=== PATIENT | male | born 1985 | race Hispanic/Latino ===

== ENCOUNTER 2019-11-26 13:49 | Emergency (ER) | payer SELFPAY ==
--- NOTE | 2019-11-26 15:11 | RAD REPORT ---
EXAM DESCRIPTION: RAD - Chest Pa And Lat (2 Views) - 11/26/2019 3:03 pm CLINICAL HISTORY: Cough;Fever Chest pain. COMPARISON: CHEST PA AND LAT 2 VIEW dated 12/05/2007; CHEST PA AND LAT 2 VIEW dated 06/29/2006 FINDINGS: Mild bilateral pulmonary opacities are present, greater on the left, likely representing i nfiltrate/ pneumonia. The heart is normal in size. No displaced fractures.
[2019-11-26] MEDS ORDERED: ACETAMINOPHEN 325 MG TABLET ONE (15:18)
[2019-11-26] MEDS ORDERED: CEFTRIAXONE/SWI 1gm 2 GM/20 ML SYR ONE (16:28)
[2019-11-26] MEDS ORDERED: AZITHROMYCIN IV 500 MG in NA CHLORIDE 0.9% 250 ML IVPB ONE (17:00)
[2019-11-26 17:15] LABS: Basophils % 0.7 % (0-1.3); Hematocrit 44.7 % (39.6-49.0); MPV 11.5 fL (7.6-11.3); RBC Red Blood Cell Count 4.85 M/uL (4.33-5.43)
[2019-11-26] MEDS ORDERED: ONDANSETRON 4 MG/2 ML VIAL ONE (17:21)
--- NOTE | 2019-11-26 17:32 | EDPHYS ---
Physician Documentation [facility] Name: Marek Blood Jr Age: 34 yrs Sex: Male : 1985 Arrival Date: 11/26/2019 Time: 13:51 Bed 6 Private MD: KIARRA Physician Hank Bedolla HPI: 11/25 14:49 This 34 yrs old Male presents to ER via Ambulatory with complaints of kraig Decreased Appetite, Body Aches. 14:49 The patient or guardian reports cough, described as mild. Onset: The symptoms/episode kraig began/occurred 2 day(s) ago. Severity of symptoms: At their worst the symptoms were mild, in the emergency department the symptoms are unchanged. Modifying factors: The symptoms are alleviated by nothing, the symptoms are aggravated by exertion, heat. The patient reports fever, that was measured at 101 degrees Fahrenheit. Modifying factors: there are no obvious modifying factors. Associated signs and symptoms: Pertinent positives: fever, nausea, rhinorrhea. Severity of symptoms: At their worst the symptoms were moderate in the emergency department the symptoms are unchanged. Historical: - Allergies: 14:09 No Known Allergies; ll1 - PMHx: 14:09 Diabetes - NIDDM; ll1 - PSHx: 14:09 None; ll1 - Immunization history:: Adult Immunizations up to date. - Social history:: Patient uses alcohol, only on a social basis. Patient/guardian denies using street drugs, tobacco products, Smoking status: unknown. - Family history:: not pertinent. ROS: 14:49 Constitutional: Negative for fever, chills, and weight loss, Eyes: Negative for injury, kraig pain, redness, and discharge, ENT: Negative for injury, pain, and discharge, Neck: Negative for injury, pain, and swelling, Cardiovascular: Negative for chest pain, palpitations, and edema, Abdomen/GI: Negative for abdominal pain, nausea, vomiting, diarrhea, and constipation, Back: Negative for injury and pain, : Negative for injury, bleeding, discharge, and swelling, MS/Extremity: Negative for injury and deformity, Skin: Negative for injury, rash, and discoloration, Neuro: Negative for headache, weakness, numbness, tingling, and seizure, Psych: Negative for depression, anxiety, suicide ideation, homicidal ideation, and hallucinations, Allergy/Immunology: Negative for hives, rash, and allergies, Endocrine: Negative for neck swelling, polydipsia, polyuria, polyphagia, and marked weight changes, Hematologic/Lymphatic: Negative for swollen nodes, abnormal bleeding, and unusual bruising. 14:49 Respiratory: Positive for cough, with no reported sputum. Exam: 14:54 Constitutional: This is a well developed, well nourished patient who is awake, alert, kraig and in no acute distress. Head/Face: Normocephalic, atraumatic. Eyes: Pupils equal round and reactive to light, extra-ocular motions intact. Lids and lashes normal. Conjunctiva and sclera are non-icteric and not injected. Cornea within normal limits. Periorbital areas with no swelling, redness, or edema. ENT: Nares patent. No nasal discharge, no septal abnormalities noted. Tympanic membranes are normal and external auditory canals are clear. Oropharynx with no redness, swelling, or masses, exudates, or evidence of obstruction, uvula midline. Mucous membranes moist. Neck: Trachea midline, no thyromegaly or masses palpated, and no cervical lymphadenopathy. Supple, full range of motion without nuchal rigidity, or vertebral point tenderness. No Meningismus. Chest/axilla: Normal chest wall appearance and motion. Nontender with no deformity. No lesions are appreciated. Cardiovascular: Regular rate and rhythm with a normal S1 and S2. No gallops, murmurs, or rubs. Normal PMI, no JVD. No pulse deficits. Abdomen/GI: Soft, non-tender, with normal bowel sounds. No distension or tympany. No guarding or rebound. No evidence of tenderness throughout. Back: No spinal tenderness. No costovertebral tenderness. Full range of motion. Male : Normal genitalia with no discharge or lesions. Skin: Warm, dry with normal turgor. Normal color with no rashes, no lesions, and no evidence of cellulitis. MS/ Extremity: Pulses equal, no cyanosis. Neurovascular intact. Full, normal range of motion. Neuro: Awake and alert, GCS 15, oriented to person, place, time, and situation. Cranial nerves II-XII grossly intact. Motor strength 5/5 in all extremities. Sensory grossly intact. Cerebellar exam normal. Normal gait. Psych: Awake, alert, with orientation to person, place and time. Behavior, mood, and affect are within normal limits. 14:54 Respiratory: the patient does not display signs of respiratory distress, Respirations: normal, no acute changes, Breath sounds: bronchial sounds, that are mild, are scattered, Respiratory rate: 18 Vital Signs: 14:07 BP 132 / 90; Pulse 103; Resp 18; Temp 99.6; Pulse Ox 99% ; Weight 88.9 kg; Height 5 ft. ll1 8 in. (172.72 cm); Pain 5/10; 16:55 BP 118 / 74; Pulse 97; Resp 18; Pulse Ox 95% on R/A; ph 17:21 Temp 98.4; ph 18:33 BP 123 / 78; Pulse 89; Resp 20; Temp 98.1; Pulse Ox 97% on R/A; ph 14:07 Body Mass Index 29.80 (88.90 kg, 172.72 cm) ll1 MDM: 14:29 Patient medically screened. [facility] 14:51 Data reviewed: vital signs, nurses notes, lab test result(s), radiologic studies, plain kraig films. 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 Test interpretation: by ED physician or midlevel provider: plain radiologic studies. Counseling: I had a detailed discussion with the patient and/or guardian regarding: the historical points, exam findings, and any diagnostic results supporting the discharge/admit diagnosis, lab results, radiology results, the need for outpatient follow up, for definitive care, a family practitioner. 14:52 Differential diagnosis: viral Infection, bacterial infection, URI, bronchitis, kraig pneumonia. Medication response: acetaminophen administration has normalized the patient's temperature. ED course: no covid exposure known, fever and chills, non toxic will follow up and return if worse. 15:42 ED course: bilateral pna on cxr, will treat for community pna, follow up , self kraig quarantine until results back. 17:05 ED course: pt much improved, understands plan and to self isolate, return to the ER. [facility] 17:32 Differential Diagnosis: Bronchitis Influenza Upper Respiratory Infection Sinusitis kraig Asthma Exacerbation Viral Syndrome Pneumonia. ED course: much improved, will dc with close fu. 11/25 14:49 Order name: Influenza Screen (a \T\ B); Complete Time: 16:23 [facility] 11/25 14:49 Order name: COVID-19; Complete Time: 17:31 [facility] 11/25 14:49 Order name: Chest Pa And Lat (2 Views) XRAY; Complete Time: 16:23 [facility] 11/25 15:40 Order name: CBC with Diff; Complete Time: 17:31 [facility] 11/25 15:40 Order name: Comprehensive Metabolic Panel; Complete Time: 17:45 [facility] 11/25 15:40 Order name: Blood Culture Adult (2) [facility] 11/25 14:49 Order name: PO challenge; Complete Time: 15:08 [facility] Administered Medications: 15:16 Drug: Tylenol 650 mg Route: PO; ph 17:21 Follow up: Response: No adverse reaction ph 17:05 Drug: Rocephin 2 grams Route: IV; Rate: per protocol; Site: left antecubital; ph 17:21 Follow up: Response: No adverse reaction; IV Status: Completed infusion ph 17:10 Drug: Zofran (Ondansetron) 4 mg Route: IVP; Site: left antecubital; ph 18:32 Follow up: Response: No adverse reaction; Nausea is decreased ph 17:19 Drug: Zithromax 500 mg Route: IVPB; Infused Over: 1 hrs; Site: left antecubital; ph 18:32 Follow up: Response: No adverse reaction; IV Status: Completed infusion ph Disposition: 11/26/19 17:31 Discharged to Home. Impression: Acute upper respiratory infection, unspecified, Fever, unspecified, Bronchitis, not specified as acute or chronic, Type 2 diabetes mellitus. - Condition is Stable. - Discharge Instructions: Acute Bronchitis, Adult, Community-Acquired Pneumonia, Adult, Upper Respiratory Infection, Adult, Upper Respiratory Infection, Adult, [id number], Community-Acquired Pneumonia, Adult, [id number]-[id number], Cough, Adult, Fever, Adult, [id number]-yv-Jnrm. - Prescriptions for Bromfed DM 2- 30-10 mg/5 mL Oral syrup - take 10 milliliter by ORAL route every 4 hours; 15 milliliter. Zithromax 500 mg Oral Tablet - take 1 tablet by ORAL route once daily for 5 days; 5 tablet. Albuterol Sulfate 90 mcg/actuation - inhale 1-2 puff by INHALATION route every 4-6 hours; 1 Inhaler. - Medication Reconciliation Form, Thank You Letter, Antibiotic Education, Prescription Opioid Use, Work release form form. - Follow up: Private Physician; When: 2 - 3 days; Reason: Recheck today's complaints, Continuance of care, Re-evaluation by your physician. Follow up: Chivo Mensah; When: 2 - 3 days; Reason: Recheck today's complaints, Continuance of care, Re-evaluation by your physician. - Problem is new. - Symptoms have improved. Signatures: Dispatcher [employer] EDHank Cortez MD MD cha Hall, Patricia, RN RN Debbie Ortega RN RN ll1 Corrections: (The following items were deleted from the chart) 17:45 17:31 11/26/2019 17:31 Discharged to Home. Impression: Acute upper respiratory kraig infection, unspecified; Fever, unspecified; Bronchitis, not specified as acute or chronic. Condition is Stable. Discharge Instructions: Acute Bronchitis, Adult, Upper Respiratory Infection, Adult, Upper Respiratory Infection, Adult, [id number], Cough, Adult, Fever, Adult, [id number], Community-Acquired Pneumonia, Adult, Community-Acquired Pneumonia, Adult, Yirb-xv-Hove. Prescriptions for Bromfed DM 2-30-10 mg/5 mL Oral syrup - take 10 milliliter by ORAL route every 4 hours; 15 milliliter, Zithromax 500 mg Oral Tablet - take 1 tablet by ORAL route once daily for 5 days; 5 tablet, Albuterol Sulfate 90 mcg/actuation - inhale 1-2 puff by INHALATION route every 4-6 hours; 1 Inhaler. and Forms are Medication Reconciliation Form, Thank You Letter, Antibiotic Education, Prescription Opioid Use. Follow up: Private Physician; When: 2 - 3 days; Reason: Recheck today's complaints, Continuance of care, Re-evaluation by your physician. Follow up: Chivo Mensah; When: 2 - 3 days; Reason: Recheck today's complaints, Continuance of care, Re-evaluation by your physician. Problem is new. Symptoms have improved. kraig 18:35 17:45 11/26/2019 17:31 Discharged to Home. Impression: Acute upper respiratory ph infection, unspecified; Fever, unspecified; Bronchitis, not specified as acute or chronic; Type 2 diabetes mellitus. Condition is Stable. Discharge Instructions: Acute Bronchitis, Adult, Upper Respiratory Infection, Adult, Upper Respiratory Infection, Adult, [id number], Cough, Adult, Fever, Adult, Mccq-lq-[id number], Community-Acquired Pneumonia, Adult, Community-Acquired Pneumonia, Adult, Sfzs-[id number]-Lnnl. Prescriptions for Bromfed DM 2-30-10 mg/5 mL Oral syrup - take 10 milliliter by ORAL route every 4 hours; 15 milliliter, Zithromax 500 mg Oral Tablet - take 1 tablet by ORAL route once daily for 5 days; 5 tablet, Albuterol Sulfate 90 mcg/actuation - inhale 1-2 puff by INHALATION route every 4-6 hours; 1 Inhaler. and Forms are Medication Reconciliation Form, Thank You Letter, Antibiotic Education, Prescription Opioid Use. Follow up: Private Physician; When: 2 - 3 days; Reason: Recheck today's complaints, Continuance of care, Re-evaluation by your physician. Follow up: Chivo Mensah; When: 2 - 3 days; Reason: Recheck today's complaints, Continuance of care, Re-evaluation by your physician. Problem is new. Symptoms have improved. kraig
--- NOTE | 2019-11-26 17:32 | ER ---
Nurse's Notes [facility] Name: Marek Blood Jr Age: 34 yrs Sex: Male : 1985 Arrival Date: 11/26/2019 Time: 13:51 Bed 6 Private MD: Diagnosis: Acute upper respiratory infection, unspecified;Fever, unspecified;Bronchitis, not specified as acute or chronic;Type 2 diabetes mellitus Presentation: 11/25 14:07 Chief complaint: Patient states: Slight cough, body aches, decreased appetite since ll1 evening. No known fever. Coronavirus screen: Proceed with normal triage. Patient reports a cough. Patient denies shortness of breath or difficulty breathing. Patient denies measured and/or subjective temperature greater than 100.4F prior to today's visit. Patient denies travel on a cruise ship or to a country the [facility] currently lists as an affected area. Patient denies contact with known and/or suspected case of COVID-19. Ebola Screen: Patient denies travel to an Ebola-affected area in the 21 days before illness onset. Initial Sepsis Screen: Does the patient meet any 2 criteria? HR > 90 bpm. No. Patient's initial sepsis screen is negative. Risk Assessment: Do you want to hurt yourself or someone else? Patient reports no desire to harm self or others. Onset of symptoms was November 21, 2019. 14:07 Method Of Arrival: Ambulatory ll1 14:07 Acuity: ARDEN 3 ll1 18:34 Initial Sepsis Screen: Does the patient have a suspected source of infection? Yes: ph Productive cough/pneumonia. Historical: - Allergies: 14:09 No Known Allergies; ll1 - PMHx: 14:09 Diabetes - NIDDM; ll1 - PSHx: 14:09 None; ll1 - Immunization history:: Adult Immunizations up to date. - Social history:: Patient uses alcohol, only on a social basis. Patient/guardian denies using street drugs, tobacco products, Smoking status: unknown. - Family history:: not pertinent. Screenin:18 Abuse screen: Denies threats or abuse. Denies injuries from another. Nutritional ph screening: No deficits noted. Tuberculosis screening: No symptoms or risk factors identified. Fall Risk None identified. Assessment: 15:16 General: Appears in no apparent distress. comfortable, Behavior is calm, cooperative, ph appropriate for age, Reports chills for fever for. Pain: Complains of pain in head. Neuro: Level of Consciousness is awake, alert, obeys commands, Oriented to person, place, time, situation, Reports dizziness, headache. Cardiovascular: Capillary refill < 3 seconds in bilateral fingers Patient's skin is warm and dry. Respiratory: Airway is patent Respiratory effort is even, labored, Respiratory pattern is regular, symmetrical. GI: Reports nausea, vomiting, Patient currently denies abdominal pain, diarrhea. :. Derm: Skin is intact, is healthy with good turgor, Skin is pink, warm \T\ dry. Musculoskeletal: Circulation, motion, and sensation intact. Range of motion: intact in all extremities. 16:00 Reassessment: Patient appears in no apparent distress at this time. Patient and/or ph family updated on plan of care and expected duration. Pain level reassessed. Patient is alert, oriented x 3, equal unlabored respirations, skin warm/dry/pink. 17:20 Reassessment: Patient appears in no apparent distress at this time. Patient and/or ph family updated on plan of care and expected duration. Pain level reassessed. Patient is alert, oriented x 3, equal unlabored respirations, skin warm/dry/pink. 17:34 Reassessment: D/C pending completion of IV medication. ph 18:32 Reassessment: Patient appears in no apparent distress at this time. Patient and/or ph family updated on plan of care and expected duration. Pain level reassessed. Patient is alert, oriented x 3, equal unlabored respirations, skin warm/dry/pink. Antibiotics complete, pt d/c home w/ prescriptions. Vital Signs: 14:07 BP 132 / 90; Pulse 103; Resp 18; Temp 99.6; Pulse Ox 99% ; Weight 88.9 kg; Height 5 ft. ll1 8 in. (172.72 cm); Pain 5/10; 16:55 BP 118 / 74; Pulse 97; Resp 18; Pulse Ox 95% on R/A; ph 17:21 Temp 98.4; ph 18:33 BP 123 / 78; Pulse 89; Resp 20; Temp 98.1; Pulse Ox 97% on R/A; ph 14:07 Body Mass Index 29.80 (88.90 kg, 172.72 cm) ll1 ED Course: 13:51 Patient arrived in ED. ag5 14:09 Triage completed. ll1 14:09 Arm band placed on Patient notified of wait time. ll1 14:29 Hank Bedolla MD is Attending Physician. kraig 14:50 Mars Walker, RN is Primary Nurse. em 15:02 Chest Pa And Lat (2 Views) XRAY In Process Unspecified. EDMS 15:19 Patient has correct armband on for positive identification. Bed in low position. Call ph light in reach. Side rails up X 1. Pulse ox on. NIBP on. 16:53 Missed attempt(s): 22 gauge in right forearm. Bleeding controlled, band aid applied, ph catheter tip intact. Missed attempt(s): 22 gauge in right forearm. Bleeding controlled, band aid applied, catheter tip intact. 16:55 Initial lab(s) drawn, by la, sent to lab. Inserted saline lock: 22 gauge in left kj1 antecubital area, using aseptic technique. Blood collected. 17:17 Health Dept notified/ PUI # [id number]/ Jose in lab notified. eb 17:31 Chivo Mensah MD is Referral Physician. kraig 17:34 No provider procedures requiring assistance completed. ph 18:34 IV discontinued, intact, bleeding controlled, No redness/swelling at site. Pressure ph dressing applied. Administered Medications: 15:16 Drug: Tylenol 650 mg Route: PO; ph 17:21 Follow up: Response: No adverse reaction ph 17:05 Drug: Rocephin 2 grams Route: IV; Rate: per protocol; Site: left antecubital; ph 17:21 Follow up: Response: No adverse reaction; IV Status: Completed infusion ph 17:10 Drug: Zofran (Ondansetron) 4 mg Route: IVP; Site: left antecubital; ph 18:32 Follow up: Response: No adverse reaction; Nausea is decreased ph 17:19 Drug: Zithromax 500 mg Route: IVPB; Infused Over: 1 hrs; Site: left antecubital; ph 18:32 Follow up: Response: No adverse reaction; IV Status: Completed infusion ph Outcome: 17:31 Discharge ordered by . kraig 18:33 Discharged to home ambulatory. ph 18:33 Condition: good 18:33 Discharge instructions given to patient, Instructed on discharge instructions, follow up and referral plans. medication usage, Demonstrated understanding of instructions, follow-up care, medications, Prescriptions given X 3. 18:35 Patient left the ED. ph Addendum: 11/28/2019 17:14 Addendum: Other Unsuccessful attempt to contact pt about positive COVID-19 results made a a5 by Dr. Chatterjee at 1700. Pt now in ER 11/28/19 at 1714. Signatures: Dispatcher [employer] Hank Nuñez MD MD cha Munoz, Edgar, RN RN Alyx Lorenzo, RN RN aa5 Tiffany Pichardo RN RN Rachel Reynolds Ajare ag5 Jackson, Kandis kj1 Debbie Candelario RN RN ll1
[2019-11-26 17:39] LABS: ALT/SGPT 22 U/L (12-78); AST/SGOT 28 U/L (15-37); Alkaline Phosphatase 81 U/L (45-117); BUN Blood Urea Nitrogen 9 mg/dL (7-18); Bicarbonate 29 mmol/L (21-32); Bilirubin Total 0.5 mg/dL (0.2-1.0); Glucose Level 267 mg/dL (74-106); Potassium 3.6 mmol/L (3.5-5.1); Protein, Total 7.6 g/dL (6.4-8.2); Sodium Level 132 mmol/L (136-145)
[2019-11-26 18:47] VITALS: BP 123/78; TEMP 98.1; O2SAT 97
== END 2019-11-26 18:35 | disposition home or self-care (01) ==
LOC: ER 13:49
DX: U07.1 COVID-19 (principal); J40 Bronchitis, not specified as acute or chronic; E11.9 Type 2 diabetes mellitus without complications
CPT/HCPCS: 36415; 71046; 80053; 85025; 87040; 87804; 96365; 96375; 99284; J0456; J0696; J2405; J7030; U0001

== ENCOUNTER 2019-11-28 17:11 | Inpatient (IN) | payer OTHER, SELFPAY ==
--- NOTE | 2019-11-28 19:11 | RAD REPORT ---
EXAM DESCRIPTION: Sofia Single View11/28/2019 6:58 pm CLINICAL HISTORY: sob COMPARISON: November 26, 2019 FINDINGS: Moderate bilateral pulmonary opacities are present. The heart is normal size IMPRESSION: Moderate bilateral pulmonary opacities likely pneumonia
[2019-11-28 19:17] LABS: Absolute Lymphocytes (CBC) 1.1 K/uL (0.7-4.9); Basophils % 0.7 % (0-1.3); Hematocrit 45.5 % (39.6-49.0); Lymphocytes % 15.3 % (15.3-44.8); RBC Red Blood Cell Count 4.85 M/uL (4.33-5.43)
[2019-11-28 19:34] LABS: Protime INR 1.24
[2019-11-28 19:38] LABS: ALT/SGPT 19 U/L (12-78); AST/SGOT 26 U/L (15-37); Albumin 2.7 g/dL (3.4-5.0); Alkaline Phosphatase 70 U/L (45-117); BUN Blood Urea Nitrogen 8 mg/dL (7-18); Bicarbonate 28 mmol/L (21-32); Bilirubin Direct 0.2 mg/dL (0-0.2); Bilirubin Total 0.6 mg/dL (0.2-1.0); Glucose Level 249 mg/dL (74-106); Lipase 67 U/L (73-393); Potassium 3.7 mmol/L (3.5-5.1); Protein, Total 7.8 g/dL (6.4-8.2); Sodium Level 134 mmol/L (136-145)
[2019-11-28 19:42] LABS: NT PRO-BNP 8 pg/mL (<125); Troponin (Emerg Dept Use Only) < 0.02 ng/mL (0.0-0.045)
[2019-11-28 19:54] LABS: Ferritin 4834.7 ng/mL (26-388)
--- NOTE | 2019-11-28 20:18 | RAD REPORT ---
EXAM DESCRIPTION: CT - Chest For Pe Angio - 11/28/2019 7:55 pm CLINICAL HISTORY: sob COMPARISON: None. TECHNIQUE: Dynamically enhanced axial 3 mm thick images of the chest were obtained during administra tion of <100> mL Isovue 370 IV contrast. Coronal and oblique reconstruction images were generated and reviewed. Exam utilizes a protocol for optimal evaluation of pulmonary arterial tree. Maximum intensity projections 3D imaging was utilized All CT scans are performed using dose optimization technique as appropriate and may include automated exposure control or mA/KV adjustment according to patient size. FINDINGS: A pulmonary embolus is not seen. A thoracic aortic aneurysm is not noted. A pleural effusion is not seen. A pericardial effusion is not seen. Moderate bilateral areas of consolidation are scattered throughout the lungs. Fatty liver IMPRESSION: Negative for a pulmonary embolism. Moderate bilateral areas of consolidation scattered throughout the lungs consistent with pneumonia. T his can be seen with advanced Covid 19
--- NOTE | 2019-11-28 20:38 | ER ---
Nurse's Notes [facility] Name: Marek Blood Jr Age: 34 yrs Sex: Male : 1985 Arrival Date: 11/28/2019 Time: 17:13 Bed 13 Private MD: Diagnosis: COVID-19 Viral illness ;Acute respiratory failure Presentation: 11/27 17:33 Chief complaint: Patient states: Diagnosed in ER Monday with pneumonia and swabbed for ss COVID. Pt does not know his results yet. Pt reports his SOB is getting worse. Coronavirus screen: Patient reports a cough. Patient reports shortness of breath or difficulty breathing. Patient denies measured and/or subjective temperature greater than 100.4F prior to today's visit. Patient denies travel on a cruise ship or to a country the [facility] currently lists as an affected area. Patient denies contact with known and/or suspected case of COVID-19. Ebola Screen: Patient denies exposure to infectious person. Patient denies travel to an Ebola-affected area in the 21 days before illness onset. Initial Sepsis Screen: Does the patient meet any 2 criteria? RR > 20 per min. HR > 90 bpm. Does the patient have a suspected source of infection? Yes: Productive cough/pneumonia. Risk Assessment: Do you want to hurt yourself or someone else? Patient reports no desire to harm self or others. Onset of symptoms was November 21, 2019. 17:33 Method Of Arrival: Ambulatory ss 17:33 Acuity: ARDEN 2 ss Historical: - Allergies: 17:40 No Known Allergies; ss - PMHx: 17:40 Diabetes - NIDDM; ss - Immunization history:: Adult Immunizations up to date. - Social history:: Smoking status: Patient denies any tobacco usage or history of. Screenin:12 Abuse screen: Denies threats or abuse. Denies injuries from another. Nutritional ls4 screening: No deficits noted. Tuberculosis screening: No symptoms or risk factors identified. Fall Risk None identified. Assessment: 17:58 General: Appears in no apparent distress. comfortable, Behavior is calm, cooperative. ls4 19:10 Pain: Denies pain. Neuro: No deficits noted. Respiratory: Reports cough that is ls4 non-productive, dry, hacking, persistent Airway is patent Respiratory effort is even, unlabored, Respiratory pattern is regular, Breath sounds are clear bilaterally. the patient has moderate shortness of breath. GI: Abdomen is non-distended, Bowel sounds present X 4 quads. Abd is soft and non tender X 4 quads. : No deficits noted. No signs and/or symptoms were reported regarding the genitourinary system. Derm: No deficits noted. Musculoskeletal: No deficits noted. No signs and/or symptoms reported regarding the musculoskeletal system. 20:00 Reassessment: Patient appears in no apparent distress at this time. Patient and/or ls4 family updated on plan of care and expected duration. Pain level reassessed. Patient denies pain at this time. 21:02 Reassessment: Patient appears in no apparent distress at this time. Patient and/or ls4 family updated on plan of care and expected duration. Pain level reassessed. Patient denies pain at this time. 22:02 Reassessment: Patient appears in no apparent distress at this time. Patient and/or ls4 family updated on plan of care and expected duration. Pain level reassessed. Patient denies pain at this time. 23:30 Reassessment: report to Carlos CHAVEZ 4th floor. ls4 23:30 Reassessment: Patient appears in no apparent distress at this time. Patient and/or ls4 family updated on plan of care and expected duration. Pain level reassessed. Patient is alert, oriented x 3, equal unlabored respirations, skin warm/dry/pink. Vital Signs: 17:33 BP 117 / 75; Pulse 120; Resp 32; Temp 98.7(TE); Pulse Ox 95% on R/A; Weight 88.9 kg; ss Height 5 ft. 8 in. (172.72 cm); Pain 0/10; 18:10 BP 106 / 67; Pulse 103; Resp 24; Temp 98.4; Pulse Ox 94% on R/A; Pain 0/10; ls4 19:30 BP 106 / 67; Pulse 106; Resp 24; Pulse Ox 94% on R/A; Pain 0/10; ls4 20:30 BP 116 / 75; Pulse 101; Resp 22; Pulse Ox 96% ; Pain 0/10; ls4 21:30 BP 118 / 87; Pulse 97; Resp 20; Pulse Ox 96% on 2 lpm NC; Pain 0/10; ls4 22:30 BP 119 / 85; Pulse 104; Resp 29; Pulse Ox 96% on 2 lpm NC; Pain 0/10; ls4 17:33 Body Mass Index 29.80 (88.90 kg, 172.72 cm) ED Course: 17:13 Patient arrived in ED. ag5 17:39 Triage completed. ss 17:40 Arm band placed on right wrist. ss 17:56 Minna Zambrano, RN is Primary Nurse. ls4 18:05 Patient has correct armband on for positive identification. Bed in low position. Call ls4 light in reach. Side rails up X 1. 18:05 ip attorney on. Pulse ox on. NIBP on. Verbal reassurance given. Droplet isolation ls4 initiated. 18:24 Samuel Lemus PA is PHCP. jr8 18:24 Zach Chatterjee MD is Attending Physician. jr8 18:58 XRAY Chest (1 view) In Process Unspecified. EDMS 19:10 No apparent distress. ls4 19:10 No provider procedures requiring assistance completed. Initial lab(s) drawn, by ia, ls4 sent to lab. Inserted saline lock: 20 gauge in left antecubital area, using aseptic technique. Blood collected. Patient maintains SpO2 saturation greater than 95% on room air. 19:54 Notified Nurse Practitioner and/or Physician Education Finance Processor of a critical lab result(s), d fc dimer 546. 19:55 CT Chest For PE Angio In Process Unspecified. EDMS 20:36 Shabbir Romero MD is Hospitalizing Provider. jr8 23:30 No apparent distress. Resting quietly. ls4 23:30 Patient admitted, IV remains in place. ls4 Administered Medications: 20:23 Not Given (Physician Discretion): Decadron - Dexamethasone 6 mg IVP once jr8 Outcome: 20:37 Decision to Hospitalize by Provider. jr8 11/28 00:03 Admitted to Med/surg via stretcher, room 417, with chart, Report called to CARLOS CHAVEZ ls4 Condition: unchanged Instructed on the need for admit. 00:06 Patient left the ED. ls4 Signatures: Dispatcher [employer] EDMS Iram Rasmussen RN RN Ashley Alex RN RN Samuel Lemus PA PA jr8 Minna Zambrano RN RN ls4 Olivia Chowdhury 5
--- NOTE | 2019-11-28 20:38 | EDPHYS ---
Physician Documentation [facility] Name: Marek Blood Jr Age: 34 yrs Sex: Male : 1985 Arrival Date: 11/28/2019 Time: 17:13 Bed 13 Private MD: ED Physician Zach Chatterjee HPI: 11/27 20:23 This 34 yrs old Male presents to ER via Ambulatory with complaints of jr8 Nausea/Vomiting, Breathing Difficulty, Cough. 20:23 The patient presents to the emergency department with nausea, vomiting. Onset: The jr8 symptoms/episode began/occurred acutely, 5 day(s) ago. Possible causes: unknown. The symptoms are aggravated by nothing. The symptoms are alleviated by nothing. Associated signs and symptoms: Pertinent positives: fever, cough, shortness of breath. Severity of symptoms: At their worst the symptoms were moderate in the emergency department the symptoms are unchanged. The patient has not experienced similar symptoms in the past. The patient has been recently seen by a physician:. Patient stated that he was tested for COVID due to symptoms. Came back positive today. Feeling worse and now more short of breath. Historical: - Allergies: 17:40 No Known Allergies; ss - PMHx: 17:40 Diabetes - NIDDM; ss - Immunization history:: Adult Immunizations up to date. - Social history:: Smoking status: Patient denies any tobacco usage or history of. ROS: 20:23 Eyes: Negative for injury, pain, redness, and discharge, ENT: Negative for injury, jr8 pain, and discharge, Neck: Negative for injury, pain, and swelling, Cardiovascular: Negative for chest pain, palpitations, and edema, Back: Negative for injury and pain, MS/Extremity: Negative for injury and deformity, Skin: Negative for injury, rash, and discoloration, Neuro: Negative for headache, weakness, numbness, tingling, and seizure. 20:23 Constitutional: Positive for body aches, chills, fever, malaise. 20:23 Respiratory: Positive for cough, shortness of breath. 20:23 Abdomen/GI: Positive for nausea and vomiting. Exam: 20:23 Eyes: Pupils equal round and reactive to light, extra-ocular motions intact. Lids and jr8 lashes normal. Conjunctiva and sclera are non-icteric and not injected. Cornea within normal limits. Periorbital areas with no swelling, redness, or edema. ENT: Nares patent. No nasal discharge, no septal abnormalities noted. Tympanic membranes are normal and external auditory canals are clear. Oropharynx with no redness, swelling, or masses, exudates, or evidence of obstruction, uvula midline. Mucous membranes moist. Neck: Trachea midline, no thyromegaly or masses palpated, and no cervical lymphadenopathy. Supple, full range of motion without nuchal rigidity, or vertebral point tenderness. No Meningismus. Abdomen/GI: Soft, non-tender, with normal bowel sounds. No distension or tympany. No guarding or rebound. No evidence of tenderness throughout. Back: No spinal tenderness. No costovertebral tenderness. Full range of motion. Skin: Warm, dry with normal turgor. Normal color with no rashes, no lesions, and no evidence of cellulitis. MS/ Extremity: Pulses equal, no cyanosis. Neurovascular intact. Full, normal range of motion. Neuro: Awake and alert, GCS 15, oriented to person, place, time, and situation. Cranial nerves II-XII grossly intact. Motor strength 5/5 in all extremities. Sensory grossly intact. Cerebellar exam normal. Normal gait. 20:23 Cardiovascular: Rate: tachycardic, Rhythm: regular, Pulses: Pulses are 2+ in right radial artery and left radial artery. Heart sounds: normal, normal S1and S2, no S3 or S4, no murmur, no rub, no gallop, Edema: is not appreciated. 20:23 Respiratory: mild respiratory distress is noted, Respirations: tachypnea, Breath sounds: are clear throughout, no bronchial sounds, no decreased breath sounds, no rales, rhonchi, no stridor, no wheezing, Respiratory rate: 32 20:23 ECG was reviewed by the Attending Physician. jr8 Vital Signs: 17:33 BP 117 / 75; Pulse 120; Resp 32; Temp 98.7(TE); Pulse Ox 95% on R/A; Weight 88.9 kg; ss Height 5 ft. 8 in. (172.72 cm); Pain 0/10; 18:10 BP 106 / 67; Pulse 103; Resp 24; Temp 98.4; Pulse Ox 94% on R/A; Pain 0/10; ls4 19:30 BP 106 / 67; Pulse 106; Resp 24; Pulse Ox 94% on R/A; Pain 0/10; ls4 20:30 BP 116 / 75; Pulse 101; Resp 22; Pulse Ox 96% ; Pain 0/10; ls4 21:30 BP 118 / 87; Pulse 97; Resp 20; Pulse Ox 96% on 2 lpm NC; Pain 0/10; ls4 22:30 BP 119 / 85; Pulse 104; Resp 29; Pulse Ox 96% on 2 lpm NC; Pain 0/10; ls4 17:33 Body Mass Index 29.80 (88.90 kg, 172.72 cm) ss MDM: 18:28 Patient medically screened. [facility] 20:27 Data reviewed: vital signs, nurses notes, lab test result(s), EKG, radiologic studies, [facility] CT scan, plain films. Data interpreted: Pulse oximetry: on room air is 91 %. Interpretation: borderline. Counseling: I had a detailed discussion with the patient and/or guardian regarding: the historical points, exam findings, and any diagnostic results supporting the discharge/admit diagnosis, lab results, radiology results, the need for further work-up and treatment in the hospital. 11/27 17:58 Order name: BMP; Complete Time: 20:18 [facility] 11/27 17:58 Order name: CBC with Diff; Complete Time: 19:33 [facility] 11/27 17:58 Order name: Hepatic Function; Complete Time: 20:18 [facility] 11/27 17:58 Order name: Lipase; Complete Time: 20:18 [facility] 11/27 17:58 Order name: Magnesium; Complete Time: 20:18 [facility] 11/27 18:25 Order name: NT PRO-BNP; Complete Time: 20:18 [facility] 11/27 18:25 Order name: PT-INR; Complete Time: 20:18 [facility] 11/27 18:25 Order name: Troponin (emerg Dept Use Only); Complete Time: 20:18 [facility] 11/27 18:25 Order name: DD; Complete Time: 20:18 [facility] 11/27 18:25 Order name: Ferritin; Complete Time: 20:18 [facility] 11/27 18:25 Order name: LDH; Complete Time: 20:18 [facility] 11/27 19:33 Order name: Blood Culture Adult (2) [facility] 11/27 19:33 Order name: Procalcitonin; Complete Time: 21:51 [facility] 11/27 19:33 Order name: Lactate; Complete Time: 21:39 [facility] 11/27 21:42 Order name: ABG Arterial Blood Gas EDMS 11/27 21:42 Order name: ABG Arterial Blood Gas EDMS 11/27 21:42 Order name: CBC with Automated Diff EDMS 11/27 21:42 Order name: CBC with Automated Diff EDMS 11/27 21:42 Order name: Comprehensive Metabolic Panel EDMS 11/27 21:42 Order name: Comprehensive Metabolic Panel EDMS 11/27 21:42 Order name: Lactate EDMS 11/27 21:42 Order name: Lactate EDMS 11/27 21:42 Order name: Lipid Profile EDMS 11/27 21:42 Order name: Lipid Profile EDMS 11/27 21:42 Order name: Magnesium EDMS 11/27 21:42 Order name: Magnesium EDMS 11/27 21:42 Order name: NT PRO-BNP EDMS 11/27 21:42 Order name: NT PRO-BNP EDMS 11/27 21:42 Order name: Phosphorus EDMS 11/27 21:42 Order name: Phosphorus EDMS 11/27 17:58 Order name: EKG; Complete Time: 17:59 [facility] 11/27 17:58 Order name: Cardiac monitoring; Complete Time: 19:09 [facility] 11/27 17:58 Order name: EKG - Nurse/Tech; Complete Time: 21:06 [facility] 11/27 17:58 Order name: IV Saline Lock; Complete Time: 19:09 [facility] 11/27 17:58 Order name: Labs collected and sent; Complete Time: 19:09 [facility] 11/27 17:58 Order name: O2 Per Protocol; Complete Time: 19:09 [facility] 11/27 17:58 Order name: O2 Sat Monitoring; Complete Time: 19:09 [facility] 11/27 18:25 Order name: XRAY Chest (1 view); Complete Time: 19:33 [facility] 11/27 19:33 Order name: CT Chest For PE Angio; Complete Time: 20:22 [facility] 11/27 21:42 Order name: CONS Physician Consult EDMO 11/27 21:42 Order name: Consistent Carb (ADA) 1800 Rad EDMO 11/27 21:42 Order name: Protime (+INR) EDMO 11/27 21:42 Order name: Protime (+INR) EDMS 11/27 21:42 Order name: PTT, Activated Partial Thromb EDMS 11/27 21:42 Order name: PTT, Activated Partial Thromb EDMS 11/27 21:42 Order name: Troponin I EDMS 11/27 21:42 Order name: Troponin I EDMS 11/27 21:42 Order name: Troponin I EDMS 11/27 21:42 Order name: Troponin I EDMS EC:23 Rate is 106 beats/min. Rhythm is regular, Sinus tachycardia. QRS [place] is Normal. [place] jr8 interval is normal at 154 msec. QRS interval is normal at 98 msec. QT interval is normal at 348 msec. No Q waves. T waves are Flattened in lead III. No ST changes noted. Clinical impression: Sinus tachycardia and No evidence of ischemia. Interpreted by me. Reviewed by me. Administered Medications: 20: Not Given (Physician Discretion): Decadron - Dexamethasone 6 mg IVP once jr8 Disposition: 11/28 14:57 Co-signature as Attending Physician, Zach Chatterjee MD I agree with the assessment and kdr plan of care. Disposition: 11/28/19 20:37 Hospitalization ordered by Shabbir Romero for Inpatient Admission. Preliminary diagnosis are COVID-19 Viral illness , Acute respiratory failure. - Bed requested for Telemetry/MedSurg (Inpatient). - Status is Inpatient Admission. ls4 - Condition is Fair. - Problem is new. - Symptoms have improved. Signatures: Dispatcher [employer] [facility] Kelli Valenzuela RN RN Zach Chatterjee MD MD [facility] Ashley Alex RN RN ss Roszak, Josh, PA PA jr8 Minna Zambrano, RN RN ls4 Corrections: (The following items were deleted from the chart) 11/27 22:53 20:37 Hospitalization Ordered by Shabbir Romero MD for Inpatient Admission. Preliminary dw diagnosis is COVID-19 Viral illness ; Acute respiratory failure. Bed requested for Intensive Care Unit. Status is Inpatient Admission. Condition is Fair. Problem is new. Symptoms have improved. jr8 11/28 00:06 11/27 22:53 11/28/2019 20:37 Hospitalization Ordered by Shabbir Romero MD for Inpatient ls4 Admission. Preliminary diagnosis is COVID-19 Viral illness ; Acute respiratory failure. Bed requested for Telemetry/MedSurg (Inpatient). Status is Inpatient Admission. Condition is Fair. Problem is new. Symptoms have improved. dw
[2019-11-28] MEDS ORDERED: IPRATROPIUM BROM 0.5MG/2.5ML NEB PRN (21:26)
[2019-11-28] MEDS ORDERED: ALBUTEROL 2.5 MG/3 ML NEB SOL NEB PRN (21:26)
[2019-11-28] MEDS ORDERED: ONDANSETRON 4 MG/2 ML VIAL IV PRN (21:26)
[2019-11-28] MEDS ORDERED: ACETAMINOPHEN 500 MG TAB PO PRN (21:26)
[2019-11-28] MEDS ORDERED: D50W 25 GM/50 ML SYRINGE/VIAL IV PRN (21:40)
[2019-11-28] MEDS ORDERED: GLUCAGON 1 MG/VIAL IM PRN (21:40)
[2019-11-28] MEDS: ALBUTEROL INHALER 60 PUFF/8 GM IH SCH (21:45)
[2019-11-28] MEDS ORDERED: NA CHLORIDE 0.9% 1,000 ML IV SCH (22:00)
--- NOTE | 2019-11-28 22:57 | P.HP ---
Certification for Inpatient Patient admitted to: Inpatient With expected LOS: >2 Midnights Patient will require the following post-hospital care: None Practitioner: I am a practitioner with admitting privileges, knowledge of patient current condition, hospital course, and medical plan of care. Services: Services provided to patient in accordance with Admission requirements found in Title 42 Section 412.3 of the Code of Federal Regulations Patient History Date of Service: 11/28/19 Reason for admission: COVID-19 pneumonia-consolidation History of Present Illness: Patient is a 34-year-old gentleman who comes to the hospital sick for the last few days. His coughing was getting worse so he came into the emergency room a couple of days ago. In the ER he was found have a pneumonia and sent home on inhaler therapy and antibiotic therapy. However, he was not getting any better. Whenever he we used the inhaler he says is symptom would worsen. He decided to come into the hospital for further evaluation. We arrived evaluation of his COVID-19 testing confirmed that he had COVID-[address] scan was also performed which revealed consolidation in multiple areas of infiltrate. Patient was hypoxic as well. He was admitted to the hospital and started on IV Decadron. Will get pulmonary consultation and continue with IV antibiotics as well. Cough medication as needed. Inhaler therapy as needed as well. Allergies No Known Allergies Allergy (Unverified 11/29/19 01:26) Home Medications: Albuterol Sulfate [Albuterol Sulfate Hfa] 2 inh IH Q4HP PRN 11/29/19 Atorvastatin Calcium [Lipitor] 40 mg PO DAILY 11/29/19 Azithromycin 500 mg PO DAILY 11/29/19 Glipizide [Glipizide ER] 10 mg PO DAILY 11/29/19 Metformin ER [Glucophage ER*] 500 mg PO BID 11/29/19 - Past Medical/Surgical History -: Diabetes type 1 Past Surgical History: Patient denies surgical history - Family History Father Family History: Reviewed- Non-Contributory - Social History Smoking Status: Never smoker Alcohol use: No CD- Drugs: No Review of Systems 10-point ROS is otherwise unremarkable Physical Examination - Vital Signs Temperature: 99 F Blood Pressure: 150/90 Pulse: 88 Respirations: 20 Pulse Ox (%): 92 - Physical Exam General: Alert, In no apparent distress, Oriented x3 HEENT: Atraumatic, PERRLA, Mucous membr. moist/pink, EOMI, Sclerae nonicteric Neck: Supple, 2+ carotid pulse no bruit, No LAD, Without JVD or thyroid abnormality Respiratory: Diminished, Rhonchi/gurgles Cardiovascular: Regular rate/rhythm, No murmurs Gastrointestinal: Normal bowel sounds, Soft and benign, Non-distended, No tenderness Musculoskeletal: No clubbing, No swelling, No tenderness Integumentary: No rashes Neurological: Normal gait, Normal speech, Normal strength at 5/5 x4 extr, Normal tone, Normal affect Lymphatics: No axilla or inguinal lymphadenopathy - Studies Laboratory Data (last 24 hrs) 11/28/19 19:00: PT 14.6 H, INR 1.24 11/28/19 19:00: WBC 7.4 D, Hgb 15.3, Hct 45.5, Plt Count 127 L D 11/28/19 19:00: Sodium 134 L, Potassium 3.7, BUN 8, Creatinine 0.76, Glucose 249 H, Magnesium 2.0, Total Bilirubin 0.6, AST 26, ALT 19, Alkaline Phosphatase 70, Lipase 67 L Assessment & Plan - Problems (Diagnosis) (1) Pneumonia due to COVID-19 virus Current Visit: Yes Status: Acute (2) Diabetes type 2, uncontrolled Current Visit: Yes Status: Acute (3) Hypoxemia Current Visit: Yes Status: Acute - Plan 1. Continue with IV antibiotics 2. IV Decadron therapy; strict blood sugar control and monitoring 3. Repeat chest x-ray 4. Will proceed with CT scan of the chest if pneumonia is not improved 5. Pulmonary consultation 6. Continue with nebs or albuterol inhaler therapy as needed 7. O2 per protocol 8. Continue with gentle hydration 9. Repeat labs including CBC and renal function in a.m. 10. GI and DVT prophylaxis Discharge Plan: Home Plan to discharge in: Greater than 2 days - Advance Directives Does patient have a Living Will: No Does patient have a Durable POA for Healthcare: No - Code Status/Comfort Care Code Status Assessed: Yes Code Status: Full Code Critical Care: No Time Spent Managing PTS Care (In Minutes): 45
[2019-11-29] MEDS ORDERED: AZITHROMYCIN 500 MG INJ IVPB ONE (00:06)
[2019-11-29] MEDS: dexAMETHasone 10 MG/ML VIAL IV SCH ×2 (00:07→05:53)
[2019-11-29] MEDS: CEFTRIAXONE/SWI 1gm 1 GM/10 ML SYR IV SCH ×2 (00:08→10:14)
[2019-11-29] MEDS ORDERED: NA CHLORIDE 0.9% 250 ML ONE (00:17)
[2019-11-29 00:27] VITALS: BMI 29.9
[2019-11-29] MEDS: ENOXAPARIN 40 MG/0.4 ML SQ SCH ×3 (00:30→20:45)
[2019-11-29] MEDS ORDERED: MORPHINE 4 MG/ML SYR IV PRN (00:33)
[2019-11-29] MEDS: INSULIN GLARGINE 100 UNITS/ML SQ SCH ×2 (00:40→21:15)
[2019-11-29] MEDS: INSULIN -REGULAR HUMAN 50 UNIT/0.5 ML ML SQ SCH ×6 (00:40→21:15)
[2019-11-29] MEDS: ALBUTEROL INHALER 60 PUFF/8 GM IH SCH ×4 (03:45→21:16)
--- NOTE | 2019-11-29 06:38 | EKG ---
Test Date: 2019-11-28 Test Time: 19:28:00 [employer] Vice President: PANTERA MEASUREMENT RESULTS: Intervals: Rate: 106 LA: 154 QRSD: 98 QT: 348 QTc: 462 [place]: P: 17 LA: 154 QRS: 2 T: 43 INTERPRETIVE STATEMENTS: Sinus tachycardia Otherwise normal ECG Compared to ECG 12/05/2007 10:39:31 Sinus rhythm no longer present Myocardial infarct finding no longer present Electronically Signed On 11-29-19 06:37:34 CDT by Stanley Small
[2019-11-29 06:50] LABS: Absolute Lymphocytes (CBC) 0.9 K/uL (0.7-4.9); Basophils % 0.2 % (0-1.3); Hematocrit 41.9 % (39.6-49.0); Lymphocytes % 13.3 % (15.3-44.8); MPV 11.9 fL (7.6-11.3); RBC Red Blood Cell Count 4.53 M/uL (4.33-5.43)
[2019-11-29 07:01] LABS: Protime INR 1.13
[2019-11-29 07:14] LABS: ALT/SGPT 18 U/L (12-78); AST/SGOT 27 U/L (15-37); Albumin 2.5 g/dL (3.4-5.0); Alkaline Phosphatase 65 U/L (45-117); BUN Blood Urea Nitrogen 9 mg/dL (7-18); Bicarbonate 25 mmol/L (21-32); Bilirubin Total 0.5 mg/dL (0.2-1.0); Glucose Level 269 mg/dL (74-106); HDL Cholesterol 19 mg/dL (40-60); LDL Cholesterol, Calculated 66 (<130); Magnesium 2.3 mg/dL (1.8-2.4); Phosphorus 2.9 mg/dL (2.5-4.9); Protein, Total 7.3 g/dL (6.4-8.2); Sodium Level 135 mmol/L (136-145); Troponin I < 0.02 ng/mL (0.0-0.045)
[2019-11-29 07:15] LABS: Arterial Blood Carboxyhemoglob 1.5 % (0-1.5); Blood Gas Oxyhemoglobin 85.5 % (94-97); Blood O2 Saturation 87.3 % (92-98.5)
[2019-11-29 07:18] LABS: NT PRO-BNP < 5 pg/mL (<125)
[2019-11-29] MEDS ORDERED: AZITHROMYCIN IV 500 MG in NA CHLORIDE 0.9% 250 ML IVPB SCH ×2 (09:00→21:00)
[2019-11-29] MEDS ORDERED: GUAIFENESIN/CODEINE 5ML UCUP PO PRN (09:26)
--- NOTE | 2019-11-29 09:29 | P.PN ---
Subjective Date of Service: 11/29/19 Patient remains hypoxic at this time. However, he states he is feeling better. We use incentive spirometer as well. Pulmonary consultation pending. Continue with albuterol inhaler, Decadron, and antibiotics. Review of Systems 10-point ROS is otherwise unremarkable Physical Examination - Vital Signs Temperature: 99 F Blood Pressure: 150/90 Pulse: 88 Respirations: 20 Pulse Ox (%): 92 - Physical Exam General: Alert, In no apparent distress, Oriented x3 Respiratory: Diminished, Expiratory wheezes Cardiovascular: Regular rate/rhythm, Normal S1 S2, No murmurs Gastrointestinal: Normal bowel sounds, Soft and benign, Non-distended, No tenderness Musculoskeletal: No clubbing, No swelling, No tenderness Integumentary: No rashes Neurological: Normal tone, Sensation intact - Studies Laboratory Data (last 24 hrs) 11/28/19 19:00: PT 14.6 H, INR 1.24 11/28/19 19:00: WBC 7.4 D, Hgb 15.3, Hct 45.5, Plt Count 127 L D 11/28/19 19:00: Sodium 134 L, Potassium 3.7, BUN 8, Creatinine 0.76, Glucose 249 H, Magnesium 2.0, Total Bilirubin 0.6, AST 26, ALT 19, Alkaline Phosphatase 70, Lipase 67 L Medications List Reviewed: Yes Assessment & Plan - Problems (Diagnosis) (1) Pneumonia due to COVID-19 virus Current Visit: Yes Status: Acute (2) Diabetes type 2, uncontrolled Current Visit: Yes Status: Acute (3) Hypoxemia Current Visit: Yes Status: Acute - Plan 1. Continue with IV antibiotics; patient states he is feeling better 2. IV Decadron therapy; strict blood sugar control and monitoring 3. Repeat chest x-ray in the next 24-48 hr; repeat ABG tomorrow morning as well 4. Will proceed with CT scan of the chest if pneumonia is not improved 5. Pulmonary consultation pending 6. Continue with nebs or albuterol inhaler therapy as needed 7. O2 per protocol 8. Continue with gentle hydration 9. Repeat labs including CBC and renal function in a.m. 10. GI and DVT prophylaxis; full dose anti coagulation will not be used at this time but will do Lovenox 40 subcu b.i.d. Discharge Plan: Home Plan to discharge in: Greater than 2 days - Advance Directives Does patient have a Living Will: No Does patient have a Durable POA for Healthcare: No - Code Status/Comfort Care Code Status: Full Code Critical Care: No Time Spent Managing PTS Care (In Minutes): 30
[2019-11-29] MEDS: dexAMETHasone 4 MG/ML VIAL IV SCH ×2 (11:57→16:55)
--- NOTE | 2019-11-29 13:23 | P.CNS ---
Date of Consult: 11/29/19 Reason for Consult: Wesley virus infection Chief Complaint: COVID-19 pneumonia-consolidation History of Present Illness: Patient is 34 years of age history obtained from review of medical records patient was seen from a distance no examination performed currently he has been coughing came to the emergency room was found to have pneumonia wesley virus positive currently stable on nasal cannula oxygen Allergies No Known Allergies Allergy (Unverified 11/29/19 01:26) Home Medications: Albuterol Sulfate [Albuterol Sulfate Hfa] 2 inh IH Q4HP PRN 11/29/19 Atorvastatin Calcium [Lipitor] 40 mg PO DAILY 11/29/19 Azithromycin 500 mg PO DAILY 11/29/19 Glipizide [Glipizide ER] 10 mg PO DAILY 11/29/19 Metformin ER [Glucophage ER*] 500 mg PO BID 11/29/19 - Past Medical/Surgical History Diabetic: Yes -: Diabetes type 1 - Family History Father Family History: Reviewed- Non-Contributory - Social History Smoking Status: Unknown if ever smoked Alcohol use: No CD- Drugs: No Caffeine use: No Place of Residence: Home Review of Systems is unable to be obtained Physical Examination Temp Pulse Resp BP Pulse Ox 99 F 82 20 107/67 93 11/29/19 12:00 11/29/19 12:00 11/29/19 12:00 11/29/19 12:00 11/29/19 12:00 General: Other (Exam deferred) Laboratory Data (last 24 hrs) 11/28/19 19:00: PT 14.6 H, INR 1.24 11/28/19 19:00: WBC 7.4 D, Hgb 15.3, Hct 45.5, Plt Count 127 L D 11/28/19 19:00: Sodium 134 L, Potassium 3.7, BUN 8, Creatinine 0.76, Glucose 249 H, Magnesium 2.0, Total Bilirubin 0.6, AST 26, ALT 19, Alkaline Phosphatase 70, Lipase 67 L - Problems (1) Pneumonia due to COVID-19 virus Current Visit: Yes Status: Acute Plan: Patient is 34 years of age admitted with wesley virus pneumonia bilateral infiltrates continue with Decadron and low-dose of spironolactone anti ROMEO negative fluid balance if he continues to get worse will resdesmir ovoid any ne bulizer the when consider a BiPAP change to p.o. levofloxacin
[2019-11-29] MEDS: SPIRONOLACTONE 25 MG TABLET PO SCH (16:55)
[2019-11-30] MEDS: dexAMETHasone 4 MG/ML VIAL IV SCH ×4 (00:23→17:06)
[2019-11-30] MEDS: ALBUTEROL INHALER 60 PUFF/8 GM IH SCH ×4 (03:45→20:20)
[2019-11-30] MEDS: GLIPIZIDE S.A. 5 MG TAB PO SCH (08:01)
[2019-11-30] MEDS: METFORMIN ER 500 MG TAB PO SCH ×2 (08:01→17:07)
[2019-11-30] MEDS: levoFLOXacin 500 MG TAB PO SCH (08:02)
[2019-11-30] MEDS: SPIRONOLACTONE 25 MG TABLET PO SCH (08:02)
[2019-11-30] MEDS: ENOXAPARIN 40 MG/0.4 ML SQ SCH ×2 (08:02→20:19)
[2019-11-30] MEDS: ATORVASTATIN 40 MG TAB PO SCH (08:04)
[2019-11-30] MEDS ORDERED: BENZONATATE 100 MG CAP PO PRN (08:27)
[2019-11-30] MEDS: INSULIN -REGULAR HUMAN 50 UNIT/0.5 ML ML SQ SCH ×4 (08:38→20:18)
[2019-11-30] MEDS ORDERED: HOME MED 1 EA UNK (Glipizide [Glipizide Er] 10 MG) PO SCH (09:00)
[2019-11-30] MEDS: GUAIFENESIN 600 MG SA TAB PO SCH ×2 (10:11→20:19)
--- NOTE | 2019-11-30 15:15 | P.PN ---
Subjective Date of Service: 11/30/19 Chief Complaint: COVID-19 pneumonia-consolidation Subjective: Improving Physical Examination - Vital Signs Temperature: 97.3 F Blood Pressure: 107/71 Pulse: 80 Respirations: 20 Pulse Ox (%): 93 - Physical Exam General: Alert, In no apparent distress, Oriented x3, Cooperative HEENT: Atraumatic Neck: Supple Respiratory: Clear to auscultation bilaterally, Normal air movement Cardiovascular: Normal pulses, Regular rate/rhythm Gastrointestinal: Normal bowel sounds, No tenderness, No masses, No rebound, No guarding Musculoskeletal: No erythema, No tenderness, No warmth Integumentary: No tenderness/swelling, No erythema, No warmth, No cyanosis Neurological: Normal speech, Normal strength at 5/5 x4 extr, Normal tone, Normal affect - Studies Medications List Reviewed: Yes Assessment & Plan Discharge Plan: Home Plan to discharge in: 48 Hours Physician Review Additional Text: Impression: Bilateral viral pneumonia positive for COVID 19 infection Diabetes mellitus type 2 with hyperglycemia Hyperlipidemia Plan: Continue with antibiotic therapy, Decadron, and oxygen. Continue wean off. Encourage incentive spirometer. Encourage ambulation. Will start Lantus for better diabetic control. Restart home medication-metformin and glipizide. Continue with statin medication. Patient on higher dose DVT prophylaxis medication. Will continue monitor closely. Patient has improved. Patient declined convalescent plasma. Anticipate improvement over the next 48 hr. Time Spent Managing Pts Care (In Minutes): 55
[2019-11-30] MEDS: INSULIN GLARGINE 100 UNITS/ML SQ SCH (20:18)
[2019-12-01] MEDS: dexAMETHasone 4 MG/ML VIAL IV SCH ×5 (00:09→23:41)
[2019-12-01] MEDS: ALBUTEROL INHALER 60 PUFF/8 GM IH SCH ×5 (03:45→23:42)
[2019-12-01] MEDS: METFORMIN ER 500 MG TAB PO SCH ×2 (08:33→17:10)
[2019-12-01] MEDS: ATORVASTATIN 40 MG TAB PO SCH (08:33)
[2019-12-01] MEDS: ENOXAPARIN 40 MG/0.4 ML SQ SCH ×2 (08:34→20:01)
[2019-12-01] MEDS: SPIRONOLACTONE 25 MG TABLET PO SCH (08:34)
[2019-12-01] MEDS: levoFLOXacin 500 MG TAB PO SCH (08:34)
[2019-12-01] MEDS: GLIPIZIDE S.A. 5 MG TAB PO SCH (08:34)
[2019-12-01] MEDS: GUAIFENESIN 600 MG SA TAB PO SCH ×2 (08:34→20:01)
[2019-12-01] MEDS: INSULIN -REGULAR HUMAN 50 UNIT/0.5 ML ML SQ SCH ×4 (08:35→21:13)
--- NOTE | 2019-12-01 09:27 | P.PN ---
Subjective Date of Service: 12/01/19 Chief Complaint: COVID-19 pneumonia-consolidation Subjective: Improving (Patient is doing much better room-air sats a satisfactory no new complaints) Review of Systems Unremarkable Physical Examination - Vital Signs Temperature: 97.8 F Blood Pressure: 144/90 Pulse: 72 Respirations: 18 Pulse Ox (%): 92 - Physical Exam General: Alert, In no apparent distress, Oriented x3 - Studies Medications List Reviewed: Yes Assessment & Plan - Problems (Diagnosis) (1) Pneumonia due to COVID-19 virus Current Visit: Yes Status: Acute Plan: Patient is doing much better room-air sats a satisfactory discharged home on prednisone 10 mg twice a day for a week no antibiotics needed resume all his home medications to do a telephone visit with me in 1 weeks
--- NOTE | 2019-12-01 13:48 | P.DS ---
Admission Date: 11/28/19 Discharge Date: 12/01/19 Disposition: ROUTINE DISCHARGE Discharge Condition: GOOD Reason for Admission: COVID-19 pneumonia-consolidation - Problems (1) Diabetes type 2, uncontrolled Current Visit: Yes Status: Acute (2) Hypoxemia Current Visit: Yes Status: Acute (3) Pneumonia due to COVID-19 virus Current Visit: Yes Status: Acute Brief History of Present Illness: Please refer to H&P Hospital Course: Patient is 34 year old female who was admitted with atypical PNA secondary to COVID 19. He has been successfully weaned off oxygen. Today was my first encounter with the patient. He was on room air without respiratory distress. Patient will be discharged to complete a week course of prednisone. Vital Signs/Physical Exam: Temp Pulse Resp BP Pulse Ox 97.5 F 72 18 121/72 93 12/01/19 12:00 12/01/19 12:00 12/01/19 12:00 12/01/19 12:00 12/01/19 12:00 General: Alert, In no apparent distress, Cooperative HEENT: Atraumatic, Normocephalic, EOMI Neck: Supple Respiratory: Clear to auscultation bilaterally, Normal air movement Cardiovascular: No edema, Normal pulses, Regular rate/rhythm, Normal S1 S2 Gastrointestinal: Normal bowel sounds, Soft and benign, Non-distended, No ascites Musculoskeletal: No clubbing, No swelling, No contractures, No erythema, No tenderness, No warmth Integumentary: No rashes, No breakdown, No significant lesion, No tenderness/swelling, No erythema, No warmth, No cyanosis Neurological: Normal speech, Sensation intact, Normal affect Laboratory Data at Discharge: WBC 7.0 K/uL (4.3-10.9) 11/29/19 06:30 Hgb 14.5 g/dL (13.6-17.9) 11/29/19 06:30 Hct 41.9 % (39.6-49.0) 11/29/19 06:30 Plt Count 116 K/uL (152-406) L 11/29/19 06:30 PT 13.3 SECONDS (9.5-12.5) H 11/29/19 06:30 INR 1.13 11/29/19 06:30 APTT 43.6 SECONDS (24.3-36.9) H 11/29/19 06:30 Sodium 135 mmol/L (136-145) L 11/29/19 06:30 Potassium 4.0 mmol/L (3.5-5.1) 11/29/19 06:30 BUN 9 mg/dL (7-18) 11/29/19 06:30 Creatinine 0.54 mg/dL (0.55-1.3) L 11/29/19 06:30 Glucose 269 mg/dL (74-106) H 11/29/19 06:30 Phosphorus 2.9 mg/dL (2.5-4.9) 11/29/19 06:30 Magnesium 2.3 mg/dL (1.8-2.4) 11/29/19 06:30 Total Bilirubin 0.5 mg/dL (0.2-1.0) 11/29/19 06:30 AST 27 U/L (15-37) 11/29/19 06:30 ALT 18 U/L (12-78) 11/29/19 06:30 Alkaline Phosphatase 65 U/L (45-117) 11/29/19 06:30 Troponin I < 0.02 ng/mL (0.0-0.045) 12/01/19 06:18 Triglycerides 156 mg/dL (<150) H 11/29/19 06:30 Cholesterol 116 mg/dL (<200) 11/29/19 06:30 HDL Cholesterol 19 mg/dL (40-60) L 11/29/19 06:30 Cholesterol/HDL Ratio 6.11 11/29/19 06:30 Lipase 67 U/L (73-393) L 11/28/19 19:00 Home Medications: Albuterol Sulfate [Albuterol Sulfate Hfa] 2 inh IH Q4HP PRN 11/29/19 Atorvastatin Calcium [Lipitor] 40 mg PO DAILY 11/29/19 Glipizide [Glipizide ER] 10 mg PO DAILY 11/29/19 Metformin ER [Glucophage ER*] 500 mg PO BID 11/29/19 predniSONE [Deltasone*] 10 mg PO BID #14 tab 12/01/19 New Medications: predniSONE [Deltasone*] 10 mg PO BID #14 tab Patient Discharge Instructions: Patient to call for follow-up next week Diet: Regular Activity: Ad anant
[2019-12-01] MEDS ORDERED: GLUCAGON 1 MG/VIAL IM PRN (15:06)
[2019-12-01] MEDS ORDERED: D50W 25 GM/50 ML SYRINGE/VIAL IV PRN (15:06)
--- NOTE | 2019-12-01 15:16 | P.PN ---
Subjective Date of Service: 12/01/19 Chief Complaint: COVID-19 pneumonia-consolidation Subjective: Improving (Is doing well. He is stabilized from a respiratory standpoint. Doing well on room air. He is discharged was delayed due to uncontrolled hyperglycemia. He is going to need a home regimen of long- acting/intermediate acting scheduled insulin, which she does not have at home. Patient is on a have any insurance. I will bring this up with the employment evaluator/case manager at the [facility]) Physical Examination - Vital Signs Temperature: 97.5 F Blood Pressure: 121/72 Pulse: 72 Respirations: 18 Pulse Ox (%): 93 - Physical Exam General: Alert, In no apparent distress, Cooperative HEENT: Atraumatic, Normocephalic, EOMI Neck: Supple Respiratory: Clear to auscultation bilaterally, Normal air movement Cardiovascular: No edema, Regular rate/rhythm, Normal S1 S2 Gastrointestinal: Normal bowel sounds, Soft and benign, Non-distended Musculoskeletal: No clubbing, No swelling, No contractures, No erythema, No tenderness, No warmth Integumentary: No rashes, No breakdown, No significant lesion, No tenderness/swelling, No erythema, No warmth, No cyanosis Neurological: Normal speech, Sensation intact, Normal affect - Studies Medications List Reviewed: Yes Assessment & Plan - Problems (Diagnosis) (1) Diabetes type 2, uncontrolled Current Visit: Yes Status: Acute (2) Hypoxemia Current Visit: Yes Status: Acute (3) Pneumonia due to COVID-19 virus Current Visit: Yes Status: Acute Physician Review Additional Text: Impression: Patient is a 34 year old male with uncontrolled type II diabetes mellitus admitted wt COVID 19. He is stable from a respiratory standpoint. He is staying in the hospital for management of uncontrolled DM. A1c 10.1. Patient is insulin naive prior to this admission. He does not have any insurance. Bilateral viral pneumonia positive for COVID 19 infection Diabetes mellitus type 2 with hyperglycemia Hyperlipidemia Plan: Change insulin regimen from lantus to NPH Continue insulin sliding scale Continue statin Continue with antibiotic therapy, Decadron, and oxygen. Systemic anticoagulation until discharge Patient declined convalenscent plasma Encourage incentive spirometer. Encourage ambulation.
[2019-12-01] MEDS: NPH (HUMAN) 100 UNITS/ML INSULIN SQ SCH (17:10)
[2019-12-02] MEDS: dexAMETHasone 4 MG/ML VIAL IV SCH ×2 (06:24→11:52)
[2019-12-02] MEDS: INSULIN -REGULAR HUMAN 50 UNIT/0.5 ML ML SQ SCH ×2 (07:30→11:30)
[2019-12-02] MEDS: SPIRONOLACTONE 25 MG TABLET PO SCH (08:09)
[2019-12-02] MEDS: METFORMIN ER 500 MG TAB PO SCH (08:10)
[2019-12-02] MEDS: NPH (HUMAN) 100 UNITS/ML INSULIN SQ SCH (08:10)
[2019-12-02] MEDS: GLIPIZIDE S.A. 5 MG TAB PO SCH (08:10)
[2019-12-02] MEDS: GUAIFENESIN 600 MG SA TAB PO SCH (08:10)
[2019-12-02] MEDS: ENOXAPARIN 40 MG/0.4 ML SQ SCH (08:10)
[2019-12-02] MEDS: levoFLOXacin 500 MG TAB PO SCH (08:10)
[2019-12-02] MEDS: ATORVASTATIN 40 MG TAB PO SCH (08:10)
[2019-12-02] MEDS: ALBUTEROL INHALER 60 PUFF/8 GM IH SCH (08:11)
[2019-12-02 10:22] VITALS: O2SAT 97
--- NOTE | 2019-12-02 10:36 | P.DS ---
Admission Date: 11/28/19 Discharge Date: 12/02/19 Disposition: ROUTINE DISCHARGE Discharge Condition: GOOD Reason for Admission: COVID-19 pneumonia-consolidation - Problems (1) Diabetes type 2, uncontrolled Current Visit: Yes Status: Acute (2) Hypoxemia Current Visit: Yes Status: Acute (3) Pneumonia due to COVID-19 virus Current Visit: Yes Status: Acute Brief History of Present Illness: Please refer to H&P Hospital Course: Patient is 34 year old female who was admitted with atypical PNA secondary to COVID 19. He has been successfully weaned off oxygen and is currently without respiratory distress. Patient was supposed to be discharged yesterday but stayed due to uncontrolled hyperglycemia. He was started on NPH. His A1c 10.1. He is insulin naive. Case discussed during MDR today. SW/CM assistance requested for insulin supplies. Patient will be discharged to complete a week course of prednisone. Vital Signs/Physical Exam: Temp Pulse Resp BP Pulse Ox 97.6 F 77 19 142/78 H 97 12/02/19 07:52 12/02/19 08:09 12/02/19 07:52 12/02/19 08:09 12/02/19 07:52 General: Alert, In no apparent distress, Cooperative HEENT: Atraumatic, Normocephalic, EOMI Neck: Supple Respiratory: Clear to auscultation bilaterally, Normal air movement Cardiovascular: Normal pulses, Regular rate/rhythm, Normal S1 S2 Gastrointestinal: Normal bowel sounds, Soft and benign, Non-distended, No tenderness Musculoskeletal: No clubbing, No swelling, No contractures, No erythema, No tenderness, No warmth Integumentary: No rashes, No breakdown, No significant lesion, No tenderness/swelling, No erythema, No warmth, No cyanosis Neurological: Normal speech, Sensation intact, Normal affect Laboratory Data at Discharge: WBC 7.0 K/uL (4.3-10.9) 11/29/19 06:30 Hgb 14.5 g/dL (13.6-17.9) 11/29/19 06:30 Hct 41.9 % (39.6-49.0) 11/29/19 06:30 Plt Count 116 K/uL (152-406) L 11/29/19 06:30 PT 13.3 SECONDS (9.5-12.5) H 11/29/19 06:30 INR 1.13 11/29/19 06:30 APTT 43.6 SECONDS (24.3-36.9) H 11/29/19 06:30 Sodium 135 mmol/L (136-145) L 11/29/19 06:30 Potassium 4.0 mmol/L (3.5-5.1) 11/29/19 06:30 BUN 9 mg/dL (7-18) 11/29/19 06:30 Creatinine 0.54 mg/dL (0.55-1.3) L 11/29/19 06:30 Glucose 269 mg/dL (74-106) H 11/29/19 06:30 Phosphorus 2.9 mg/dL (2.5-4.9) 11/29/19 06:30 Magnesium 2.3 mg/dL (1.8-2.4) 11/29/19 06:30 Total Bilirubin 0.5 mg/dL (0.2-1.0) 11/29/19 06:30 AST 27 U/L (15-37) 11/29/19 06:30 ALT 18 U/L (12-78) 11/29/19 06:30 Alkaline Phosphatase 65 U/L (45-117) 11/29/19 06:30 Troponin I < 0.02 ng/mL (0.0-0.045) 12/01/19 06:18 Triglycerides 156 mg/dL (<150) H 11/29/19 06:30 Cholesterol 116 mg/dL (<200) 11/29/19 06:30 HDL Cholesterol 19 mg/dL (40-60) L 11/29/19 06:30 Cholesterol/HDL Ratio 6.11 11/29/19 06:30 Lipase 67 U/L (73-393) L 11/28/19 19:00 Home Medications: Albuterol Sulfate [Albuterol Sulfate Hfa] 2 inh IH Q4HP PRN 11/29/19 Atorvastatin Calcium [Lipitor] 40 mg PO DAILY 11/29/19 Glipizide [Glipizide ER] 10 mg PO DAILY 11/29/19 Metformin ER [Glucophage ER*] 500 mg PO BID 11/29/19 predniSONE [Deltasone*] 10 mg PO BID #14 tab 12/01/19 Insulin NPH Human [Novolin N (Humulin N)*] 20 units SQ BIDWM #15 ml 12/02/19 levoFLOXacin [Levaquin*] 500 mg PO DAILY #3 tab 12/02/19 New Medications: predniSONE [Deltasone*] 10 mg PO BID #14 tab levoFLOXacin [Levaquin*] 500 mg PO DAILY #3 tab Insulin NPH Human [Novolin N (Humulin N)*] 20 units SQ BIDWM #15 ml Patient Discharge Instructions: Patient to call for follow-up next week Diet: ADA Activity: Ad anant
[2019-12-02 11:39] VITALS: BP 135/66; TEMP 98
--- NOTE | 2019-12-02 12:42 | P.PN ---
Subjective Date of Service: 12/02/19 Chief Complaint: COVID-19 pneumonia-consolidation Subjective: Improving (No new complaints her sugars elevated secondary to steroids) Review of Systems Patient not in reviewed Physical Examination - Vital Signs Temperature: 98 F Blood Pressure: 135/66 Pulse: 63 Respirations: 18 Pulse Ox (%): 98 - Physical Exam General: Other (Examination deferred) - Studies Medications List Reviewed: Yes Assessment & Plan - Problems (Diagnosis) (1) Pneumonia due to COVID-19 virus Current Visit: Yes Status: Acute Plan: Patient admitted with the gautam virus pneumonia he has done very well room-air saturation satisfactory discharge on low-dose prednisone 10 mg twice a day for 7 days also had some Zithromax hemoglobin A1c was significantly elevated cholesterol is satisfactory triglycerides mildly elevated follow-up with me in 2 weeks
== END 2019-12-02 13:15 | disposition home or self-care (01) | DRG 177 ==
LOC: ER 17:11 → ERHOLD 22:43 → 4TH 23:37
PROVIDERS: ADMIT Internal Medicine; ATTEND Internal Medicine
PROC: 8E0ZXY6 Isolation (ICD-10-PCS; principal; 2019-11-28)
DX: U07.1 COVID-19 (principal); J12.89 Other viral pneumonia; E78.5 Hyperlipidemia, unspecified; E11.65 Type 2 diabetes mellitus with hyperglycemia; R09.02 Hypoxemia; Z79.899 Other long term (current) drug therapy; Z79.84 Long term (current) use of oral hypoglycemic drugs
CPT/HCPCS: 36415; 71045; 71275; 80048; 80053; 80061; 80076; 82728; 82805; 82947; 83036; 83605; 83615; 83690; 83735; 83880; 84100; 84145; 84484; 85025; 85379; 85610; 85730; 87040; 87205; 93005; 94760; 99285; J0456; J0696; J1100; J1650; J1815; J2405; J7030; Q9967

== ENCOUNTER 2020-03-20 04:42 | Emergency (ER) | payer SELFPAY ==
[2020-03-20] MEDS ORDERED: KETOROLAC 30 MG/ML INJ ONE (05:58)
[2020-03-20] MEDS ORDERED: ONDANSETRON 4 MG (ODT) TAB ONE (06:16)
--- NOTE | 2020-03-20 06:33 | ER ---
Nurse's Notes [facility] Name: Marek Blood Jr Age: 34 yrs Sex: Male : 1985 Arrival Date: 03/20/2020 Time: 04:45 Bed 5 Private MD: Diagnosis: Migraine without aura, not intractable Presentation: 03/20 04:50 Chief complaint: Patient states: Left sided headache and left sided arm pain, pt sg reports sensation feels like someone hit me in the face and in the arm, feels sore, pt reports having been unable to sleep over night due to the discomfort and the headache. Coronavirus screen: Client denies travel out of the [place] in the last 14 days. At this time, the client does not indicate any symptoms associated with coronavirus-19. Initial Sepsis Screen: Does the patient meet any 2 criteria? HR > 90 bpm. Does the patient have a suspected source of infection? No. Patient's initial sepsis screen is negative. Risk Assessment: Do you want to hurt yourself or someone else? Patient reports no desire to harm self or others. Onset of symptoms was March 20, 2020. 04:50 Acuity: ARDEN 3 sg 04:50 Method Of Arrival: Ambulatory sg 06:47 Ebola Screen: Patient negative for fever greater than or equal to 101.5 degrees ll2 Fahrenheit, and additional compatible Ebola Virus Disease symptoms. Historical: - Allergies: 04:46 No Known Allergies; sg - PMHx: 04:46 Diabetes - NIDDM; sg - Immunization history:: Adult Immunizations up to date. - Social history:: Smoking status: . Screenin:58 Abuse screen: Denies threats or abuse. Nutritional screening: No deficits noted. ea Tuberculosis screening: No symptoms or risk factors identified. Fall Risk None identified. Assessment: 04:50 General: Appears in no apparent distress. uncomfortable, Behavior is calm, cooperative, rr5 appropriate for age. 04:50 Pain: Complains of pain in left arm and left eye and forehead Pain currently is 10 out rr5 of 10 on a pain scale. Quality of pain is described as aching, Pain began gradually, Is intermittent. Neuro: Level of Consciousness is awake, alert, obeys commands, Oriented to person, place, time, situation. Cardiovascular: Capillary refill < 3 seconds Patient's skin is warm and dry. Respiratory: Airway is patent Respiratory effort is even, unlabored, Respiratory pattern is regular, symmetrical. GI: No signs and/or symptoms were reported involving the gastrointestinal system. : No signs and/or symptoms were reported regarding the genitourinary system. EENT: No signs and/or symptoms were reported regarding the EENT system. Derm: Skin is intact, is healthy with good turgor, Skin temperature is warm. Musculoskeletal: Circulation, motion, and sensation intact. Capillary refill < 3 seconds, Reports pain in left arm and left eye and forehead. 06:00 Reassessment: Patient appears in no apparent distress at this time. Patient is alert, rr5 oriented x 3, equal unlabored respirations, skin warm/dry/pink. Patient states symptoms have improved. 06:50 Reassessment: Patient appears in no apparent distress at this time. Patient is alert, rr5 oriented x 3, equal unlabored respirations, skin warm/dry/pink. discharge instruction given and explained without complaints made. Vital Signs: 04:50 BP 137 / 109; Pulse 92; Resp 16; Temp 97.8; Pulse Ox 98% on R/A; Weight 92.99 kg; sg Height 5 ft. 9 in. (175.26 cm); Pain 10/10; 06:00 BP 137 / 90; Pulse 90; Resp 17; Pulse Ox 97% ; Pain 7/10; rr5 06:49 BP 131 / 85; Pulse 85; Resp 17; Pulse Ox 99% ; rr5 04:50 Body Mass Index 30.27 (92.99 kg, 175.26 cm) sg [place] Coma Score: 05:54 Eye Response: spontaneous(4). Verbal Response: oriented(5). Motor Response: obeys tw4 commands(6). Total: 15. ED Course: 04:45 Patient arrived in ED. ag3 04:46 Arm band placed on. sg 04:53 Wiley Dutton MD is Attending Physician. tw4 04:57 Tulio Guardado RN is Primary Nurse. rr5 04:58 Triage completed. sg 04:59 Patient has correct armband on for positive identification. Placed in gown. Bed in low ea position. Call light in reach. 06:47 No provider procedures requiring assistance completed. Patient did not have IV access ll2 during this emergency room visit. Administered Medications: 05:52 CANCELLED (wrong method of administration): TORadol 60 mg IVP once ll2 05:52 Drug: TORadol 60 mg Route: IM; Site: left gluteus; ll2 05:52 Follow up: Response: No adverse reaction ll2 06:04 Drug: Zofran (Ondansetron) 4 mg Route: PO; ll2 06:12 Follow up: Response: No adverse reaction ll2 Outcome: 06:32 Discharge ordered by . tw4 06:47 Discharged to home ambulatory. ll2 06:47 Condition: stable 06:47 Discharge instructions given to patient, Instructed on discharge instructions, follow up and referral plans. medication usage, Demonstrated understanding of instructions, follow-up care, medications, Prescriptions given X 2. 06:48 Patient left the ED. ll2 Signatures: David Oglesby, RN RN sg Simona Painting RN RN Wiley Prabhakar MD MD tw4 Elise Jimenez3 Tulio Guardado, RN RN rr5 Flora Pham RN RN ll2 Corrections: (The following items were deleted from the chart) 06:29 06:00 BP 137 / 90; Pulse 90bpm; Resp 17bpm; Pulse Ox 97%; rr5 rr5
--- NOTE | 2020-03-20 06:33 | EDPHYS ---
Physician Documentation [facility] Name: Marek Blood Jr Age: 34 yrs Sex: Male : 1985 Arrival Date: 03/20/2020 Time: 04:45 Bed 5 Private MD: ED Physician Wiley Dutton HPI: 03/20 05:54 This 34 yrs old Male presents to ER via Ambulatory with complaints of BODY tw4 ACHES,HEADACHE. 05:54 The patient complains of pain to the forehead and left eye. The patient describes the tw4 headache as a pressure. Onset: The symptoms/episode began/occurred today. Associated signs and symptoms: The patient has no apparent associated signs or symptoms. Severity of symptoms: At its worst the pain was moderate, in the emergency department the pain is unchanged. Headache History: The patient has had previous headaches. The symptoms are alleviated by nothing. the symptoms are aggravated by nothing. The patient has not experienced similar symptoms in the past. Historical: - Allergies: 04:46 No Known Allergies; sg - PMHx: 04:46 Diabetes - NIDDM; sg - Immunization history:: Adult Immunizations up to date. - Social history:: Smoking status: . ROS: 05:54 Constitutional: Negative for fever, chills, and weight loss, Eyes: Negative for injury, tw4 pain, redness, and discharge, Cardiovascular: Negative for chest pain, palpitations, and edema, Respiratory: Negative for shortness of breath, cough, wheezing, and pleuritic chest pain, Abdomen/GI: Negative for abdominal pain, nausea, vomiting, diarrhea, and constipation, Back: Negative for injury and pain, MS/Extremity: Negative for injury and deformity, Skin: Negative for injury, rash, and discoloration. 05:54 Neuro: Positive for headache, Negative for altered mental status, dizziness, gait disturbance, seizure activity, speech changes, syncope, near syncope, tinnitus, tremor, visual changes. Exam: 05:54 Constitutional: This is a well developed, well nourished patient who is awake, alert, tw4 and in no acute distress. Head/Face: Normocephalic, atraumatic. Chest/axilla: Normal chest wall appearance and motion. Nontender with no deformity. No lesions are appreciated. Cardiovascular: Regular rate and rhythm with a normal S1 and S2. No gallops, murmurs, or rubs. Normal PMI, no JVD. No pulse deficits. Respiratory: Lungs have equal breath sounds bilaterally, clear to auscultation and percussion. No rales, rhonchi or wheezes noted. No increased work of breathing, no retractions or nasal flaring. Abdomen/GI: Soft, non-tender, with normal bowel sounds. No distension or tympany. No guarding or rebound. No evidence of tenderness throughout. Back: No spinal tenderness. No costovertebral tenderness. Full range of motion. MS/ Extremity: Pulses equal, no cyanosis. Neurovascular intact. Full, normal range of motion. Neuro: Awake and alert, GCS 15, oriented to person, place, time, and situation. Cranial nerves II-XII grossly intact. Motor strength 5/5 in all extremities. Sensory grossly intact. Cerebellar exam normal. Normal gait. Vital Signs: 04:50 BP 137 / 109; Pulse 92; Resp 16; Temp 97.8; Pulse Ox 98% on R/A; Weight 92.99 kg; sg Height 5 ft. 9 in. (175.26 cm); Pain 10/10; 06:00 BP 137 / 90; Pulse 90; Resp 17; Pulse Ox 97% ; Pain 7/10; rr5 06:49 BP 131 / 85; Pulse 85; Resp 17; Pulse Ox 99% ; rr5 04:50 Body Mass Index 30.27 (92.99 kg, 175.26 cm) sg Iona Coma Score: 05:54 Eye Response: spontaneous(4). Verbal Response: oriented(5). Motor Response: obeys tw4 commands(6). Total: 15. MDM: 05:32 Patient medically screened. tw4 05:54 Data reviewed: vital signs, nurses notes. tw4 03/20 04:54 Order name: COVID-19 tw4 03/20 04:54 Order name: Flu; Complete Time: 06:31 tw4 03/20 04:54 Order name: Strep; Complete Time: 06:31 4 03/20 06:00 Order name: Throat Culture EDWA 03/20 04:54 Order name: Droplet/Contact Precautions; Complete Time: 05:43 tw4 03/20 04:54 Order name: Labs collected and sent; Complete Time: 05:43 tw4 03/20 04:54 Order name: O2 Per Protocol; Complete Time: 05:43 4 Administered Medications: 05:52 CANCELLED (wrong method of administration): TORadol 60 mg IVP once ll2 05:52 Drug: TORadol 60 mg Route: IM; Site: left gluteus; ll2 05:52 Follow up: Response: No adverse reaction ll2 06:04 Drug: Zofran (Ondansetron) 4 mg Route: PO; ll2 06:12 Follow up: Response: No adverse reaction ll2 Disposition: 03/20/20 06:32 Discharged to Home. Impression: Migraine without aura, not intractable. - Condition is Stable. - Discharge Instructions: Migraine Headache. - Prescriptions for Fiorinal 50- 325-40 mg Oral Capsule - take 1 capsule by ORAL route every 4 hours As needed - not to exceed 6 capsules per day; 20 capsule. Zofran 4 mg Oral Tablet - take 1 tablet by ORAL route every 12 hours As needed; 6 tablet. - Work release form, Family Work Release, Medication Reconciliation Form, Thank You Letter, Antibiotic Education, Prescription Opioid Use form. - Follow up: Private Physician; When: Upon discharge from the Emergency Department; Reason: Recheck today's complaints, Continuance of care, Re-evaluation by your physician. - Problem is new. - Symptoms have improved. Signatures: Dispatcher [employer] EDMS David Oglesby RN RN sg Wiley Dutton MD MD tw4 Flora Pham RN RN ll2 Corrections: (The following items were deleted from the chart) 05:43 04:54 Document PUI# ordered. tw4 rr5 05:43 04:54 Notify [facility] [phone]/ ordered. tw4 rr5 05:52 05:43 TORadol 60 mg IVP once ordered. ll2 ll2 05:52 05:51 TORadol 60 mg IVP once ordered. ll2 ll2 06:48 06:32 03/20/2020 06:32 Discharged to Home. Impression: Migraine without aura, not ll2 intractable. Condition is Stable. Forms are Medication Reconciliation Form, Thank You Letter, Antibiotic Education, Prescription Opioid Use. Follow up: Private Physician; When: Upon discharge from the Emergency Department; Reason: Recheck today's complaints, Continuance of care, Re-evaluation by your physician. Problem is new. Symptoms have improved. tw4
[2020-03-20 07:00] VITALS: TEMP 97.8
[2020-03-20 07:02] VITALS: BP 137/90; O2SAT 97
== END 2020-03-20 06:48 | disposition home or self-care (01) ==
LOC: ER 04:42
DX: G43.909 Migraine, unspecified, not intractable, without status migrainosus (principal)
CPT/HCPCS: 87070; 87081; 87804; 96372; 99283; U0002

== ENCOUNTER 2020-03-25 09:16 | Emergency (ER) | payer SELFPAY ==
--- NOTE | 2020-03-25 09:46 | RAD REPORT ---
EXAM DESCRIPTION: CT - Head Brain Wo Cont - 03/25/2020 9:41 am CLINICAL HISTORY: HEADACHE, left side for 1 week with nausea, dizziness and blurred vision COMPARISON: No comparisons TECHNIQUE: Axial 5 mm thick images of the head were obtained without IV contrast. All CT scans are performed using dose optimization technique as appropriate and may include automated exposure control or mA/KV adjustment according to patient size. FINDINGS: No intracranial hemorrhage, mass, edema or shift of mid-line structures. No acute infarcti on changes seen. No abnormal extra-axial fluid collections. Ventricles are normal. Physiologic calcif ications are present in the left basal ganglia. Mastoid air cells and visualized portions of the paranasal sinuses are clear. No acute bony findings. IMPRESSION: Negative non-contrast CT head examination.
[2020-03-25] MEDS ORDERED: METOCLOPRAMIDE 10 MG/2mL INJ ONE (09:48)
[2020-03-25] MEDS ORDERED: DIPHENHYDRAMINE 50 MG/ML VIAL ONE (09:48)
[2020-03-25] MEDS ORDERED: NA CHLORIDE 0.9% 1,000 ML ONE (10:50)
[2020-03-25 10:56] LABS: Absolute Lymphocytes (CBC) 2.4 K/uL (0.7-4.9); Basophils % 0.7 % (0-1.3); Hematocrit 43.6 % (39.6-49.0); Lymphocytes % 31.3 % (15.3-44.8); MPV 11.9 fL (7.6-11.3); RBC Red Blood Cell Count 4.69 M/uL (4.33-5.43)
[2020-03-25] MEDS ORDERED: INSULIN -REGULAR HUMAN 50 UNIT/0.5 ML ML ONE (11:22)
[2020-03-25 11:23] LABS: Potassium 3.6 mmol/L (3.5-5.1)
--- NOTE | 2020-03-25 12:33 | ER ---
Nurse's Notes [facility] Name: Marek Blood Jr Age: 34 yrs Sex: Male : 1985 Arrival Date: 03/25/2020 Time: 09:18 Bed 19 Private MD: Diagnosis: Migraine;Hyperglycemia, unspecified Presentation: 03/25 09:26 Chief complaint: Left sided headache x 1 week, Also c/o nausea, dizziness, and blurred hb vision. Seen in ED for same s/s last week, says the Fioricet helps for a little while but then headache returns. Coronavirus screen: headache. Ebola Screen: No symptoms or risks identified at this time. Initial Sepsis Screen: Does the patient meet any 2 criteria? No. Patient's initial sepsis screen is negative. Does the patient have a suspected source of infection? No. Patient's initial sepsis screen is negative. Risk Assessment: Do you want to hurt yourself or someone else? Patient reports no desire to harm self or others. Onset of symptoms was March 18, 2020. 09:26 Method Of Arrival: Ambulatory hb 09:26 Acuity: ARDEN 3 hb Historical: - Allergies: 09:31 No Known Allergies; hb - Home Meds: 09:31 Glipizide Oral [Active]; Metformin Oral [Active]; atorvastatin oral oral [Active]; hb - PMHx: 09:31 Diabetes - NIDDM; hb - PSHx: 09:31 None; hb - Immunization history:: Adult Immunizations up to date. - Social history:: Smoking status: Patient reports the use of cigarette tobacco products, denies chronic smoking, but will smoke occasionally. Screenin:35 Abuse screen: Denies threats or abuse. Nutritional screening: No deficits noted. em Tuberculosis screening: No symptoms or risk factors identified. Fall Risk None identified. Assessment: 10:10 General: Appears in no apparent distress. uncomfortable, Behavior is calm, cooperative, em appropriate for age, Denies fever. Pain: Complains of pain in left temporal area and left side of forehead Pain currently is 10 out of 10 on a pain scale. Pain began 2 weeks ago. Neuro: Level of Consciousness is awake, alert, obeys commands, Oriented to person, place, time, situation, Appropriate for age Moves all extremities. Gait is steady, Speech is normal, Facial symmetry appears normal, Reports blurred vision since 2 weeks ago. Cardiovascular: Capillary refill < 3 seconds Patient's skin is warm and dry. Respiratory: Airway is patent Respiratory effort is even, unlabored, Respiratory pattern is regular, symmetrical. GI: Reports nausea. Derm: Skin is intact, is healthy with good turgor, Skin is pink, warm \T\ dry. Musculoskeletal: Capillary refill < 3 seconds, Range of motion: intact in all extremities. 10:40 Reassessment: Patient appears in no apparent distress at this time. Patient and/or em family updated on plan of care and expected duration. Pain level reassessed. Patient is alert, oriented x 3, equal unlabored respirations, skin warm/dry/pink. 11:39 Reassessment: Patient appears in no apparent distress at this time. Patient and/or em family updated on plan of care and expected duration. Pain level reassessed. Patient is alert, oriented x 3, equal unlabored respirations, skin warm/dry/pink. rates pain 3/10 Patient states feeling better. Patient states symptoms have improved. 12:45 Reassessment: Patient appears in no apparent distress at this time. Patient and/or em family updated on plan of care and expected duration. Pain level reassessed. Patient is alert, oriented x 3, equal unlabored respirations, skin warm/dry/pink. Vital Signs: 09:26 BP 145 / 107; Pulse 86; Resp 16; Temp 97.9; Pulse Ox 100% ; Weight 90.72 kg; Height 5 hb ft. 8 in. (172.72 cm); Pain 8/10; 10:15 BP 156 / 105; Pulse 98; Resp 18; Pulse Ox 98% on R/A; em 11:45 BP 130 / 92; Pulse 89; Resp 18; Pulse Ox 96% on R/A; Pain 3/10; em 12:45 BP 117 / 87; Pulse 91; Resp 18; Pulse Ox 99% on R/A; Pain 3/10; em 09:26 Body Mass Index 30.41 (90.72 kg, 172.72 cm) ED Course: 09:18 Patient arrived in ED. ds1 09:24 Mars Walker, SCOTT is Primary Nurse. em 09:29 Triage completed. hb 09:30 Samuel Lemus PA is PHCP. jr8 09:30 Zach Chatterjee MD is Attending Physician. jr8 09:31 Arm band placed on. hb 09:35 Patient has correct armband on for positive identification. Bed in low position. Call em light in reach. Adult w/ patient. 09:41 CT Head Brain wo Cont In Process Unspecified. EDMS 10:03 Initial lab(s) drawn, by me, sent to lab. Inserted saline lock: 22 gauge in left em antecubital area, using aseptic technique. Blood collected. 12:44 No provider procedures requiring assistance completed. IV discontinued, intact, em bleeding controlled, No redness/swelling at site. Pressure dressing applied. Administered Medications: 10:03 Drug: Benadryl 25 mg Route: IVP; Site: left antecubital; em 10:43 Follow up: Response: No adverse reaction; Marked relief of symptoms; Pain is decreased em 10:05 Drug: Reglan 10 mg Route: IVP; Site: left antecubital; em 10:42 Follow up: Response: No adverse reaction; Marked relief of symptoms; Pain is decreased em 10:42 Drug: NS 0.9% 1000 ml Route: IV; Rate: 1000 ml; Site: left antecubital; em 11:49 Follow up: IV Status: Completed infusion; IV Intake: 1000ml em 11:37 Drug: Insulin Regular Human 10 units {Co-Signature: ss (Ashley Alex RN).} Route: IVP; em Site: left antecubital; 12:30 Follow up: Response: No adverse reaction em Point of Care Testing: Blood Glucose: 10:08 Blood Glucose: 462 mg/dL; em Ranges: Intake: 11:49 IV: 1000ml; Total: 1000ml. em Outcome: 12:33 Discharge ordered by . jr8 12:44 Discharged to home ambulatory. em 12:44 Condition: good 12:44 Discharge instructions given to patient, Instructed on discharge instructions, follow up and referral plans. medication usage, Demonstrated understanding of instructions, follow-up care, medications, Prescriptions given X 1. 12:45 Patient left the ED. em Signatures: Dispatcher [employer] Mars Nieves RN RN em Yvrose Brown ds1 Samuel Lemus PA PA jr8 Marta Chew RN RN Ashley Alex RN ss Corrections: (The following items were deleted from the chart) 10:42 10:42 NS 0.9% 1000 ml IV at 1000 ml in right antecubital em em
--- NOTE | 2020-03-25 12:34 | EDPHYS ---
Physician Documentation [facility] Name: Marek Blood Jr Age: 34 yrs Sex: Male : 1985 Arrival Date: 03/25/2020 Time: :18 Bed 19 Private MD: ED Physician Zach Chatterjee HPI: 03/25 10:07 This 34 yrs old Male presents to ER via Ambulatory with complaints of jr8 Headache, Eye Pain, Vision Issue. 10:07 The patient complains of pain to the forehead, left side of forehead and left temporal jr8 area. The patient describes the headache as throbbing. Onset: The symptoms/episode began/occurred gradually, 2 week(s) ago. Associated signs and symptoms: Pertinent positives: blurred vision. Severity of symptoms: At its worst the pain was moderate, in the emergency department the pain is unchanged. Headache History: Denies prior headaches. The symptoms are alleviated by Fiorcet/Fiornol. The patient has experienced a previous episode. The patient has been recently seen by a physician:. Patient stated that he was seen recently for same symptoms. Was given medicine to go home on which helps but that the headache still persists. Came back because it was worse today. Denies headache history in past other then was started 2 weeks ago . Historical: - Allergies: 09: No Known Allergies; hb - Home Meds: :31 Glipizide Oral [Active]; Metformin Oral [Active]; atorvastatin oral oral [Active]; hb - PMHx: 09:31 Diabetes - NIDDM; hb - PSHx: 09:31 None; hb - Immunization history:: Adult Immunizations up to date. - Social history:: Smoking status: Patient reports the use of cigarette tobacco products, denies chronic smoking, but will smoke occasionally. ROS: 10:07 ENT: Negative for injury, pain, and discharge, Neck: Negative for injury, pain, and jr8 swelling, Cardiovascular: Negative for chest pain, palpitations, and edema, Respiratory: Negative for shortness of breath, cough, wheezing, and pleuritic chest pain, Abdomen/GI: Negative for abdominal pain, nausea, vomiting, diarrhea, and constipation, Back: Negative for injury and pain, MS/Extremity: Negative for injury and deformity, Skin: Negative for injury, rash, and discoloration. 10:07 Eyes: Positive for blurry vision. 10:07 Neuro: Positive for headache, visual changes, Negative for altered mental status, dizziness, gait disturbance, hearing loss, loss of consciousness, numbness, seizure activity, speech changes, syncope, near syncope, tingling, tinnitus, tremor, weakness. Exam: 10:07 Eyes: Pupils equal round and reactive to light, extra-ocular motions intact. Lids and jr8 lashes normal. Conjunctiva and sclera are non-icteric and not injected. Cornea within normal limits. Periorbital areas with no swelling, redness, or edema. ENT: Nares patent. No nasal discharge, no septal abnormalities noted. Tympanic membranes are normal and external auditory canals are clear. Oropharynx with no redness, swelling, or masses, exudates, or evidence of obstruction, uvula midline. Mucous membranes moist. Neck: Trachea midline, no thyromegaly or masses palpated, and no cervical lymphadenopathy. Supple, full range of motion without nuchal rigidity, or vertebral point tenderness. No Meningismus. Cardiovascular: Regular rate and rhythm with a normal S1 and S2. No gallops, murmurs, or rubs. Normal PMI, no JVD. No pulse deficits. Respiratory: Lungs have equal breath sounds bilaterally, clear to auscultation and percussion. No rales, rhonchi or wheezes noted. No increased work of breathing, no retractions or nasal flaring. Abdomen/GI: Soft, non-tender, with normal bowel sounds. No distension or tympany. No guarding or rebound. No evidence of tenderness throughout. Back: No spinal tenderness. No costovertebral tenderness. Full range of motion. Skin: Warm, dry with normal turgor. Normal color with no rashes, no lesions, and no evidence of cellulitis. MS/ Extremity: Pulses equal, no cyanosis. Neurovascular intact. Full, normal range of motion. Neuro: Awake and alert, GCS 15, oriented to person, place, time, and situation. Cranial nerves II-XII grossly intact. Motor strength 5/5 in all extremities. Sensory grossly intact. Cerebellar exam normal. Normal gait. Vital Signs: 09:26 BP 145 / 107; Pulse 86; Resp 16; Temp 97.9; Pulse Ox 100% ; Weight 90.72 kg; Height 5 hb ft. 8 in. (172.72 cm); Pain 8/10; 10:15 BP 156 / 105; Pulse 98; Resp 18; Pulse Ox 98% on R/A; em 11:45 BP 130 / 92; Pulse 89; Resp 18; Pulse Ox 96% on R/A; Pain 3/10; em 12:45 BP 117 / 87; Pulse 91; Resp 18; Pulse Ox 99% on R/A; Pain 3/10; em 09:26 Body Mass Index 30.41 (90.72 kg, 172.72 cm) hb MDM: 09:31 Patient medically screened. jr8 12:32 Data reviewed: vital signs, nurses notes, lab test result(s), radiologic studies, CT jr8 scan. Data interpreted: Pulse oximetry: on room air is 96 %. Interpretation: normal. Counseling: I had a detailed discussion with the patient and/or guardian regarding: the historical points, exam findings, and any diagnostic results supporting the discharge/admit diagnosis, lab results, radiology results, the need for outpatient follow up, a family practitioner, to return to the emergency department if symptoms worsen or persist or if there are any questions or concerns that arise at home. Response to treatment: the patient's symptoms have markedly improved after treatment. 03/25 10:08 Order name: Glucose; Complete Time: 11:35 em 03/25 10:19 Order name: Glucose, Ancillary Testing; Complete Time: 10:20 EDMS 03/25 09:32 Order name: CT Head Brain wo Cont; Complete Time: 09:48 jr8 03/25 10:21 Order name: CBC with Diff; Complete Time: 11:35 jr8 03/25 10:21 Order name: Basic Metabolic Panel; Complete Time: 11:35 jr8 03/25 12:41 Order name: Glucose, Ancillary Testing; Complete Time: 13:06 EDMS 03/25 09:32 Order name: IV; Complete Time: 10:07 jr8 03/25 09:32 Order name: Glucose Level; Complete Time: 10:07 jr8 Administered Medications: 10:03 Drug: Benadryl 25 mg Route: IVP; Site: left antecubital; em 10:43 Follow up: Response: No adverse reaction; Marked relief of symptoms; Pain is decreased em 10:05 Drug: Reglan 10 mg Route: IVP; Site: left antecubital; em 10:42 Follow up: Response: No adverse reaction; Marked relief of symptoms; Pain is decreased em 10:42 Drug: NS 0.9% 1000 ml Route: IV; Rate: 1000 ml; Site: left antecubital; em 11:49 Follow up: IV Status: Completed infusion; IV Intake: 1000ml em 11:37 Drug: Insulin Regular Human 10 units {Co-Signature: ss (Ashley Alex RN).} Route: IVP; em Site: left antecubital; 12:30 Follow up: Response: No adverse reaction em Point of Care Testing: Blood Glucose: 10:08 Blood Glucose: 462 mg/dL; em Ranges: Critical Glucose Levels:Adult <50 mg/dl or >400 mg/dl <40 mg/dl or >180 mg/dl Disposition: 14:47 Co-signature as Attending Physician, Zach Chatterjee MD I agree with the assessment and kdr plan of care. Disposition: 03/25/20 12:33 Discharged to Home. Impression: Migraine, Hyperglycemia, unspecified. - Condition is Stable. - Discharge Instructions: Migraine Headache, Blood Glucose Monitoring, Adult. - Prescriptions for Fioricet 50- 325-40 mg Oral tablet - take 2 tablet by ORAL route every 4 hours As needed as needed not to exceed 6 tablets per 24hrs; 20 tablet. - Medication Reconciliation Form, Thank You Letter, Antibiotic Education, Prescription Opioid Use form. - Follow up: Private Physician; When: 2 - 3 days; Reason: Recheck today's complaints, Continuance of care, Re-evaluation by your physician. - Problem is new. - Symptoms have improved. Signatures: Dispatcher [employer] Zach Mosley MD MD [facility] Mars Walker RN RN em Samuel Lemus PA PA jr8 Marta Chew RN RN Ashley Alex RN ss Corrections: (The following items were deleted from the chart) 12:45 12:33 03/25/2020 12:33 Discharged to Home. Impression: Migraine; Hyperglycemia, em unspecified. Condition is Stable. Forms are Medication Reconciliation Form, Thank You Letter, Antibiotic Education, Prescription Opioid Use. Follow up: Private Physician; When: 2 - 3 days; Reason: Recheck today's complaints, Continuance of care, Re-evaluation by your physician. Problem is new. Symptoms have improved. jr8
[2020-03-25 13:01] VITALS: TEMP 97.9
[2020-03-25 13:06] VITALS: BP 117/87; O2SAT 99
== END 2020-03-25 12:45 | disposition home or self-care (01) ==
LOC: ER 09:16
DX: G43.909 Migraine, unspecified, not intractable, without status migrainosus (principal); E11.65 Type 2 diabetes mellitus with hyperglycemia
CPT/HCPCS: 36415; 70450; 80048; 82947; 85025; 96361; 96374; 96375; 99284; J1200; J2765; J7030

== ENCOUNTER 2020-04-26 20:56 | Emergency (ER) | payer OTHER, SELFPAY ==
[2020-04-26] MEDS ORDERED: IBUPROFEN 400 MG TAB ONE (21:46)
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
[2020-04-27 01:56] VITALS: O2SAT 99
[2020-04-27 02:05] VITALS: BP 124/78
[2020-04-27 02:13] VITALS: TEMP 98.7
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
== END 2020-04-26 23:12 | disposition home or self-care (01) ==
LOC: ER 20:56
DX: S40.012A Contusion of left shoulder, initial encounter (principal); S50.12XA Contusion of left forearm, initial encounter; V43.52XA Car driver injured in collision with other type car in traffic accident, initial encounter; Y93.89 Activity, other specified; Y92.488 Other paved roadways as the place of occurrence of the external cause; E11.9 Type 2 diabetes mellitus without complications
CPT/HCPCS: 71045; 99283

== ENCOUNTER 2021-01-25 10:43 | Emergency (ER) | payer SELFPAY ==
--- OUTSIDE RECORDS SUMMARY | 2021-01-25 10:46 | XMS REPORT | Continuity of Care Document ---
:1985 Author Organization [facility] t Address [address] [place] [address] Care Team Providers Name Role Phone Pratibha MONGE S Attending Clinician Problems This patient has no known problems. Allergies, Adverse Reactions, Alerts This patient has no known allergies or adverse reactions. Medications This patient has no known medications. Procedures This patient has no known procedures. Encounters Start End Encounter Admission Attending Care Care Encounter Source Date/Time Date/Time Type Type Clinicians Facility Department ID 2020-07-04 2020-07-04 Emergency [facility] [id number] 03:13:00 03:14:00 Rachelle Wade [id number] [place] [id number] [place] [id number] Results This patient has no known results.
--- NOTE | 2021-01-25 13:18 | RAD REPORT ---
EXAM DESCRIPTION: RAD - Foot Left 3 View - 01/25/2021 1:09 pm CLINICAL HISTORY: possible diabetic wound, foot pain COMPARISON: No comparisons FINDINGS: No fracture, dislocation or periosteal reaction. Area concern is the lateral aspect of the fifth MTP joint. Soft tissues are edematous in this region but no acute or destructive bone process seen. Arterial tree calcifications are present. No air or foreign body in the soft tissues. IMPRESSION: No acute bone or joint finding. Soft tissue edema near the fifth MTP joint but no air or foreign body in the soft tissues.
--- NOTE | 2021-01-25 13:56 | EDPHYS ---
Physician Documentation [facility] Name: Marek Blood Jr Age: 35 yrs Sex: Male : 1985 Arrival Date: 01/25/2021 Time: 10:45 Bed Waiting Private MD: Montrell Reynolds E ED Physician Jose Miguel Mayes HPI: 01/25 13:47 This 35 yrs old Male presents to ER via Ambulatory with complaints of Feet jmm Swelling, Leg Pain. 13:47 The patient presents with pain. Onset: The symptoms/episode began/occurred gradually, 1 jmm week(s) ago. Modifying factors: The symptoms are alleviated by nothing. the symptoms are aggravated by nothing. Associated signs and symptoms: Pertinent positives: swelling, vomiting, warmth, Pertinent negatives fever. This is a 35 year old male with a history of DM, htn that presents to the ED with complaints of left plantar foot pain. Seen at and attributed to an inflammation and advised to take ibuprofen. States having increased pain and swelling. Denies fever. . Historical: - Allergies: 11:25 No Known Allergies; ss - PMHx: 11:25 Diabetes - NIDDM; Hypertensive disorder; ss - Immunization history:: Client reports having NOT received the Covid vaccine. - Social history:: Smoking status: Patient denies any tobacco usage or history of. ROS: 13:47 Constitutional: Negative for fever, chills, and weight loss, Cardiovascular: Negative jmm for chest pain, palpitations, and edema, Respiratory: Negative for shortness of breath, cough, wheezing, and pleuritic chest pain. 13:47 MS/extremity: Positive for pain, swelling. 13:47 All other systems are negative. Exam: 13:47 Constitutional: This is a well developed, well nourished patient who is awake, alert, jmm and in no acute distress. Head/Face: atraumatic. Eyes: EOMI, no conjunctival erythema appreciated ENT: Moist Mucus Membranes Neck: Trachea midline, Supple Chest/axilla: Normal chest wall appearance and motion. Cardiovascular: Regular rate and rhythm. No edema appreciated Respiratory: Normal respirations, no respiratory distress appreciated Abdomen/GI: Non distended, soft Back: Normal ROM 13:47 Skin: Edema noted to the base of the left foot, tender to palpation, erythema noted, no purulent drainage appreciated. 13:47 Neuro: Orientation: is normal, Mentation: is normal, Memory: is normal. 13:47 Psych: Behavior/mood is pleasant, cooperative. Vital Signs: 11:23 Resp 18; Weight 90.72 kg; Height 5 ft. 7 in. (170.18 cm); Pain 7/10; ss 11:26 Pulse 95; Temp 97.8(TE); Pulse Ox 100% on R/A; ss 11:27 BP 140 / 95; ss 11:23 Body Mass Index 31.32 (90.72 kg, 170.18 cm) ss MDM: 13:53 Data reviewed: vital signs, nurses notes. Counseling: I had a detailed discussion with [facility] the patient and/or guardian regarding: the historical points, exam findings, and any diagnostic results supporting the discharge/admit diagnosis, the need for outpatient follow up, to return to the emergency department if symptoms worsen or persist or if there are any questions or concerns that arise at home. ED course: Patient is alert and nontoxic in appearance in the ED. Physical exams appear consistent with a cellulitis. Patient will be prescribed Bactrim and doxycycline. Patient will also be given follow-up information for podiatry for further evaluation and the patient is otherwise advised to return to the ER if he develops fever, increased pain, purulent drainage, etc. Patient understood and agrees with plan of care.. 13:55 Patient medically screened. [facility] 01/25 11:28 Order name: PK Foot LEFT 3 View; Complete Time: 13:55 ss Administered Medications: No medications were administered Disposition: 16:47 Co-signature as Attending Physician, Jose Miguel Mayes I agree with the assessment and plan sp3 of care. Disposition Summary: 01/25/21 13:55 Discharge Ordered Location: Home [facility] Condition: Stable [facility] Diagnosis - Cellulitis of left lower limb [facility] Followup: [facility] - With: Andrew Parker DPM - When: 2 - 3 days - Reason: Recheck today's complaints, Continuance of care, Re-evaluation by your physician Discharge Instructions: - Discharge Summary Sheet [facility] - Cellulitis, Adult [facility] Forms: - Medication Reconciliation Form [facility] - Work release form [facility] - Thank You Letter [facility] - Antibiotic Education [facility] - Prescription Opioid Use [facility] Prescriptions: - Doxycycline Hyclate 100 mg Oral Tablet - take 1 tablet by ORAL route every 12 hours; 20 tablet; Refills: 0, Product [facility] Selection Permitted - Bactrim DS 800-160 mg Oral Tablet - take 1 tablet by ORAL route every 12 hours for 10 days; 20 tablet; Refills: 0, [facility] Product Selection Permitted Signatures: Dispatcher [employer] Ralph Osman PA PA jmm Smirch, Shelby, RN RN ss Jose Miguel Mayes sp3
--- NOTE | 2021-01-25 13:56 | ER ---
Nurse's Notes [facility] Name: Marek Blood Jr Age: 35 yrs Sex: Male : 1985 Arrival Date: 01/25/2021 Time: 10:45 Bed Waiting Private MD: Montrell Reynolds E Diagnosis: Cellulitis of left lower limb Presentation: 01/25 11:23 Chief complaint: Patient states: Redness and swelling to L foot that began 1 week ago. ss HX of diabetes. Coronavirus screen: Client denies travel out of the [place] in the last 14 days. Ebola Screen: Patient denies exposure to infectious person. Patient denies travel to an Ebola-affected area in the 21 days before illness onset. Initial Sepsis Screen: Does the patient meet any 2 criteria? No. Patient's initial sepsis screen is negative. Does the patient have a suspected source of infection? Yes: Skin breakdown/wound. Risk Assessment: Do you want to hurt yourself or someone else? Patient reports no desire to harm self or others. Onset of symptoms was January 19, 2021. 11:23 Method Of Arrival: Ambulatory ss 11:23 Acuity: ARDEN 3 ss Historical: - Allergies: 11:25 No Known Allergies; ss - PMHx: 11:25 Diabetes - NIDDM; Hypertensive disorder; ss - Immunization history:: Client reports having NOT received the Covid vaccine. - Social history:: Smoking status: Patient denies any tobacco usage or history of. Screenin:09 Abuse screen: Denies threats or abuse. Denies injuries from another. Nutritional ss screening: No deficits noted. Tuberculosis screening: No symptoms or risk factors identified. Fall Risk None identified. Assessment: 14:09 Reassessment: Patient appears in no apparent distress at this time. Patient and/or ss family updated on plan of care and expected duration. Pain level reassessed. Patient is alert, oriented x 3, equal unlabored respirations, skin warm/dry/pink. Pain:. Neuro: Level of Consciousness is awake, alert, obeys commands. Respiratory: Respiratory effort is even, unlabored. Derm: Skin is pink, warm \T\ dry. Vital Signs: 11:23 Resp 18; Weight 90.72 kg; Height 5 ft. 7 in. (170.18 cm); Pain 7/10; ss 11:26 Pulse 95; Temp 97.8(TE); Pulse Ox 100% on R/A; ss 11:27 BP 140 / 95; ss 11:23 Body Mass Index 31.32 (90.72 kg, 170.18 cm) ED Course: 10:45 Patient arrived in ED. mr 10:46 Montrell Reynolds MD is Private Physician. mr 11:24 Triage completed. ss 11:25 Arm band placed on right wrist. 13:09 XRAY Foot LEFT 3 View In Process Unspecified. EDMS 13:45 Ralph Rodgers PA is PHCP. m 13:45 Jose Miguel Mayes is Attending Physician. [facility] 13:54 Andrew Parker DPM is Referral Physician. [facility] 14:09 Patient has correct armband on for positive identification. Bed in low position. Call ss light in reach. 14:09 No provider procedures requiring assistance completed. Patient did not have IV access ss during this emergency room visit. Administered Medications: No medications were administered Outcome: 13:55 Discharge ordered by . [facility] 14:09 Discharged to home ambulatory. 14:09 Condition: good 14:09 Discharge instructions given to patient, Instructed on discharge instructions, follow up and referral plans. Demonstrated understanding of instructions, follow-up care. 14:10 Patient left the ED. Signatures: Dispatcher [employer] EDMS Ralph Rodgers PA PA jmm Rivera, Mary JamarieduardoAshley, RN RN ss
[2021-01-25 14:25] VITALS: TEMP 97.8; O2SAT 100
[2021-01-25 14:27] VITALS: BP 140/95
== END 2021-01-25 14:10 | disposition home or self-care (01) ==
LOC: ER 10:43
DX: L03.116 Cellulitis of left lower limb (principal); I10 Essential (primary) hypertension; E11.9 Type 2 diabetes mellitus without complications
CPT/HCPCS: 99283

== ENCOUNTER 2021-02-10 20:46 | Inpatient (IN) | payer SELFPAY ==
--- OUTSIDE RECORDS SUMMARY | 2021-02-10 20:49 | XMS REPORT | Continuity of Care Document ---
:1985 Author Organization [facility] t Address [address] [place] [address] Care Team Providers Name Role Phone Pratibha MONGE, S Attending Clinician Problems This patient has no known problems. Allergies, Adverse Reactions, Alerts This patient has no known allergies or adverse reactions. Medications This patient has no known medications. Procedures This patient has no known procedures. Encounters Start End Encounter Admission Attending Care Care Encounter Source Date/Time Date/Time Type Type Clinicians Facility Department ID 2020-07-04 2020-07-04 [id number] 03:13:00 03:14:00 Rachelle Wade [id number] [place] [id number] [place] [id number] Results This patient has no known results.
[2021-02-10] MEDS ORDERED: NA CHLORIDE 0.9% 1,000 ML ONE (23:29)
[2021-02-10] MEDS ORDERED: ONDANSETRON 4 MG/2 ML VIAL ONE (23:30)
[2021-02-10] MEDS ORDERED: MORPHINE 4 MG/ML SYR ONE (23:30)
[2021-02-10] MEDS ORDERED: VANCOMYCIN 1 GM/VIAL ONE (23:31)
[2021-02-10] MEDS ORDERED: Levofloxacin 750mg IV 750 MG/150 ML BAG IV ONE (23:32)
[2021-02-10] MEDS ORDERED: TETANUS & DIPHTHERIA TOX,ADULT 0.5 ML VIAL ONE (23:33)
[2021-02-10] MEDS ORDERED: NA CHLORIDE 0.9% 250 ML ONE (23:34)
--- NOTE | 2021-02-10 23:55 | ER ---
Nurse's Notes [facility] Name: Marek Blood Jr Age: 35 yrs Sex: Male : 1985 Arrival Date: 02/10/2021 Time: 20:48 Bed 25 Private MD: Diagnosis: Type 2 diabetes mellitus with hyperglycemia;Cellulitis and acute lymphangitis of other parts of limb-foot, failed out patient treatment Presentation: 02/10 21:26 Chief complaint: Patient states: Foot pain x 2 wks. Pt was seen here 02/01 and was kg diagnosed with wound infection and started on doxycycline. Pt followed up with podiatry 02/08 and got more antibiotics. Pt stated that he can't tolerated the pain. Coronavirus screen: Client denies travel out of the [place] in the last 14 days. At this time, unable to obtain information related to travel outside the [place] At this time, the client does not indicate any symptoms associated with coronavirus-19. Ebola Screen: Patient negative for fever greater than or equal to 101.5 degrees Fahrenheit, and additional compatible Ebola Virus Disease symptoms Patient denies exposure to infectious person. Patient denies travel to an Ebola-affected area in the 21 days before illness onset. Initial Sepsis Screen: Does the patient meet any 2 criteria? No. Patient's initial sepsis screen is negative. Does the patient have a suspected source of infection? No. Patient's initial sepsis screen is negative. Risk Assessment: Do you want to hurt yourself or someone else? Patient reports no desire to harm self or others. Onset of symptoms was February 01, 2021. 21:26 Method Of Arrival: Wheelchair kg 21:26 Acuity: ARDEN 3 kg Triage Assessment: 21:30 General: Appears in no apparent distress. Behavior is calm, cooperative, appropriate kg for age, quiet. Pain: Complains of pain in left foot. Historical: - Allergies: 21:30 No Known Allergies; kg - Home Meds: 21:30 Metformin Oral [Active]; Glipizide Oral [Active]; atorvastatin Oral [Active]; kg - PMHx: 21:30 Diabetes - NIDDM; Hypertensive disorder; kg - PSHx: 21:30 None; kg - Immunization history:: Adult Immunizations not up to date, Client reports having NOT received the Covid vaccine. - Social history:: Smoking status: Patient denies any tobacco usage or history of. - Family history:: not pertinent. Screenin:30 Abuse screen: Denies threats or abuse. Nutritional screening: No deficits noted. bb Tuberculosis screening: No symptoms or risk factors identified. Fall Risk None identified. Assessment: 22:45 General: Appears in no apparent distress. uncomfortable, Behavior is calm, cooperative. bb Neuro: Level of Consciousness is awake, alert, obeys commands, Oriented to person, place, time, situation. Cardiovascular: Capillary refill < 3 seconds Patient's skin is warm and dry. Respiratory: Respiratory effort is even, unlabored, Respiratory pattern is regular. GI: No signs and/or symptoms were reported involving the gastrointestinal system. Derm: Skin is pink, warm \T\ dry. Wound noted left foot. Musculoskeletal: Circulation, motion, and sensation intact. 02/11 00:03 Reassessment: Patient is alert, oriented x 3, equal unlabored respirations, skin bb warm/dry/pink. pt instructed on need for admit verbalized understanding of and agrees to plan of care admitted to ED hold. 01:35 Reassessment: Patient is alert, oriented x 3, equal unlabored respirations, skin bb warm/dry/pink. Patient states feeling better. Patient states symptoms have improved. Vital Signs: 02/10 21:26 BP 129 / 88; Pulse 108; Resp 20; Temp 98.8(TE); Pulse Ox 93% on R/A; Weight 90.72 kg kg (R); Height 5 ft. 7 in. (170.18 cm) (R); Pain 10/10; 02/11 00:08 BP 129 / 84; Pulse 95; Resp 18 S; Pulse Ox 100% on R/A; bb 01:35 BP 113 / 65; Pulse 98; Resp 16 S; Pulse Ox 100% on R/A; Pain 5/10; bb 02/10 21:26 Body Mass Index 31.32 (90.72 kg, 170.18 cm) kg ED Course: 02/10 20:48 Patient arrived in ED. wm 21:30 Triage completed. kg 21:30 Arm band placed on right wrist. kg 21:30 Patient has correct armband on for positive identification. Bed in low position. Call bb light in reach. 22:36 Hank Bedolla MD is Attending Physician. [facility] 23:22 Foot Left 3 View XRAY In Process Unspecified. EDMS 23:35 Inserted saline lock: 22 gauge in left antecubital area, using aseptic technique. bb ,using aseptic technique. by Jaqui CHAVEZ. 23:41 Blood Culture Adult (2) Sent. kg 23:42 ESR Sent. kg 23:42 Comprehensive Metabolic Panel Sent. kg 23:42 CBC with Diff Sent. kg 23:52 Andrei Adam DO is Hospitalizing Provider. [facility] 02/11 00:03 Patient admitted, IV remains in place. 00:03 No provider procedures requiring assistance completed. 08:00 Grace Hamlin is Primary Nurse. aj2 Administered Medications: 02/10 23:35 Drug: Tetanus-Diphtheria Toxoid Adult 0.5 ml {Director Of Contracts: [employer]. Exp: kg 11/15/2021. Lot #: [id number]. } Route: IM; Site: right deltoid; 02/11 00:08 Follow up: Response: No adverse reaction 02/10 23:40 Drug: NS 0.9% 1000 ml Route: IV; Rate: 1 bolus; Site: left antecubital; kg 02/11 01:38 Follow up: IV Status: Completed infusion; IV Intake: 1000ml 02/10 23:40 Drug: morphine 4 mg Route: IVP; Site: left antecubital; kg 02/11 00:06 Follow up: Response: No adverse reaction; Pain is decreased 02/10 23:40 Drug: Zofran (Ondansetron) 4 mg Route: IVP; Site: left antecubital; kg 02/11 00:06 Follow up: Response: No adverse reaction; No change in condition 02/10 23:41 Drug: levofloxacin 750 mg Volume: 150 ml; Route: IVPB; Infused Over: 90 mins; Site: kg left antecubital; 02/11 01:34 Follow up: IV Status: Completed infusion; IV Intake: 150ml 00:06 Drug: vancoMYCIN 1 grams Route: IVPB; Infused Over: 2 hrs; Site: left antecubital; kg 01:34 Follow up: IV Status: Completed infusion; IV Intake: 250ml 00:30 Drug: [place] (HYDROcodone-acetaminophen) (7.5 mg-325 mg) 1 tabs {Note: RASS 0.} Route: bb PO; 34 Follow up: Response: No adverse reaction; Pain is decreased; RASS: Alert and Calm (0) bb 00:30 Drug: Insulin Regular Human 10 units {Co-Signature: zaida (SCOTT Alfaro).} Route: Sub-Q; bb Site: abdomen; Follow up: Response: No adverse reaction bb Intake: :34 IV: 150ml; Total: 150ml. bb :34 IV: 250ml; Total: 400ml. bb :38 IV: 1000ml; Total: 1400ml. bb Outcome: 02/10 23:55 Decision to Hospitalize by Provider. [facility] 02/11 00:03 Instructed on the need for admit. bb 00:16 Condition: stable bb 01:35 Admitted to ER Hold. Please see [facility] for further documentation. bb 02/12 14:56 Patient left the ED. iw Signatures: Dispatcher [employer] Hank Nuñez MD MD cha Ballard, Brenda, RN Josette Parikh RN RN iw Graham, Kristen, RN RN kg Marsh, Wendy wm Jenkins, Angelea aj2 SCOTT Alfaro
--- NOTE | 2021-02-10 23:55 | EDPHYS ---
Physician Documentation [facility] Name: Marek Blood Jr Age: 35 yrs Sex: Male : 1985 Arrival Date: 02/10/2021 Time: 20:48 Bed 25 Private MD: KIARRA Physician Hank Bedolla HPI: 02/10 23:47 This 35 yrs old Male presents to ER via Wheelchair with complaints of Wound kraig Infection. 23:47 The patient presents to the emergency department. kraig 23:47 The patient presents with an abscess, moderate-sized, decreased range of motion, an kraig injury, pain. The complaints affect the left foot, dorsum of left foot. Context: The problem was sustained at an unknown location. Onset: The symptoms/episode began/occurred 3 week(s) ago. Modifying factors: The symptoms are alleviated by elevation of extremity, the symptoms are aggravated by nothing. Associated signs and symptoms: The patient has no apparent associated signs or symptoms. Severity of symptoms: At their worst the symptoms were mild, moderate, in the emergency department the symptoms are unchanged. The patient has not experienced similar symptoms in the past. Historical: - Allergies: 21:30 No Known Allergies; kg - Home Meds: 21:30 Metformin Oral [Active]; Glipizide Oral [Active]; atorvastatin Oral [Active]; kg - PMHx: 21:30 Diabetes - NIDDM; Hypertensive disorder; kg - PSHx: 21:30 None; kg - Immunization history:: Adult Immunizations not up to date, Client reports having NOT received the Covid vaccine. - Social history:: Smoking status: Patient denies any tobacco usage or history of. - Family history:: not pertinent. ROS: 23:47 Constitutional: Negative for fever, chills, and weight loss, Eyes: Negative for injury, kraig pain, redness, and discharge, ENT: Negative for injury, pain, and discharge, Neck: Negative for injury, pain, and swelling, Cardiovascular: Negative for chest pain, palpitations, and edema, Respiratory: Negative for shortness of breath, cough, wheezing, and pleuritic chest pain, Abdomen/GI: Negative for abdominal pain, nausea, vomiting, diarrhea, and constipation, Back: Negative for injury and pain, : Negative for injury, bleeding, discharge, and swelling, Skin: Negative for injury, rash, and discoloration, Neuro: Negative for headache, weakness, numbness, tingling, and seizure, Psych: Negative for depression, anxiety, suicide ideation, homicidal ideation, and hallucinations, Allergy/Immunology: Negative for hives, rash, and allergies, Endocrine: Negative for neck swelling, polydipsia, polyuria, polyphagia, and marked weight changes. 23:47 MS/extremity: Positive for decreased range of motion, erythema, pain, swelling, tenderness, of the dorsum of left foot, left third toe, left fourth toe, left fifth toe, Left fifth toenail, Left fourth toenail and Left third toenail. Exam: 23:47 Constitutional: This is a well developed, well nourished patient who is awake, alert, kraig and in no acute distress. Head/Face: Normocephalic, atraumatic. Eyes: Pupils equal round and reactive to light, extra-ocular motions intact. Lids and lashes normal. Conjunctiva and sclera are non-icteric and not injected. Cornea within normal limits. Periorbital areas with no swelling, redness, or edema. ENT: Nares patent. No nasal discharge, no septal abnormalities noted. Tympanic membranes are normal and external auditory canals are clear. Oropharynx with no redness, swelling, or masses, exudates, or evidence of obstruction, uvula midline. Mucous membranes moist. Neck: Trachea midline, no thyromegaly or masses palpated, and no cervical lymphadenopathy. Supple, full range of motion without nuchal rigidity, or vertebral point tenderness. No Meningismus. Chest/axilla: Normal chest wall appearance and motion. Nontender with no deformity. No lesions are appreciated. Cardiovascular: Regular rate and rhythm with a normal S1 and S2. No gallops, murmurs, or rubs. Normal PMI, no JVD. No pulse deficits. Respiratory: Lungs have equal breath sounds bilaterally, clear to auscultation and percussion. No rales, rhonchi or wheezes noted. No increased work of breathing, no retractions or nasal flaring. Abdomen/GI: Soft, non-tender, with normal bowel sounds. No distension or tympany. No guarding or rebound. No evidence of tenderness throughout. Back: No spinal tenderness. No costovertebral tenderness. Full range of motion. Male : Normal genitalia with no discharge or lesions. MS/ Extremity: Pulses equal, no cyanosis. Neurovascular intact. Full, normal range of motion. Neuro: Awake and alert, GCS 15, oriented to person, place, time, and situation. Cranial nerves II-XII grossly intact. Motor strength 5/5 in all extremities. Sensory grossly intact. Cerebellar exam normal. Normal gait. Psych: Awake, alert, with orientation to person, place and time. Behavior, mood, and affect are within normal limits. 23:47 Skin: cellulitis, injury, contusion(s), that are deep, of the dorsum of left foot, left third toe, left fourth toe and left fifth toe. Vital Signs: 21:26 BP 129 / 88; Pulse 108; Resp 20; Temp 98.8(TE); Pulse Ox 93% on R/A; Weight 90.72 kg kg (R); Height 5 ft. 7 in. (170.18 cm) (R); Pain 10/10; 02/11 00:08 BP 129 / 84; Pulse 95; Resp 18 S; Pulse Ox 100% on R/A; bb 01:35 BP 113 / 65; Pulse 98; Resp 16 S; Pulse Ox 100% on R/A; Pain 5/10; bb 02/10 21:26 Body Mass Index 31.32 (90.72 kg, 170.18 cm) kg MDM: 02/10 22:36 Patient medically screened. kraig 23:50 Differential diagnosis: fracture, sprain, penetrating trauma, cellulitis. Data [facility] reviewed: vital signs, nurses notes, lab test result(s), radiologic studies, plain films. Data interpreted: quality assurance monitor: rate is 108 beats/min, rhythm is regular, Pulse oximetry: on room air is 93 %. Test interpretation: by ED physician or midlevel provider: plain radiologic studies. Counseling: I had a detailed discussion with the patient and/or guardian regarding: the historical points, exam findings, and any diagnostic results supporting the discharge/admit diagnosis, lab results, the need for further work-up and treatment in the hospital. 02/10 23:00 Order name: CBC with Diff [facility] 02/10 23: Order name: Comprehensive Metabolic Panel; Complete Time: 00:19 [facility] 02/10 23:00 Order name: ESR [facility] 02/10 23:02 Order name: Blood Culture Adult (2) tl1 02/11 00:02 Order name: Procalcitonin la1 02/11 01:56 Order name: COVID-19 : Document "Date of Symptom Onset" if Symptomatic. mw2 02/11 02:03 Order name: Glucose, Ancillary Testing EDMS 02/11 02:16 Order name: CORONAVIRUS EDMS 02/11 03:17 Order name: SARS-COV-2 RT PCR EDMS 02/11 09:34 Order name: Glucose, Ancillary Testing EDMS 02/11 12:57 Order name: Glucose, Ancillary Testing EDMS 02/11 14:30 Order name: Glucose, Ancillary Testing EDMS 02/11 17:40 Order name: Glucose, Ancillary Testing EDMS 02/11 21:14 Order name: Glucose, Ancillary Testing EDMS 02/10 23:00 Order name: Foot Left 3 View XRAY kraig 02/11 10:23 Order name: US EDPR 02/11 12:44 Order name: MRI EDMS 02/12 04:42 Order name: CBC with Automated Diff EDMS 02/12 05:06 Order name: Comprehensive Metabolic Panel EDPR 02/12 05:06 Order name: Lipid Profile EDPR 02/12 05:06 Order name: Thyroid Stimulating Hormone EDMS 02/12 06:31 Order name: Hemoglobin A1c EDPR 02/12 08:29 Order name: Glucose, Ancillary Testing EDPR 02/12 08:56 Order name: Wound Culture EDPR 02/12 11:52 Order name: Glucose, Ancillary Testing EDMS 02/12 12:01 Order name: Vancomycin Level Trough EDMS 02/12 14:19 Order name: Anaerobic Culture EDPR 02/12 14:20 Order name: Wound Culture EDPR Administered Medications: 23:35 Drug: Tetanus-Diphtheria Toxoid Adult 0.5 ml {Communications Marketing Intern: [employer]. Exp: kg 11/15/2021. Lot #: [id number]. } Route: IM; Site: right deltoid; 02/11 00:08 Follow up: Response: No adverse reaction 02/10 23:40 Drug: NS 0.9% 1000 ml Route: IV; Rate: 1 bolus; Site: left antecubital; kg 02/11 01:38 Follow up: IV Status: Completed infusion; IV Intake: 1000ml 02/10 23:40 Drug: morphine 4 mg Route: IVP; Site: left antecubital; kg 02/11 00:06 Follow up: Response: No adverse reaction; Pain is decreased kg 02/10 23:40 Drug: Zofran (Ondansetron) 4 mg Route: IVP; Site: left antecubital; kg 02/11 00:06 Follow up: Response: No adverse reaction; No change in condition kg 02/10 23:41 Drug: levofloxacin 750 mg Volume: 150 ml; Route: IVPB; Infused Over: 90 mins; Site: kg left antecubital; 02/11 01:34 Follow up: IV Status: Completed infusion; IV Intake: 150ml bb 00:06 Drug: vancoMYCIN 1 grams Route: IVPB; Infused Over: 2 hrs; Site: left antecubital; kg 01:34 Follow up: IV Status: Completed infusion; IV Intake: 250ml bb 00:30 Drug: [place] (HYDROcodone-acetaminophen) (7.5 mg-325 mg) 1 tabs {Note: RASS 0.} Route: bb PO; :34 Follow up: Response: No adverse reaction; Pain is decreased; RASS: Alert and Calm (0) bb 00:30 Drug: Insulin Regular Human 10 units {Co-Signature: wg (SCOTT Alfaro).} Route: Sub-Q; bb Site: abdomen; 34 Follow up: Response: No adverse reaction Disposition Summary: 02/10/21 23:55 Hospitalization Ordered Hospitalization Status: Inpatient Admission kraig Provider: Andrei Adam cha Condition: Stable kraig Problem: new kraig Symptoms: have improved kraig Bed/Room Type: Standard [facility] Location: Telemetry/MedSurg (Inpatient)(02/12/21 12:46) mo Room Assignment: Formerly named [facility](02/12/21 12:46) mo Diagnosis - Type 2 diabetes mellitus with hyperglycemia kraig - Cellulitis and acute lymphangitis of other parts of limb - foot, failed out patient kraig treatment Forms: - Medication Reconciliation Form kraig - SBAR form kraig Signatures: Dispatcher [employer] Hank Nuñez MD MD cha Ballard, Brenda RN Ellis Huston FNP-C FNP-Cla1 Yael Fan RN RN tl1 Kimi Cordero mt, Kristen, RN RN kg Liam, RN [place] wg Corrections: (The following items were deleted from the chart) 00:28 02/10 23:55 Telemetry/MedSurg (Inpatient) kraig tl1 02/11 00:28 02/10 23:55 kraig tl1 02/12 12:46 02/11 00:28 [facility] ER HOLD 1 mo 02/12 12:46 02/11 00:28 ERHOLD- 1 mo
[2021-02-11 00:03] LABS: Absolute Lymphocytes (CBC) 2.6 K/uL (0.7-4.9); Basophils % 0.6 % (0-1.3); Hematocrit 42.3 % (39.6-49.0); RBC Red Blood Cell Count 4.57 M/uL (4.33-5.43)
[2021-02-11 00:13] LABS: ALT/SGPT 23 U/L (12-78); AST/SGOT 16 U/L (15-37); Alkaline Phosphatase 133 U/L (45-117); BUN Blood Urea Nitrogen 12 mg/dL (7-18); Bicarbonate 31 mmol/L (21-32); Bilirubin Total 0.5 mg/dL (0.2-1.0); Glucose Level 332 mg/dL (74-106); Protein, Total 8.7 g/dL (6.4-8.2); Sodium Level 136 mmol/L (136-145)
--- NOTE | 2021-02-11 00:44 | P.HP ---
Certification for Inpatient Patient admitted to: Inpatient With expected LOS: >2 Midnights Patient will require the following post-hospital care: None Practitioner: I am a practitioner with admitting privileges, knowledge of patient current condition, hospital course, and medical plan of care. Services: Services provided to patient in accordance with Admission requirements found in Title 42 Section 412.3 of the Code of Federal Regulations Patient History Date of Service: 02/11/21 Primary Care Provider: Dr. Reynolds Reason for admission: Diabetic foot wound History of Present Illness: 35-year-old male with history of diabetes mellitus type 2, hypertension, hyperlipidemia presents emergency department for left foot wound. Patient reports he is received treatment for this wound on multiple occasions, patient was seen in the emergency department on 02/01/2021 received prescription for doxycycline, patient followed up with the electric shaver mechanic as well and received prescription for additional antibiotics. Patient presents emergency [place] for worsening of his diabetic foot wound, failed outpatient therapy. Patient was evaluated in the emergency department labs are significant for white blood cell count 15.1 ESR 56 glucose 332 alk phos 133 x-ray of the foot has been obtained but not reviewed by radiology at this time, questionable osteomyelitis. ED provider wishes to admit for diabetic foot wound, failed outpatient therapy. Allergies No Known Allergies Allergy (Unverified 11/29/19 01:26) Home Medications: Albuterol Sulfate [Albuterol Sulfate Hfa] 2 inh IH Q4HP PRN 11/29/19 Atorvastatin Calcium [Lipitor] 40 mg PO DAILY 11/29/19 Glipizide [Glipizide ER] 10 mg PO DAILY 11/29/19 Metformin ER [Glucophage ER*] 500 mg PO BID 11/29/19 predniSONE [Deltasone*] 10 mg PO BID #14 tab 12/01/19 Insulin NPH Human [Novolin N (Humulin N)*] 20 units SQ BIDWM #15 ml 12/02/19 levoFLOXacin [Levaquin*] 500 mg PO DAILY #3 tab 12/02/19 - Past Medical/Surgical History Diabetic: Yes -: Diabetes type 2 -: HLD Past Surgical History: Reviewed- Non-Contributory Psychosocial/ Personal History: 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 - Family History Father -: Diabetes - Social History Smoking Status: Never smoker Alcohol use: No CD- Drugs: No Caffeine use: No Place of Residence: Home Review of Systems 10-point ROS is otherwise unremarkable Musculoskeletal: Foot Pain Integumentary: As per HPI Physical Examination - Physical Exam General: Alert, Oriented x3 HEENT: Atraumatic, Mucous membr. moist/pink Neck: Supple Respiratory: Clear to auscultation bilaterally, Normal air movement Cardiovascular: Regular rate/rhythm, Normal S1 S2 Capillary refill: <2 Seconds Gastrointestinal: Normal bowel sounds, No tenderness Musculoskeletal: Erythema, Tenderness, Warmth Integumentary: No rashes, Diabetic ulcer (Diabetic foot wound present to base of the left fourth toe. Surrounding cellulitis, erythema, necrotic tissue present.) Neurological: Normal speech, Normal strength at 5/5 x4 extr, Normal tone, Normal affect, Abnormal gait - Studies Laboratory Data (last 24 hrs) 02/10/21 23:21: Sodium 136, Potassium 4.0, BUN 12, Creatinine 0.82, Glucose 332 H, Total Bilirubin 0.5, AST 16, ALT 23, Alkaline Phosphatase 133 H 02/10/21 23:21: WBC 15.10 H, Hgb 14.4, Hct 42.3, Plt Count 267 Assessment and Plan - Plan Assessment: Left-sided diabetic foot wound failed outpatient therapy involving the base of the third fourth and fifth toes Diabetes type 2 with hyperglycemia Hyperlipidemia Plan: Left-sided diabetic foot wound failed outpatient therapy involving the base of the third fourth and fifth toes: Blood cultures obtained in the ER continue with IV vancomycin, Levaquin. Will consult podiatry, MRI left foot without contrast ordered. Anticipate patient will require debridement. Diabetes type 2 with hyperglycemia: ACH S Accu-Chek, sliding scale insulin therapy. A1c with morning labs. Hyperlipidemia: Continue home medication atorvastatin. DVT PPX: SCD Code status: Full Discharge Plan: Home Plan to discharge in: Greater than 2 days - Advance Directives Does patient have a Living Will: No Does patient have a Durable POA for Healthcare: No - Code Status/Comfort Care Code Status Assessed: Yes (fc) Critical Care: No Time Spent Managing Pts Care (In Minutes): 55
[2021-02-11] MEDS ORDERED: HYDROCODONE/APAP 7.5/325 MG TAB ONE (00:47)
[2021-02-11] MEDS ORDERED: INSULIN -REGULAR HUMAN 50 UNIT/0.5 ML ML ONE ×6 (00:49→21:47)
[2021-02-11] MEDS: NA CHLORIDE 0.9% 1,000 ML IV SCH ×2 (01:36→11:36)
[2021-02-11] MEDS ORDERED: TRAMADOL HCL 50 MG TAB PO PRN (01:36)
[2021-02-11] MEDS ORDERED: VANCOMYCIN/NS 1 gm 1 GM/250 ML BAG IVPB SCH (01:36)
[2021-02-11] MEDS ORDERED: ONDANSETRON 4 MG/2 ML VIAL IV PRN (01:36)
[2021-02-11] MEDS ORDERED: ACETAMINOPHEN 500 MG TAB PO PRN (01:36)
[2021-02-11 02:09] VITALS: BMI 31.3
[2021-02-11] MEDS ORDERED: NA CHLORIDE 0.9% 1,000 ML ONE (03:28)
[2021-02-11] MEDS: MORPHINE 2 MG/ML SYR IV PRN ×2 (03:40→08:17)
[2021-02-11] MEDS ORDERED: MORPHINE 2 MG/ML SYR ONE ×2 (03:53→08:31)
[2021-02-11] MEDS ORDERED: VANCOMYCIN 0.75 GM in NA CHLORIDE 0.9% 150 ML IVPB ONE (04:00)
[2021-02-11] MEDS ORDERED: NA CHLORIDE 0.9% 250 ML ONE (05:24)
[2021-02-11] MEDS ORDERED: VANCOMYCIN 1 GM/VIAL ONE (05:24)
--- NOTE | 2021-02-11 06:19 | P.PN ---
Subjective Date of Service: 02/11/21 Primary Care Provider: Dr. Reynolds Chief Complaint: Diabetic foot wound Subjective: Doing well Physical Examination - Vital Signs Temperature: 98 F Blood Pressure: 122/52 Pulse: 96 Respirations: 18 Pulse Ox (%): 99 - Studies Laboratory Data (last 24 hrs) 02/10/21 23:21: Sodium 136, Potassium 4.0, BUN 12, Creatinine 0.82, Glucose 332 H, Total Bilirubin 0.5, AST 16, ALT 23, Alkaline Phosphatase 133 H 02/10/21 23:21: WBC 15.10 H, Hgb 14.4, Hct 42.3, Plt Count 267 Assessment & Plan Discharge Plan: Home Plan to discharge in: 48 Hours Physician Review Additional Text: Covid: Negative X-ray: COMPARISON: Foot Left 3 View dated 01/25/2021; Foot Left Wo Cont dated 02/11/2021 FINDINGS: No acute fracture. No malalignment. Mild calcaneal spurring. Peripheral vascular calcifications. Question small erosion at the proximal phalanx of the fifth toe. IMPRESSION: No acute left foot fracture. Small periarticular erosion at the fifth toe proximal phalanx. Reference subsequent MRI. MRI Foot: COMPARISON: Foot Left 3 View dated 02/10/2021; Foot Left 3 View dated 01/25/2021 FINDINGS: Small moderate posterior and plantar calcaneal spurs. Distal aspect of the Achilles tendon is normal in size and appearance. No evidence of plantar fascia edema or fibromatosis. Intermediate abnormal diminished T1 signal and elevated T2/IR signal is seen along the lateral plantar soft tissues of the forefoot extending along the plantar base soft tissues of the second through fourth toes. Abnormal diminished T1 signal and elevated T2/IR signal is seen involving the base of the proximal phalanx of the fourth toe compatible with early mild/osteomyelitis. No soft tissue mass or hematoma seen. No drainable fluid collection is evident. IMPRESSION: Early developing osteomyelitis base of the proximal phalanx of fourth toe. Extensive abnormal signal in soft tissues of the plantar lateral forefoot. Arterial doppler: COMPARISON: None FINDINGS: The common femoral, superficial femoral and popliteal arteries bilaterally demonstrate triphasic waveforms. Monophasic waveforms are present within the left posterior tibial artery and dorsalis pedis artery. Waveforms in the right dorsalis pedis and posterior tibial artery are normal. IMPRESSION: Monophasic waveforms in the left posterior tibial and dorsalis pedis arteries consistent with hemodynamically significant stenoses. Physical exam: General: Alert, Oriented x3 HEENT: Atraumatic, Mucous membr. moist/pink Neck: Supple Respiratory: Clear to auscultation bilaterally, Normal air movement Cardiovascular: Regular rate/rhythm, Normal S1 S2 Capillary refill: <2 Seconds Gastrointestinal: Normal bowel sounds, No tenderness Musculoskeletal: Erythema, Tenderness, Warmth Integumentary: No rashes, Diabetic ulcer (Diabetic foot wound present to base of the left fourth toe. Surrounding cellulitis, erythema, necrotic tissue present.) Neurological: Normal speech, Normal strength at 5/5 x4 extr, Normal tone, Normal affect, Abnormal gait Impression: Left-sided diabetic foot wound failed outpatient therapy involving the base of the third fourth and fifth toes with MRI showing developing osteomyelitis of the base of the proximal phalanx of the 4th toe status post surgical debridement Diabetes type 2 with hyperglycemia Hyperlipidemia PAD with arterial Doppler showing significant stenosis to the left posterior tibial and dorsalis pedis arteries Plan: Left-sided diabetic foot wound failed outpatient therapy involving the base of the third fourth and fifth toes with MRI showing developing osteomyelitis of the base of the proximal phalanx of the 4th toe status post surgical debridement: MRI shows early osteomyelitis. Spoke with surgery after intervention. Patient had surgical debridement. Blood, wound cultures obtained. Continue IV vancomycin and Levaquin. Continue with medication for pain. Will order PICC line as the patient will require long-term IV antibiotic therapy. Await findings from cultures to determine what patient will require at discharge. Continue current wound care. Will consult director of social work to help arrange for outpatient antibiotic therapy. Diabetes type 2 with hyperglycemia: Will check A1c. Continue Accu-Cheks. Will start basal insulin. Sliding scale in place. Hyperlipidemia: Will check fasting lipid panel. Will start Lipitor PAD with arterial Doppler showing significant stenosis to the left posterior tibial and dorsalis pedis arteries: Continue aspirin. Will discuss with cardiology to see if patient will require any future intervention DVT PPX: Lovenox Code status: Full Discharge Plan: Home at discharge Time Spent Managing Pts Care (In Minutes): 55
[2021-02-11] MEDS: INSULIN -REGULAR HUMAN 50 UNIT/0.5 ML ML SQ SCH ×4 (07:30→21:00)
--- NOTE | 2021-02-11 08:46 | RAD REPORT ---
EXAM DESCRIPTION: RAD - Foot Left 3 View - 02/10/2021 11:22 pm CLINICAL HISTORY: PAIN COMPARISON: Foot Left 3 View dated 01/25/2021; Foot Left Wo Cont dated 02/11/2021 FINDINGS: No acute fracture. No malalignment. Mild calcaneal spurring. Peripheral vascular calcifica tions. Question small erosion at the proximal phalanx of the fifth toe. IMPRESSION: No acute left foot fracture. Small periarticular erosion at the fifth toe proximal phala nx. Reference subsequent MRI.
--- NOTE | 2021-02-11 10:23 | RAD REPORT ---
EXAM DESCRIPTION: US - Lower Extremity Arterial Bilat - 02/11/2021 8:37 am CLINICAL HISTORY: Leg pain COMPARISON: None FINDINGS: The common femoral, superficial femoral and popliteal arteries bilaterally demonstrate tri phasic waveforms. Monophasic waveforms are present within the left posterior tibial artery and dorsalis pedis artery. W aveforms in the right dorsalis pedis and posterior tibial artery are normal. IMPRESSION: Monophasic waveforms in the left posterior tibial and dorsalis pedis arteries consistent with hemodynamically significant stenoses.
[2021-02-11] MEDS ORDERED: dexAMETHasone 10 MG/ML VIAL ONE (10:27)
[2021-02-11] MEDS ORDERED: NS 0.9% VIAL 20 ML ONE (10:27)
[2021-02-11] MEDS ORDERED: BUPIVACAINE 0.25% PF 10 ML VIAL ONE (10:28)
[2021-02-11] MEDS ORDERED: MIDAZOLAM HCL 2 MG/2 ML INJ ONE (10:28)
[2021-02-11] MEDS ORDERED: FENTANYL CITR 100 MCG/2 ML ONE (10:28)
[2021-02-11] MEDS ORDERED: BUPIVACAINE 0.5% PF 10 ML VIAL ONE ×2 (10:28→11:10)
[2021-02-11] MEDS ORDERED: LIDOCAINE 1% MPF 5 ML VIAL ONE ×2 (10:40→11:31)
[2021-02-11] MEDS ORDERED: propofoL 200 MG/20 ML VIAL IV ONE ×2 (11:31→12:13)
--- NOTE | 2021-02-11 11:43 | CON ---
Date of Consultation: 02/11/2021 Reason For Service: Necrotic diabetic infected ulcer on the left foot. History Of Present Illness: This is the case of a 35-year-old patient with history of diabetes, who presented to the ER with a necrotic cellulitic foot with a necrotic ulcer that covers distal part of the foot between toes, mainly from 2 to fifth. The patient was seen in the past in the ER, asked to be seen by painting contractor, but apparently has not done that, today shows with a worse condition. The pat ient was admitted to the hospital for antibiotics and a surgical consult was requested. Allergies: NONE. Medications: Include albuterol, glipizide, Glucophage, Deltasone, and Levaquin. Past Medical History: Diabetes. Past Surgical History: None. Family History: Diabetes. Social History: He does not smoke. He does not drink alcohol. Review of Systems: Denies any shortness of breath, any chest pain, any fevers. See H and P. Ten points otherwise unrem arkable. Physical Examination: General: The patient is awake, alert. HEENT: Pupils equal, reactive. Anicteric. Neck: Supple. Chest: Clear. Abdomen: Soft and depressible. Extremities: Good capillary refill. Over the left foot, the patient has area of the cellulitic comp onent in the entire foot mainly distal with a necrotic ulcer that include from the second to fifth to e, although the area between the left third and fourth toe are the worst. There is necrotic tissue p resent. There is fluctuance. There is evidence of an abscess. The patient still has sensation over that region. Laboratory Data: Blood work shows WBC count of 15 with hemoglobin of 14 and platelets of 267 with a potassium 4.0, glucose 332. MRI of the foot is still pending. Assessment: A 35-year-old patient with necrotic ulcer with abscess on the left foot. The patient wi ll have to go for debridement of that area, drainage of an abscess with benefits, alternatives, and r isks including, but not limited to infection, bleeding, damage to adjacent structures, anesthesia com plication, nonhealing wound, AR, and even . He also understands this may not relieve any sympto ms. He might need more than one surgical intervention. He understands this will require wound care. It is important that he should control his glucose. He still has this incision in that area so the neuropathy is not advanced, but it will eventually if he does not take care of this. I explained to him that if he continues this pattern, he is going to end up losing his foot. We are going to take him to surgery. The patient was emergently booked in OR. KINJAL/BRANDY Voice ID: [id number] Report ID: [id number]
[2021-02-11] MEDS: VANCOMYCIN 1.75 GM in NA CHLORIDE 0.9% 500 ML IVPB SCH (12:00)
--- NOTE | 2021-02-11 12:04 | P.BOP ---
Preoperative diagnosis: necrotic infected diabetic left foot ulcer Postoperative diagnosis: same Primary procedure: Excisional debridement necrotic infected diabetic left foot ulcer 7x2x1 cm Estimated blood loss: <10cc Specimen: pus Findings: pus Anesthesia: General Complications: None Transferred to: Recovery Room Condition: Good
--- NOTE | 2021-02-11 12:43 | RAD REPORT ---
EXAM DESCRIPTION: MRI - Foot Left Wo Cont - 02/11/2021 8:35 am CLINICAL HISTORY: r/o osteomyelitis Open wound, pain and swelling COMPARISON: Foot Left 3 View dated 02/10/2021; Foot Left 3 View dated 01/25/2021 FINDINGS: Small moderate posterior and plantar calcaneal spurs. Distal aspect of the Achilles tendon is normal in size and appearance. No evidence of plantar fascia edema or fibromatosis. Intermediate abnormal diminished T1 signal and elevated T2/IR signal is seen along the lateral planta r soft tissues of the forefoot extending along the plantar base soft tissues of the second through fo urth toes. Abnormal diminished T1 signal and elevated T2/IR signal is seen involving the base of the proximal phalanx of the fourth toe compatible with early mild/osteomyelitis. No soft tissue mass or hematoma seen. No drainable fluid collection is evident. IMPRESSION: Early developing osteomyelitis base of the proximal phalanx of fourth toe. Extensive abn ormal signal in soft tissues of the plantar lateral forefoot.
[2021-02-11] MEDS: COLLAGENASE 30 GM OINTMENT TOP SCH (13:30)
--- NOTE | 2021-02-11 14:13 | OP ---
Date of Procedure: 02/11/2021 Surgeon: Surinder Strong MD Preoperative Diagnosis: Necrotic infected diabetic left foot ulcer. Postoperative Diagnosis: Necrotic infected diabetic left foot ulcer. Procedure: Excisional debridement of necrotic infected diabetic left foot ulcer 7 x [address] aly of abscess. Anesthesia: General. Findings: Purulent discharge, multiple tunnels, multiple loculations, abscess present, necrotic skin , purulent discharge that came from the dorsum of his foot to the plantar area of the foot involving the fourth toe. Complications: None. Packing: Wet-to-dry. Indication: This is the case of a 35-year-old patient, comes to us with a necrotic left foot ulcer. The benefits, alternatives, and risks of a debridement fully explained, which include, but not limit ed to infection, bleeding, damage to adjacent structures, anesthesia complication, nonhealing wound, LA and even . He also understands this may not relieve any symptoms. He might need more than o ne surgical intervention. He understood, signed a consent. Procedure In Detail: The patient was brought to the operating room, placed in supine position. Anes thesia was done without complication. A time-out was called. The left foot was prepped and draped i n usual sterile fashion. We started from the dorsal aspect of the foot. We noticed an abscess prese nt there after we removed the necrotic eschar that goes through near the fourth toe and tunnel all th e way down into the plantar surface of the foot. Once we opened that area, the patient also has puru lent discharge, so we have to open the area from the plantar to dorsum removing necrotic tissue. Thi s goes all the way down to tendon and muscle. The area was profusely irrigated. Loculations were ex plored, opened. Local anesthesia was applied and then the patient was packed with dry dressing. The patient tolerated the procedure well. The patient was sent to recovery in stable condition. HM/MODL Voice ID: [id number] Report ID: [id number]
[2021-02-11] MEDS ORDERED: GLUCAGON 1 MG/VIAL IM PRN (14:14)
[2021-02-11] MEDS ORDERED: D50W 25 GM/50 ML SYRINGE IV PRN (14:14)
[2021-02-11] MEDS ORDERED: VANCOMYCIN 1.75 GM in NA CHLORIDE 0.9% 500 ML IVPB SCH (16:00)
[2021-02-11] MEDS ORDERED: INSULIN GLARGINE 100 UNITS/ML SQ ONE ×2 (18:14→21:46)
[2021-02-11] MEDS ORDERED: ATORVASTATIN 20 MG TAB ONE (20:15)
[2021-02-11] MEDS ORDERED: Levofloxacin500mg IV 500 MG/100 ML BAG IV ONE (20:16)
[2021-02-11] MEDS: ATORVASTATIN 10 MG TAB PO SCH (20:43)
[2021-02-11] MEDS: Levofloxacin500mg IV 500 MG/100 ML BAG IV SCH (20:43)
[2021-02-11] MEDS ORDERED: INSULIN GLARGINE 100 UNITS/ML SQ SCH (21:00)
[2021-02-12] MEDS ORDERED: VANCOMYCIN 1 GM/VIAL ONE (01:48)
[2021-02-12] MEDS ORDERED: NA CHLORIDE 0.9% 0 ML ONE (01:48)
[2021-02-12] MEDS ORDERED: NA CHLORIDE 0.9% 500 ML ONE (01:55)
[2021-02-12 04:21] LABS: Basophils % 0.7 % (0-1.3); Hematocrit 38.8 % (39.6-49.0); Lymphocytes % 6.7 % (15.3-44.8); RBC Red Blood Cell Count 4.21 M/uL (4.33-5.43)
[2021-02-12 05:06] LABS: ALT/SGPT 26 U/L (12-78); AST/SGOT 13 U/L (15-37); Albumin 2.7 g/dL (3.4-5.0); Alkaline Phosphatase 126 U/L (45-117); BUN Blood Urea Nitrogen 13 mg/dL (7-18); Bicarbonate 24 mmol/L (21-32); Bilirubin Total 0.5 mg/dL (0.2-1.0); Glucose Level 349 mg/dL (74-106); HDL Cholesterol 26 mg/dL (40-60); LDL Cholesterol, Calculated 149 (<130); Protein, Total 8.4 g/dL (6.4-8.2); Sodium Level 137 mmol/L (136-145); Thyroid Stimulating Hormone 0.229 uIU/mL (0.360-3.740)
--- NOTE | 2021-02-12 06:32 | P.PN ---
Subjective Date of Service: 02/12/21 Primary Care Provider: Dr. Reynolds Chief Complaint: Diabetic foot wound Subjective: Improving Physical Examination - Vital Signs Temperature: 98.3 F Blood Pressure: 152/93 Pulse: 72 Respirations: 18 Pulse Ox (%): 98 Assessment & Plan Discharge Plan: Home Plan to discharge in: 48 Hours Physician Review Additional Text: Covid: Negative X-ray: COMPARISON: Foot Left 3 View dated 01/25/2021; Foot Left Wo Cont dated 02/11/2021 FINDINGS: No acute fracture. No malalignment. Mild calcaneal spurring. Peripheral vascular calcifications. Question small erosion at the proximal phalanx of the fifth toe. IMPRESSION: No acute left foot fracture. Small periarticular erosion at the fifth toe proximal phalanx. Reference subsequent MRI. MRI Foot: COMPARISON: Foot Left 3 View dated 02/10/2021; Foot Left 3 View dated 01/25/2021 FINDINGS: Small moderate posterior and plantar calcaneal spurs. Distal aspect of the Achilles tendon is normal in size and appearance. No evidence of plantar fascia edema or fibromatosis. Intermediate abnormal diminished T1 signal and elevated T2/IR signal is seen along the lateral plantar soft tissues of the forefoot extending along the plantar base soft tissues of the second through fourth toes. Abnormal diminished T1 signal and elevated T2/IR signal is seen involving the base of the proximal phalanx of the fourth toe compatible with early mild/osteomyelitis. No soft tissue mass or hematoma seen. No drainable fluid collection is evident. IMPRESSION: Early developing osteomyelitis base of the proximal phalanx of fourth toe. Extensive abnormal signal in soft tissues of the plantar lateral forefoot. Arterial doppler: COMPARISON: None FINDINGS: The common femoral, superficial femoral and popliteal arteries bilaterally demonstrate triphasic waveforms. Monophasic waveforms are present within the left posterior tibial artery and dorsalis pedis artery. Waveforms in the right dorsalis pedis and posterior tibial artery are normal. IMPRESSION: Monophasic waveforms in the left posterior tibial and dorsalis pedis arteries consistent with hemodynamically significant stenoses. Surgery: Date: 02/11/21 12:02 Preoperative diagnosis: necrotic infected diabetic left foot ulcer Postoperative diagnosis: same Primary procedure: Excisional debridement necrotic infected diabetic left foot ulcer 7x2x1 cm Estimated blood loss: <10cc Specimen: pus Findings: pus Anesthesia: General Complications: None Transferred to: Recovery Room Physical exam: General: Alert, Oriented x3 HEENT: Atraumatic, Mucous membr. moist/pink Neck: Supple Respiratory: Clear to auscultation bilaterally, Normal air movement Cardiovascular: Regular rate/rhythm, Normal S1 S2 Capillary refill: <2 Seconds Gastrointestinal: Normal bowel sounds, No tenderness Musculoskeletal: Erythema, Tenderness, Warmth Integumentary: No rashes, Diabetic ulcer (Diabetic foot wound present to base of the left fourth toe. Surrounding cellulitis, erythema, necrotic tissue present.) Neurological: Normal speech, Normal strength at 5/5 x4 extr, Normal tone, Normal affect, Abnormal gait Impression: Left-sided diabetic foot wound failed outpatient therapy involving the base of the third fourth and fifth toes with MRI showing developing osteomyelitis of the base of the proximal phalanx of the 4th toe status post surgical debridement Diabetes type 2 with hyperglycemia Hyperlipidemia PAD with arterial Doppler showing significant stenosis to the left posterior tibial and dorsalis pedis arteries Plan: Left-sided diabetic foot wound failed outpatient therapy involving the base of the third fourth and fifth toes with MRI showing developing osteomyelitis of the base of the proximal phalanx of the 4th toe status post surgical debridement: MRI shows early osteomyelitis. Spoke with surgery after intervention. Patient had surgical debridement. Blood, wound cultures obtained. Continue IV vancomycin and Levaquin. Continue with medication for pain. Will order PICC l ine as the patient will require long-term IV antibiotic therapy. Await findings from cultures to determine what patient will require at discharge. Continue current wound care. Will consult socially responsible investment adviser to help arrange for outpatient antibiotic therapy. Diabetes type 2 with hyperglycemia: A1c 9.1. Increase basal insulin for better control. Hyperlipidemia: Continue Lipitor PAD with arterial Doppler showing significant stenosis to the left posterior tibial and dorsalis pedis arteries: Continue aspirin. Will discuss with cardiology to see if patient will require any future intervention DVT PPX: Lovenox Code status: Full Discharge Plan: Home at discharge Time Spent Managing Pts Care (In Minutes): 55
[2021-02-12] MEDS: INSULIN -REGULAR HUMAN 50 UNIT/0.5 ML ML SQ SCH ×4 (07:30→20:50)
[2021-02-12] MEDS: FOLIC ACID 1 MG TABLET PO SCH (08:51)
[2021-02-12] MEDS: ASPIRIN EC 81 MG TAB PO SCH (08:51)
[2021-02-12] MEDS: COLLAGENASE 30 GM OINTMENT TOP SCH (08:52)
[2021-02-12] MEDS ORDERED: INSULIN GLARGINE 100 UNITS/ML SQ SCH ×2 (09:00→21:00)
[2021-02-12] MEDS ORDERED: ASPIRIN EC 81 MG TAB PO ONE (09:06)
[2021-02-12] MEDS ORDERED: FOLIC ACID 1 MG TABLET ONE (09:07)
[2021-02-12] MEDS ORDERED: INSULIN GLARGINE 100 UNITS/ML SQ ONE (09:11)
[2021-02-12] MEDS ORDERED: INSULIN -REGULAR HUMAN 50 UNIT/0.5 ML ML ONE ×2 (09:12→12:23)
--- NOTE | 2021-02-12 11:34 | P.CNS ---
Date of Consult: 02/12/21 Primary Care Provider: Dr. Reynolds Chief Complaint: Diabetic foot wound History of Present Illness: The patient is a 35-year-old male with a past medical history of diabetes mellitus type 2, hypertension, and hyperlipidemia who presented to the emergency department due to increased swelling pain and redness of the left foot wound. Patient states that he 1st noticed the wound about 2 weeks ago and it started off as a callus. Over time it progressively got worse and became more painful. He states that he he was seen outpatient and treated with 2 antibiotics however does not recall which ones. Patient states he did not see significant improvement while on these antibiotics and as such presented to the emergency department. Labs are significant of WBC 15.1, ESR 56, glucose 332, alk-phos 133. Left foot MRI showed osteomyelitis of the proximal phalanx of the 4th toe. Patient underwent surgical debridement performed by Dr. Strong on 02/11. Current wound care per surgical team. Patient placed on broad-spectrum IV antibiotics with vancomycin and Levaquin. Patient currently denies nausea, vomiting, diarrhea, shortness breath, chest pain. Allergies No Known Allergies Allergy (Unverified 11/29/19 01:26) Home Medications: Albuterol Sulfate [Albuterol Sulfate Hfa] 2 inh IH Q4HP PRN 11/29/19 Atorvastatin Calcium [Lipitor] 40 mg PO DAILY 11/29/19 Glipizide [Glipizide ER] 10 mg PO DAILY 11/29/19 Metformin ER [Glucophage ER*] 500 mg PO BID 11/29/19 predniSONE [Deltasone*] 10 mg PO BID #14 tab 12/01/19 Insulin NPH Human [Novolin N (Humulin N)*] 20 units SQ BIDWM #15 ml 12/02/19 levoFLOXacin [Levaquin*] 500 mg PO DAILY #3 tab 12/02/19 - Past Medical/Surgical History Diabetic: Yes -: Diabetes type 2 -: HLD Psychosocial/ Personal History: 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 - Family History Father Medical History: Diabetes - Social History Smoking Status: Current some day smoker Alcohol use: No CD- Drugs: No Caffeine use: No Place of Residence: Home Review of Systems 10-point ROS is otherwise unremarkable Physical Examination Temp Pulse Resp BP Pulse Ox 97.7 F 82 13 135/80 100 02/12/21 08:00 02/12/21 08:00 02/12/21 08:00 02/12/21 08:00 02/12/21 08:00 General: Alert, In no apparent distress, Oriented x3 HEENT: Atraumatic, Normocephalic Neck: Supple, 2+ carotid pulse no bruit Respiratory: Clear to auscultation bilaterally, Normal air movement Cardiovascular: No edema, Normal pulses, Regular rate/rhythm Capillary refill: <2 Seconds Gastrointestinal: Normal bowel sounds, Soft and benign, Non-distended Musculoskeletal: No clubbing, No contractures Integumentary: Diabetic ulcer (On the left foot status post surgical debridement on 02/11) Neurological: Normal gait, Normal speech Conclusions/Impression: Antibiotics: Vancomycin Start: 02/11 Stop:-- vancomycin trough goal of 12-17. Vancomycin trough taken on 02/12 pending Levaquin Start: 02/11 Stop:-- Assessment/plan: Left foot diabetic foot ulcer with osteomyelitis of proximal phalanx of 4th toe MRI performed on showed early osteomyelitis of proximal phalanx of 4th toe. Patient underwent surgical debridement performed by Dr. Strong on 02/11. Current wound care per surgical team: Currently utilizing santal. Blood and urine culture show no growth. Wound culture and surgical specimen pending. Patient will need IV antibiotic therapy for at least 6 weeks. Patient will need weekly labs including: WBC, BMP, CRP, ESR. Diabetes mellitus type 2 uncontrolled Hemoglobin A1c of 9.1. Continue sliding scale. Strict glucose monitoring needed for proper wound healing. Protein caloric malnutrition Low albumin, recommend supplemental Ensure protein drinks. Proper nutrition necessary for wound healing Medical management per primary team Continue to monitor CBC and BMP Continue to monitor for signs of infection Plan of care discussed with Dr. Zavala Thank you for consultation.
[2021-02-12] MEDS: VANCOMYCIN 1.75 GM in NA CHLORIDE 0.9% 500 ML IVPB SCH ×3 (12:00)
[2021-02-12] MEDS: ENOXAPARIN 40 MG/0.4 ML SQ SCH (17:00)
[2021-02-12] MEDS: Levofloxacin500mg IV 500 MG/100 ML BAG IV SCH (20:50)
[2021-02-12] MEDS: ATORVASTATIN 10 MG TAB PO SCH (20:51)
[2021-02-12] MEDS: HYDROCODONE/APAP 7.5/325 MG TAB PO PRN (21:01)
[2021-02-12] MEDS: VANCOMYCIN 2 GM in NA CHLORIDE 0.9% 500 ML IVPB SCH (23:55)
[2021-02-13 00:38] LABS: Urine Appearance CLEAR (Clear); Urine Bilirubin NEGATIVE (Negative); Urine Blood NEGATIVE (Negative); Urine Color YELLOW (Yellow); Urine Glucose 3+ (Negative); Urine Protein NEGATIVE (Negative); Urine Specific Gravity 1.025 (1.005-1.030)
[2021-02-13 00:42] LABS: Urine Microscopic Reflex NO UMIC
[2021-02-13 05:49] LABS: Absolute Lymphocytes (CBC) 3.1 K/uL (0.7-4.9); Basophils % 0.6 % (0-1.3); Hematocrit 36.4 % (39.6-49.0); Lymphocytes % 25.6 % (15.3-44.8); RBC Red Blood Cell Count 3.93 M/uL (4.33-5.43)
[2021-02-13 05:57] LABS: ALT/SGPT 21 U/L (12-78); AST/SGOT 10 U/L (15-37); Albumin 2.4 g/dL (3.4-5.0); Alkaline Phosphatase 108 U/L (45-117); BUN Blood Urea Nitrogen 19 mg/dL (7-18); Bicarbonate 28 mmol/L (21-32); Bilirubin Total 0.2 mg/dL (0.2-1.0); Glucose Level 330 mg/dL (74-106); Potassium 3.6 mmol/L (3.5-5.1); Protein, Total 7.4 g/dL (6.4-8.2); Sodium Level 141 mmol/L (136-145)
--- NOTE | 2021-02-13 06:04 | P.PN ---
Subjective Date of Service: 02/13/21 Primary Care Provider: Dr. Reynolds Chief Complaint: Diabetic foot wound Subjective: Improving Physical Examination - Vital Signs Temperature: 97.2 F Blood Pressure: 135/84 Pulse: 73 Respirations: 20 Pulse Ox (%): 96 Assessment & Plan Discharge Plan: Home Plan to discharge in: Greater than 2 days Physician Review Additional Text: Covid: Negative X-ray: COMPARISON: Foot Left 3 View dated 01/25/2021; Foot Left Wo Cont dated 02/11/2021 FINDINGS: No acute fracture. No malalignment. Mild calcaneal spurring. Peripheral vascular calcifications. Question small erosion at the proximal phalanx of the fifth toe. IMPRESSION: No acute left foot fracture. Small periarticular erosion at the fifth toe proximal phalanx. Reference subsequent MRI. MRI Foot: COMPARISON: Foot Left 3 View dated 02/10/2021; Foot Left 3 View dated 01/25/2021 FINDINGS: Small moderate posterior and plantar calcaneal spurs. Distal aspect of the Achilles tendon is normal in size and appearance. No evidence of plantar fascia edema or fibromatosis. Intermediate abnormal diminished T1 signal and elevated T2/IR signal is seen along the lateral plantar soft tissues of the forefoot extending along the plantar base soft tissues of the second through fourth toes. Abnormal diminished T1 signal and elevated T2/IR signal is seen involving the base of the proximal phalanx of the fourth toe compatible with early mild/osteomyelitis. No soft tissue mass or hematoma seen. No drainable fluid collection is evident. IMPRESSION: Early developing osteomyelitis base of the proximal phalanx of fourth toe. Extensive abnormal signal in soft tissues of the plantar lateral forefoot. Arterial doppler: COMPARISON: None FINDINGS: The common femoral, superficial femoral and popliteal arteries bilaterally demonstrate triphasic waveforms. Monophasic waveforms are present within the left posterior tibial artery and d orsalis pedis artery. Waveforms in the right dorsalis pedis and posterior tibial artery are normal. IMPRESSION: Monophasic waveforms in the left posterior tibial and dorsalis pedis arteries consistent with hemodynamically significant stenoses. Surgery: Date: 02/11/21 12:02 Preoperative diagnosis: necrotic infected diabetic left foot ulcer Postoperative diagnosis: same Primary procedure: Excisional debridement necrotic infected diabetic left foot ulcer 7x2x1 cm Estimated blood loss: <10cc Specimen: pus Findings: pus Anesthesia: General Complications: None Transferred to: Recovery Room Physical exam: General: Alert, Oriented x3 HEENT: Atraumatic, Mucous membr. moist/pink Neck: Supple Respiratory: Clear to auscultation bilaterally, Normal air movement Cardiovascular: Regular rate/rhythm, Normal S1 S2 Capillary refill: <2 Seconds Gastrointestinal: Normal bowel sounds, No tenderness Musculoskeletal: Erythema, Tenderness, Warmth Integumentary: No rashes, Diabetic ulcer (Diabetic foot wound present to base of the left fourth toe. Surrounding cellulitis, erythema, necrotic tissue present.) Neurological: Normal speech, Normal strength at 5/5 x4 extr, Normal tone, Normal affect, Abnormal gait Impression: Left-sided diabetic foot wound failed outpatient therapy involving the base of the third fourth and fifth toes with MRI showing developing osteomyelitis of the base of the proximal phalanx of the 4th toe status post surgical debridement Diabetes type 2 with hyperglycemia Hyperlipidemia PAD with arterial Doppler showing significant stenosis to the left posterior tibial and dorsalis pedis arteries Plan: Left-sided diabetic foot wound failed outpatient therapy involving the base of the third fourth and fifth toes with MRI showing developing osteomyelitis of the base of the proximal phalanx of the 4th toe status post surgical debridement: Cultures pending. Await findings. MRI shows early osteomyelitis. Spoke with surgery after intervention. Patient had surgical debridement. Continue IV vancomycin and Levaquin. Continue with medication for pain. Depending what culture findings show will discuss with infectious disease about oral medication versus IV antibiotic therapy at discharge. If IV antibiotic therapy needed patient will need PICC line and arrangement for outpatient antibiotic therapy. Diabetes type 2 with hyperglycemia: A1c 9.1. Continue to adjust insulin for better control. Restart Metformin. Hyperlipidemia: Continue Lipitor PAD with arterial Doppler showing significant stenosis to the left posterior tibial and dorsalis pedis arteries: Continue aspirin. Will discuss with cardiology to see if patient will require any future intervention DVT PPX: Lovenox Code status: Full Discharge Plan: Home at discharge Time Spent Managing Pts Care (In Minutes): 55
[2021-02-13] MEDS: FOLIC ACID 1 MG TABLET PO SCH (08:22)
[2021-02-13] MEDS: HYDROCODONE/APAP 7.5/325 MG TAB PO PRN ×2 (08:22→17:37)
[2021-02-13] MEDS: METFORMIN ER 500 MG TAB PO SCH ×2 (08:22→17:37)
[2021-02-13] MEDS: ASPIRIN EC 81 MG TAB PO SCH (08:22)
[2021-02-13] MEDS: INSULIN GLARGINE 100 UNITS/ML SQ SCH ×2 (08:23→21:39)
[2021-02-13] MEDS: INSULIN -REGULAR HUMAN 50 UNIT/0.5 ML ML SQ SCH ×4 (08:24→21:40)
[2021-02-13] MEDS: COLLAGENASE 30 GM OINTMENT TOP SCH (08:25)
[2021-02-13] MEDS ORDERED: POTASSIUM CL SA 10 MEQ TAB PO ONE (09:00)
[2021-02-13] MEDS: VANCOMYCIN 2 GM in NA CHLORIDE 0.9% 500 ML IVPB SCH (12:47)
[2021-02-13] MEDS: ENOXAPARIN 40 MG/0.4 ML SQ SCH (17:38)
[2021-02-13] MEDS: ATORVASTATIN 40 MG TAB PO SCH (21:40)
[2021-02-13] MEDS: MORPHINE 2 MG/ML SYR IV PRN (21:41)
[2021-02-13] MEDS: Levofloxacin 750mg IV 750 MG/150 ML BAG IV SCH (23:20)
[2021-02-14] MEDS: VANCOMYCIN 2 GM in NA CHLORIDE 0.9% 500 ML IVPB SCH ×2 (00:47→12:15)
[2021-02-14] MEDS: HYDROCODONE/APAP 7.5/325 MG TAB PO PRN ×2 (00:50→06:41)
--- NOTE | 2021-02-14 05:57 | P.PN ---
Subjective Date of Service: 02/14/21 Primary Care Provider: Dr. Reynolds Chief Complaint: Diabetic foot wound Subjective: Improving, Doing well Physical Examination - Vital Signs Temperature: 98.3 F Blood Pressure: 158/86 Pulse: 72 Respirations: 19 Pulse Ox (%): 100 Assessment & Plan Discharge Plan: Home Plan to discharge in: 24 Hours Physician Review Additional Text: Covid: Negative X-ray: COMPARISON: Foot Left 3 View dated 01/25/2021; Foot Left Wo Cont dated 02/11/2021 FINDINGS: No acute fracture. No malalignment. Mild calcaneal spurring. Peripheral vascular calcifications. Question small erosion at the proximal phalanx of the fifth toe. IMPRESSION: No acute left foot fracture. Small periarticular erosion at the fifth toe proximal phalanx. Reference subsequent MRI. MRI Foot: COMPARISON: Foot Left 3 View dated 02/10/2021; Foot Left 3 View dated 01/25/2021 FINDINGS: Small moderate posterior and plantar calcaneal spurs. Distal aspect of the Achilles tendon is normal in size and appearance. No evidence of plantar fascia edema or fibromatosis. Intermediate abnormal diminished T1 signal and elevated T2/IR signal is seen along the lateral plantar soft tissues of the forefoot extending along the plantar base soft tissues of the second through fourth toes. Abnormal diminished T1 signal and elevated T2/IR signal is seen involving the base of the proximal phalanx of the fourth toe compatible with early mild/osteomyelitis. No soft tissue mass or hematoma seen. No drainable fluid collection is evident. IMPRESSION: Early developing osteomyelitis base of the proximal phalanx of fourth toe. Extensive abnormal signal in soft tissues of the plantar lateral forefoot. Arterial doppler: COMPARISON: None FINDINGS: The common femoral, superficial femoral and popliteal arteries bilaterally demonstrate triphasic waveforms. Monophasic waveforms are present within the left posterior tibial artery and dorsalis pedis artery. Waveforms in the right dorsalis pedis and posterior tibial artery are normal. IMPRESSION: Monophasic waveforms in the left posterior tibial and dorsalis pedis arteries consistent with hemodynamically significant stenoses. Surgery: Date: 02/11/21 12:02 Preoperative diagnosis: necrotic infected diabetic left foot ulcer Postoperative diagnosis: same Primary procedure: Excisional debridement necrotic infected diabetic left foot ulcer 7x2x1 cm Estimated blood loss: <10cc Specimen: pus Findings: pus Anesthesia: General Complications: None Transferred to: Recovery Room Physical exam: General: Alert, Oriented x3 HEENT: Atraumatic, Mucous membr. moist/pink Neck: Supple Respiratory: Clear to auscultation bilaterally, Normal air movement Cardiovascular: Regular rate/rhythm, Normal S1 S2 Capillary refill: <2 Seconds Gastrointestinal: Normal bowel sounds, No tenderness Musculoskeletal: Erythema, Tenderness, Warmth Integumentary: No rashes, Diabetic ulcer (Diabetic foot wound present to base of the left fourth toe. Surrounding cellulitis, erythema, necrotic tissue present.) Neurological: Normal speech, Normal strength at 5/5 x4 extr, Normal tone, Normal affect, Abnormal gait Impression: Left-sided diabetic foot wound failed outpatient therapy involving the base of the third fourth and fifth toes with MRI showing developing osteomyelitis of the base of the proximal phalanx of the 4th toe status post surgical debridement Diabetes type 2 with hyperglycemia Hyperlipidemia PAD with arterial Doppler showing significant stenosis to the left posterior tibial and dorsalis pedis arteries Plan: Left-sided diabetic foot wound failed outpatient therapy involving the base of the third fourth and fifth toes with MRI showing developing osteomyelitis of the base of the proximal phalanx of the 4th toe status post surgical debridement: Initial culture results show Enterobacter. Final cultures to result tomorrow. Sensitive to Levaquin. Will discontinue IV vancomycin. Continue IV Levaquin. If final results of other culture shows Enterobacter and sensitive to Levaquin, will need to discuss with infectious disease to consider home with oral antibiotic therapy instead of IV. Continue current wound care. Continue with medication for pain. Possible home tomorrow with oral antibiotic therapy if agreeable with infectious disease considering final results of culture or home in the next 48 hours with IV antibiotic therapy if IV antibiotic therapy still required. Patient plans to establish care with Dr. Carmona as an outpatient. I will turn to service over to the hospitalist team tomorrow. I will go plan of care with him. Diabetes type 2 with hyperglycemia: A1c 9.1. Continue to adjust insulin for better control. Continue Metformin. Hyperlipidemia: Continue Lipitor PAD with arterial Doppler showing significant stenosis to the left posterior tibial and dorsalis pedis arteries: Continue aspirin. Patient will need to follow-up with cardiology as an outpatient and see a specialist Dr. Valdes in [place] in the future to further evaluate. DVT PPX: Lovenox Code status: Full Discharge Plan: Home at discharge Time Spent Managing Pts Care (In Minutes): 55
[2021-02-14 06:22] LABS: Absolute Lymphocytes (CBC) 3.1 K/uL (0.7-4.9); Basophils % 0.6 % (0-1.3); Hematocrit 38.2 % (39.6-49.0); Lymphocytes % 34.9 % (15.3-44.8); MPV 10.3 fL (7.6-11.3); RBC Red Blood Cell Count 4.14 M/uL (4.33-5.43)
[2021-02-14 06:42] LABS: ALT/SGPT 21 U/L (12-78); AST/SGOT 15 U/L (15-37); Albumin 2.4 g/dL (3.4-5.0); Alkaline Phosphatase 95 U/L (45-117); BUN Blood Urea Nitrogen 14 mg/dL (7-18); Bicarbonate 28 mmol/L (21-32); Bilirubin Total 0.2 mg/dL (0.2-1.0); Glucose Level 208 mg/dL (74-106); Potassium 3.7 mmol/L (3.5-5.1); Protein, Total 7.3 g/dL (6.4-8.2); Sodium Level 140 mmol/L (136-145)
[2021-02-14] MEDS: FOLIC ACID 1 MG TABLET PO SCH (08:23)
[2021-02-14] MEDS: INSULIN -REGULAR HUMAN 50 UNIT/0.5 ML ML SQ SCH ×4 (08:23→21:33)
[2021-02-14] MEDS: ASPIRIN EC 81 MG TAB PO SCH (08:23)
[2021-02-14] MEDS: METFORMIN ER 500 MG TAB PO SCH ×2 (08:23→17:35)
[2021-02-14] MEDS: INSULIN GLARGINE 100 UNITS/ML SQ SCH ×2 (08:24→21:28)
[2021-02-14] MEDS: COLLAGENASE 30 GM OINTMENT TOP SCH (08:24)
[2021-02-14] MEDS ORDERED: POTASSIUM 25 MEQ EFFERV TAB PO ONE (09:00)
[2021-02-14] MEDS: ENOXAPARIN 40 MG/0.4 ML SQ SCH (17:35)
[2021-02-14] MEDS: Levofloxacin 750mg IV 750 MG/150 ML BAG IV SCH (21:27)
[2021-02-14] MEDS: ATORVASTATIN 40 MG TAB PO SCH (21:27)
[2021-02-15] MEDS: MORPHINE 2 MG/ML SYR IV PRN (00:26)
[2021-02-15 06:26] LABS: Absolute Lymphocytes (CBC) 2.9 K/uL (0.7-4.9); Basophils % 0.7 % (0-1.3); Hematocrit 40.3 % (39.6-49.0); Lymphocytes % 25.6 % (15.3-44.8); MPV 9.6 fL (7.6-11.3); RBC Red Blood Cell Count 4.44 M/uL (4.33-5.43)
[2021-02-15 06:43] LABS: ALT/SGPT 21 U/L (12-78); AST/SGOT 17 U/L (15-37); Albumin 2.5 g/dL (3.4-5.0); Alkaline Phosphatase 86 U/L (45-117); BUN Blood Urea Nitrogen 10 mg/dL (7-18); Bicarbonate 31 mmol/L (21-32); Bilirubin Total 0.3 mg/dL (0.2-1.0); Glucose Level 192 mg/dL (74-106); Potassium 3.7 mmol/L (3.5-5.1); Protein, Total 7.3 g/dL (6.4-8.2); Sodium Level 138 mmol/L (136-145)
[2021-02-15] MEDS: HYDROCODONE/APAP 7.5/325 MG TAB PO PRN (08:43)
[2021-02-15] MEDS: FOLIC ACID 1 MG TABLET PO SCH (08:43)
[2021-02-15] MEDS: METFORMIN ER 500 MG TAB PO SCH (08:43)
[2021-02-15] MEDS: ASPIRIN EC 81 MG TAB PO SCH (08:44)
[2021-02-15] MEDS: INSULIN GLARGINE 100 UNITS/ML SQ SCH (08:44)
[2021-02-15] MEDS: COLLAGENASE 30 GM OINTMENT TOP SCH (08:45)
[2021-02-15] MEDS: INSULIN -REGULAR HUMAN 50 UNIT/0.5 ML ML SQ SCH ×2 (08:50→12:00)
[2021-02-15 10:30] VITALS: O2SAT 98
[2021-02-15] MEDS ORDERED: LACTOBACILLUS/ACIDOPHILUS TAB PO SCH (11:00)
--- NOTE | 2021-02-15 11:35 | P.PN ---
Subjective Date of Service: 02/15/21 Primary Care Provider: Dr. Reynolds Chief Complaint: Diabetic foot wound Patient seen examined at bedside, doing well with no acute complaints. Continue wound care per surgical team. Review of Systems 10-point ROS is otherwise unremarkable Physical Examination - Vital Signs Temperature: 97.9 F Blood Pressure: 157/79 Pulse: 83 Respirations: 18 Pulse Ox (%): 98 - Studies Laboratory Last Values WBC 15.10 K/uL (4.3-10.9) H 02/10/21 23: RBC 4.57 M/uL (4.33-5.43) 02/10/21 23: Hgb 14.4 g/dL (13.6-17.9) 02/10/21 23: Hct 42.3 % (39.6-49.0) 02/10/21 23: MCV 92.6 fL (80-100) 02/10/21 23:21 MCH 31.4 pg (27.0-35.0) 02/10/21 23: MCHC 33.9 g/dL (32.0-36.0) 02/10/21 23: RDW 12.0 % (12.1-15.2) L 02/10/21 23: Plt Count 267 K/uL (152-406) 02/10/21 23: MPV 10.0 fL (7.6-11.3) 02/10/21 23:21 Neutrophils % 72.4 % (41.7-73.7) 02/10/21 23: Lymphocytes % 17.0 % (15.3-44.8) 02/10/21 23: Monocytes % 8.6 % (3.3-12.3) 02/10/21 23: Eosinophils % 1.4 % (0-4.4) 02/10/21 23: Basophils % 0.6 % (0-1.3) 02/10/21 23: Absolute Neutrophils 11.0 K/uL (1.8-8.0) H 02/10/21 23:21 Absolute Lymphocytes 2.6 K/uL (0.7-4.9) 02/10/21 23: Absolute Monocytes 1.3 K/uL (0.1-1.3) 02/10/21 23:21 Absolute Eosinophils 0.2 K/uL (0-0.5) 02/10/21 23:21 Absolute Basophils 0.1 K/uL (0-0.5) 02/10/21 23:21 ESR Westergren 56 mm/HR (0-15) H 02/10/21 23:21 Sodium 136 mmol/L (136-145) 02/10/21 23:21 Potassium 4.0 mmol/L (3.5-5.1) 02/10/21 23:21 Chloride 99 mmol/L (98-107) 02/10/21 23:21 Carbon Dioxide 31 mmol/L (21-32) 02/10/21 23:21 BUN 12 mg/dL (7-18) 02/10/21 23:21 Creatinine 0.82 mg/dL (0.55-1.3) 02/10/21 23:21 Estimated GFR > 90 mL/min (=/>90) 02/10/21 23:21 Glucose 332 mg/dL (74-106) H 02/10/21 23:21 Calcium 9.0 mg/dL (8.5-10.1) 02/10/21 23:21 Total Bilirubin 0.5 mg/dL (0.2-1.0) 02/10/21 23:21 AST 16 U/L (15-37) 02/10/21 23:21 ALT 23 U/L (12-78) 02/10/21 23:21 Alkaline Phosphatase 133 U/L (45-117) H 02/10/21 23:21 Serum Total Protein 8.7 g/dL (6.4-8.2) H 02/10/21 23:21 Albumin 3.0 g/dL (3.4-5.0) L 02/10/21 23:21 Globulin 5.7 g/dL (2.3-3.5) H 02/10/21 23:21 Albumin/Globulin Ratio 0.5 (1.1-1.8) L 02/10/21 23:21 Procalcitonin < 0.05 ng/mL (<0.050) 02/11/21 00:02 Assessment And Plan - Plan Physical Exam: General: Alert, In no apparent distress, Oriented x3 HEENT: Atraumatic, Normocephalic Neck: Supple, 2+ carotid pulse no bruit Respiratory: Clear to auscultation bilaterally, Normal air movement Cardiovascular: No edema, Normal pulses, Regular rate/rhythm Capillary refill: <2 Seconds Gastrointestinal: Normal bowel sounds, Soft and benign, Non-distended Musculoskeletal: No clubbing, No contractures Integumentary: Diabetic ulcer (On the left foot status post surgical debridement on 02/11) Neurological: Normal gait, Normal speech Conclusions/Impression: Antibiotics: Levaquin Start: 02/11 Stop:-- Assessment/plan: Left foot diabetic foot ulcer with osteomyelitis of proximal phalanx of 4th toe MRI performed on 02/11 showed early osteomyelitis of proximal phalanx of 4th toe. Patient underwent surgical debridement performed by Dr. Strong on 02/11. Current wound care per surgical team: Currently utilizing santyl. Blood and urine culture show no growth. Wound cultures grew strep agalactiae and Enterobacter cloacae, both sensitive to Levaquin. Patient is uninsured, IM team requesting p.o. antibiotics. Discussed with Dr. Zavala, he stated p.o. Levaquin can be utilized in this patient's case. Patient will need antibiotic therapy for at least 6 weeks. Patient will need weekly labs including: WBC, BMP, CRP, ESR. Diabetes mellitus type 2 uncontrolled Hemoglobin A1c of 9.1. Continue sliding scale. Strict glucose monitoring needed for proper wound healing. Protein caloric malnutrition Low albumin, recommend supplemental Ensure protein drinks. Proper nutrition necessary for wound healing Medical management per primary team Continue to monitor CBC and BMP Continue to monitor for signs of infection Plan of care discussed with Dr. Zavala Thank you for consultation. Physician Review Additional Text: Covid: Negative X-ray: COMPARISON: Foot Left 3 View dated 01/25/2021; Foot Left Wo Cont dated 02/11/2021 FINDINGS: No acute fracture. No malalignment. Mild calcaneal spurring. Peripheral vascular calcifications. Question small erosion at the proximal phalanx of the fifth toe. IMPRESSION: No acute left foot fracture. Small periarticular erosion at the fifth toe proximal phalanx. Reference subsequent MRI. MRI Foot: COMPARISON: Foot Left 3 View dated 02/10/2021; Foot Left 3 View dated 01/25/2021 FINDINGS: Small moderate posterior and plantar calcaneal spurs. Distal aspect of the Achilles tendon is normal in size and appearance. No evidence of plantar fascia edema or fibromatosis. Intermediate abnormal diminished T1 signal and elevated T2/IR signal is seen along the lateral plantar soft tissues of the forefoot extending along the plantar base soft tissues of the second through fourth toes. Abnormal diminished T1 signal and elevated T2/IR signal is seen involving the base of the proximal phalanx of the fourth toe compatible with early mild/osteomyelitis. No soft tissue mass or hematoma seen. No drainable fluid collection is evident. IMPRESSION: Early developing osteomyelitis base of the proximal phalanx of fourth toe. Extensive abnormal signal in soft tissues of the plantar lateral forefoot. Arterial doppler: COMPARISON: None FINDINGS: The common femoral, superficial femoral and popliteal arteries bilaterally demonstrate triphasic waveforms. Monophasic waveforms are present within the left posterior tibial artery and dorsalis pedis artery. Waveforms in the right dorsalis pedis and posterior tibial artery are normal. IMPRESSION: Monophasic waveforms in the left posterior tibial and dorsalis pedis arteries consistent with hemodynamically significant stenoses. Surgery: Date: 02/11/21 12:02 Preoperative diagnosis: necrotic infected diabetic left foot ulcer Postoperative diagnosis: same Primary procedure: Excisional debridement necrotic infected diabetic left foot ulcer 7x2x1 cm Estimated blood loss: <10cc Specimen: pus Findings: pus Anesthesia: General Complications: None Transferred to: Recovery Room Physical exam: General: Alert, Oriented x3 HEENT: Atraumatic, Mucous membr. moist/pink Neck: Supple Respiratory: Clear to auscultation bilaterally, Normal air movement Cardiovascular: Regular rate/rhythm, Normal S1 S2 Capillary refill: <2 Seconds Gastrointestinal: Normal bowel sounds, No tenderness Musculoskeletal: Erythema, Tenderness, Warmth Integumentary: No rashes, Diabetic ulcer (Diabetic foot wound present to base of the left fourth toe. Surrounding cellulitis, erythema, necrotic tissue present.) Neurological: Normal speech, Normal strength at 5/5 x4 extr, Normal tone, Normal affect, Abnormal gait Impression: Left-sided diabetic foot wound failed outpatient therapy involving the base of the third fourth and fifth toes with MRI showing developing osteomyelitis of the base of the proximal phalanx of the 4th toe status post surgical debridement Diabetes type 2 with hyperglycemia Hyperlipidemia PAD with arterial Doppler showing significant stenosis to the left posterior tibial and dorsalis pedis arteries Plan: Left-sided diabetic foot wound failed outpatient therapy involving the base of the third fourth and fifth toes with MRI showing developing osteomyelitis of the base of the proximal phalanx of the 4th toe status post surgical debridement: Initial culture results show Enterobacter. Final cultures to result tomorrow. Sensitive to Levaquin. Will discontinue IV vancomycin. Continue IV Levaquin. If final results of other culture shows Enterobacter and sensitive to Levaquin, will need to discuss with infectious disease to consider home with oral antibiotic therapy instead of IV. Continue current wound care. Continue with medication for pain. Possible home tomorrow with oral antibiotic therapy if agreeable with infectious disease considering final results of culture or home in the next 48 hours with IV antibiotic therapy if IV antibiotic therapy still required. Patient plans to establish care with Dr. Carmona as an outpatient. I will turn to service over to the hospitalist team tomorrow. I will go plan of care with him. Diabetes type 2 with hyperglycemia: A1c 9.1. Continue to adjust insulin for better control. Continue Metformin. Hyperlipidemia: Continue Lipitor PAD with arterial Doppler showing significant stenosis to the left posterior tibial and dorsalis pedis arteries: Continue aspirin. Patient will need to follow-up with cardiology as an outpatient and see a specialist Dr. Valdes in [place] in the future to further evaluate. DVT PPX: Lovenox Code status: Full Discharge Plan: Home at discharge
[2021-02-15] MEDS ORDERED: POTASSIUM CL SA 10 MEQ TAB PO ONE (12:00)
[2021-02-15 14:08] VITALS: BP 124/89; TEMP 97.1
--- NOTE | 2021-02-15 14:39 | P.PN ---
Subjective Date of Service: 02/15/21 Patient is clinically doing well with no new complaints. Patient's cultures are pending. Patient's identification reveals sensitivity to Levaquin. Will discuss with Infectious Disease regarding plan of care and antibiotic recommendations. Review of Systems 10-point ROS is otherwise unremarkable Physical Examination - Vital Signs Temperature: 97.1 F Blood Pressure: 124/89 Pulse: 95 Respirations: 17 Pulse Ox (%): 97 - Physical Exam General: Alert, In no apparent distress, Oriented x3 Respiratory: Clear to auscultation bilaterally, Normal air movement Cardiovascular: Regular rate/rhythm, Normal S1 S2, No murmurs Gastrointestinal: Normal bowel sounds, Soft and benign, Non-distended, No tenderness Musculoskeletal: No clubbing, No swelling, Tenderness Neurological: Sensation intact, Cranial nerves 3-12 intact - Studies Medications List Reviewed: Yes Assessment & Plan - Problems (Diagnosis) (1) Osteomyelitis of left foot Current Visit: Yes Status: Acute (2) Pneumonia due to COVID-19 virus Current Visit: No Status: Acute (3) Diabetes type 2, uncontrolled Current Visit: No Status: Acute - Plan 1. Continue with IV antibiotic 2. Continue with local wound care 3. Wound care consultation/surgical consultation appreciated 4. Gentle IV hydration 5. Monitor CBC 6. Strict blood sugar monitoring 7. Pain control 8. GI and DVT prophylaxis Discharge Plan: Home Plan to discharge in: 48 Hours - Advance Directives Does patient have a Living Will: No Does patient have a Durable POA for Healthcare: No - Code Status/Comfort Care Code Status Assessed: Yes Code Status: Full Code Critical Care: No Time Spent Managing PTS Care (In Minutes): 40
--- NOTE | 2021-02-15 15:07 | P.DS ---
Discharge Date: 02/15/21 Primary Care Provider: Dr. Reynolds Disposition: ROUTINE DISCHARGE Discharge Condition: GOOD Reason for Admission: Diabetic foot wound - Problems (1) Osteomyelitis of left foot Status: Acute (2) Pneumonia due to COVID-19 virus Status: Acute (3) Diabetes type 2, uncontrolled Status: Acute Brief History of Present Illness: 35-year-old male with history of diabetes mellitus type 2, hypertension, hyperlipidemia presents emergency department for left foot wound. 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 Patient presents emergency [place] for worsening of his diabetic foot wound, failed outpatient therapy. Patient was evaluated in the emergency department labs are significant for white blood cell count 15.1 ESR 56 glucose 332 alk phos 133 x-ray of the foot has been obtained but not reviewed by radiology at this time, questionable osteomyelitis. ED provider wishes to admit for diabetic foot wound, failed outpatient therapy. Hospital Course: Spoke with Infectious Disease they recommended oral antibiotics. Patient will be set up with oral antibiotics for 4 weeks. At this time, patient is stable for discharge Vital Signs/Physical Exam: Temp Pulse Resp BP Pulse Ox 97.1 F 95 H 17 124/89 97 02/15/21 14:39 02/15/21 14:39 02/15/21 14:39 02/15/21 14:39 02/15/21 14:39 General: Alert, In no apparent distress, Oriented x3 Laboratory Data at Discharge: WBC 11.20 K/uL (4.3-10.9) H D 02/15/21 06:04 Hgb 13.9 g/dL (13.6-17.9) 02/15/21 06:04 Hct 40.3 % (39.6-49.0) 02/15/21 06:04 Plt Count 264 K/uL (152-406) 02/15/21 06:04 Sodium 138 mmol/L (136-145) 02/15/21 06:04 Potassium 3.7 mmol/L (3.5-5.1) 02/15/21 06:04 BUN 10 mg/dL (7-18) 02/15/21 06:04 Creatinine 0.49 mg/dL (0.55-1.3) L 02/15/21 06:04 Glucose 192 mg/dL (74-106) H 02/15/21 06:04 Total Bilirubin 0.3 mg/dL (0.2-1.0) 02/15/21 06:04 AST 17 U/L (15-37) 02/15/21 06:04 ALT 21 U/L (12-78) 02/15/21 06:04 Alkaline Phosphatase 86 U/L (45-117) 02/15/21 06:04 Triglycerides 129 mg/dL (<150) 02/12/21 03:57 Cholesterol 201 mg/dL (<200) H 02/12/21 03:57 HDL Cholesterol 26 mg/dL (40-60) L 02/12/21 03:57 Cholesterol/HDL Ratio 7.73 02/12/21 03:57 Home Medications: Atorvastatin Calcium [Lipitor] 40 mg PO DAILY 11/29/19 Glipizide [Glipizide ER] 10 mg PO DAILY 11/29/19 Metformin ER [Glucophage ER*] 500 mg PO BID 11/29/19 Collagenase [Santyl Ointment*] 1 appl TOP DAILY #30 tube 02/15/21 Hydrocodone 7.5/APAP 325 [[place] 7.5/325 mg*] 1 tab PO Q6H PRN #30 tab 02/15/21 levoFLOXacin [Levaquin] 500 mg PO DAILY #40 tab 02/15/21 New Medications: levoFLOXacin [Levaquin] 500 mg PO DAILY #40 tab Hydrocodone 7.5/APAP 325 [[place] 7.5/325 mg*] 1 tab PO Q6H PRN #30 tab PRN Reason: Pain Scale 5-7 (Moderate) Collagenase [Santyl Ointment*] 1 appl TOP DAILY #30 tube Physician Discharge Instructions: OK TO DC IV AND DC HOME FOLLOW-UP WITH PRIMARY CARE PROVIDER IN 1-2 WEEKS FOLLOW-UP WITH wound healing RETURN TO THE ER IF symptoms worsen CALL or TEXT DR. STALEY AT [phone] IF ANY QUESTIONS REGARDING HOSPITAL STAY. PLEASE CALL THE FLOOR AT [phone] IF ANY MEDICATION OR NURSING QUESTIONS. Diet: ADA Activity: Fall precautions Followup: Surinder Strong MD [ACTIVE - CAN ADMIT] - NONE,NONE [Primary Care Provider] - Time spent managing pt's care (in minutes): 35
== END 2021-02-15 16:27 | disposition home or self-care (01) | DRG 623 ==
LOC: ER 20:46 → ERHOLD 02-11 00:36 → 2ND 02-12 14:12
PROVIDERS: ADMIT Family Medicine; ATTEND Family Medicine
PROC: 0LBW0ZZ Excision of Left Foot Tendon, Open Approach (ICD-10-PCS; 2021-02-11)
PROC: 0J9R0ZZ Drainage of Left Foot Subcutaneous Tissue and Fascia, Open Approach (ICD-10-PCS; 2021-02-11)
PROC: 0KBW0ZZ Excision of Left Foot Muscle, Open Approach (ICD-10-PCS; principal; 2021-02-11 11:30)
DX: E11.69 Type 2 diabetes mellitus with other specified complication (principal); M86.9 Osteomyelitis, unspecified; E46 Unspecified protein-calorie malnutrition; E11.65 Type 2 diabetes mellitus with hyperglycemia; B95.1 Streptococcus, group B, as the cause of diseases classified elsewhere; B96.89 Other specified bacterial agents as the cause of diseases classified elsewhere; Z68.31 Body mass index [BMI] 31.0-31.9, adult; E11.621 Type 2 diabetes mellitus with foot ulcer; L97.529 Non-pressure chronic ulcer of other part of left foot with unspecified severity; I10 Essential (primary) hypertension; E78.5 Hyperlipidemia, unspecified; I73.9 Peripheral vascular disease, unspecified; Z20.822 Contact with and (suspected) exposure to COVID-19
CPT/HCPCS: 36415; 77386; 80053; 80061; 80202; 81003; 82947; 83036; 84145; 84443; 85025; 85652; 87040; 87070; 87075; 87077; 87186; 87205; 88302; 88304; 90471; 90714; 93925; 96365; 96372; 96375; 99285; J1100; J1650; J1815; J2250; J2270; J2405; J2704; J3010; J3370; J3590; J7030; J7040; J7050; U0003

== ENCOUNTER 2021-03-12 06:57 | Emergency (ER) | payer SELFPAY ==
--- NOTE | 2021-03-12 07:23 | EDPHYS ---
Physician Documentation [facility] Name: Marek Blood Jr Age: 35 yrs Sex: Male : 1985 Arrival Date: 03/12/2021 Time: 07:00 Bed 6 Private MD: ED Physician Kostas Queen HPI: 03/12 07:17 This 35 yrs old Male presents to ER via Wheelchair with complaints of Leg Pain.rn 07:17 The patient presents with pain, that is chronic. The complaints affect the left leg. rn Onset: The symptoms/episode began/occurred at an unknown time. Modifying factors: The symptoms are alleviated by nothing. the symptoms are aggravated by nothing. Associated signs and symptoms: Pertinent negatives fever, rash, weakness. Severity of symptoms: At their worst the symptoms were moderate, in the emergency department the symptoms are unchanged. The patient has experienced similar episodes in the past. The patient has been recently seen by a physician:. Patient reports leg pain, left greater than right, worse recently following surgery for debridement of foot wounds. No fever, states wound looks good and has been cleaning it and dressing it. States pain goes from the toes all the way up to the knee. Occasionally gets it on the right side. Called wound care center and told that they are not able to prescribe gabapentin needs to go to family doctor, so came here for prescription. Denies any other symptoms.. Historical: - Allergies: 07:05 No Known Allergies; ll1 - PMHx: 07:05 Diabetes - NIDDM; Hypertensive disorder; ll1 - PSHx: 07:05 L foot SX; ll1 - Immunization history:: Client reports having NOT received the Covid vaccine. Flu vaccine status is unknown. - Social history:: Smoking status: Patient denies any tobacco usage or history of. - Family history:: not pertinent. - Hospitalizations: : No recent hospitalization is reported. ROS: 07:17 Constitutional: Negative for fever, chills, and weight loss, Cardiovascular: Negative rn for chest pain, palpitations, and edema, Respiratory: Negative for shortness of breath, cough, wheezing, and pleuritic chest pain, Abdomen/GI: Negative for abdominal pain, nausea, vomiting, diarrhea, and constipation, MS/Extremity: Positive for pain to left lower extremity Skin: Healing wounds to left foot Neuro: Positive for numbness and tingling to bilateral lower extremities Exam: 07:17 Constitutional: This is a well developed, well nourished patient who is awake, alert, rn and in no acute distress. Skin: Warm, dry MS/ Extremity: Pulses equal, no cyanosis. Dorsal wound to left foot without foul smell or increased drainage. No warmth of surrounding skin or erythema. Vital Signs: 07:03 BP 134 / 93; Pulse 109; Resp 18; Temp 97.8; Pulse Ox 100% ; Weight 90.26 kg; Height 5 ll1 ft. 7 in. (170.18 cm); Pain 10/; 07:03 Body Mass Index 31.17 (90.26 kg, 170.18 cm) ll1 MDM: 07:06 Patient medically screened. rn 07:17 Differential diagnosis: Arthritis, neuropathy, diabetic neuropathy. Data reviewed: rn vital signs, nurses notes, old medical records, and as a result, I will discharge patient. Counseling: I had a detailed discussion with the patient and/or guardian regarding: the historical points, exam findings, and any diagnostic results supporting the discharge/admit diagnosis, the need for outpatient follow up, to return to the emergency department if symptoms worsen or persist or if there are any questions or concerns that arise at home. Special discussion: I discussed with the patient/guardian in detail that at this point there is no indication for admission to the hospital. It is understood, however, that if the symptoms persist or worsen the patient needs to return immediately for re-evaluation. Based on the history and exam findings, there is no indication for further emergent testing or inpatient evaluation. I discussed with the patient/guardian the need to see the primary care provider for further evaluation of the symptoms. Administered Medications: 07:20 Drug: HYDROcodone-acetaminophen 5 mg-325 mg 1 tabs Route: PO; aa5 07:22 Follow up: Response: Medication administered at discharge. aa5 07:20 Drug: Gabapentin 300 mg Route: PO; aa5 07:22 Follow up: Response: Medication administered at discharge. aa5 Disposition Summary: 03/12/21 07:22 Discharge Ordered Location: Home rn Problem: an ongoing problem rn Symptoms: have improved rn Condition: Stable rn Diagnosis - Diabetes mellitus due to underlying condition with diabetic polyneuropathy rn - Personal history of diabetic foot ulcer rn Followup: rn - With: Private Physician - When: As needed - Reason: Recheck today's complaints, Re-evaluation by your physician Discharge Instructions: - Discharge Summary Sheet rn - Diabetes Mellitus and Foot Care rn - Neuropathic Pain rn - Peripheral Neuropathy rn - Diabetic Neuropathy rn Forms: - Medication Reconciliation Form rn - Thank You Letter rn - Antibiotic music journalist - Prescription Opioid Use rn Prescriptions: - gabapentin 300 mg Oral capsule - take 1 capsule by ORAL route 3 times per day; 90 capsule; Refills: 0, Product rn Selection Permitted Signatures: Kostas Queen MD MD rn Calderon, Audri RN RN aa5 Debbie Candelario RN RN ll1
--- NOTE | 2021-03-12 07:23 | ER ---
Nurse's Notes [facility] Name: Marek Blood Jr Age: 35 yrs Sex: Male : 1985 Arrival Date: 03/12/2021 Time: 07:00 Bed 6 Private MD: Diagnosis: Diabetes mellitus due to underlying condition with diabetic polyneuropathy;Personal history of diabetic foot ulcer Presentation: 03/12 07:03 Chief complaint: Patient states: L foot and L leg "nerve pain" for 3 days. Had surgery ll1 on L foot 3 weeks ago here. Diabetic and had some infection removed. No fever. Coronavirus screen: Vaccine status: Patient reports being unvaccinated. Client denies travel out of the [place] in the last 14 days. At this time, the client does not indicate any symptoms associated with coronavirus-19. Ebola Screen: Patient denies travel to an Ebola-affected area in the 21 days before illness onset. Initial Sepsis Screen: Does the patient meet any 2 criteria? HR > 90 bpm. No. Patient's initial sepsis screen is negative. Does the patient have a suspected source of infection? Yes: Bone or joint infection. Risk Assessment: Do you want to hurt yourself or someone else? Patient reports no desire to harm self or others. Onset of symptoms was March 10, 2021. 07:03 Method Of Arrival: Wheelchair ll1 07:03 Acuity: ARDEN 3 ll1 Historical: - Allergies: 07:05 No Known Allergies; ll1 - PMHx: 07:05 Diabetes - NIDDM; Hypertensive disorder; ll1 - PSHx: 07:05 L foot SX; ll1 - Immunization history:: Client reports having NOT received the Covid vaccine. Flu vaccine status is unknown. - Social history:: Smoking status: Patient denies any tobacco usage or history of. - Family history:: not pertinent. - Hospitalizations: : No recent hospitalization is reported. Screenin:10 Abuse screen: Denies threats or abuse. Nutritional screening: No deficits noted. aa5 Tuberculosis screening: No symptoms or risk factors identified. Fall Risk None identified. Assessment: 07:10 General: Appears uncomfortable, Behavior is calm, cooperative. Pain: Complains of pain aa5 in left foot Pain currently is 10 out of 10 on a pain scale. Quality of pain is described as shooting, throbbing. Neuro: Level of Consciousness is awake, alert, obeys commands, Oriented to person, place, time, situation. Cardiovascular: Patient's skin is warm and dry. Respiratory: Airway is patent Respiratory effort is even, unlabored, Respiratory pattern is regular, symmetrical. GI: No signs and/or symptoms were reported involving the gastrointestinal system. : No signs and/or symptoms were reported regarding the genitourinary system. EENT: No signs and/or symptoms were reported regarding the EENT system. Derm: Skin is pink, warm \\T\\ dry. Musculoskeletal: Range of motion: intact in all extremities, Reports pain in left foot. 07:22 Reassessment: Patient is alert, oriented x 3, equal unlabored respirations, skin aa5 warm/dry/pink. Vital Signs: 07:03 BP 134 / 93; Pulse 109; Resp 18; Temp 97.8; Pulse Ox 100% ; Weight 90.26 kg; Height 5 ll1 ft. 7 in. (170.18 cm); Pain 10/10; 07:03 Body Mass Index 31.17 (90.26 kg, 170.18 cm) ll1 ED Course: 07:00 Patient arrived in ED. wm 07:01 Kostas Queen MD is Attending Physician. rn 07:05 Triage completed. ll1 07:05 Arm band placed on Patient placed. ll1 07:10 Alyx Rosa, RN is Primary Nurse. aa5 07:10 Patient has correct armband on for positive identification. Bed in low position. Call aa5 light in reach. Side rails up X 1. 07:23 No provider procedures requiring assistance completed. Patient did not have IV access aa5 during this emergency room visit. Administered Medications: 07:20 Drug: HYDROcodone-acetaminophen 5 mg-325 mg 1 tabs Route: PO; aa5 07:22 Follow up: Response: Medication administered at discharge. aa5 07:20 Drug: Gabapentin 300 mg Route: PO; aa5 07:22 Follow up: Response: Medication administered at discharge. aa5 Outcome: 07:22 Discharge ordered by . rn 07:23 Discharged to home ambulatory. aa5 07:23 Condition: stable 07:23 Discharge instructions given to patient, Instructed on discharge instructions, follow up and referral plans. medication usage, Demonstrated understanding of instructions, follow-up care, medications, Prescriptions given X 1. 07:25 Patient left the ED. aa5 Signatures: Kostas Queen MD MD rn Calderon, Audri RN RN aa5 Debbie Candelario RN RN 1 Zulma Morse Corrections: (The following items were deleted from the chart) 07:59 07:58 Patient left the ED. aa5 aa5
[2021-03-12] MEDS ORDERED: HYDROCODONE/APAP 5/325 MG TAB ONE (07:58)
[2021-03-12] MEDS ORDERED: GABAPENTIN 300 MG CAP ONE (07:58)
[2021-03-12 08:02] VITALS: BP 134/93; TEMP 97.8; O2SAT 100
== END 2021-03-12 07:58 | disposition home or self-care (01) ==
LOC: ER 06:57
DX: E11.42 Type 2 diabetes mellitus with diabetic polyneuropathy (principal); Z86.31 Personal history of diabetic foot ulcer; I10 Essential (primary) hypertension
CPT/HCPCS: 99283

== ENCOUNTER 2021-03-14 04:16 | Inpatient (IN) | payer SELFPAY ==
[2021-03-14 05:39] LABS: Absolute Lymphocytes (CBC) 2.6 K/uL (0.7-4.9); Basophils % 0.3 % (0-1.3); Hematocrit 38.6 % (39.6-49.0); Lymphocytes % 13.9 % (15.3-44.8); MPV 10.4 fL (7.6-11.3); RBC Red Blood Cell Count 4.22 M/uL (4.33-5.43)
[2021-03-14 05:55] LABS: ALT/SGPT 22 U/L (12-78); AST/SGOT 20 U/L (15-37); Alkaline Phosphatase 148 U/L (45-117); BUN Blood Urea Nitrogen 12 mg/dL (7-18); Bicarbonate 27 mmol/L (21-32); Bilirubin Direct 0.2 mg/dL (0-0.2); Bilirubin Total 0.6 mg/dL (0.2-1.0); Protein, Total 9.1 g/dL (6.4-8.2); Sodium Level 132 mmol/L (136-145)
[2021-03-14 05:59] LABS: Glucose Level 440 mg/dL (74-106)
[2021-03-14] MEDS ORDERED: MORPHINE 4 MG/ML SYR ONE ×2 (06:00→08:24)
[2021-03-14] MEDS ORDERED: NA CHLORIDE 0.9% 1,000 ML ONE ×3 (06:00→09:14)
[2021-03-14] MEDS ORDERED: ONDANSETRON 4 MG/2 ML VIAL ONE ×2 (06:01→08:24)
--- NOTE | 2021-03-14 07:48 | EDPHYS ---
Physician Documentation [facility] Name: Marek Blood Jr Age: 35 yrs Sex: Male : 1985 Arrival Date: 03/14/2021 Time: 04:19 Bed 15 Private MD: KIARRA Physician Hank Bedolla HPI: 03/14 05:24 This 35 yrs old Male presents to ER via Wheelchair with complaints of Leg mh7 Pain, Post Surgical Pain. 05:24 The patient presents with pain, that is chronic. mh7 05:24 The complaints affect the Left foot, plantar aspect. Context: The problem was sustained mh7 at an unknown site, resulted from an unknown cause, the patient can fully bear weight, the patient is able to ambulate. Onset: The symptoms/episode began/occurred 6 month(s) ago, and became worse 1 week(s) ago. Modifying factors: The symptoms are alleviated by nothing. the symptoms are aggravated by movement, touching area. Associated signs and symptoms: Pertinent negatives calf tenderness, fever, nausea, numbness, rash, swelling, tingling, vomiting, warmth, weakness. Treatment prior to arrival includes: no previous treatment. Severity of symptoms: At their worst the symptoms were moderate, 2 day(s) ago, in the emergency department the symptoms have improved, moderately. Patient recently diagnosed with peripheral neuropathy and started on gabapentin 2 days ago. States that the pain has improved since starting gabapentin but is not completely gone.. Historical: - Allergies: 04:39 No Known Allergies; lp1 - Home Meds: 04:39 atorvastatin Oral [Active]; Glipizide Oral [Active]; Metformin Oral [Active]; lp1 - PMHx: 04:39 Diabetes - NIDDM; Hypertensive disorder; lp1 - PSHx: 04:39 L foot SX; lp1 - Immunization history:: Adult Immunizations up to date. - Social history:: Smoking status: Patient denies any tobacco usage or history of. ROS: 05:24 Constitutional: Negative for fever, chills, and weight loss, Eyes: Negative for injury, mh7 pain, redness, and discharge, ENT: Negative for injury, pain, and discharge, Neck: Negative for injury, pain, and swelling, Cardiovascular: Negative for chest pain, palpitations, and edema, Respiratory: Negative for shortness of breath, cough, wheezing, and pleuritic chest pain, Abdomen/GI: Negative for abdominal pain, nausea, vomiting, diarrhea, and constipation, Back: Negative for injury and pain, : Negative for injury, bleeding, discharge, and swelling, Neuro: Negative for headache, weakness, numbness, tingling, and seizure, Psych: Negative for depression, anxiety, suicide ideation, homicidal ideation, and hallucinations, Allergy/Immunology: Negative for hives, rash, and allergies, Endocrine: Negative for neck swelling, polydipsia, polyuria, polyphagia, and marked weight changes, Hematologic/Lymphatic: Negative for swollen nodes, abnormal bleeding, and unusual bruising. Exam: 05:24 Constitutional: This is a well developed, well nourished patient who is awake, alert, mh7 and in no acute distress. Head/Face: Normocephalic, atraumatic. Eyes: Pupils equal round and reactive to light, extra-ocular motions intact. Lids and lashes normal. Conjunctiva and sclera are non-icteric and not injected. Cornea within normal limits. Periorbital areas with no swelling, redness, or edema. Neck: Trachea midline, no thyromegaly or masses palpated, and no cervical lymphadenopathy. Supple, full range of motion without nuchal rigidity, or vertebral point tenderness. No Meningismus. Chest/axilla: Normal chest wall appearance and motion. Nontender with no deformity. No lesions are appreciated. Cardiovascular: Regular rate and rhythm with a normal S1 and S2. No gallops, murmurs, or rubs. Normal PMI, no JVD. No pulse deficits. Respiratory: Lungs have equal breath sounds bilaterally, clear to auscultation and percussion. No rales, rhonchi or wheezes noted. No increased work of breathing, no retractions or nasal flaring. Abdomen/GI: Soft, non-tender, with normal bowel sounds. No distension or tympany. No guarding or rebound. No evidence of tenderness throughout. Back: No spinal tenderness. No costovertebral tenderness. Full range of motion. 05:24 Neuro: Awake and alert, GCS 15, oriented to person, place, time, and situation. Cranial nerves II-XII grossly intact. Motor strength 5/5 in all extremities. Sensory grossly intact. Cerebellar exam normal. Normal gait. Psych: Awake, alert, with orientation to person, place and time. Behavior, mood, and affect are within normal limits. 05:24 Musculoskeletal/extremity: Extremities: noted in the Plantar aspect of left foot: pain, tenderness, noted in the Dorsal aspect of left foot: Healing wound with good granulation. No erythema, discharge, tenderness, or swelling., ROM: intact in all extremities, Circulation is intact in all extremities. Sensation intact. Compartment Syndrome exam of affected extremity: is normal. no numbness, no tingling, no sensation deficit, no palor, no weak pulses, Joints: All joints appear normal with full range of motion. DVT Exam: no pain, no swelling, no tenderness, negative Homans' sign noted on exam, no appreciated bluish discoloration, no erythema, no increased warmth, Calves: are non-tender, have equal circumference. 05:24 Skin: Healing dorsal aspect left foot with good granulation tissue. No surrounding erythema, discharge, tenderness, or swelling.. 08:48 ECG was reviewed by the Attending Physician. [facility] Vital Signs: 04:36 BP 130 / 89; Pulse 119; Resp 18; Temp 99.1(TE); Pulse Ox 100% on R/A; Weight 90.26 kg lp1 (R); Height 5 ft. 7 in. (170.18 cm); Pain 10/10; 04:50 BP 140 / 80; Pulse 95; Resp 18; Temp 98.9; Pulse Ox 99% on R/A; Pain 10/10; kc4 06:01 BP 143 / 83; Pulse 100; Resp 18; Temp 98.7; Pulse Ox 100% on R/A; Pain 8/10; kc4 07:26 BP 127 / 77; Pulse 110; Resp 16; Temp 100; Pulse Ox 98% ; iw 09:42 BP 129 / 78; Pulse 108; Resp 18; Temp 100; Pulse Ox 99% ; aj2 04:36 Body Mass Index 31.17 (90.26 kg, 170.18 cm) lp1 MDM: 07:11 Transition of care: After a detail discussion of the patient's case, care is 7 transferred to Hank Bedolla MD. 07:40 Patient medically screened. [facility] 07:48 Differential diagnosis: closed fracture, contusion, tendonitis. Data reviewed: [facility] signs, nurses notes, lab test result(s), EKG, radiologic studies, plain films. Data interpreted: bus monitor: rate is 110 beats/min, rhythm is regular, Pulse oximetry: on room air is 98 %. Test interpretation: by ED physician or midlevel provider: ECG, plain radiologic studies. Counseling: I had a detailed discussion with the patient and/or guardian regarding: the historical points, exam findings, and any diagnostic results supporting the discharge/admit diagnosis, lab results, radiology results, the need for further work-up and treatment in the hospital. 03/14 05:26 Order name: CBC with Diff; Complete Time: 06:27 [facility] 03/14 05:26 Order name: BMP; Complete Time: 06:27 [facility] 03/14 05:26 Order name: LFT's; Complete Time: 06:27 [facility] 03/14 05:36 Order name: Glucose, Ancillary Testing; Complete Time: 06:27 [facility] 03/14 07:03 Order name: Blood Culture Adult (2) [facility] 03/14 07:03 Order name: Lactate [facility] 03/14 07:03 Order name: Procalcitonin [facility] 03/14 07:03 Order name: Ketone, Serum [facility] 03/14 07:30 Order name: Glucose, Ancillary Testing [facility] 03/14 07:42 Order name: Sed Rate [facility] 03/14 07:43 Order name: Magnesium [facility] 03/14 07:43 Order name: NT PRO-BNP [facility] 03/14 07:43 Order name: PT-INR [facility] 03/14 07:03 Order name: Foot Left 3 View XRAY [facility] 03/14 07:43 Order name: Troponin (emerg Dept Use Only) [facility] 03/14 07:43 Order name: XRAY Chest (1 view) [facility] 03/14 09:24 Order name: SARS-COV-2 RT PCR [facility] 03/14 09:48 Order name: Glucose, Ancillary Testing [facility] 03/14 11:06 Order name: T4 Free [facility] 03/14 11:06 Order name: Thyroid Stimulating Hormone [facility] 03/14 11:51 Order name: Glucose, Ancillary Testing [facility] 03/14 05:22 Order name: Accucheck; Complete Time: 05:29 [facility] 03/14 05:26 Order name: Urine Dipstick-Ancillary (obtain specimen); Complete Time: 06:00 [facility] 03/14 05:26 Order name: Saline Lock; Complete Time: 05:29 mh7 03/14 07:43 Order name: EKG; Complete Time: 07:43 [facility] 03/14 07:43 Order name: Cardiac monitoring; Complete Time: 08:10 [facility] 03/14 07:43 Order name: EKG - Nurse/Tech; Complete Time: 08:51 [facility] 03/14 07:43 Order name: Labs collected and sent; Complete Time: 07:54 [facility] 03/14 07:43 Order name: O2 Per Protocol; Complete Time: 07:54 [facility] 03/14 07:43 Order name: O2 Sat Monitoring; Complete Time: 07:54 [facility] 03/14 07:45 Order name: Wound Care; Complete Time: 08:10 [facility] EC:48 Rate is 110 beats/min. Rhythm is regular. QRS [place] is Normal. HI interval is normal. kraig QRS interval is normal. QT interval is normal. No Q waves. T waves are Normal. No ST changes noted. Clinical impression: Sinus tachycardia and No evidence of ischemia. Interpreted by me. Reviewed by me. Administered Medications: 05:59 Drug: NS 0.9% 1000 ml Route: IV; Rate: 1000 ml; Site: left antecubital; kc4 05:59 Drug: morphine 4 mg Route: IVP; Site: left antecubital; kc4 05:59 Drug: Zofran (Ondansetron) 4 mg Route: IVP; Site: left antecubital; kc4 07:20 Drug: NS 0.9% 1000 ml Route: IV; Rate: 1000 ml; Site: right hand; iw 08:09 Drug: morphine 4 mg Route: IVP; Site: right hand; iw 08:10 Drug: Zofran (Ondansetron) 4 mg Route: IVP; Site: right hand; iw 08:33 Drug: Insulin Regular Human 10 units {Co-Signature: ap3 (Ksenia Glass RN).} Route: iw IVP; Site: right hand; 08:33 Drug: LanTUS (insulin glargine) 35 units Route: Sub-Q; Site: abdomen; iw 08:56 Drug: Zosyn (piperacillin-tazobactam) 3.375 grams Route: IVPB; Infused Over: 60 mins; iw Site: right hand; 08:56 Drug: NS 0.9% 1000 ml Route: IV; Rate: 125 ml/hr; Site: right hand; iw Disposition Summary: 03/14/21 07:48 Hospitalization Ordered Hospitalization Status: Inpatient Admission kraig Provider: Tulio Queen cha Condition: Fair kraig Problem: new kraig Symptoms: have improved kraig Bed/Room Type: Standard kraig Location: Telemetry/MedSurg (Inpatient)(03/14/21 12:21) em1 Room Assignment: 426(03/14/21 12:21) em1 Diagnosis - Personal history of diabetic foot ulcer kraig - Type 2 diabetes mellitus with hyperglycemia kraig - Cellulitis and acute lymphangitis of other parts of limb - left foot kraig - Diabetes mellitus due to underlying condition with foot ulcer kraig - Essential (primary) hypertension kraig - Elevated white blood cell count kraig - Fever, unspecified kraig Forms: - Medication Reconciliation Form kraig - SBAR form kraig Signatures: Dispatcher [employer] EDHank Cortez MD MD cha Williams, Irene, RN RN iw Tae, José Manuel em1 Tess Connor RN RN 1 Cedric Keith MD MD 7 Christina Stein kc4 Ksenia Glass RN ap3 Corrections: (The following items were deleted from the chart) 05:31 05:25 The patient presents with pain, that is chronic, 7 7 08:29 07:43 CORONAVIRUS+MRToñitoLAB.BRZ ordered. EDNH EDNH 09:54 07:48 Telemetry/MedSurg (Inpatient) kraig iw 09:54 07:48 kraig iw 12:21 09:54 [facility] ER HOLD iw em1 12:21 09:54 ERHOLD- em1
--- NOTE | 2021-03-14 07:48 | ER ---
Nurse's Notes [facility] Name: Marek Blood Jr Age: 35 yrs Sex: Male : 1985 Arrival Date: 03/14/2021 Time: 04:19 Bed 15 Private MD: Diagnosis: Personal history of diabetic foot ulcer;Type 2 diabetes mellitus with hyperglycemia;Cellulitis and acute lymphangitis of other parts of limb-left foot;Diabetes mellitus due to underlying condition with foot ulcer;Essential (primary) hypertension;Elevated white blood cell count;Fever, unspecified Presentation: 03/14 04:36 Chief complaint: Patient states: Reports pain and odor to left foot x 2 days; Had lp1 procedure to clean wound about 2-3 weeks ago, reports appt with Wound Healing next week; Reports pain to bottom of left foot, throbbing. Coronavirus screen: At this time, the client does not indicate any symptoms associated with coronavirus-19. Ebola Screen: No symptoms or risks identified at this time. Initial Sepsis Screen: Does the patient meet any 2 criteria? No. Patient's initial sepsis screen is negative. Does the patient have a suspected source of infection? No. Patient's initial sepsis screen is negative. Risk Assessment: Do you want to hurt yourself or someone else? Patient reports no desire to harm self or others. Onset of symptoms was March 14, 2021. 04:36 Method Of Arrival: Wheelchair lp1 04:36 Acuity: ARDEN 4 lp1 07:08 Acuity: ARDEN 3 iw Triage Assessment: 04:57 General: Appears distressed, uncomfortable, Behavior is cooperative, agitated, anxious, kc4 restless, Denies fever, feeling ill, fatigue, chills. Historical: - Allergies: 04:39 No Known Allergies; lp1 - Home Meds: 04:39 atorvastatin Oral [Active]; Glipizide Oral [Active]; Metformin Oral [Active]; lp1 - PMHx: 04:39 Diabetes - NIDDM; Hypertensive disorder; lp1 - PSHx: 04:39 L foot SX; lp1 - Immunization history:: Adult Immunizations up to date. - Social history:: Smoking status: Patient denies any tobacco usage or history of. Screenin:39 Abuse screen: Denies threats or abuse. Denies injuries from another. Nutritional lp1 screening: No deficits noted. Tuberculosis screening: No symptoms or risk factors identified. 07:26 Fall Risk None identified. iw Assessment: 04:51 Pain: Complains of pain in left foot Pain radiates to left foot Pain currently is 10 kc4 out of 10 on a pain scale. at worst was 10 out of 10 on a pain scale. level that patient reports is acceptable is 3 out of 10 on a pain scale. Quality of pain is described as burning, sharp, throbbing, Pain began 2-3 days ago. Is continuous, Alleviated by medications, Aggravated by increased activity, repositioning, weight bearing, Noted to be agitated, Also complains of inability to perform activities of daily living, labile emotions, Current management is with Advil, is with pain management clinic. Neuro: No deficits noted. Cardiovascular: No deficits noted. Respiratory: No deficits noted. GI: No deficits noted. : No deficits noted. EENT: No deficits noted. Derm: Wound noted left foot Wound is diabetic foot ulcer on left foot. Musculoskeletal: No deficits noted. 07:26 Reassessment: Patient appears in no apparent distress at this time. Patient and/or aj2 family updated on plan of care and expected duration. Pain level reassessed. Patient is alert, oriented x 3, equal unlabored respirations, skin warm/dry/pink. Patient states feeling better. 09:42 Reassessment: Patient appears in no apparent distress at this time. Patient and/or aj2 family updated on plan of care and expected duration. Pain level reassessed. Patient is alert, oriented x 3, equal unlabored respirations, skin warm/dry/pink. Patient states feeling better. 09:42 Reassessment: Patient states symptoms have improved. aj2 Vital Signs: 04:36 BP 130 / 89; Pulse 119; Resp 18; Temp 99.1(TE); Pulse Ox 100% on R/A; Weight 90.26 kg lp1 (R); Height 5 ft. 7 in. (170.18 cm); Pain 10/10; 04:50 BP 140 / 80; Pulse 95; Resp 18; Temp 98.9; Pulse Ox 99% on R/A; Pain 10/10; kc4 06:01 BP 143 / 83; Pulse 100; Resp 18; Temp 98.7; Pulse Ox 100% on R/A; Pain 8/10; kc4 07:26 BP 127 / 77; Pulse 110; Resp 16; Temp 100; Pulse Ox 98% ; iw 09:42 BP 129 / 78; Pulse 108; Resp 18; Temp 100; Pulse Ox 99% ; aj2 04:36 Body Mass Index 31.17 (90.26 kg, 170.18 cm) lp1 Vitals: 09:42 Cardiac Rhythm Assessment Sinus tach. aj2 ED Course: 04:19 Patient arrived in ED. bp1 04:31 Christina Stein is Primary Nurse. kc4 04:38 Triage completed. lp1 04:38 Arm band placed on. lp1 04:39 Patient has correct armband on for positive identification. lp1 04:46 Cedric Keith MD is Attending Physician. mh7 04:56 Inserted saline lock: 20 gauge in left antecubital area, using aseptic technique. kc4 06:02 No provider procedures requiring assistance completed. kc4 07:26 No apparent distress. Resting quietly. iw 07:26 IV Not patent. iw 07:40 Attending Physician role handed off by Cedric Keith MD kraig 07:40 Hank Bedolla MD is Attending Physician. kraig 07:45 Tulio Queen MD is Hospitalizing Provider. kraig 07:57 Foot Left 3 View XRAY In Process Unspecified. EDMS 07:57 XRAY Chest (1 view) In Process Unspecified. EDMS 07:58 IV discontinued, intact, bleeding controlled, No redness/swelling at site. Pressure dh3 dressing applied. 08:00 Inserted saline lock: 20 gauge in right forearm, using aseptic technique. dh3 08:10 Magnesium Sent. iw 08:10 NT PRO-BNP Sent. iw 08:10 Troponin (emerg Dept Use Only) Sent. iw 09:42 No apparent distress. Resting quietly. Awaiting bed assignment. aj2 09:42 IV is patent, is intact. aj2 Administered Medications: 05:59 Drug: NS 0.9% 1000 ml Route: IV; Rate: 1000 ml; Site: left antecubital; kc4 05:59 Drug: morphine 4 mg Route: IVP; Site: left antecubital; kc4 05:59 Drug: Zofran (Ondansetron) 4 mg Route: IVP; Site: left antecubital; kc4 07:20 Drug: NS 0.9% 1000 ml Route: IV; Rate: 1000 ml; Site: right hand; iw 08:09 Drug: morphine 4 mg Route: IVP; Site: right hand; iw 08:10 Drug: Zofran (Ondansetron) 4 mg Route: IVP; Site: right hand; iw 08:33 Drug: Insulin Regular Human 10 units {Co-Signature: ap3 (Ksenia Glass RN).} Route: iw IVP; Site: right hand; 08:33 Drug: LanTUS (insulin glargine) 35 units Route: Sub-Q; Site: abdomen; iw 08:56 Drug: Zosyn (piperacillin-tazobactam) 3.375 grams Route: IVPB; Infused Over: 60 mins; iw Site: right hand; 08:56 Drug: NS 0.9% 1000 ml Route: IV; Rate: 125 ml/hr; Site: right hand; iw Outcome: 07:48 Decision to Hospitalize by Provider. [facility] 13:16 Patient left the ED. aj2 Signatures: Dispatcher [employer] EDMS Hank Bedolla MD MD cha Williams, Irene, RN RN Tess Connor RN RN 1 Jade Garcia 3 Nena Chavira Maurice, MD MD 7 Grace Hamlin 2 Christina Stein 4 Ksenia Glass RN ap3 Corrections: (The following items were deleted from the chart) 09:39 07:26 Reassessment: Patient appears in no apparent distress at this time. Patient aj2 and/or family updated on plan of care and expected duration. Pain level reassessed. Patient is alert, oriented x 3, equal unlabored respirations, skin warm/dry/pink. Patient states feeling better. iw
[2021-03-14 08:15] LABS: Protime INR 1.33
[2021-03-14 08:23] LABS: Magnesium 1.7 mg/dL (1.8-2.4); NT PRO-BNP 32 pg/mL (<125); Troponin (Emerg Dept Use Only) < 0.02 ng/mL (0.0-0.045)
--- NOTE | 2021-03-14 08:26 | RAD REPORT ---
EXAM DESCRIPTION: RAD - Foot Left 3 View - 03/14/2021 7:57 am CLINICAL HISTORY: PAIN COMPARISON: Foot Left 3 View dated 02/10/2021; Foot Left 3 View dated 01/25/2021; Foot Left Wo Cont chayito ed 02/11/2021 FINDINGS: Deformity at the base of the fourth proximal phalanx. There is also some lucency in the fo urth metatarsal head. IMPRESSION: Findings concerning for osteomyelitis involving the fourth metatarsal head and proximal phalanx .
--- NOTE | 2021-03-14 08:26 | RAD REPORT ---
EXAM DESCRIPTION: RAD - Chest Single View - 03/14/2021 7:57 am CLINICAL HISTORY: COUGH COMPARISON: Chest Single View dated 04/26/2020; Chest Single View dated 11/28/2019; Chest Pa And Lat (2 Views) dated 11/26/2019; CHEST PA AND LAT 2 VIEW dated 12/05/2007 FINDINGS: Lines: None. Lungs: No evidence of edema or pneumonia. Low lung volumes. Pleural: No significant pleural effusions or pneumothorax. Cardiac: The heart size is within normal limits. Bones: No acute fractures. Other: IMPRESSION: No acute cardiopulmonary disease.
[2021-03-14] MEDS ORDERED: INSULIN GLARGINE 100 UNITS/ML SQ ONE (08:53)
[2021-03-14] MEDS ORDERED: INSULIN -REGULAR HUMAN 50 UNIT/0.5 ML ML ONE (08:54)
[2021-03-14] MEDS ORDERED: PIPER TAZO 3.375 GM in NA CHLORIDE 0.9% 100 ML IV ONE (09:15)
[2021-03-14] MEDS ORDERED: PIPERACIL/TAZO 3.375 GM VIAL IV ONE (09:26)
[2021-03-14] MEDS ORDERED: ASPIRIN 81 MG CHEWABLE TABLET PO ONE (09:41)
[2021-03-14] MEDS ORDERED: ACETAMINOPHEN 500 MG TAB PO PRN (10:26)
[2021-03-14] MEDS ORDERED: ONDANSETRON 4 MG/2 ML VIAL IV PRN (10:26)
[2021-03-14] MEDS ORDERED: D50W 25 GM/50 ML SYRINGE IV PRN ×2 (10:29→10:36)
[2021-03-14] MEDS ORDERED: GLUCAGON 1 MG/VIAL IM PRN ×2 (10:29→10:36)
[2021-03-14] MEDS ORDERED: ZOLPIDEM TARTRATE 5 MG TABLET PO PRN (10:37)
--- NOTE | 2021-03-14 10:41 | P.HP ---
Certification for Inpatient Patient admitted to: Inpatient With expected LOS: >2 Midnights Patient will require the following post-hospital care: None Practitioner: I am a practitioner with admitting privileges, knowledge of patient current condition, hospital course, and medical plan of care. Services: Services provided to patient in accordance with Admission requirements found in Title 42 Section 412.3 of the Code of Federal Regulations Patient History Date of Service: 03/14/21 Reason for admission: Left foot diabetic ulcer History of Present Illness: Patient is a 35-year-old male with a past medical history significant for HLD, hypertension, DM 2 with diabetic ulcer who presents with complaint of left foot pain. Patient reported that he recently had surgery on his left foot diabetic ulcer and was discharged home with long-term antibiotics. Patient reported that he has been taking his discharge medications as indicated. Patient rated left foot pain as 10/10 and described pain as sharp in quality. Patient reported that he has not been able to sleep in the last 3 days. Patient also reported neuropathy in his lower extremities. Patient reported drainage from left foot ulcer which sometimes is pus-like or serosanguineous. Patient decided to present to the hospital due to worsening symptoms. 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 - Family History Father -: Heart disease, Diabetes, Other (see notes) Notes: CVA Mother -: GI disease, Other (see notes) Notes: Hypothyriodism - Social History Smoking Status: Unknown if ever smoked Alcohol use: Yes CD- Drugs: No Caffeine use: No Place of Residence: Home Review of Systems General: Unremarkable Eyes: Unremarkable ENT: Unremarkable Respiratory: Unremarkable Cardiovascular: Unremarkable Gastrointestinal: Unremarkable Integumentary: Other (Left foot ulcer ) Neurological: Other (Left foot neuropathy ) Lymphatics: Unremarkable Physical Examination - Vital Signs Temperature: 100 F Blood Pressure: 129/78 Pulse: 108 Respirations: 18 Pulse Ox (%): 99 - Physical Exam General: Alert, In no apparent distress, Oriented x3 HEENT: Atraumatic, PERRLA, Mucous membr. moist/pink, EOMI, Sclerae nonicteric Neck: Supple, 2+ carotid pulse no bruit, No LAD, Without JVD or thyroid abnormality Respiratory: Clear to auscultation bilaterally, Normal air movement Cardiovascular: Regular rate/rhythm, Normal S1 S2 Capillary refill: <2 Seconds Gastrointestinal: Normal bowel sounds, No tenderness Musculoskeletal: No tenderness Integumentary: No rashes, Diabetic ulcer Neurological: Normal gait, Normal speech, Normal tone, Normal affect Lymphatics: No axilla or inguinal lymphadenopathy External genitalia: Deferred Rectal: Deferred - Studies Laboratory Data (last 24 hrs) 03/14/21 07:45: PT 15.3 H, INR 1.33 03/14/21 07:45: Magnesium 1.7 L D 03/14/21 05:28: Sodium 132 L, Potassium 4.0, BUN 12, Creatinine 0.77, Glucose 440 H*, Total Bilirubin 0.6, AST 20, ALT 22, Alkaline Phosphatase 148 H 03/14/21 05:28: WBC 18.60 H, Hgb 13.2 L, Hct 38.6 L, Plt Count 243 Assessment and Plan - Plan --Left foot diabetic ulcer. Blood and wound cultures pending. X-ray suspicious of osteomyelitis. MRI left foot pending to rule out osteomyelitis. Surgeon consulted. Continue antibiotics. Will await further recommendation from surgeon. --DM2 with neuropathy and hyperglycemia. BS monitoring with sliding scale insulin, premeal insulin and Lantus. Continue gabapentin for his neuropathy. --HLD. Continue statin. --Acute pain. We will manage pain with current pain medication regimen. --Hypertension. Stable. We will manage BP with labetalol as needed. --Leukocytosis. Blood cultures pending. Continue antibiotics. --DVT prophylaxis with heparin subQ I have had discussion about advanced directives with the patient during this hospital admission. Addressed code status and goals of care. Spent more than 30 minutes. Case discussed withpatient and nurse. The following document was completed using voice recognition software. This can produce riding instructor errors that can at times significantly distort words and phrases. Please interpret any aspect of the note that is nonsensical in light of this fact. Discharge Plan: Home Plan to discharge in: 48 Hours - Advance Directives Does patient have a Living Will: No Does patient have a Durable POA for Healthcare: No - Code Status/Comfort Care Code Status Assessed: Yes Code Status: Full Code Physician Review: Patient Assessed, Agree with Above Assessment and Plan Critical Care: No
[2021-03-14] MEDS ORDERED: ASPIRIN 81 MG CHEWABLE TABLET ONE (10:47)
[2021-03-14 11:05] LABS: Thyroid Stimulating Hormone 2.11 uIU/mL (0.360-3.740)
[2021-03-14] MEDS ORDERED: INSULIN -REGULAR HUMAN 50 UNIT/0.5 ML ML SQ SCH (11:30)
[2021-03-14] MEDS: INSULIN -REGULAR HUMAN 50 UNIT/0.5 ML ML SQ SCH ×3 (11:30→20:46)
[2021-03-14] MEDS ORDERED: MAGNESIUM SULFATE 1 gm IVPB 1 GM/100 ML BAG IV ONE (13:00)
[2021-03-14] MEDS: GABAPENTIN 300 MG CAP PO SCH ×2 (13:27→20:45)
[2021-03-14] MEDS: HYDROCODONE/APAP 10/325 TAB PO PRN ×2 (13:27→20:45)
[2021-03-14] MEDS ORDERED: CEFEPIME 1 GM/VIAL IV SCH (17:00)
[2021-03-14 19:47] LABS: Urine Appearance CLEAR (Clear); Urine Bilirubin NEGATIVE (Negative); Urine Blood NEGATIVE (Negative); Urine Color YELLOW (Yellow); Urine Glucose 3+ (Negative); Urine Protein NEGATIVE (Negative); Urine Specific Gravity >=1.030 (1.005-1.030); Urine pH 5.5 (5.0-7.0)
[2021-03-14 20:21] LABS: Urine Microscopic Reflex ORDER UMIC
[2021-03-14] MEDS: INSULIN GLARGINE 100 UNITS/ML SQ SCH (20:46)
[2021-03-14] MEDS: HEPARIN 5000 UNIT/ML 1 ML VIAL SQ SCH (20:47)
[2021-03-14] MEDS: CEFEPIME 1 GM in NA CHLORIDE 0.9% 100 ML IV SCH (21:00)
[2021-03-14] MEDS: VANCOMYCIN 1.5 GM in NA CHLORIDE 0.9% 500 ML IVPB SCH (21:00)
[2021-03-14 21:02] LABS: Urine Bacteria 20-50 /HPF (NONE SEEN); Urine RBC <5 /HPF (NONE SEEN)
[2021-03-14 21:03] LABS: Urine Yeast PRESENT (NONE SEEN)
[2021-03-14] MEDS ORDERED: VANCOMYCIN 500 MG/VIAL ONE (21:17)
[2021-03-14] MEDS ORDERED: CEFEPIME 1 GM/VIAL ONE (21:32)
[2021-03-14] MEDS ORDERED: NA CHLORIDE 0.9% 100 ML ONE (21:48)
[2021-03-15] MEDS: HYDROCODONE/APAP 10/325 TAB PO PRN ×4 (01:13→20:59)
[2021-03-15 04:24] LABS: Protime INR 1.35
[2021-03-15 04:25] LABS: Absolute Lymphocytes (CBC) 2.5 K/uL (0.7-4.9); Basophils % 0.3 % (0-1.3); Hematocrit 32.5 % (39.6-49.0); Lymphocytes % 16.9 % (15.3-44.8); MPV 9.7 fL (7.6-11.3); RBC Red Blood Cell Count 3.59 M/uL (4.33-5.43)
[2021-03-15 04:52] LABS: BUN Blood Urea Nitrogen 8 mg/dL (7-18); Bicarbonate 29 mmol/L (21-32); Glucose Level 212 mg/dL (74-106); Magnesium 1.8 mg/dL (1.8-2.4); Potassium 3.7 mmol/L (3.5-5.1); Sodium Level 137 mmol/L (136-145)
--- NOTE | 2021-03-15 06:20 | P.PN ---
Date of Service: 03/15/21 Subjective: Continues with intermittent pain, says gabapentin helps but does not seem to benefit nighttime States he feels sick when his glucose gets less than 200, states his body is used to. His glucose runs in the 300s at home No other complaints ROS: 10 point review of systems otherwise negative Physical exam GEN: Alert, oriented, NAD HEENT: Normal conjunctiva, sclera anicteric CV: Regular rate and rhythm, no edema Pulm: Nonlabored respiration on room air ABD: Soft, nontender, nondistended Integumentary: Left foot diabetic ulcer, dressing c/d/i Neuro: Normal speech, normal affect Problem list Left foot diabetic ulcer, concern for osteomyelitis DM2 with neuropathy and hyperglycemia, insulin-dependent, noncompliant/uncontrolled Hypertension Blood and wound cultures pending, x-ray suspicious of osteomyelitis MRI of left foot pending to rule out osteomyelitis Surgery consulted for further evaluation, has been seen patient in the outpatient office Continue antibiotics, ID consulted, saw the patient previously. Patient was discharged last month with 40 days of p.o. Levaquin to empirically cover for osteomyelitis Patient states he has been compliant with local wound care, noncompliant with diabetes Dispo: Anticipate DC home in 1-2 days, may need PICC line Time Spent Managing Pts Care (In Minutes): 35
[2021-03-15] MEDS ORDERED: MAGNESIUM SULFATE 1 gm IVPB 1 GM/100 ML BAG IV ONE (07:43)
[2021-03-15] MEDS ORDERED: POTASSIUM CL SA 10 MEQ TAB PO ONE (07:45)
[2021-03-15] MEDS: FLUCONAZOLE 100 MG TAB PO SCH (08:28)
[2021-03-15] MEDS: HEPARIN 5000 UNIT/ML 1 ML VIAL SQ SCH ×2 (08:28→21:00)
[2021-03-15] MEDS: GABAPENTIN 300 MG CAP PO SCH ×4 (08:28→21:01)
[2021-03-15] MEDS: INSULIN -REGULAR HUMAN 50 UNIT/0.5 ML ML SQ SCH ×4 (08:39→21:01)
[2021-03-15] MEDS: ATORVASTATIN 40 MG TAB PO SCH (09:00)
[2021-03-15] MEDS: VANCOMYCIN 1.5 GM in NA CHLORIDE 0.9% 500 ML IVPB SCH ×2 (10:09→21:02)
[2021-03-15] MEDS: CEFEPIME 1 GM in NA CHLORIDE 0.9% 100 ML IV SCH ×2 (10:09→20:14)
[2021-03-15] MEDS: MORPHINE 2 MG/ML SYR IV PRN (10:28)
[2021-03-15] MEDS: COLLAGENASE 30 GM OINTMENT TOP SCH (11:41)
[2021-03-15 11:53] VITALS: BMI 31.1
--- NOTE | 2021-03-15 12:55 | P.CNS ---
Date of Consult: 03/15/21 Chief Complaint: Left foot diabetic ulcer History of Present Illness: The patient is a 35-year-old male with a past medical history significant for hyperlipidemia, hypertension, diabetes mellitus type 2 uncontrolled with chronic diabetic left foot ulcer who presented to the emergency department complaining of left foot pain. Patient was hospitalized at this facility earlier this month for a left diabetic foot ulcer, on MRI showed concerns for early mouth osteomyelitis of the phalanx of the 4th digit on the left foot. He underwent a surgical debridement of his left foot diabetic wound on 02/[address] Strong. Patient was discharged from the hospital 02/15 with a 6 week course of oral Levaquin. Foot x-ray performed on this visit showed concerns for osteomyelitis of the 4th metatarsal head and proximal phalanx, MRI pending. Patient placed on empiric vancomycin and cefepime. Patient currently denies nausea/vomiting/diarrhea some shortness breath/chest pain. Patient reports tenderness to left lower extremity. 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 - Family History Father Medical History: Heart disease, Diabetes, Other (see notes) Notes: CVA Mother Medical History: GI disease, Other (see notes) Notes: Hypothyriodism - Social History Smoking Status: Current some day smoker Alcohol use: Yes CD- Drugs: No Caffeine use: No Place of Residence: Home Review of Systems 10-point ROS is otherwise unremarkable Physical Examination Temp Pulse Resp BP Pulse Ox 99.0 F 100 H 18 127/76 97 03/15/21 12:00 03/15/21 12:00 03/15/21 12:00 03/15/21 12:00 03/15/21 12:00 General: Alert, In no apparent distress, Oriented x3 HEENT: Atraumatic, Normocephalic Neck: Supple, 2+ carotid pulse no bruit Respiratory: Clear to auscultation bilaterally, Normal air movement Cardiovascular: No edema, Normal pulses Capillary refill: <2 Seconds Gastrointestinal: Normal bowel sounds, Soft and benign Musculoskeletal: No clubbing, No swelling Integumentary: Other (Left forefoot diabetic foot ulcer.) Conclusions/Impression: Antibiotics: Vancomycin Start: 03/14 Stop: -- Cefepime Start: 03/14 Stop:-- Antifungal: Fluconazole Start: 03/15 Stop:-- Assessment/plan Chronic left diabetic foot ulcer Patient was seen earlier this month and treated for osteomyelitis of his left foot ulcer with a 6 week course of oral Levaquin. Patient antibiotic end date of Levaquin is 03/17. Foot x-ray performed on 03/14 showed signs concerning for osteomyelitis of the 4th metatarsal head and proximal phalanx, MRI pending. Surgery consulted. Wound Care are includes: Santyl and wrapped with Kerlix. Wound culture growing group B beta-hemolytic strep. Patient empirically placed on vancomycin and cefepime. Continue until full culture reports are back. Blood cultures performed on 02/12 preliminary results show no growth. Urine culture performed on 03/14 preliminary culture shows no growth. Possible fungal UTI Urinary analysis grew yeast, urine culture pending. Continue empiric fluconazole at this time. Diabetes uncontrolled Continue sliding scale insulin. Strict glucose monitoring needed for proper infection control and wound healing. Anemia Continue to monitor H&H Protein caloric malnutrition Recommend supplemental Ensure protein drinks Medical management per primary team Continue monitor CBC and BMP And monitor for signs infection Plan of care discussed with Dr. Zavala Thank you for consultation.
--- NOTE | 2021-03-15 14:50 | CON ---
Date of Consultation: 03/15/2021 Diagnosis: Cellulitis, diabetic ulcer on the left foot. History Of Present Illness: This is the case of a 35-year-old patient, known by us for the last 2 we eks. The patient came to the hospital with cellulitis and infected necrotic diabetic ulcer that requ ired surgical intervention. The patient is doing well. He was seen several days ago at the [facility] with clean wounds, but he said over the weekend the pain got so intense on the calf with something maybe neuropathies and also the plantar area of the foot and he came to the ER. He was admitted and surgical consult was obtained. Past Surgical History: See my previous consult. Past Medical History: See my previous consult. Allergies: SEE MY PREVIOUS CONSULT. Social Habits: See my previous consult. He does not smoke. He does not drink alcohol. Review of Systems: As above, just a nonspecific pain in the lower extremity with a sharp, needle-like sensation. No Monique ans signs. Physical Examination: General: The patient is awake, alert. HEENT: Pupils anicteric. Chest: Clear. Abdomen: Soft and depressible. Extremities: Left lower extremity with surgical wound, actually looks better than when we saw him a few days [facility] and definitely better than the first admission. Swelling is coming down. The wounds were getting janitorial cleaner. Laboratory Data: Blood work reviewed. Plan: Continue to follow up with the primary doctor. He has been on the antibiotics treatment by pedro mckeon. We are going to reevaluate him from the ID standpoint, do the MRI to rule out osteomyelitis. W teressa he gets discharged, follow up at the [facility]. KINJAL/BRANDY Voice ID: [id number] Report ID: [id number]
[2021-03-15] MEDS ORDERED: MORPHINE 2 MG/ML SYR IV ONE (15:10)
--- NOTE | 2021-03-15 20:13 | RAD REPORT ---
EXAM DESCRIPTION: MRI - Foot Left Wo Cont - 03/15/2021 3:45 pm CLINICAL HISTORY: Rule Out osteomyelitis COMPARISON: Foot Left Wo Cont dated 02/11/2021; Foot Left 3 View dated 03/14/2021 FINDINGS: Abnormal signal at the third and fourth metatarsal heads as well as the third and fourth p roximal phalanx consistent with osteomyelitis. There is a wound along the dorsal aspect of the foot a t this location. There is diffuse abnormal signal both along the plantar and dorsal aspect of foot wi thin the soft tissues. Oval 4.9 cm x 2.7 cm structure along the plantar aspect of the foot at about t he level of the second through fourth metatarsals is noted. This is new from prior. This is consisten t with an abscess. There is gas within the soft tissue. IMPRESSION: Findings consistent with osteomyelitis of the third and fourth metatarsal heads and resp ective proximal phalanges. There is a new collection along the plantar aspect of the foot that may re flect an abscess.
[2021-03-15] MEDS: INSULIN GLARGINE 100 UNITS/ML SQ SCH (21:01)
[2021-03-16] MEDS: HYDROCODONE/APAP 10/325 TAB PO PRN ×4 (01:33→20:31)
[2021-03-16 03:59] LABS: Absolute Lymphocytes (CBC) 2.3 K/uL (0.7-4.9); Basophils % 0.3 % (0-1.3); Hematocrit 30.5 % (39.6-49.0); Lymphocytes % 17.5 % (15.3-44.8); MPV 9.5 fL (7.6-11.3); RBC Red Blood Cell Count 3.37 M/uL (4.33-5.43)
[2021-03-16 04:41] LABS: BUN Blood Urea Nitrogen 8 mg/dL (7-18); Bicarbonate 32 mmol/L (21-32); Glucose Level 156 mg/dL (74-106); Magnesium 1.9 mg/dL (1.8-2.4); Potassium 3.6 mmol/L (3.5-5.1); Sodium Level 138 mmol/L (136-145)
[2021-03-16] MEDS: INSULIN -REGULAR HUMAN 50 UNIT/0.5 ML ML SQ SCH ×4 (07:30→20:29)
[2021-03-16] MEDS: COLLAGENASE 30 GM OINTMENT TOP SCH (09:00)
[2021-03-16] MEDS ORDERED: POTASSIUM CL SA 10 MEQ TAB PO ONE (09:00)
[2021-03-16] MEDS: VANCOMYCIN 1.5 GM in NA CHLORIDE 0.9% 500 ML IVPB SCH (09:35)
[2021-03-16] MEDS: ATORVASTATIN 40 MG TAB PO SCH (09:36)
[2021-03-16] MEDS: HEPARIN 5000 UNIT/ML 1 ML VIAL SQ SCH ×2 (09:36→20:28)
[2021-03-16] MEDS: FLUCONAZOLE 100 MG TAB PO SCH (09:36)
[2021-03-16] MEDS: GABAPENTIN 300 MG CAP PO SCH ×4 (09:36→20:28)
[2021-03-16] MEDS: CEFEPIME 1 GM in NA CHLORIDE 0.9% 100 ML IV SCH ×2 (09:42→20:30)
--- NOTE | 2021-03-16 11:58 | P.PN ---
Subjective Date of Service: 03/16/21 Chief Complaint: Left foot diabetic ulcer Patient seen examined at bedside, with overhead MRI findings with the patient. Patient does not want to proceed with surgical amputation at this time. Review of Systems 10-point ROS is otherwise unremarkable Physical Examination - Vital Signs Temperature: 102 F Blood Pressure: 118/76 Pulse: 103 Respirations: 18 Pulse Ox (%): 98 - Studies Laboratory Last Values WBC 18.60 K/uL (4.3-10.9) H 03/14/21 05:28 RBC 4.22 M/uL (4.33-5.43) L 03/14/21 05:28 Hgb 13.2 g/dL (13.6-17.9) L 03/14/21 05:28 Hct 38.6 % (39.6-49.0) L 03/14/21 05:28 MCV 91.4 fL (80-100) 03/14/21 05:28 MCH 31.3 pg (27.0-35.0) 03/14/21 05:28 MCHC 34.2 g/dL (32.0-36.0) 03/14/21 05:28 RDW 12.5 % (12.1-15.2) 03/14/21 05:28 Plt Count 243 K/uL (152-406) 03/14/21 05:28 MPV 10.4 fL (7.6-11.3) 03/14/21 05:28 Neutrophils % 75.2 % (41.7-73.7) H 03/14/21 05:28 Lymphocytes % 13.9 % (15.3-44.8) L 03/14/21 05:28 Monocytes % 9.7 % (3.3-12.3) 03/14/21 05:28 Eosinophils % 0.9 % (0-4.4) 03/14/21 05:28 Basophils % 0.3 % (0-1.3) 03/14/21 05:28 Absolute Neutrophils 14.0 K/uL (1.8-8.0) H 03/14/21 05:28 Absolute Lymphocytes 2.6 K/uL (0.7-4.9) 03/14/21 05:28 Absolute Monocytes 1.8 K/uL (0.1-1.3) H 03/14/21 05:28 Absolute Eosinophils 0.2 K/uL (0-0.5) 03/14/21 05:28 Absolute Basophils 0.1 K/uL (0-0.5) 03/14/21 05:28 ESR Westergren 83 mm/HR (0-15) H 03/14/21 07:45 PT 15.3 SECONDS (9.5-12.5) H 03/14/21 07:45 INR 1.33 03/14/21 07:45 Sodium 132 mmol/L (136-145) L 03/14/21 05:28 Potassium 4.0 mmol/L (3.5-5.1) 03/14/21 05:28 Chloride 98 mmol/L (98-107) 03/14/21 05:28 Carbon Dioxide 27 mmol/L (21-32) 03/14/21 05:28 BUN 12 mg/dL (7-18) 03/14/21 05:28 Creatinine 0.77 mg/dL (0.55-1.3) 03/14/21 05:28 Estimated GFR > 90 mL/min (=/>90) 03/14/21 05:28 Glucose 440 mg/dL (74-106) H* 03/14/21 05:28 POC Glucose 434 mg/dL (65-120) H* 03/14/21 07:18 Lactic Acid 1.3 mmol/L (0.4-2.0) 03/14/21 07:45 Calcium 9.0 mg/dL (8.5-10.1) 03/14/21 05:28 Magnesium 1.7 mg/dL (1.8-2.4) L D 03/14/21 07:45 Total Bilirubin 0.6 mg/dL (0.2-1.0) 03/14/21 05:28 Direct Bilirubin 0.2 mg/dL (0-0.2) 03/14/21 05:28 AST 20 U/L (15-37) 03/14/21 05:28 ALT 22 U/L (12-78) 03/14/21 05:28 Alkaline Phosphatase 148 U/L (45-117) H 03/14/21 05:28 Rapid Troponin I < 0.02 ng/mL (0.0-0.045) 03/14/21 07:45 NT-Pro-B Natriuret Pep 32 pg/mL (<125) 03/14/21 07:45 Serum Total Protein 9.1 g/dL (6.4-8.2) H 03/14/21 05:28 Albumin 3.0 g/dL (3.4-5.0) L 03/14/21 05:28 Globulin 6.1 g/dL (2.3-3.5) H 03/14/21 05:28 Albumin/Globulin Ratio 0.5 (1.1-1.8) L 03/14/21 05:28 Procalcitonin 0.08 ng/mL (<0.050) H 03/14/21 07:45 TSH 2.110 uIU/mL (0.360-3.740) 03/14/21 07:45 Free T4 1.21 ng/dL (0.76-1.46) 03/14/21 07:45 Acetone Level Neg (NEG) 03/14/21 07:45 SARS-CoV-2 Rap RNA(RT-PCR) Negative (NEGATIVE) 03/14/21 08:04 Assessment And Plan - Plan Physical Exam: HEENT: Atraumatic, Normocephalic Neck: Supple, 2+ carotid pulse no bruit Respiratory: Clear to auscultation bilaterally, Normal air movement Cardiovascular: No edema, Normal pulses Capillary refill: <2 Seconds Gastrointestinal: Normal bowel sounds, Soft and benign Musculoskeletal: No clubbing, No swelling Integumentary: Other (Left forefoot diabetic foot ulcer.) Conclusions/Impression: Antibiotics: Vancomycin Start: 03/14 Stop: -- Cefepime Start: 03/14 Stop:-- Antifungal: Fluconazole Start: 03/15 Stop:-- Assessment/plan Chronic left diabetic foot ulcer Patient was seen earlier this month and treated for osteomyelitis of his left foot ulcer with a 6 week course of oral Levaquin. Patient antibiotic end date of Levaquin is 03/17. Foot x-ray performed on 03/14 showed signs concerning for osteomyelitis of the 4th metatarsal head and proximal phalanx. MRI showed a abscess on plantar aspect of foot with osteomyelitis of the 3rd and 4th metatarsal heads with respected feelings. Surgery consulted. Patient does not want to proceed with surgical amputation at this time, and would like to try an additional few weeks of antibiotics. Wound Care are includes: Santyl and wrapped with Kerlix. Wound culture growing group B beta-hemolytic strep. Patient empirically placed on vancomycin and cefepime. Continue until full culture reports are back. Blood cultures performed on 02/12 preliminary results show no growth. fungal UTI urine culture performed on 03/14 showed yeast, continue fluconazole for total of 14 days. Diabetes uncontrolled Continue sliding scale insulin. Strict glucose monitoring needed for proper infection control and wound healing. Anemia Continue to monitor H&H Protein caloric malnutrition Recommend supplemental Ensure protein drinks Medical management per primary team Continue monitor CBC and BMP And monitor for signs infection Plan of care discussed with Dr. Zavala Thank you for consultation. Physician Review: Patient Assessed, Agree with Above Assessment and Plan
[2021-03-16] MEDS: MORPHINE 2 MG/ML SYR IV PRN (13:50)
[2021-03-16] MEDS ORDERED: NA CHLORIDE 0.9% IVPB SCH ×3 (17:00→18:00)
[2021-03-16] MEDS ORDERED: VANCOMYCIN IVPB SCH ×3 (17:00→18:00)
[2021-03-16] MEDS ORDERED: VANCOMYCIN 1.5 GM in NA CHLORIDE 0.9% 500 ML IVPB SCH (17:00)
--- NOTE | 2021-03-16 17:54 | P.PN ---
Subjective Date of Service: 03/16/21 Chief Complaint: Left foot diabetic ulcer Patient complaining of pain in his left foot and getting IV opioids around the clock. MRI is reports not abscess in the foot in addition to osteomyelitis. Physical Examination - Vital Signs Temperature: 100 F Blood Pressure: 123/74 Pulse: 101 Respirations: 18 Pulse Ox (%): 99 - Physical Exam General: Alert, In no apparent distress Neck: JVD not distended Respiratory: Clear to auscultation bilaterally, Normal air movement Cardiovascular: No edema, Regular rate/rhythm, Normal S1 S2 Gastrointestinal: Soft and benign, Non-distended, No tenderness Musculoskeletal: Other (Left foot dressed.) Integumentary: Other (Left foot wound dressed.) Neurological: Normal strength at 5/5 x4 extr Assessment And Plan - Plan Diagnosis Left foot diabetic ulcer. DM2 with neuropathy and hyperglycemia, insulin-dependent, n oncompliant/uncontrolled Hypertension Plan Wound culture is growing strep agalactia. MRI is showing osteomyelitis MRI of left foot pending to rule out osteomyelitis of the 3rd and fourth metatarsal and phalanges. Patient seen by Dr. Strong. Dr. Strong informed about the MRI results for further input from him. Patient seen by ID. Continue current antibiotics History of noncompliant with local wound care and diabetes. Blood sugar control with insulin sliding scale and Lantus insulin. Dr. Strong to follow. Physician Review: Patient Assessed, Agree with Above Assessment and Plan
[2021-03-16] MEDS: VANCOMYCIN IVPB SCH (17:57)
[2021-03-16] MEDS: NA CHLORIDE 0.9% IVPB SCH (17:57)
[2021-03-16] MEDS: INSULIN GLARGINE 100 UNITS/ML SQ SCH (20:29)
[2021-03-17] MEDS ORDERED: NA CHLORIDE 0.9% IVPB SCH ×2 (01:00)
[2021-03-17] MEDS ORDERED: VANCOMYCIN IVPB SCH ×2 (01:00)
[2021-03-17] MEDS: VANCOMYCIN IVPB SCH ×3 (01:04→16:49)
[2021-03-17] MEDS: NA CHLORIDE 0.9% IVPB SCH ×3 (01:04→16:49)
[2021-03-17] MEDS: MORPHINE 2 MG/ML SYR IV PRN (01:05)
[2021-03-17] MEDS: INSULIN -REGULAR HUMAN 50 UNIT/0.5 ML ML SQ SCH ×4 (07:30→20:40)
[2021-03-17] MEDS: HYDROCODONE/APAP 10/325 TAB PO PRN ×3 (08:46→20:40)
[2021-03-17] MEDS: CEFEPIME 1 GM in NA CHLORIDE 0.9% 100 ML IV SCH ×2 (08:50→20:40)
[2021-03-17] MEDS: HEPARIN 5000 UNIT/ML 1 ML VIAL SQ SCH ×2 (08:51→20:39)
[2021-03-17] MEDS: FLUCONAZOLE 100 MG TAB PO SCH (08:51)
[2021-03-17] MEDS: GABAPENTIN 300 MG CAP PO SCH ×4 (08:51→20:39)
[2021-03-17] MEDS: ATORVASTATIN 40 MG TAB PO SCH (08:51)
[2021-03-17] MEDS: COLLAGENASE 30 GM OINTMENT TOP SCH (08:52)
[2021-03-17] MEDS ORDERED: NA CHLORIDE 0.9% 1,000 ML ONE (12:24)
[2021-03-17] MEDS ORDERED: BUPIVACAINE 0.5% PF 10 ML VIAL ONE (12:32)
[2021-03-17] MEDS ORDERED: propofoL 200 MG/20 ML VIAL IV ONE (12:56)
[2021-03-17] MEDS ORDERED: MIDAZOLAM HCL 2 MG/2 ML INJ ONE (12:56)
[2021-03-17] MEDS ORDERED: LIDOCAINE 2% MPF 5 ML VIAL ONE (12:57)
[2021-03-17] MEDS ORDERED: FENTANYL CITR 100 MCG/2 ML ONE (12:57)
[2021-03-17] MEDS ORDERED: ONDANSETRON 4 MG/2 ML VIAL ONE (12:57)
--- NOTE | 2021-03-17 13:18 | P.BOP ---
Preoperative diagnosis: infected diabatic foot ulcer with abscess Postoperative diagnosis: same Primary procedure: Excisional debridement with abscess drainage of Secondary procedure: infected diabatic foot ulcer 10 x 3 cm Estimated blood loss: <10cc Specimen: pus culture Findings: abscess, necrotic tissue, multiple tendons Anesthesia: General Complications: None Transferred to: Recovery Room Condition: Good
[2021-03-17] MEDS ORDERED: KETOROLAC 30 MG/ML INJ ONE (13:32)
[2021-03-17] MEDS ORDERED: HYDROMORPHONE HCL 1 MG/ML INJ ONE (14:09)
--- NOTE | 2021-03-17 18:27 | P.PN ---
Subjective Date of Service: 03/17/21 Chief Complaint: Left foot diabetic ulcer Patient underwent left foot excision and debridement and abscess drainage today Physical Examination - Vital Signs Temperature: 98.2 F Blood Pressure: 96/58 Pulse: 75 Respirations: 16 Pulse Ox (%): 99 - Physical Exam General: Alert, In no apparent distress HEENT: Mucous membr. moist/pink Neck: JVD not distended Respiratory: Clear to auscultation bilaterally, Normal air movement Cardiovascular: No edema, Regular rate/rhythm, Normal S1 S2 Gastrointestinal: Soft and benign, Non-distended Musculoskeletal: Other (Left foot dressed) Neurological: Normal strength at 5/5 x4 extr Assessment And Plan - Plan Diagnosis Left foot diabetic ulcer. DM2 with neuropathy and hyperglycemia, insulin-dependent, noncompliant/uncontrolled Hypertension Plan Wound culture is growing strep agalactia. MRI is showing osteomyelitis of the 3rd and fourth metatarsal and phalanges. Patient seen by Dr. Strong. Dr. Strong informed about the MRI results for further input from him. Patient seen by ID. Continue current antibiotics Status post left foot excision and debridement and I and D. History of noncompliant with local wound care and diabetes. Continue insulin sliding scale and Lantus insulin. Dr. Strong input appreciated. Physician Review: Patient Assessed, Agree with Above Assessment and Plan
[2021-03-17] MEDS: INSULIN GLARGINE 100 UNITS/ML SQ SCH (20:41)
[2021-03-18] MEDS: VANCOMYCIN IVPB SCH ×3 (01:10→17:59)
[2021-03-18] MEDS: NA CHLORIDE 0.9% IVPB SCH ×3 (01:10→17:59)
[2021-03-18] MEDS: HYDROCODONE/APAP 10/325 TAB PO PRN ×3 (01:11→21:27)
[2021-03-18 04:00] LABS: Absolute Lymphocytes (CBC) 1.6 K/uL (0.7-4.9); Basophils % 0.4 % (0-1.3); Hematocrit 28.1 % (39.6-49.0); Lymphocytes % 15.7 % (15.3-44.8); MPV 9.4 fL (7.6-11.3); RBC Red Blood Cell Count 3.13 M/uL (4.33-5.43)
[2021-03-18 04:38] LABS: BUN Blood Urea Nitrogen 11 mg/dL (7-18); Bicarbonate 30 mmol/L (21-32); Glucose Level 197 mg/dL (74-106); Potassium 3.4 mmol/L (3.5-5.1); Sodium Level 141 mmol/L (136-145)
[2021-03-18] MEDS: INSULIN -REGULAR HUMAN 50 UNIT/0.5 ML ML SQ SCH ×4 (07:30→21:26)
[2021-03-18] MEDS: ATORVASTATIN 40 MG TAB PO SCH (08:27)
[2021-03-18] MEDS: GABAPENTIN 300 MG CAP PO SCH ×4 (08:27→21:27)
[2021-03-18] MEDS: MORPHINE 2 MG/ML SYR IV PRN (08:27)
[2021-03-18] MEDS: FLUCONAZOLE 100 MG TAB PO SCH (08:27)
[2021-03-18] MEDS: CEFEPIME 1 GM in NA CHLORIDE 0.9% 100 ML IV SCH ×2 (08:28→21:24)
[2021-03-18] MEDS: HEPARIN 5000 UNIT/ML 1 ML VIAL SQ SCH ×2 (08:37→21:25)
[2021-03-18] MEDS: COLLAGENASE 30 GM OINTMENT TOP SCH (08:40)
[2021-03-18] MEDS ORDERED: POTASSIUM CL SA 10 MEQ TAB PO ONE (09:00)
--- NOTE | 2021-03-18 11:46 | P.PN ---
Subjective Date of Service: 03/18/21 Chief Complaint: Left foot diabetic ulcer Patient seen examined at bedside, status post excisional debridement. Patient tolerated surgery well, doing well. Review of Systems 10-point ROS is otherwise unremarkable Physical Examination - Vital Signs Temperature: 98.9 F Blood Pressure: 122/72 Pulse: 88 Respirations: 20 Pulse Ox (%): 92 - Studies Laboratory Last Values WBC 18.60 K/uL (4.3-10.9) H 03/14/21 05:28 RBC 4.22 M/uL (4.33-5.43) L 03/14/21 05:28 Hgb 13.2 g/dL (13.6-17.9) L 03/14/21 05:28 Hct 38.6 % (39.6-49.0) L 03/14/21 05:28 MCV 91.4 fL (80-100) 03/14/21 05:28 MCH 31.3 pg (27.0-35.0) 03/14/21 05:28 MCHC 34.2 g/dL (32.0-36.0) 03/14/21 05:28 RDW 12.5 % (12.1-15.2) 03/14/21 05:28 Plt Count 243 K/uL (152-406) 03/14/21 05:28 MPV 10.4 fL (7.6-11.3) 03/14/21 05:28 Neutrophils % 75.2 % (41.7-73.7) H 03/14/21 05:28 Lymphocytes % 13.9 % (15.3-44.8) L 03/14/21 05:28 Monocytes % 9.7 % (3.3-12.3) 03/14/21 05:28 Eosinophils % 0.9 % (0-4.4) 03/14/21 05:28 Basophils % 0.3 % (0-1.3) 03/14/21 05:28 Absolute Neutrophils 14.0 K/uL (1.8-8.0) H 03/14/21 05:28 Absolute Lymphocytes 2.6 K/uL (0.7-4.9) 03/14/21 05:28 Absolute Monocytes 1.8 K/uL (0.1-1.3) H 03/14/21 05:28 Absolute Eosinophils 0.2 K/uL (0-0.5) 03/14/21 05:28 Absolute Basophils 0.1 K/uL (0-0.5) 03/14/21 05:28 ESR Westergren 83 mm/HR (0-15) H 03/14/21 07:45 PT 15.3 SECONDS (9.5-12.5) H 03/14/21 07:45 INR 1.33 03/14/21 07:45 Sodium 132 mmol/L (136-145) L 03/14/21 05:28 Potassium 4.0 mmol/L (3.5-5.1) 03/14/21 05:28 Chloride 98 mmol/L (98-107) 03/14/21 05:28 Carbon Dioxide 27 mmol/L (21-32) 03/14/21 05:28 BUN 12 mg/dL (7-18) 03/14/21 05:28 Creatinine 0.77 mg/dL (0.55-1.3) 03/14/21 05:28 Estimated GFR > 90 mL/min (=/>90) 03/14/21 05:28 Glucose 440 mg/dL (74-106) H* 03/14/21 05:28 POC Glucose 434 mg/dL (65-120) H* 03/14/21 07:18 Lactic Acid 1.3 mmol/L (0.4-2.0) 03/14/21 07:45 Calcium 9.0 mg/dL (8.5-10.1) 03/14/21 05:28 Magnesium 1.7 mg/dL (1.8-2.4) L D 03/14/21 07:45 Total Bilirubin 0.6 mg/dL (0.2-1.0) 03/14/21 05:28 Direct Bilirubin 0.2 mg/dL (0-0.2) 03/14/21 05:28 AST 20 U/L (15-37) 03/14/21 05:28 ALT 22 U/L (12-78) 03/14/21 05:28 Alkaline Phosphatase 148 U/L (45-117) H 03/14/21 05:28 Rapid Troponin I < 0.02 ng/mL (0.0-0.045) 03/14/21 07:45 NT-Pro-B Natriuret Pep 32 pg/mL (<125) 03/14/21 07:45 Serum Total Protein 9.1 g/dL (6.4-8.2) H 03/14/21 05:28 Albumin 3.0 g/dL (3.4-5.0) L 03/14/21 05:28 Globulin 6.1 g/dL (2.3-3.5) H 03/14/21 05:28 Albumin/Globulin Ratio 0.5 (1.1-1.8) L 03/14/21 05:28 Procalcitonin 0.08 ng/mL (<0.050) H 03/14/21 07:45 TSH 2.110 uIU/mL (0.360-3.740) 03/14/21 07:45 Free T4 1.21 ng/dL (0.76-1.46) 03/14/21 07:45 Acetone Level Neg (NEG) 03/14/21 07:45 SARS-CoV-2 Rap RNA(RT-PCR) Negative (NEGATIVE) 03/14/21 08:04 Assessment And Plan - Plan Physical Exam: HEENT: Atraumatic, Normocephalic Neck: Supple, 2+ carotid pulse no bruit Respiratory: Clear to auscultation bilaterally, Normal air movement Cardiovascular: No edema, Normal pulses Capillary refill: <2 Seconds Gastrointestinal: Normal bowel sounds, Soft and benign Musculoskeletal: No clubbing, No swelling Integumentary: Other (Left forefoot diabetic foot ulcer.) Conclusions/Impression: Antibiotics: Vancomycin Start: 03/14 Stop: -- Cefepime Start: 03/14 Stop:-- Antifungal: Fluconazole Start: 03/15 Stop:-- Assessment/plan Chronic left diabetic foot ulcer Patient was seen earlier this month and treated for osteomyelitis of his left foot ulcer with a 6 week course of oral Levaquin. Patient antibiotic end date of Levaquin is 03/17. Foot x-ray performed on 03/14 showed signs concerning for osteomyelitis of the 4th metatarsal head and proximal phalanx. MRI showed a abscess on plantar aspect of foot with osteomyelitis of the 3rd and 4th metatarsal heads and phalanges. Surgery consulted. Patient does not want to proceed with surgical amputation at this time, and would like to try an additional treatments with antibiotics. Patient was taken to the OR on 03/17 for an excisional debridement of his wound and drainage of abscess. Wound cultur e growing group B beta-hemolytic strep. Susceptible to penicillins, vancomycin. Resistant to Levaquin. Continue no vancomycin and cefepime at this time. Vancomycin trough taken on 03/17 was 7.5, below therapeutic range. Trough taken on 03/18 pending. Patient will need an additional 6 weeks of IV antibiotic therapy if he does not plan to undergo amputation of infected bone. Can send patient home on oral zyxov. fungal UTI urine culture performed on 03/14 showed yeast, continue fluconazole for total of 14 days. Diabetes uncontrolled Continue sliding scale insulin. Strict glucose monitoring needed for proper infection control and wound healing. Anemia Continue to monitor H&H Protein caloric malnutrition Recommend supplemental Ensure protein drinks Medical management per primary team Continue monitor CBC and BMP And monitor for signs infection Plan of care discussed with Dr. Zavala Thank you for consultation. Physician Review: Patient Assessed, Agree with Above Assessment and Plan
--- NOTE | 2021-03-18 16:59 | P.PN ---
Subjective Date of Service: 03/18/21 Chief Complaint: Left foot diabetic ulcer Status post left foot excision and debridement and abscess drainage. No issues overnight. Physical Examination - Vital Signs Temperature: 96.4 F Blood Pressure: 110/64 Pulse: 88 Respirations: 20 Pulse Ox (%): 93 - Physical Exam General: Alert, In no apparent distress, Oriented x3 Neck: JVD not distended Respiratory: Clear to auscultation bilaterally, Normal air movement Cardiovascular: No edema, Regular rate/rhythm, Normal S1 S2 Gastrointestinal: Soft and benign, Non-distended Musculoskeletal: Other (Left foot dressed.) Neurological: Normal strength at 5/5 x4 extr Assessment And Plan - Plan Diagnosis Left foot diabetic ulcer. DM2 with neuropathy and hyperglycemia, insulin-dependent, noncompliant/uncontrolled Hypertension Plan Wound culture is growing strep agalactia. Deep tissue wound culture also growing strep B. MRI is showing osteomyelitis of the 3rd and fourth metatarsal and phalanges. Patient seen by ID. Continue current antibiotics Status post left foot excision and debridement and I and D. History of noncompliant with local wound care and diabetes. Continue insulin sliding scale and Lantus insulin. Possible antibiotics for outpatient treatment include Levaquin and Augmentin. Will continue IV antibiotics. Physician Review: Patient Assessed, Agree with Above Assessment and Plan
[2021-03-18] MEDS: MORPHINE 4 MG/ML SYR IV PRN (18:00)
[2021-03-18] MEDS: INSULIN GLARGINE 100 UNITS/ML SQ SCH (21:26)
[2021-03-19] MEDS: NA CHLORIDE 0.9% IVPB SCH ×3 (01:53→20:43)
[2021-03-19] MEDS: VANCOMYCIN IVPB SCH ×3 (01:53→20:43)
[2021-03-19] MEDS: HYDROCODONE/APAP 10/325 TAB PO PRN ×4 (01:53→20:42)
[2021-03-19 06:47] LABS: BUN Blood Urea Nitrogen 7 mg/dL (7-18); Bicarbonate 30 mmol/L (21-32); Glucose Level 151 mg/dL (74-106); Potassium 3.7 mmol/L (3.5-5.1); Sodium Level 140 mmol/L (136-145)
[2021-03-19] MEDS: INSULIN -REGULAR HUMAN 50 UNIT/0.5 ML ML SQ SCH ×4 (07:30→20:44)
[2021-03-19] MEDS ORDERED: POTASSIUM CL SA 10 MEQ TAB PO ONE (07:32)
[2021-03-19] MEDS: HEPARIN 5000 UNIT/ML 1 ML VIAL SQ SCH ×2 (08:50→20:43)
[2021-03-19] MEDS: ATORVASTATIN 40 MG TAB PO SCH (08:56)
[2021-03-19] MEDS: FLUCONAZOLE 100 MG TAB PO SCH (08:56)
[2021-03-19] MEDS: GABAPENTIN 300 MG CAP PO SCH ×4 (08:57→20:42)
[2021-03-19] MEDS: COLLAGENASE 30 GM OINTMENT TOP SCH (08:59)
[2021-03-19] MEDS: CEFEPIME 1 GM in NA CHLORIDE 0.9% 100 ML IV SCH (08:59)
--- NOTE | 2021-03-19 12:16 | P.PN ---
Subjective Date of Service: 03/19/21 Chief Complaint: Left foot diabetic ulcer Patient seen examined at bedside, doing well with no acute complaints. Review of Systems 10-point ROS is otherwise unremarkable Physical Examination - Vital Signs Temperature: 98.2 F Blood Pressure: 147/88 Pulse: 72 Respirations: 18 Pulse Ox (%): 98 - Studies Laboratory Last Values WBC 18.60 K/uL (4.3-10.9) H 03/14/21 05:28 RBC 4.22 M/uL (4.33-5.43) L 03/14/21 05:28 Hgb 13.2 g/dL (13.6-17.9) L 03/14/21 05:28 Hct 38.6 % (39.6-49.0) L 03/14/21 05:28 MCV 91.4 fL (80-100) 03/14/21 05:28 MCH 31.3 pg (27.0-35.0) 03/14/21 05:28 MCHC 34.2 g/dL (32.0-36.0) 03/14/21 05:28 RDW 12.5 % (12.1-15.2) 03/14/21 05:28 Plt Count 243 K/uL (152-406) 03/14/21 05:28 MPV 10.4 fL (7.6-11.3) 03/14/21 05:28 Neutrophils % 75.2 % (41.7-73.7) H 03/14/21 05:28 Lymphocytes % 13.9 % (15.3-44.8) L 03/14/21 05:28 Monocytes % 9.7 % (3.3-12.3) 03/14/21 05:28 Eosinophils % 0.9 % (0-4.4) 03/14/21 05:28 Basophils % 0.3 % (0-1.3) 03/14/21 05:28 Absolute Neutrophils 14.0 K/uL (1.8-8.0) H 03/14/21 05:28 Absolute Lymphocytes 2.6 K/uL (0.7-4.9) 03/14/21 05:28 Absolute Monocytes 1.8 K/uL (0.1-1.3) H 03/14/21 05:28 Absolute Eosinophils 0.2 K/uL (0-0.5) 03/14/21 05:28 Absolute Basophils 0.1 K/uL (0-0.5) 03/14/21 05:28 ESR Westergren 83 mm/HR (0-15) H 03/14/21 07:45 PT 15.3 SECONDS (9.5-12.5) H 03/14/21 07:45 INR 1.33 03/14/21 07:45 Sodium 132 mmol/L (136-145) L 03/14/21 05:28 Potassium 4.0 mmol/L (3.5-5.1) 03/14/21 05:28 Chloride 98 mmol/L (98-107) 03/14/21 05:28 Carbon Dioxide 27 mmol/L (21-32) 03/14/21 05:28 BUN 12 mg/dL (7-18) 03/14/21 05:28 Creatinine 0.77 mg/dL (0.55-1.3) 03/14/21 05:28 Estimated GFR > 90 mL/min (=/>90) 03/14/21 05:28 Glucose 440 mg/dL (74-106) H* 03/14/21 05:28 POC Glucose 434 mg/dL (65-120) H* 03/14/21 07:18 Lactic Acid 1.3 mmol/L (0.4-2.0) 03/14/21 07:45 Calcium 9.0 mg/dL (8.5-10.1) 03/14/21 05:28 Magnesium 1.7 mg/dL (1.8-2.4) L D 03/14/21 07:45 Total Bilirubin 0.6 mg/dL (0.2-1.0) 03/14/21 05:28 Direct Bilirubin 0.2 mg/dL (0-0.2) 03/14/21 05:28 AST 20 U/L (15-37) 03/14/21 05:28 ALT 22 U/L (12-78) 03/14/21 05:28 Alkaline Phosphatase 148 U/L (45-117) H 03/14/21 05:28 Rapid Troponin I < 0.02 ng/mL (0.0-0.045) 03/14/21 07:45 NT-Pro-B Natriuret Pep 32 pg/mL (<125) 03/14/21 07:45 Serum Total Protein 9.1 g/dL (6.4-8.2) H 03/14/21 05:28 Albumin 3.0 g/dL (3.4-5.0) L 03/14/21 05:28 Globulin 6.1 g/dL (2.3-3.5) H 03/14/21 05:28 Albumin/Globulin Ratio 0.5 (1.1-1.8) L 03/14/21 05:28 Procalcitonin 0.08 ng/mL (<0.050) H 03/14/21 07:45 TSH 2.110 uIU/mL (0.360-3.740) 03/14/21 07:45 Free T4 1.21 ng/dL (0.76-1.46) 03/14/21 07:45 Acetone Level Neg (NEG) 03/14/21 07:45 SARS-CoV-2 Rap RNA(RT-PCR) Negative (NEGATIVE) 03/14/21 08:04 Microbiology Data (last 24 hrs): 03/14/21 07:35 Blood - Blood Aerobic Blood Culture - Final No growth in 5 days. 03/14/21 07:35 Blood - Blood Anaerobic Blood Culture - Final No growth in 5 days. 03/14/21 07:50 Blood - Blood Aerobic Blood Culture - Final No growth in 5 days. 03/14/21 07:50 Blood - Blood Anaerobic Blood Culture - Final No growth in 5 days. Assessment And Plan - Plan Physical Exam: HEENT: Atraumatic, Normocephalic Neck: Supple, 2+ carotid pulse no bruit Respiratory: Clear to auscultation bilaterally, Normal air movement Cardiovascular: No edema, Normal pulses Capillary refill: <2 Seconds Gastrointestinal: Normal bowel sounds, Soft and benign Musculoskeletal: No clubbing, No swelling Integumentary: Other (Left forefoot diabetic foot ulcer.) Conclusions/Impression: Antibiotics: Vancomycin Start: 03/14 Stop: -- Cefepime Start: 03/14 Stop: 03/19 Antifungal: Fluconazole Start: 03/15 Stop: 03/29 Assessment/plan Chronic left diabetic foot ulcer Patient was seen earlier this month and treated for osteomyelitis of his left foot ulcer with a 6 week course of oral Levaquin. Patient antibiotic end date of Levaquin is 03/17. Foot x-ray performed on 03/14 showed signs concerning for osteomyelitis of the 4th metatarsal head and proximal phalanx. MRI showed a abscess on plantar aspect of foot with osteomyelitis of the 3rd and 4th metatarsal heads and phalanges. Surgery consulted. Patient does not want to proceed with surgical amputation at this time, and would like to try an additional treatments with antibiotics. Patient was taken to the OR on 03/17 for an excisional debridement of his wound and drainage of abscess. Wound culture growing group B beta-hemolytic strep. Susceptible to penicillins, vancomycin. Resistant to Levaquin. Continue monotherapy with vancomycin. Most recent trough taken on 03/18 within therapeutic range at 12.4. Patient will need an additional 6 weeks of IV antibiotic therapy if he does not plan to undergo amputation of infected bone. fungal UTI urine culture performed on 03/14 showed yeast, continue fluconazole for total of 14 days. Diabetes uncontrolled Continue sliding scale insulin. Strict glucose monitoring needed for proper infection control and wound healing. Anemia Continue to monitor H&H Protein caloric malnutrition Recommend supplemental Ensure protein drinks Medical management per primary team Continue monitor CBC and BMP And monitor for signs infection Plan of care discussed with Dr. Zavala Thank you for consultation. Physician Review: Patient Assessed, Agree with Above Assessment and Plan
--- NOTE | 2021-03-19 16:51 | P.PN ---
Subjective Date of Service: 03/19/21 Chief Complaint: Left foot diabetic ulcer Patient has no new complaint today. No recorded fever. Physical Examination - Vital Signs Temperature: 99.3 F Blood Pressure: 133/80 Pulse: 80 Respirations: 18 Pulse Ox (%): 98 - Physical Exam General: Alert, In no apparent distress, Oriented x3 HEENT: Mucous membr. moist/pink Neck: JVD not distended Respiratory: Clear to auscultation bilaterally, Normal air movement Cardiovascular: No edema, Regular rate/rhythm, Normal S1 S2 Gastrointestinal: Soft and benign, Non-distended, No tenderness Musculoskeletal: Other (Left foot in dressing.) Neurological: Normal strength at 5/5 x4 extr - Studies Microbiology Data (last 24 hrs): 03/14/21 07:35 Blood - Blood Aerobic Blood Culture - Final No growth in 5 days. 03/14/21 07:35 Blood - Blood Anaerobic Blood Culture - Final No growth in 5 days. 03/14/21 07:50 Blood - Blood Aerobic Blood Culture - Final No growth in 5 days. 03/14/21 07:50 Blood - Blood Anaerobic Blood Culture - Final No growth in 5 days. Assessment And Plan - Plan Diagnosis Left foot diabetic ulcer. DM2 with neuropathy and hyperglycemia, insulin-dependent, noncompliant/uncontrolled Hypertension Plan Wound culture is growing strep agalactia. Deep tissue wound culture also growing strep B. MRI is showing osteomyelitis of the 3rd and fourth metatarsal and phalanges. Patient seen by ID. Continue current antibiotics Status post left foot excision and debridement and I and D. History of noncompliant with local wound care and diabetes. Continue insulin sliding scale and Lantus insulin. Possible antibiotics for outpatient treatment include Levaquin and Augmentin. He will need 6 weeks of antibiotics. Will continue IV antibiotics for now. Physician Review: Patient Assessed, Agree with Above Assessment and Plan
[2021-03-19] MEDS: INSULIN GLARGINE 100 UNITS/ML SQ SCH (20:45)
[2021-03-20] MEDS: HYDROCODONE/APAP 10/325 TAB PO PRN ×4 (02:20→20:54)
[2021-03-20 05:33] LABS: BUN Blood Urea Nitrogen 5 mg/dL (7-18); Bicarbonate 31 mmol/L (21-32); Glucose Level 157 mg/dL (74-106); Potassium 3.6 mmol/L (3.5-5.1); Sodium Level 142 mmol/L (136-145)
[2021-03-20] MEDS: INSULIN -REGULAR HUMAN 50 UNIT/0.5 ML ML SQ SCH ×4 (07:30→20:56)
[2021-03-20] MEDS: ATORVASTATIN 40 MG TAB PO SCH (08:14)
[2021-03-20] MEDS: GABAPENTIN 300 MG CAP PO SCH ×4 (08:14→20:54)
[2021-03-20] MEDS: VANCOMYCIN IVPB SCH ×2 (08:15→21:01)
[2021-03-20] MEDS: NA CHLORIDE 0.9% IVPB SCH ×2 (08:15→21:01)
[2021-03-20] MEDS: FLUCONAZOLE 100 MG TAB PO SCH (08:17)
[2021-03-20] MEDS: HEPARIN 5000 UNIT/ML 1 ML VIAL SQ SCH ×2 (08:17→20:55)
[2021-03-20] MEDS: COLLAGENASE 30 GM OINTMENT TOP SCH (08:42)
[2021-03-20] MEDS ORDERED: POTASSIUM CL SA 10 MEQ TAB PO ONE (09:00)
--- NOTE | 2021-03-20 16:21 | P.PN ---
Subjective Date of Service: 03/20/21 Chief Complaint: Left foot diabetic ulcer Patient has no new complaint today. Physical Examination - Vital Signs Temperature: 98.3 F Blood Pressure: 144/75 Pulse: 74 Respirations: 19 Pulse Ox (%): 98 - Physical Exam General: Alert, In no apparent distress Neck: JVD not distended Respiratory: Clear to auscultation bilaterally, Normal air movement Cardiovascular: No edema, Regular rate/rhythm, Normal S1 S2 Gastrointestinal: Soft and benign, Non-distended Musculoskeletal: Other (Dressed left foot.) Neurological: Normal strength at 5/5 x4 extr Assessment And Plan - Plan Diagnosis Left foot diabetic ulcer. DM2 with neuropathy and hyperglycemia, insulin-dependent, nonco mpliant/uncontrolled Hypertension Plan Deep tissue wound culture also growing strep B. MRI is showing osteomyelitis of the 3rd and fourth metatarsal and phalanges. Patient seen by ID. Continue current antibiotics Status post left foot excision and debridement and I and D. History of noncompliant with local wound care and diabetes. Continue insulin sliding scale and Lantus insulin. Possible antibiotics for outpatient treatment include Levaquin and Augmentin. He will need 6 weeks of antibiotics. Will continue IV antibiotics. Wound care per Dr. Strong's instructions. Physician Review: Patient Assessed, Agree with Above Assessment and Plan
[2021-03-20] MEDS: MORPHINE 4 MG/ML SYR IV PRN (18:40)
[2021-03-20] MEDS: INSULIN GLARGINE 100 UNITS/ML SQ SCH (20:58)
[2021-03-21 05:18] LABS: Magnesium 1.9 mg/dL (1.8-2.4); Potassium 3.9 mmol/L (3.5-5.1)
[2021-03-21] MEDS: FLUCONAZOLE 100 MG TAB PO SCH (07:25)
[2021-03-21] MEDS: GABAPENTIN 300 MG CAP PO SCH ×4 (07:25→21:01)
[2021-03-21] MEDS: ATORVASTATIN 40 MG TAB PO SCH (07:25)
[2021-03-21] MEDS: NA CHLORIDE 0.9% IVPB SCH ×3 (07:26→20:59)
[2021-03-21] MEDS: VANCOMYCIN IVPB SCH ×3 (07:26→20:59)
[2021-03-21] MEDS: HYDROCODONE/APAP 10/325 TAB PO PRN ×2 (07:26→20:59)
[2021-03-21] MEDS: INSULIN -REGULAR HUMAN 50 UNIT/0.5 ML ML SQ SCH ×4 (07:29→21:00)
[2021-03-21] MEDS: COLLAGENASE 30 GM OINTMENT TOP SCH (07:30)
[2021-03-21] MEDS: HEPARIN 5000 UNIT/ML 1 ML VIAL SQ SCH ×2 (07:31→20:59)
[2021-03-21] MEDS ORDERED: POTASSIUM CL SA 10 MEQ TAB PO ONE (09:00)
--- NOTE | 2021-03-21 15:54 | P.PN ---
Subjective Date of Service: 03/21/21 Chief Complaint: Left foot diabetic ulcer Patient has no new complaint today. Physical Examination - Vital Signs Temperature: 98 F Blood Pressure: 122/74 Pulse: 74 Respirations: 20 Pulse Ox (%): 96 - Physical Exam General: Alert, In no apparent distress, Oriented x3 HEENT: Mucous membr. moist/pink Respiratory: Clear to auscultation bilaterally, Normal air movement Cardiovascular: Regular rate/rhythm, Normal S1 S2 Gastrointestinal: Soft and benign, Non-distended Musculoskeletal: Other (Left foot wound dressed.) Neurological: Normal strength at 5/5 x4 extr Assessment And Plan - Plan Diagnosis Left foot diabetic ulcer. DM2 with neuropathy and hyperglycemia, insulin-dependent, noncompliant/uncontrolled Hypertension Plan Deep tissue wound culture also growing strep B. MRI is showing osteomyelitis of the 3rd and fourth metatarsal and phalanges. Patient seen by ID. Continue current antibiotics Status post left foot excision and debridement and I and D. History of noncompliant with local wound care and diabetes. Continue insulin sliding scale and Lantus insulin. Outpatient antibiotic options will be discussed with infectious disease tomorrow. Will continue IV Vanco. Santyl ointment for wound care. Physician Review: Patient Assessed, Agree with Above Assessment and Plan
[2021-03-21] MEDS: MORPHINE 4 MG/ML SYR IV PRN (17:22)
[2021-03-21] MEDS: INSULIN GLARGINE 100 UNITS/ML SQ SCH (21:00)
[2021-03-22 04:04] LABS: Absolute Lymphocytes (CBC) 2.2 K/uL (0.7-4.9); Basophils % 1.3 % (0-1.3); Hematocrit 35.5 % (39.6-49.0); Lymphocytes % 25.8 % (15.3-44.8); MPV 8.9 fL (7.6-11.3); RBC Red Blood Cell Count 4.01 M/uL (4.33-5.43)
[2021-03-22 04:24] LABS: BUN Blood Urea Nitrogen 6 mg/dL (7-18); Bicarbonate 29 mmol/L (21-32); Glucose Level 125 mg/dL (74-106); Potassium 3.6 mmol/L (3.5-5.1); Sodium Level 138 mmol/L (136-145)
[2021-03-22] MEDS: INSULIN -REGULAR HUMAN 50 UNIT/0.5 ML ML SQ SCH ×4 (07:30→20:08)
[2021-03-22] MEDS: HEPARIN 5000 UNIT/ML 1 ML VIAL SQ SCH ×2 (07:40→20:07)
[2021-03-22] MEDS: FLUCONAZOLE 100 MG TAB PO SCH (07:46)
[2021-03-22] MEDS: GABAPENTIN 300 MG CAP PO SCH ×4 (07:46→20:07)
[2021-03-22] MEDS: HYDROCODONE/APAP 10/325 TAB PO PRN ×2 (07:47→17:59)
[2021-03-22] MEDS: ATORVASTATIN 40 MG TAB PO SCH (07:47)
[2021-03-22] MEDS: NA CHLORIDE 0.9% IVPB SCH (08:57)
[2021-03-22] MEDS: VANCOMYCIN IVPB SCH (08:57)
[2021-03-22] MEDS: COLLAGENASE 30 GM OINTMENT TOP SCH (09:00)
[2021-03-22] MEDS ORDERED: POTASSIUM CL SA 10 MEQ TAB PO ONE (09:00)
--- NOTE | 2021-03-22 13:05 | OP ---
Date of Procedure: 03/22/2021 Surgeon: Surinder Strong MD Preoperative Diagnosis: Infected diabetic foot ulcer with abscess. Postoperative Diagnosis: Infected diabetic foot ulcer with abscess. Procedure: Excisional debridement subcutaneous with abscess drainage of infected diabetic foot ulcer , 10 x 3 cm. Anesthesia: General plus local. Specimen: Pus. Finding: Pus, necrotic tissue, multiple tendons exposed. Indication: This is the case of a 35-year-old patient with history of diabetes, history of diabetic foot ulcer. He was at home and the condition got worse, so he came back to the hospital, admitted fo r IV antibiotics and a surgical consult was obtained for debridement. He has previous debrid[facility] of the [facility], [facility], but he has been active. He has to do the bes t he can, but it is impossible for him to stay off the foot all the time. We saw some induration of the area. The infection has not resolved yet despite outpatient p.o. antibiotics too. The patient u nderstands that there is a risk for losing the foot. He has to be compliant with treatment, control his diet, control his diabetes. Came here for wound care. He understood. He is not ready to have a n amputation at this moment. He wants to continue debridement, but at the same time I explained to h im debridement without followup care properly will not solve this issue. He understood. He is going to be compliant in the future. Procedure In Detail: The patient was brought to the operating room, placed in supine position. Anes thesia was done without complication. Left foot was prepped and draped in usual sterile fashion. A time-out was called. We proceeded using an 11 blade, removed the necrotic tissue. We found new absc ess and multiple areas of the dorsum of the foot, plantar surface of the foot and also in the toes re gion. Purulent discharge obtained. Necrotic tissue was removed. There were multiple tendons expose d with all the fatty tissue gone in that area. The area was irrigated. Hemostasis was obtained and then the area was packed with wet-to-dry dressing. The patient tolerated the procedure well. The pa tient was sent to recovery in stable condition. The area of the ulcer that has to be cleaned it is a bout 10 x 3 cm. KINJAL/BRANDY Voice ID: [id number] Report ID: [id number]
[2021-03-22] MEDS: CEFTRIAXONE 2,000 MG in NA CHLORIDE 0.9% 100 ML IV SCH (13:15)
--- NOTE | 2021-03-22 17:40 | P.PN ---
Subjective Date of Service: 03/22/21 Chief Complaint: Left foot diabetic ulcer Patient has no new complaint today. Physical Examination - Vital Signs Temperature: 98.4 F Blood Pressure: 146/83 Pulse: 100 Respirations: 20 Pulse Ox (%): 96 - Physical Exam General: Alert, In no apparent distress, Oriented x3 Neck: JVD not distended Respiratory: Clear to auscultation bilaterally, Normal air movement Cardiovascular: Regular rate/rhythm, Normal S1 S2 Gastrointestinal: Soft and benign, Non-distended Integumentary: Other (Left foot wound dressed.) Neurological: Normal strength at 5/5 x4 extr Assessment And Plan - Plan Diagnosis Left foot diabetic ulcer. DM2 with neuropathy and hyperglycemia, insulin-dependent, noncompliant/uncontrolled Hypertension Plan Deep tissue wound culture also growing strep B. MRI is showing osteomyelitis of the 3rd and fourth metatarsal and phalanges. Patient seen by ID. IV vancomycin changed to IV Rocephin. Status post left foot excision and debridement and I and D. There was an initial concern for risk of PICC line use for IVDA. Patient denies any history IVDA. I have reviewed his chart and have not seen any documentation IVDA. On examination no track zavala to suggest IVDA. Patient should benefit from IV antibiotics as an outpatient for osteomyelitis. Streps Agalactiaea isolated for the deep tissue wound culture is sensitive to penicillin. Considering Rocephin 2 g daily to complete 6 weeks of treatment. Infectious disease is following. PICC line requested. History of noncompliant with local wound care and diabetes. Continue insulin sliding scale. Change Lantus insulin is on Novolin 70/30 which will be more affordable as an outpatient. Santyl ointment for daily wound care per Dr. Strong recommendation. Physician Review: Patient Assessed, Agree with Above Assessment and Plan
[2021-03-22] MEDS ORDERED: BISACODYL E.C. 5 MG TAB PO ONE (18:17)
--- NOTE | 2021-03-22 19:50 | PN ---
Subjective: The patient is lying in bed. Denies any headache, nausea, vomiting, chest pain, abdomin al pain, constipation, or diarrhea. Objective: Vital Signs: I reviewed. Lungs: Basal crackles. Heart: S1, S2. Regular. Abdomen: Soft, nontender. Bowel sounds present. Extremity: No edema. Laboratory Data: Reviewed. Assessment And Plan: Left foot diabetic foot ulcer with osteomyelitis. I agree with PICC line and t o continue antibiotic for total of 42 days. The patient has already received 8 days of antibiotics. The patient need to continue wound care and IV antibiotic as recommended. We will follow the patien t as needed. NF/MODL Voice ID: [id number] Report ID: [id number]
[2021-03-22] MEDS: INSULIN GLARGINE 100 UNITS/ML SQ SCH (20:09)
[2021-03-22] MEDS: MORPHINE 4 MG/ML SYR IV PRN (20:11)
[2021-03-23] MEDS: HYDROCODONE/APAP 10/325 TAB PO PRN ×2 (03:34→07:53)
[2021-03-23 04:13] LABS: Absolute Lymphocytes (CBC) 2.5 K/uL (0.7-4.9); Basophils % 0.9 % (0-1.3); Lymphocytes % 21.9 % (15.3-44.8); MPV 8.7 fL (7.6-11.3); RBC Red Blood Cell Count 3.92 M/uL (4.33-5.43)
[2021-03-23 04:26] LABS: ALT/SGPT 34 U/L (12-78); AST/SGOT 25 U/L (15-37); Albumin 2.6 g/dL (3.4-5.0); Alkaline Phosphatase 175 U/L (45-117); BUN Blood Urea Nitrogen 7 mg/dL (7-18); Bicarbonate 27 mmol/L (21-32); Bilirubin Total 0.4 mg/dL (0.2-1.0); Glucose Level 116 mg/dL (74-106); Magnesium 1.8 mg/dL (1.8-2.4); Potassium 3.6 mmol/L (3.5-5.1); Protein, Total 8.1 g/dL (6.4-8.2); Sodium Level 139 mmol/L (136-145)
[2021-03-23] MEDS: INSULIN -REGULAR HUMAN 50 UNIT/0.5 ML ML SQ SCH (07:30)
[2021-03-23] MEDS: HEPARIN 5000 UNIT/ML 1 ML VIAL SQ SCH (07:49)
[2021-03-23] MEDS: ATORVASTATIN 40 MG TAB PO SCH (07:53)
[2021-03-23] MEDS: GABAPENTIN 300 MG CAP PO SCH (07:53)
[2021-03-23] MEDS: FLUCONAZOLE 100 MG TAB PO SCH (07:54)
[2021-03-23] MEDS: COLLAGENASE 30 GM OINTMENT TOP SCH (08:16)
[2021-03-23] MEDS ORDERED: POTASSIUM CL SA 10 MEQ TAB PO ONE (09:00)
[2021-03-23] MEDS ORDERED: MAGNESIUM SULFATE 1 gm IVPB 1 GM/100 ML BAG IV ONE (09:00)
[2021-03-23] MEDS: CEFTRIAXONE 2,000 MG in NA CHLORIDE 0.9% 100 ML IV SCH (09:00)
[2021-03-23 09:48] VITALS: BP 121/74; TEMP 97.2; O2SAT 95
--- NOTE | 2021-03-23 10:43 | P.PN ---
Subjective Date of Service: 03/23/21 Chief Complaint: Left foot diabetic ulcer Patient seen examined at bedside, awaiting PICC line Review of Systems 10-point ROS is otherwise unremarkable Physical Examination - Vital Signs Temperature: 97.2 F Blood Pressure: 121/74 Pulse: 71 Respirations: 20 Pulse Ox (%): 95 - Studies Laboratory Last Values WBC 18.60 K/uL (4.3-10.9) H 03/14/21 05:28 RBC 4.22 M/uL (4.33-5.43) L 03/14/21 05:28 Hgb 13.2 g/dL (13.6-17.9) L 03/14/21 05:28 Hct 38.6 % (39.6-49.0) L 03/14/21 05:28 MCV 91.4 fL (80-100) 03/14/21 05:28 MCH 31.3 pg (27.0-35.0) 03/14/21 05:28 MCHC 34.2 g/dL (32.0-36.0) 03/14/21 05:28 RDW 12.5 % (12.1-15.2) 03/14/21 05:28 Plt Count 243 K/uL (152-406) 03/14/21 05:28 MPV 10.4 fL (7.6-11.3) 03/14/21 05:28 Neutrophils % 75.2 % (41.7-73.7) H 03/14/21 05:28 Lymphocytes % 13.9 % (15.3-44.8) L 03/14/21 05:28 Monocytes % 9.7 % (3.3-12.3) 03/14/21 05:28 Eosinophils % 0.9 % (0-4.4) 03/14/21 05:28 Basophils % 0.3 % (0-1.3) 03/14/21 05:28 Absolute Neutrophils 14.0 K/uL (1.8-8.0) H 03/14/21 05:28 Absolute Lymphocytes 2.6 K/uL (0.7-4.9) 03/14/21 05:28 Absolute Monocytes 1.8 K/uL (0.1-1.3) H 03/14/21 05:28 Absolute Eosinophils 0.2 K/uL (0-0.5) 03/14/21 05:28 Absolute Basophils 0.1 K/uL (0-0.5) 03/14/21 05:28 ESR Westergren 83 mm/HR (0-15) H 03/14/21 07:45 PT 15.3 SECONDS (9.5-12.5) H 03/14/21 07:45 INR 1.33 03/14/21 07:45 Sodium 132 mmol/L (136-145) L 03/14/21 05:28 Potassium 4.0 mmol/L (3.5-5.1) 03/14/21 05:28 Chloride 98 mmol/L (98-107) 03/14/21 05:28 Carbon Dioxide 27 mmol/L (21-32) 03/14/21 05:28 BUN 12 mg/dL (7-18) 03/14/21 05:28 Creatinine 0.77 mg/dL (0.55-1.3) 03/14/21 05:28 Estimated GFR > 90 mL/min (=/>90) 03/14/21 05:28 Glucose 440 mg/dL (74-106) H* 03/14/21 05:28 POC Glucose 434 mg/dL (65-120) H* 03/14/21 07:18 Lactic Acid 1.3 mmol/L (0.4-2.0) 03/14/21 07:45 Calcium 9.0 mg/dL (8.5-10.1) 03/14/21 05:28 Magnesium 1.7 mg/dL (1.8-2.4) L D 03/14/21 07:45 Total Bilirubin 0.6 mg/dL (0.2-1.0) 03/14/21 05:28 Direct Bilirubin 0.2 mg/dL (0-0.2) 03/14/21 05:28 AST 20 U/L (15-37) 03/14/21 05:28 ALT 22 U/L (12-78) 03/14/21 05:28 Alkaline Phosphatase 148 U/L (45-117) H 03/14/21 05:28 Rapid Troponin I < 0.02 ng/mL (0.0-0.045) 03/14/21 07:45 NT-Pro-B Natriuret Pep 32 pg/mL (<125) 03/14/21 07:45 Serum Total Protein 9.1 g/dL (6.4-8.2) H 03/14/21 05:28 Albumin 3.0 g/dL (3.4-5.0) L 03/14/21 05:28 Globulin 6.1 g/dL (2.3-3.5) H 03/14/21 05:28 Albumin/Globulin Ratio 0.5 (1.1-1.8) L 03/14/21 05:28 Procalcitonin 0.08 ng/mL (<0.050) H 03/14/21 07:45 TSH 2.110 uIU/mL (0.360-3.740) 03/14/21 07:45 Free T4 1.21 ng/dL (0.76-1.46) 03/14/21 07:45 Acetone Level Neg (NEG) 03/14/21 07:45 SARS-CoV-2 Rap RNA(RT-PCR) Negative (NEGATIVE) 03/14/21 08:04 Assessment And Plan - Plan Physical Exam: HEENT: Atraumatic, Normocephalic Neck: Supple, 2+ carotid pulse no bruit Respiratory: Clear to auscultation bilaterally, Normal air movement Cardiovascular: No edema, Normal pulses Capillary refill: <2 Seconds Gastrointestinal: Normal bowel sounds, Soft and benign Musculoskeletal: No clubbing, No swelling Integumentary: Other (Left forefoot diabetic foot ulcer.) Conclusions/Impression: Antibiotics: Vancomycin Start: 03/14 Stop: -- Cefepime Start: 03/14 Stop: 03/19 Antifungal: Fluconazole Start: 03/15 Stop: 03/29 Assessment/plan Chronic left diabetic foot ulcer Patient was seen earlier this month and treated for osteomyelitis of his left foot ulcer with a 6 week course of oral Levaquin. Patient antibiotic end date of Levaquin is 03/17. Foot x-ray performed on 03/14 showed signs concerning for osteomyelitis of the 4th metatarsal head and proximal phalanx. MRI showed a abscess on plantar aspect of foot with osteomyelitis of the 3rd and 4th metatarsal heads and phalanges. Surgery consulted. Patient does not want to proceed with surgical amputation at this time, and would like to try an additional treatments with antibiotics. Patient was taken to the OR on 03/17 for an excisional debridement of his wound and drainage of abscess. Wound culture growing group B beta-hemolytic strep. Susceptible to penicillins, vancomycin. Resistant to Levaquin. Continue monotherapy with vancomycin. Most recent trough taken on 03/18 within therapeutic range at 12.4. Patient will need an additional 6 weeks of IV antibiotic therapy if he does not plan to undergo amputation of infected bone. Patient can be discharged on IV Rocephin 2 g Q 24 hr. Patient will need weekly labs including: CBC, on CMP, on ESR, CRP. fungal UTI urine culture performed on 03/14 showed yeast, continue fluconazole for total of 14 days. Diabetes uncontrolled Continue sliding scale insulin. Strict glucose monitoring needed for proper infection control and wound healing. Anemia Continue to monitor H&H Protein caloric malnutrition Recommend supplemental Ensure protein drinks Medical management per primary team Continue monitor CBC and BMP And monitor for signs infection Plan of care discussed with Dr. Zavala Thank you for consultation. Physician Review: Patient Assessed, Agree with Above Assessment and Plan
[2021-03-23] MEDS ORDERED: TRAMADOL HCL 50 MG TAB PO PRN (14:51)
--- NOTE | 2021-03-23 16:04 | RAD REPORT ---
EXAM DESCRIPTION: RAD - Chest Single View - 03/23/2021 3:47 pm CLINICAL HISTORY: picc line adjusted COMPARISON: Chest Single View dated 03/23/2021; Chest Single View dated 03/14/2021; Chest Single View dated 04/26/2020; Chest Single View dated 11/28/2019 FINDINGS: The PICC has been retracted with tip at the superior cavoatrial junction in satisfactory p osition. IMPRESSION: Retracted PICC in satisfactory position at the superior cavoatrial junction
--- NOTE | 2021-03-23 16:30 | RAD REPORT ---
EXAM DESCRIPTION: RAD - Chest Single View - 03/23/2021 3:07 pm CLINICAL HISTORY: picc line placement COMPARISON: Chest Single View dated 03/14/2021; Chest Single View dated 04/26/2020; Chest Single View dated 11/28/2019; Chest Pa And Lat (2 Views) dated 11/26/2019 FINDINGS: Lines: Right subclavian approach PICC with tip difficult to visualize but likely in the ri ght atrium. It was subsequently retracted appear Lungs: No evidence of edema or pneumonia. Pleural: No significant pleural effusions or pneumothorax. Cardiac: The heart size is within normal limits. Bones: No acute fractures. Other: IMPRESSION: No acute cardiopulmonary disease. PICC with tip likely overlying the right atrium but tan bsequently retracted.
--- NOTE | 2021-03-23 16:39 | P.DS ---
Admission Date: 03/14/21 Discharge Date: 03/23/21 Disposition: ROUTINE DISCHARGE Discharge Condition: GOOD Reason for Admission: Left foot diabetic ulcer Consultations: Infectious disease - Dr. Zavala General surgery - Dr. Strong Procedures: MRI foot (03/15): FINDINGS: Abnormal signal at the third and fourth metatarsal heads as well as the third and fourth proximal phalanx consistent with osteomyelitis. There is a wound along the dorsal aspect of the foot at this location. There is diffuse abnormal signal both along the plantar and dorsal aspect of foot within the soft tissues. Oval 4.9 cm x 2.7 cm structure along the plantar aspect of the foot at about the level of the second through fourth metatarsals is noted. This is new from prior. This is consistent with an abscess. There is gas within the soft tissue. IMPRESSION: Findings consistent with osteomyelitis of the third and fourth metatarsal heads and respective proximal phalanges. There is a new collection along the plantar aspect of the foot that may reflect an abscess. I&D (03/17) by Dr. Strong Primary procedure: Excisional debridement with abscess drainage of Secondary procedure: infected diabatic foot ulcer 10 x 3 cm CXR (03/23): The PICC has been retracted with tip at the superior cavoatrial junction in satisfactory position. Problem list Left foot diabetic ulcer with osteomyelitis DM2 with neuropathy and hyperglycemia, insulin-dependent, noncompliant/uncontrolled Hypertension Brief History of Present Illness: 35-year-old male with a past medical history significant for HLD, hypertension, DM 2 with diabetic ulcer who presents with complaint of left foot pain. Patient reported that he recently had surgery on his left foot diabetic ulcer and was discharged home with long-term antibiotics. Patient reported that he has been taking his discharge medications as indicated. Patient rated left foot pain as 10/10 and described pain as sharp in quality. Patient reported that he has not been able to sleep in the last 3 days. Patient also reported neuropathy in his lower extremities. Patient reported drainage from left foot ulcer which sometimes is pus-like or serosanguineous. Patient decided to present to the hospital due to worsening symptoms. Hospital Course: Patient was empirically treated with IV vancomycin for osteomyelitis of the third and fourth metatarsal/phalanges. General surgery was consulted, patient underwent I&D on 03/17. Deep tissue wound culture grew strep B. Infectious disease was consulted, recommended transitioning to IV Rocephin. Patient had improvement, his wound appeared to be healing, pain was improving. PICC line was placed on 03/23, he was discharged home to complete a total of 6 weeks of antibiotics (2 g IV Rocephin daily). Patient is uninsured and will have to come to the ER daily for this antibiotic, which he expressed understanding and agreement with the plan.Deep tissue wound culture strep agalactiae, resistant to Levaquin, sensitive to penicillin and vancomycin. Continue wet-to-dry dressings, follow-up with Dr. Strong in the wound clinic. Patient was hyperglycemic, greater than 400 on admission. He had significant improvement in good control with a strict diabetic diet and 20 units of Lantus at bedtime. His Metformin and glipizide were held. Patient was counseled on insulin upon discharge, however he stated he did not want to continue with insulin at home. He stated he will check his blood glucose, follow strict diet, and if they are elevated, he will discuss further with his PCP. Advised strict diabetic diet, and to resume his Metformin and glipizide in the meantime. Urine grew yeast, and patient was treated with Diflucan. Discharged home to complete a total of 2 weeks. Nighttime dose of gabapentin was increased, and had good effect. Vital Signs/Physical Exam: Physical Exam General: Alert, In no apparent distress, Oriented x3 Respiratory: Clear to auscultation bilaterally, Normal air movement Cardiovascular: Regular rate/rhythm, Normal S1 S2 Gastrointestinal: Soft and benign, Non-distended Integumentary: Left foot with dressing c/d/i Neurological: Normal strength at 5/5 x4 extr Temp Pulse Resp BP Pulse Ox 97.2 F 71 20 121/74 95 03/23/21 10:42 03/23/21 10:42 03/23/21 10:42 03/23/21 10:42 03/23/21 10:42 Laboratory Data at Discharge: WBC 11.30 K/uL (4.3-10.9) H D 03/23/21 03:30 Hgb 11.9 g/dL (13.6-17.9) L 03/23/21 03:30 Hct 35.0 % (39.6-49.0) L 03/23/21 03:30 Plt Count 398 K/uL (152-406) 03/23/21 03:30 PT 15.6 SECONDS (9.5-12.5) H 03/15/21 03:53 INR 1.35 03/15/21 03:53 Sodium 139 mmol/L (136-145) 03/23/21 03:30 Potassium 3.6 mmol/L (3.5-5.1) 03/23/21 03:30 BUN 7 mg/dL (7-18) 03/23/21 03:30 Creatinine 0.53 mg/dL (0.55-1.3) L 03/23/21 03:30 Glucose 116 mg/dL (74-106) H 03/23/21 03:30 Magnesium 1.8 mg/dL (1.8-2.4) 03/23/21 03:30 Total Bilirubin 0.4 mg/dL (0.2-1.0) 03/23/21 03:30 AST 25 U/L (15-37) 03/23/21 03:30 ALT 34 U/L (12-78) 03/23/21 03:30 Alkaline Phosphatase 175 U/L (45-117) H 03/23/21 03:30 Home Medications: Atorvastatin Calcium [Lipitor] 40 mg PO DAILY 11/29/19 Glipizide [Glipizide ER] 10 mg PO DAILY 11/29/19 Metformin ER [Glucophage ER*] 500 mg PO BID 11/29/19 Collagenase [Santyl Ointment*] 1 appl TOP DAILY #30 tube 02/15/21 Ceftriaxone [Rocephin 2 gm/100 ml Ivpb] 2 gm IV DAILY 34 Days #34 bag 03/23/21 Fluconazole [Diflucan] 200 mg PO DAILY 6 Days #6 tablet 03/23/21 Gabapentin 300 mg PO SEECOM 30 Days #120 capsule 03/23/21 Hydrocodone 5/APAP 325 [[place] 5/325] 1 tab PO Q8H PRN 4 Days #10 tab 03/23/21 New Medications: Fluconazole [Diflucan] 200 mg PO DAILY 6 Days #6 tablet Gabapentin 300 mg PO SEECOM 30 Days #120 capsule Hydrocodone 5/APAP 325 [[place] 5/325] 1 tab PO Q8H PRN 4 Days #10 tab PRN Reason: Pain Ceftriaxone [Rocephin 2 gm/100 ml Ivpb] 2 gm IV DAILY 34 Days #34 bag Physician Discharge Instructions: You are found to have worsening infection of your left foot, consistent with osteomyelitis (infection to the bone). Dr. Strong, general surgery, was consulted. You underwent further debridement. The bacteria that grew in your foot was resistant to the antibiotic you are taking at home. The infectious disease team was consulted and recommended treatment with 6 weeks total of IV antibiotics. He had a PICC line placed on 03/23. And you will need ~34 more days of antibiotics. You are prescribed 2 g IV ceftriaxone daily. You will need to come to the ER to get this done every day. On admission you are found to have uncontrolled diabetes, your glucose was over 400. This improved with insulin. Your blood sugars on the last several days of hospitalization were less than 200 with strict diet and 20 units of Lantus at night time. Recommend following a strict diabetic diet. As discussed in the hospital, please follow-up with your PCP in 3-5 days, to further discuss possibility of insulin. In the meantime, restart your home Metformin and glipizide. If your sugars are in the high 200s or more, please call your PCPs office sooner. You were also noted to have yeast in your urine, likely result from your uncontrolled diabetes. You are prescribed fluconazole, to complete a total of 2 weeks of treatment. If there are any issues with your prescriptions, please call the hospital, ask to talk to the charge nurse on the fourth floor, and they can relay your message. Diet: ADA Activity: Ad anant Followup: Montrell Reynolds MD [Primary Care Provider] - Time spent managing pt's care (in minutes): 45
[2021-03-23] MEDS ORDERED: INSULIN GLARGINE 100 UNITS/ML SQ SCH (21:00)
== END 2021-03-23 17:35 | disposition home or self-care (01) | DRG 623 ==
LOC: ER 04:16 → ERHOLD 09:25 → 4TH 12:39
PROVIDERS: ADMIT Hospitalist; ATTEND Hospitalist
PROC: 0JBR0ZZ Excision of Left Foot Subcutaneous Tissue and Fascia, Open Approach (ICD-10-PCS; 2021-03-22)
PROC: 02HV33Z Insertion of Infusion Device into Superior Vena Cava, Percutaneous Approach (ICD-10-PCS; principal; 2021-03-23)
DX: E11.69 Type 2 diabetes mellitus with other specified complication (principal); B37.49 Other urogenital candidiasis; E46 Unspecified protein-calorie malnutrition; M86.9 Osteomyelitis, unspecified; E11.65 Type 2 diabetes mellitus with hyperglycemia; E11.40 Type 2 diabetes mellitus with diabetic neuropathy, unspecified; E78.5 Hyperlipidemia, unspecified; I10 Essential (primary) hypertension; Z68.31 Body mass index [BMI] 31.0-31.9, adult; B95.1 Streptococcus, group B, as the cause of diseases classified elsewhere; D64.9 Anemia, unspecified; E11.621 Type 2 diabetes mellitus with foot ulcer; L97.529 Non-pressure chronic ulcer of other part of left foot with unspecified severity; Z91.19 Patient's noncompliance with other medical treatment and regimen; Z20.822 Contact with and (suspected) exposure to COVID-19
CPT/HCPCS: 36415; 36569; 71045; 80048; 80053; 80076; 80202; 81003; 81015; 82010; 82947; 83605; 83735; 83880; 84132; 84145; 84439; 84443; 84484; 85025; 85610; 85652; 86140; 87040; 87070; 87075; 87077; 87086; 87088; 87186; 87205; 96372; 99284; J0692; J0696; J1170; J1644; J1815; J2250; J2270; J2405; J2543; J2704; J3010; J3370; J3475; J3590; J7030; J7040; U0003

== ENCOUNTER 2021-04-20 09:30 | Inpatient (IN) | payer OTHER, SELFPAY ==
[2021-04-20] MEDS ORDERED: NA CHLORIDE 0.9% 1,000 ML ONE (10:04)
--- NOTE | 2021-04-20 10:17 | EDPHYS ---
Physician Documentation [facility] Name: Marek Blood Jr Age: 35 yrs Sex: Male : 1985 Arrival Date: 04/20/2021 Time: 09:32 Bed 13 Private MD: Surinder Strong ED Physician Hema Sheikh HPI: 04/20 10:03 This 35 yrs old Male presents to ER via Wheelchair with complaints of Wound pkl Check. 10:03 The patient presents with infected wound. The complaints affect the left foot. Context: pkl Patient has H/O of chronic infected wound left foot. Has PICC line and IV Rocephin as outpatient. Seen at Wound Care by Dr. Strong today, wound has gotten worse. Advised to come to ER for admission.. Historical: - Allergies: 09:45 No Known Allergies; aa5 - PMHx: 09:45 Diabetes - NIDDM; Hypertensive disorder; aa5 - PSHx: 09:45 L foot SX; aa5 - Immunization history:: Client reports having NOT received the Covid vaccine. - Social history:: Smoking status: Patient denies any tobacco usage or history of. ROS: 10:03 MS/extremity: Positive for worsening infected wounds left foot. pkl 10:03 Eyes: Negative for injury, pain, redness, and discharge, ENT: Negative for injury, pain, and discharge, Neck: Negative for injury, pain, and swelling, Cardiovascular: Negative for chest pain, palpitations, and edema, Respiratory: Negative for shortness of breath, cough, wheezing, and pleuritic chest pain, Abdomen/GI: Negative for abdominal pain, nausea, vomiting, diarrhea, and constipation, Back: Negative for injury and pain, : Negative for injury, bleeding, discharge, and swelling. 10:03 MS/extremity: Positive for of the left foot, infected wounds. 10:03 Neuro: Negative for altered mental status, loss of consciousness. Exam: 10:16 Head/Face: Normocephalic, atraumatic. Eyes: Pupils equal round and reactive to light, pkl extra-ocular motions intact. Lids and lashes normal. Conjunctiva and sclera are non-icteric and not injected. Cornea within normal limits. Periorbital areas with no swelling, redness, or edema. ENT: Nares patent. No nasal discharge, no septal abnormalities noted. Tympanic membranes are normal and external auditory canals are clear. Oropharynx with no redness, swelling, or masses, exudates, or evidence of obstruction, uvula midline. Mucous membranes moist. Neck: Trachea midline, no thyromegaly or masses palpated, and no cervical lymphadenopathy. Supple, full range of motion without nuchal rigidity, or vertebral point tenderness. No Meningismus. Chest/axilla: Normal chest wall appearance and motion. Nontender with no deformity. No lesions are appreciated. Cardiovascular: Regular rate and rhythm with a normal S1 and S2. No gallops, murmurs, or rubs. Normal PMI, no JVD. No pulse deficits. Respiratory: Lungs have equal breath sounds bilaterally, clear to auscultation and percussion. No rales, rhonchi or wheezes noted. No increased work of breathing, no retractions or nasal flaring. Abdomen/GI: Soft, non-tender, with normal bowel sounds. No distension or tympany. No guarding or rebound. No evidence of tenderness throughout. Back: No spinal tenderness. No costovertebral tenderness. Full range of motion. 10:16 Musculoskeletal/extremity: Extremities: grossly normal except: noted in the left foot: 10:16 Neuro: Orientation: is normal, Mentation: is normal, Cranial nerves: grossly normal, Motor: is normal. Vital Signs: 09:43 BP 117 / 88; Pulse 101; Resp 18 S; Temp 97.0(TE); Pulse Ox 100% on R/A; Weight 86.18 kg aa5 (R); Height 5 ft. 7 in. (170.18 cm) (R); 11:00 BP 121 / 79; Pulse 97; Resp 17; Temp 97.3; Pulse Ox 99% ; bp 13:00 BP 117 / 82; Pulse 94; Resp 16; Temp 97.5; Pulse Ox 100% ; bp 09:43 Body Mass Index 29.76 (86.18 kg, 170.18 cm) aa5 MDM: 09:51 Patient medically screened. pk 10:14 Data reviewed: vital signs, nurses notes. [facility] 04/20 10:01 Order name: CBC with Diff; Complete Time: 11:16 pk 04/20 10:01 Order name: Chem 7; Complete Time: 12:41 pk 04/20 10:01 Order name: Wound Culture pkl 04/20 10:01 Order name: Blood Culture Adult (2) pkl 04/20 10:01 Order name: Lactate; Complete Time: 12:41 pkl 04/20 10:01 Order name: Foot Left 3 View XRAY; Complete Time: 11:16 pkl 04/20 10:08 Order name: SARS-COV-2 RT PCR (Document "Date of Onset" if Symptomatic); Complete Time: iw 12:41 04/20 11:03 Order name: CONS Physician Consult EDMS 04/20 11:07 Order name: Dr Tae Consult EDMS 04/20 13:22 Order name: Glucose, Ancillary Testing; Complete Time: 16:21 EDMS Administered Medications: 10:15 Drug: NS 0.9% 1000 ml Route: IV; Rate: 125 ml/hr; Site: PICC; bp Disposition Summary: 04/20/21 10:16 Hospitalization Ordered Hospitalization Status: Inpatient Admission pkl Provider: Tulio Queen pkl Location: Telemetry/MedSur (Inpatient) pkl Condition: Stable pkl Problem: new pkl Symptoms: have worsened pkl Bed/Room Type: Standard pkl Room Assignment: 205(04/20/21 11:51) dw Diagnosis - Worseing infected wounds left foot. Osteomyelitis. Diabetes pkl Forms: - Medication Reconciliation Form pkl - SBAR form pkl Signatures: Dispatcher [employer] EDKelli Awan RN RN dw Hema Sheikh MD MD pkl Alyx Rosa RN RN aa5 Andrew Rowland RN RN bp Corrections: (The following items were deleted from the chart) 10:02 10:02 HEMOGLOBIN A1C+CHEM A1C.LAB.BRZ ordered. EDMS EDMS 11:10 11:07 NPO ordered. EDMS EDMS 11:51 10:16 pkl dw
--- NOTE | 2021-04-20 10:17 | ER ---
Nurse's Notes [facility] Name: Marek Blood Jr Age: 35 yrs Sex: Male : 1985 Arrival Date: 04/20/2021 Time: 09:32 Bed 13 Private MD: Surinder Strong Diagnosis: Worseing infected wounds left foot. Osteomyelitis. Diabetes Presentation: 04/20 09:43 Chief complaint: Patient states: "the wound on my left foot is getting infected again". aa5 Pt reports he's been doing IV therapy with Rocephin for osteomyelitis. Coronavirus screen: At this time, the client does not indicate any symptoms associated with coronavirus-19. Ebola Screen: No symptoms or risks identified at this time. Initial Sepsis Screen: Does the patient meet any 2 criteria? HR > 90 bpm. Does the patient have a suspected source of infection? No. Patient's initial sepsis screen is negative. Risk Assessment: Do you want to hurt yourself or someone else? Patient reports no desire to harm self or others. Onset of symptoms was April 2021. 09:43 Method Of Arrival: Wheelchair aa 09:43 Acuity: ARDEN 3 aa5 Triage Assessment: 09:45 General: Appears distressed, uncomfortable, Behavior is calm, cooperative, appropriate bp for age. Pain: Complains of pain in left foot. EENT: No deficits noted. Neuro: Level of Consciousness is awake, alert, obeys commands, Oriented to Appropriate for age. Cardiovascular: No deficits noted. Respiratory: No deficits noted. GI: No signs and/or symptoms were reported involving the gastrointestinal system. : No signs and/or symptoms were reported regarding the genitourinary system. Derm: Wound noted left foot. Musculoskeletal: No deficits noted. Historical: - Allergies: 09:45 No Known Allergies; aa5 - PMHx: 09:45 Diabetes - NIDDM; Hypertensive disorder; aa5 - PSHx: 09:45 L foot SX; aa5 - Immunization history:: Client reports having NOT received the Covid vaccine. - Social history:: Smoking status: Patient denies any tobacco usage or history of. Screenin:00 Abuse screen: Denies threats or abuse. Denies injuries from another. Nutritional bp screening: No deficits noted. Tuberculosis screening: No symptoms or risk factors identified. Fall Risk None identified. Assessment: 09:45 General: SEE TRIAGE NOTE. bp 11:00 Reassessment: No changes from previously documented assessment. Patient and/or family bp updated on plan of care and expected duration. Pain level reassessed. ADMIT IN PROCESS. 13:00 Reassessment: ADMIT COMPLETE. PT STEPHANIE WITH PCT. bp Vital Signs: 09:43 BP 117 / 88; Pulse 101; Resp 18 S; Temp 97.0(TE); Pulse Ox 100% on R/A; Weight 86.18 kg aa5 (R); Height 5 ft. 7 in. (170.18 cm) (R); 11:00 BP 121 / 79; Pulse 97; Resp 17; Temp 97.3; Pulse Ox 99% ; bp 13:00 BP 117 / 82; Pulse 94; Resp 16; Temp 97.5; Pulse Ox 100% ; bp 09:43 Body Mass Index 29.76 (86.18 kg, 170.18 cm) aa5 ED Course: 09:32 Patient arrived in ED. as 09:32 Surinder Strong MD is Private Physician. as 09:43 Arm band placed on. aa5 09:44 Triage completed. aa5 09:45 Accessed PICC line. Blood collected. Clean \\T\\ dry. Dressing intact. Good blood return. bp Flushes easily. 09:50 Hema Sheikh MD is Attending Physician. pkl 10:00 Patient has correct armband on for positive identification. Bed in low position. Call bp light in reach. Side rails up X2. 10:15 Tulio Queen MD is Hospitalizing Provider. pkl 10:48 Andrew Rowland, SCOTT is Primary Nurse. bp 11:09 Foot Left 3 View XRAY In Process Unspecified. EDMS 12:07 No provider procedures requiring assistance completed. Patient admitted, IV remains in bp place. Administered Medications: 10:15 Drug: NS 0.9% 1000 ml Route: IV; Rate: 125 ml/hr; Site: PICC; bp Outcome: 10:16 Decision to Hospitalize by Provider. pkl 13:00 Admitted to Med/surg accompanied by tech, via wheelchair, room 205, with chart. bp 13:00 Condition: stable 13:00 Instructed on the need for admit. 13:38 Patient left the ED. iw Signatures: Dispatcher [employer] EDMS Hema Sheikh MD MD pkl Tae, Jenise as Roel, Josette, RN RN iw Alyx Rosa, RN RN aa5 Andrew Rowland RN RN bp
--- NOTE | 2021-04-20 11:07 | P.HP ---
Certification for Inpatient Patient admitted to: Inpatient With expected LOS: >2 Midnights Practitioner: I am a practitioner with admitting privileges, knowledge of patient current condition, hospital course, and medical plan of care. Services: Services provided to patient in accordance with Admission requirements found in Title 42 Section 412.3 of the Code of Federal Regulations Patient History Date of Service: 04/20/21 Reason for admission: L foot diabetic ulcer, failed outpatient therapy History of Present Illness: 35-year-old male, IDDM 2, HTN, left foot diabetic ulcer with osteomyelitis. Patient was at general surgery office this morning, was evaluated, and instructed to present to ED due to worsening of his ulceration. Patient has been taking IV Rocephin via PICC line as prescribed, and following local wound care as previously prescribed. Despite this, his wound is gotten worse over the last few days. Patient states he has been doing well, was able to ambulate better, pain significantly improved, is following all recommendations. In first noted some slight increase in his pain of his left foot 2 days ago. He noticed some thick drainage/covering of his ulcer in the last 2 days as well. He denies any fever/chills, no nausea/vomiting/diarrhea. Labs and imaging pending in the ER. ER physician requested admission for further evaluation/treatment. Allergies No Known Allergies Allergy (Verified 04/02/21 11:23) Home Medications: Atorvastatin Calcium [Lipitor] 40 mg PO DAILY 11/29/19 Glipizide [Glipizide ER] 10 mg PO DAILY 11/29/19 Metformin ER [Glucophage ER*] 500 mg PO BID 11/29/19 Collagenase [Santyl Ointment*] 1 appl TOP DAILY #30 tube 02/15/21 Ceftriaxone [Rocephin 2 gm/100 ml Ivpb] 2 gm IV DAILY 34 Days #34 bag 03/23/21 Hydrocodone 5/APAP 325 [[place] 5/325] 1 tab PO Q8H PRN 4 Days #10 tab 03/23/21 Gabapentin 300 mg PO TID 03/25/21 - Past Medical/Surgical History Diabetic: Yes -: Diabetes type 2 -: HLD -: HTN -: left foot Debridement Psychosocial/ Personal History: 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 - Family History Father -: Heart disease, Diabetes, Other (see notes) Notes: CVA Mother -: GI disease, Other (see notes) Notes: Hypothyriodism - Social History Alcohol use: Yes CD- Drugs: No Caffeine use: No Review of Systems 10-point ROS is otherwise unremarkable Physical Examination - Physical Exam General: Alert, In no apparent distress, Oriented x3 HEENT: PERRLA, Sclerae nonicteric Neck: Supple Respiratory: Clear to auscultation bilaterally, Normal air movement Cardiovascular: No edema, Regular rate/rhythm Gastrointestinal: Soft and benign, Non-distended, No tenderness Musculoskeletal: No swelling Integumentary: Diabetic ulcer (L foot: superifical ulceration with thick drainage over 1st and 5th metatarsal ) Neurological: Normal speech, Normal affect Assessment and Plan - Advance Directives Does patient have a Living Will: No Does patient have a Durable POA for Healthcare: No Physician Review Additional Text: Problem list Left foot diabetic ulcer with osteomyelitis, failed outpatient treatment with Rocephin DM2 with neuropathy and hyperglycemia, insulin-dependent, noncompliant/uncontrolled Hypertension Patient reports doing well for ~3 weeks on IV Rocephin/PICC line. Was compliant with his antibiotics. However the last 2-3 days with left foot pain. Sent to ED by Dr. Tae Strong consulted ID consulted as well, given h/o antibiotics Overall patient states he has been feeling well except for the foot the last 2 days. He has been doing dressing changes daily as previously instructed, states he has been able to ambulate better Patient does not appear septic Strict glucose control, restart insulin and trend, sliding scale insulin as well, Accu-Cheks Currently no plan for surgery today, may benefit from debridement, will discuss further with general surgery VTE: SCDs for possible surgery Code: full Dispo: Anticipate DC home in 2-3 days, will likely need IV antibiotics Time Spent Managing Pts Care (In Minutes): 60
[2021-04-20 11:10] LABS: Absolute Lymphocytes (CBC) 2.2 K/uL (0.7-4.9); Basophils % 0.7 % (0-1.3); Hematocrit 40.8 % (39.6-49.0); Lymphocytes % 29.3 % (15.3-44.8); MPV 10.6 fL (7.6-11.3); RBC Red Blood Cell Count 4.56 M/uL (4.33-5.43)
--- NOTE | 2021-04-20 11:15 | RAD REPORT ---
EXAM DESCRIPTION: RAD - Foot Left 3 View - 04/20/2021 11:09 am CLINICAL HISTORY: infected wound Pain and swelling COMPARISON: Foot Left 3 View dated 03/14/2021; Foot Left 3 View dated 02/10/2021 FINDINGS: Prominent soft tissue wound is seen involving the dorsal forefoot soft tissues. Underlying bony destruction of the distal second, third, fourth metatarsals as well as the majority of the four th toe is present. This is most compatible with osteomyelitis. No soft tissue gas seen. IMPRESSION: Osteomyelitis is present of the forefoot as described related to a large soft tissue wou nd.
[2021-04-20 11:18] LABS: BUN Blood Urea Nitrogen 14 mg/dL (7-18); Bicarbonate 27 mmol/L (21-32); Glucose Level 348 mg/dL (74-106); Sodium Level 136 mmol/L (136-145)
[2021-04-20 11:20] LABS: Potassium 4.2 mmol/L (3.5-5.1)
[2021-04-20] MEDS ORDERED: VANCOMYCIN 2.25 GM in NA CHLORIDE 0.9% 500 ML IVPB SCH (12:00)
[2021-04-20] MEDS ORDERED: CEFEPIME 2 GM in NA CHLORIDE 0.9% 100 ML IV SCH (12:00)
[2021-04-20] MEDS ORDERED: ALTEPLASE 2 MG/VIAL IV ONE (12:27)
[2021-04-20] MEDS ORDERED: INSULIN -REGULAR HUMAN 50 UNIT/0.5 ML ML ONE (13:16)
--- NOTE | 2021-04-20 13:42 | CON ---
Date of Consultation: 04/20/2021 Reason For Service: Foot cellulitis. History Of Present Illness: This is the case of a male, known by us in the past due to severe ulcers and cellulitis of the foot region. The patient requires multiple surgical interventions. He has be en as an outpatient receiving Rocephin through a PICC line, but he has not been able to go to his [facility] doctors for continuation care and make sure that the treatment is given the result required. He was explained many times the importance of doing so. He has not done that yet, so when [facility], we noticed that he is failing outpatient treatment. The patient came to the ER and admitted for IV antibiotics and evaluation of his wound. Cultures were done and a winsome gical consult was obtained. Past Medical History: Diabetes, hypertension, peripheral vascular disease. Family History: Includes diabetes, heart disease. Past Surgical History: Foot debridements. Medications: Lipitor, glipizide, Glucophage, [place], gabapentin. Social History: He does not smoke. He drinks alcohol occasionally. He does not use any other drugs . Review of Systems: See my consult from today in [facility]. Also, the patient denies any fever, although a lot of pain on the foot region. He is barely letting anybody to pack the area. Once again, he say s he has not been able to get his primary doctors or his Infectious Disease. He just coming here and got the Rocephin. Physical Examination: General: The patient is awake, alert. HEENT: Pupils are equal and reactive. Anicteric. Neck: Supple. Chest: Clear. Heart: S1, S2. Abdomen: Soft and depressible. Extremity: Over the foot area specifically left foot, the patient has multiple wounds open between t he toes and the digits. There is erythema all the way up to the ankle. There is purulent discharge coming around the packing. There was no fluctuance or crepitus at this time, but is cellulitic in na ture. There is also some discoloration of the distal part of the foot. Decreased temperature. The dorsalis pedis pulses are diminished. Laboratory Data: Blood work shows 7.3 WBC count with a glucose of 348. X-ray is still pending. Assessment: This is a 35-year-old patient with left foot cellulitis, cellulitic diabetic ulcers in [facility] areas. We expect him to be a lot better at this moment after receiving all this outpatient t reatment and he is not better, but he can be even worse. I believe it is erythema. He has increased tenderness in that region and the smell and the quality of the skin look like, I believe he has an o ngoing cellulitic event and I believe also lack of compliance with going to his doctors and also not controlling sugar may be contributing to not having his wound heal properly. He understands the impo rtance that we explained to him in the past that if he is not compliant with treatment, then he might eventually lose that foot and he is young patient that we prefer not to have that kind of event, but if he does not control his sugar, his diet, doing wound care properly, then the antibiotics can do s o much. I agree with admission to the hospital. Hopefully, we do not have to do further debridement s here, any surgical debridement that we will need so. If we need so, we will not hesitate. Culture s were sent today. Hopefully, Infectious Disease can help us with the management of this because miko arently Rocephin is not enough to control this, but once again like I explained to him, we cannot jus t count on the antibiotics. KINJAL/BRANDY Voice ID: [id number] Report ID: [id number]
[2021-04-20] MEDS: INSULIN -REGULAR HUMAN 50 UNIT/0.5 ML ML SQ SCH ×4 (13:48→19:58)
[2021-04-20] MEDS ORDERED: ONDANSETRON 4 MG/2 ML VIAL IV PRN (13:48)
[2021-04-20] MEDS ORDERED: GLUCAGON 1 MG/VIAL IM PRN (14:01)
[2021-04-20] MEDS ORDERED: D50W 25 GM/50 ML SYRINGE IV PRN (14:01)
[2021-04-20] MEDS: GABAPENTIN 300 MG CAP PO SCH ×2 (14:45→19:57)
[2021-04-20] MEDS ORDERED: INSULIN -REGULAR HUMAN 50 UNIT/0.5 ML ML SQ SCH (16:54)
[2021-04-20] MEDS: HYDROCODONE/APAP 7.5/325 MG TAB PO PRN (19:56)
[2021-04-20] MEDS: INSULIN GLARGINE 100 UNITS/ML SQ SCH (19:57)
[2021-04-20] MEDS ORDERED: VANCOMYCIN 1.5 GM in NA CHLORIDE 0.9% 500 ML IVPB SCH (21:00)
[2021-04-20] MEDS ORDERED: CEFEPIME 2 GM VIAL IV SCH (21:00)
[2021-04-21] MEDS: HYDROCODONE/APAP 7.5/325 MG TAB PO PRN ×3 (05:24→20:05)
[2021-04-21 05:53] LABS: Absolute Lymphocytes (CBC) 1.9 K/uL (0.7-4.9); Basophils % 0.6 % (0-1.3); Hematocrit 37.8 % (39.6-49.0); Lymphocytes % 26.6 % (15.3-44.8); MPV 10.2 fL (7.6-11.3); RBC Red Blood Cell Count 4.24 M/uL (4.33-5.43)
--- NOTE | 2021-04-21 06:05 | P.PN ---
Date of Service: 04/21/21 Subjective: no acute events overnight feeling better this morning. pain at foot improved Denies nausea/vomiting/diarrhea ROS: 10 point ROS as noted above, otherwise negative Physical Exam General: Alert, In no apparent distress, Oriented x3 HEENT: Sclerae nonicteric, normal conjunctiva Respiratory: Clear to auscultation bilaterally, Normal air movement Cardiovascular: No edema, Regular rate/rhythm Gastrointestinal: Soft and benign, Non-distended, No tenderness Integumentary: Diabetic ulcer (L foot: superifical ulceration with thick white- brown drainage over 1st and 5th metatarsal ) Neurological: Normal speech, Normal affect Problem list Left foot diabetic ulcer with osteomyelitis, failed outpatient treatment with Rocephin DM2 with neuropathy and hyperglycemia, insulin-dependent, noncompliant/ uncontrolled Hypertension Patient reports doing well for ~3 weeks on IV Rocephin/PICC line. Was compliant with his antibiotics. However the last 2-3 days with left foot pain. Sent to ED by Dr. Strong from office due to worsening of wound Dr. Strong consulted ID consulted as well, given h/o antibiotics Patient states he has actually been feeling well except for the foot the last 2 days. He has been doing dressing changes daily as previously instructed, states he has been able to ambulate better Patient does not appear septic Strict glucose control, restart insulin and trend, sliding scale insulin as well, Accu-Cheks. restart metformin no current plan for surgery continue vanc/cefepime for now blood cultures pending, likely negative VTE: lovenox Code: full Dispo: Anticipate DC home in ~2 days, will likely need IV antibiotics Time Spent Managing Pts Care (In Minutes): 35
[2021-04-21 06:14] LABS: ALT/SGPT 26 U/L (12-78); AST/SGOT 18 U/L (15-37); Albumin 2.9 g/dL (3.4-5.0); Alkaline Phosphatase 125 U/L (45-117); BUN Blood Urea Nitrogen 14 mg/dL (7-18); Bicarbonate 29 mmol/L (21-32); Bilirubin Total 0.4 mg/dL (0.2-1.0); Glucose Level 310 mg/dL (74-106); Magnesium 1.8 mg/dL (1.8-2.4); Potassium 3.8 mmol/L (3.5-5.1); Protein, Total 7.8 g/dL (6.4-8.2); Sodium Level 136 mmol/L (136-145)
[2021-04-21] MEDS: INSULIN -REGULAR HUMAN 50 UNIT/0.5 ML ML SQ SCH ×4 (08:10→20:25)
[2021-04-21] MEDS: ENOXAPARIN 40 MG/0.4 ML SQ SCH (08:11)
[2021-04-21] MEDS: ATORVASTATIN 40 MG TAB PO SCH (08:11)
[2021-04-21] MEDS: GABAPENTIN 300 MG CAP PO SCH ×3 (08:11→20:05)
[2021-04-21] MEDS ORDERED: POTASSIUM CL SA 10 MEQ TAB PO ONE (09:00)
[2021-04-21] MEDS ORDERED: MAGNESIUM SULFATE 1 gm IVPB 1 GM/100 ML BAG IV ONE (09:00)
[2021-04-21] MEDS ORDERED: VANCOMYCIN 1.5 GM in NA CHLORIDE 0.9% 500 ML IVPB SCH (10:00)
[2021-04-21] MEDS ORDERED: CEFEPIME 1 GM/VIAL IV SCH (10:00)
--- NOTE | 2021-04-21 10:24 | P.CNS ---
Date of Consult: 04/21/21 Chief Complaint: L foot diabetic ulcer, failed outpatient therapy History of Present Illness: The patient is a 35-year-old male with a past medical history of type 2 diabetes uncontrolled, hypertension, and left foot diabetic ulcer with osteomyelitis who was seen in the General surgery wound care clinic and was instructed to present to the emergency department due to worsening of this diabetic foot ulceration. This is patient's 3rd hospital admission for this infection. During 1st admission patient was diagnosed with osteomyelitis and treated with a 6 week course of oral Levaquin. During the 2nd admission imaging demonstrated spreading of the osteomyelitis and patient was treated with IV Rocephin for 3 weeks. Patient currently has a right arm PICC line placed. Patient now presents for worsening of the diabetic foot ulcer with superimposed cellulitis and local wound infection. Patient empirically started on vancomycin and cefepime. Of note patient's sugars are uncontrolled and hemoglobin A1c has increased on this in visit at 9.8%. Patient is uninsured and does not follow up with primary care. Blood and wound cultures pending. Continue empiric IV antibiotics. Patient currently denies nausea/vomiting/diarrhea/shorts breast/chest pain. Patient reports tenderness to infected left diabetic foot ulcer. Allergies No Known Allergies Allergy (Verified 04/02/21 11:23) Home Medications: Atorvastatin Calcium [Lipitor] 40 mg PO DAILY 11/29/19 Glipizide [Glipizide ER] 10 mg PO DAILY 11/29/19 Metformin ER [Glucophage ER*] 500 mg PO BID 11/29/19 Collagenase [Santyl Ointment*] 1 appl TOP DAILY #30 tube 02/15/21 Ceftriaxone [Rocephin 2 gm/100 ml Ivpb] 2 gm IV DAILY 34 Days #34 bag 03/23/21 Hydrocodone 5/APAP 325 [[place] 5/325] 1 tab PO Q8H PRN 4 Days #10 tab 03/23/21 Gabapentin 300 mg PO TID 03/25/21 - Past Medical/Surgical History Diabetic: Yes -: Diabetes type 2 -: HLD -: HTN -: left foot Debridement Psychosocial/ Personal History: 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 - Family History Father Medical History: Heart disease, Diabetes, Other (see notes) Notes: CVA Mother Medical History: GI disease, Other (see notes) Notes: Hypothyriodism - Social History Smoking Status: Current some day smoker Alcohol use: Yes CD- Drugs: No Caffeine use: No Place of Residence: Home Review of Systems 10-point ROS is otherwise unremarkable Physical Examination Temp Pulse Resp BP Pulse Ox 98.9 F 94 H 20 145/93 H 97 04/21/21 08:00 04/21/21 08:00 04/21/21 08:00 04/21/21 08:00 04/21/21 08:00 General: Alert, In no apparent distress, Oriented x3 HEENT: Atraumatic Neck: Supple Respiratory: Clear to auscultation bilaterally, Normal air movement Cardiovascular: No edema, Normal pulses, Regular rate/rhythm Gastrointestinal: Normal bowel sounds, Soft and benign Integumentary: Diabetic ulcer (2 left foot. Wound with slough tissue present, malodorous. Roula wound tissue erythematous and swollen.) Laboratory Data (last 24 hrs) 04/20/21 10:40: Sodium 136, Potassium 4.2, BUN 14, Creatinine 0.65, Glucose 348 H 04/20/21 10:40: WBC 7.30, Hgb 13.7, Hct 40.8, Plt Count 208 Conclusions/Impression: Antibiotics: Vancomycin Start: 04/20 Cefepime Start: 04/20 Assessment/plan Infected left foot diabetic ulcer with osteomyelitis Failed treatment with 6 week course of oral Levaquin, and three week course of IV Rocephin. Blood and wound cultures pending. Previous wound cultures growing GBS. At this time continue IV broad-spectrum antibiotics. Continue current wound care: Clean area with Dakin's, paint with Betadine, and wrapped with Kerlix. Type 2 diabetes uncontrolled Hemoglobin A1c 9.8%. Continue strict glucose monitoring for proper infection control and wound healing. Anemia Continue to monitor H&H Medical management per primary team Plan of care discussed with Dr. weathers Thank you for consultation.
[2021-04-21] MEDS: METFORMIN ER 500 MG TAB PO SCH ×2 (10:30→20:05)
[2021-04-21] MEDS: VANCOMYCIN 2.25 GM in NA CHLORIDE 0.9% 500 ML IVPB SCH ×2 (11:40→20:06)
[2021-04-21] MEDS: CEFEPIME 2 GM in NA CHLORIDE 0.9% 100 ML IV SCH ×2 (11:40→20:05)
[2021-04-21] MEDS: SODIUM HYPOCHLORITE 0.25% 473 ML TOP SCH ×2 (11:43→20:17)
--- NOTE | 2021-04-21 13:42 | PN ---
Date of Progress Note: 04/21/2021 Diagnosis: Left foot cellulitis and diabetic ulcers. Subjective: The patient is awake, alert, no distress. Objective: Abdomen: Soft and depressible. Extremities: Better color, less swelling, less pain. Laboratory Data: Blood work reviewed. Assessment And Plan: I discussed with the patient the importance of glucose control. Last time, we checked it was over 300. I discussed the case with Infectious Disease today. We antibiot ics on him and also the wound care, but it is imperative the patient to control and control his sugar . Otherwise, the rest of the treatments may not work properly. He was counseled about the importanc e of that, about the importance of proper shoe wear, and the risk of losing his foot if he does not f ollow recommendations. KINJAL/BRANDY Voice ID: [id number] Report ID: [id number]
[2021-04-21] MEDS ORDERED: INFLUENZA VACCINE (for 6+ mo) 0.5 ML DOSE IMVAC ONE (16:00)
[2021-04-21 18:47] VITALS: BMI 30.5
[2021-04-21] MEDS: INSULIN GLARGINE 100 UNITS/ML SQ SCH (20:25)
[2021-04-22] MEDS: HYDROCODONE/APAP 7.5/325 MG TAB PO PRN ×3 (03:16→21:18)
[2021-04-22] MEDS: GABAPENTIN 300 MG CAP PO PRN ×2 (05:13→14:06)
[2021-04-22 05:28] LABS: Hematocrit 37.6 % (39.6-49.0); MPV 10.5 fL (7.6-11.3); RBC Red Blood Cell Count 4.15 M/uL (4.33-5.43)
--- NOTE | 2021-04-22 05:59 | P.PN ---
Date of Service: 04/22/21 Subjective: no acute events overnight Continues with acute on chronic pain, states Dakin's helped take some of the slough off Overall feeling a little bit better Glucose remains high ROS: 10 point ROS as noted above, otherwise negative Physical Exam General: Alert, In no apparent distress, Oriented x3 HEENT: Sclerae nonicteric, normal conjunctiva Respiratory: Clear to auscultation bilaterally, Normal air movement Cardiovascular: No edema, Regular rate/rhythm Gastrointestinal: Soft and benign, Non-distended, No tenderness Integumentary: Diabetic ulcer (L foot: superifical ulceration with light purulent drainage over 1st and 5th metatarsal ) Neurological: Normal speech, Normal affect Problem list Left foot diabetic ulcer with osteomyelitis, failed outpatient treatment with Rocephin DM2 with neuropathy and hyperglycemia, insulin-dependent, noncompliant/uncontrolled Hypertension Patient reports doing well for ~3 weeks on IV Rocephin/PICC line. Was compliant with his antibiotics. However the last 2-3 days with left foot pain. Sent to ED by Dr. Strong from office due to worsening of wound Dr. Strong and infectious disease team are consulted given patient's history. Earlier this year he has already received p.o. antibiotic therapy, and was on IV Rocephin Discussed with ID, will obtain MRI to evaluate his osteomyelitis If osteomyelitis seems to be progressive, patient may benefit more from an amputation, has failed outpatient therapy at least 2 times now Strict glucose control, A1c is worse compared to when he was recently discharged, despite him saying he was following a stricter diet Glucose remains in 23 100s, will switch Lantus to insulin 70/30, he was restarted on his Metformin as well. Patient will need to be discharged with insulin Continue sliding scale, Accu-Cheks Blood cultures preliminary negative, wound culture with normal skin maria alejandra VTE: lovenox Code: full Dispo: Anticipate DC home in ~1-2 days, will likely need IV antibiotics f/u MRI Time Spent Managing Pts Care (In Minutes): 35
[2021-04-22 07:08] LABS: BUN Blood Urea Nitrogen 11 mg/dL (7-18); Bicarbonate 28 mmol/L (21-32); Glucose Level 343 mg/dL (74-106); Sodium Level 136 mmol/L (136-145)
[2021-04-22 07:09] LABS: Potassium 4.1 mmol/L (3.5-5.1)
[2021-04-22] MEDS: INSULIN 70/30 100 UNITS/ML SQ SCH ×2 (08:15→17:06)
[2021-04-22] MEDS: METFORMIN ER 500 MG TAB PO SCH ×2 (08:19→17:07)
[2021-04-22] MEDS: VANCOMYCIN 2.25 GM in NA CHLORIDE 0.9% 500 ML IVPB SCH ×2 (08:19→21:18)
[2021-04-22] MEDS: CEFEPIME 2 GM in NA CHLORIDE 0.9% 100 ML IV SCH ×2 (08:19→21:18)
[2021-04-22] MEDS: ATORVASTATIN 40 MG TAB PO SCH (08:19)
[2021-04-22] MEDS: INSULIN -REGULAR HUMAN 50 UNIT/0.5 ML ML SQ SCH ×4 (08:20→21:17)
[2021-04-22] MEDS: ENOXAPARIN 40 MG/0.4 ML SQ SCH (08:20)
[2021-04-22] MEDS ORDERED: POTASSIUM CL SA 10 MEQ TAB PO ONE (09:00)
[2021-04-22] MEDS: SODIUM HYPOCHLORITE 0.25% 473 ML TOP SCH ×2 (09:00→21:00)
--- NOTE | 2021-04-22 11:26 | P.PN ---
Subjective Date of Service: 04/22/21 Chief Complaint: L foot diabetic ulcer, failed outpatient therapy Patient seen examined at bedside, no acute events over past 24 hr. Review of Systems 10-point ROS is otherwise unremarkable Physical Examination - Vital Signs Temperature: 97.4 F Blood Pressure: 113/68 Pulse: 86 Respirations: 16 Pulse Ox (%): 96 - Studies Laboratory Last Values WBC 7.30 K/uL (4.3-10.9) 04/20/21 10:40 RBC 4.56 M/uL (4.33-5.43) 04/20/21 10:40 Hgb 13.7 g/dL (13.6-17.9) 04/20/21 10:40 Hct 40.8 % (39.6-49.0) 04/20/21 10:40 MCV 89.4 fL (80-100) 04/20/21 10:40 MCH 30.0 pg (27.0-35.0) 04/20/21 10:40 MCHC 33.5 g/dL (32.0-36.0) 04/20/21 10:40 RDW 14.4 % (12.1-15.2) 04/20/21 10:40 Plt Count 208 K/uL (152-406) 04/20/21 10:40 MPV 10.6 fL (7.6-11.3) 04/20/21 10:40 Neutrophils % 57.4 % (41.7-73.7) 04/20/21 10:40 Lymphocytes % 29.3 % (15.3-44.8) 04/20/21 10:40 Monocytes % 10.2 % (3.3-12.3) 04/20/21 10:40 Eosinophils % 2.4 % (0-4.4) 04/20/21 10:40 Basophils % 0.7 % (0-1.3) 04/20/21 10:40 Absolute Neutrophils 4.2 K/uL (1.8-8.0) 04/20/21 10:40 Absolute Lymphocytes 2.2 K/uL (0.7-4.9) 04/20/21 10:40 Absolute Monocytes 0.8 K/uL (0.1-1.3) 04/20/21 10:40 Absolute Eosinophils 0.2 K/uL (0-0.5) 04/20/21 10:40 Absolute Basophils 0.1 K/uL (0-0.5) 04/20/21 10:40 Sodium 136 mmol/L (136-145) 04/20/21 10:40 Potassium 4.2 mmol/L (3.5-5.1) 04/20/21 10:40 Chloride 101 mmol/L (98-107) 04/20/21 10:40 Carbon Dioxide 27 mmol/L (21-32) 04/20/21 10:40 BUN 14 mg/dL (7-18) 04/20/21 10:40 Creatinine 0.65 mg/dL (0.55-1.3) 04/20/21 10:40 Estimated GFR > 90 mL/min (=/>90) 04/20/21 10:40 Glucose 348 mg/dL (74-106) H 04/20/21 10:40 Lactic Acid 0.8 mmol/L (0.4-2.0) 04/20/21 10:40 Calcium 9.3 mg/dL (8.5-10.1) 04/20/21 10:40 SARS-CoV-2 Rap RNA(RT-PCR) Negative (NEGATIVE) 04/20/21 10:26 Microbiology Data (last 24 hrs): 04/20/21 10:26 Wound - Left Foot Gram Stain - Final Assessment And Plan - Plan Physical exam: General: Alert, In no apparent distress, Oriented x3 HEENT: Atraumatic Neck: Supple Respiratory: Clear to auscultation bilaterally, Normal air movement Cardiovascular: No edema, Normal pulses, Regular rate/rhythm Gastrointestinal: Normal bowel sounds, Soft and benign Integumentary: Diabetic ulcer (2 left foot. Wound with slough tissue present, malodorous. Roula wound tissue erythematous and swollen.) Conclusions/Impression: Antibiotics: Vancomycin Start: 04/20 Cefepime Start: 04/20 Assessment/plan Infected left foot diabetic ulcer with osteomyelitis Failed treatment with 6 week course of oral Levaquin. Patient was started on additional 6 weeks of IV Rocephin, will complete this course on 04/25. He re- presented to the hospital on this admission due to local infection of wound. Will obtain MRI to determine progression/severity of osteomyelitis. Once patient completes his second IV antibiotic course on 04/25 will need to treat as chronic osteomyelitis with oral antibiotic suppression therapy. Currently recommend using the ABC algorithm: Starting with 15 days of oral Augmentin 500 mg q24hr, then switching 15 days of 1 tab Double Strength Bactrim, then switching to 15 days of ciprofloxacin. Patient will need to repeat the cycle for 6 months, and after completion will need repeat imaging. Patient will need to follow up with primary care and obtain weekly labs including CBC, CMP, ESR, and CRP. Of note patient is noncompliant--on previous admissions has not followed up with recommended doctors. Prognosis is poor, patient will likely need surgical amputation. Cultures: Blood cultures show no growth 24hr. Wound cultures growing mixed skin maria alejandra. Previous wound cultures growing GBS. At this time continue IV broad- spectrum antibiotics. Continue current wound care: Clean area with Dakin's, paint with Betadine, and wrapped with Kerlix. Type 2 diabetes uncontrolled Hemoglobin A1c 9.8%. Continue strict glucose monitoring for proper infection control and wound healing. Anemia Continue to monitor H&H Medical management per primary team Plan of care discussed with Dr. weathers Thank you for consultation. Physician Review Additional Text: Problem list Left foot diabetic ulcer with osteomyelitis, failed outpatient treatment with Rocephin DM2 with neuropathy and hyperglycemia, insulin-dependent, noncom pliant/uncontrolled Hypertension Patient reports doing well for ~3 weeks on IV Rocephin/PICC line. Was compliant with his antibiotics. However the last 2-3 days with left foot pain. Sent to ED by Dr. Tae Strong consulted ID consulted as well, given h/o antibiotics Overall patient states he has been feeling well except for the foot the last 2 days. He has been doing dressing changes daily as previously instructed, states he has been able to ambulate better Patient does not appear septic Strict glucose control, restart insulin and trend, sliding scale insulin as well, Accu-Cheks Currently no plan for surgery today, may benefit from debridement, will discuss further with general surgery VTE: SCDs for possible surgery Code: full Dispo: Anticipate DC home in 2-3 days, will likely need IV antibiotics
--- NOTE | 2021-04-22 16:04 | RAD REPORT ---
EXAM DESCRIPTION: MRI - Foot Left W/Wo Con - 04/22/2021 3:34 pm CLINICAL HISTORY: osteomyelitis acute vs chronic COMPARISON: Foot Left Wo Cont dated 03/15/2021; Foot Left Wo Cont dated 02/11/2021; Foot Left 3 View da jm 04/20/2021 TECHNIQUE: Multiplanar imaging of the left foot was performed using T1 weighted, T1 fat saturation, T2 fat saturation, T2 STIR and T1 post-contrast fat saturation sequencing. FINDINGS: Bone destructive changes are present involving the fourth proximal phalanx extending into the fourth metatarsal head. Middle and distal phalanges of the fourth toe are poorly visualized on MR imaging. There is significant surrounding soft tissue mass component. This bone destructive osteomye litis pattern matches the April 20 plain films and represents progression from March 15 MRI study. Hypointense T1 and hyperintense T2 signal is present in the second metatarsal head. There is low-leve l similar marrow abnormal signal in the third metatarsal head. Slightly hypointense T1 and hyperintense T2 signal present in the first proximal phalanx. Post-contrast imaging shows enhancement in the subcortical first metatarsal head. There is marginal s purring seen in this is believed to degenerative. The second metatarsal head shows abnormal enhanceme nt. There are spurring changes present. Minimal enhancement seen in the third metatarsal head. There is abnormal enhancement in the bone destructive did fourth metatarsal head and enhancement of the rem nant fourth proximal phalanx. In these dorsal lateral soft tissues overlying the first proximal phalanx and first metatarsal head, there is a roughly 4 x 1.5 cm abnormal fluid collection. Proximal aspect is in the first interosseous space between the first and second metatarsal heads. This has a fluid signal intensity pattern with peripheral rim enhancement. This extends to the dorsal skin surface in is believed to be unknown drai jn wound. MR characteristics are those of an abscess. Edematous/inflammatory signal and enhancement are seen in the plantar soft tissues without abscess id entified. IMPRESSION: Bone destructive osteomyelitis involving the fourth proximal phalanx, fourth metatarsal head and probably the middle and distal phalanges. Suspected osteomyelitis involving the second and third metatarsal heads and the first proximal phalan x. Amorphous shaped abscess collections are seen each along the dorsal margins near the first and second MTP joints. Both of these showed tracts extending to the skin service as draining wounds.
[2021-04-22] MEDS: GABAPENTIN 300 MG CAP PO SCH (21:16)
[2021-04-23] MEDS: GABAPENTIN 300 MG CAP PO PRN ×2 (05:16→14:12)
[2021-04-23] MEDS: HYDROCODONE/APAP 7.5/325 MG TAB PO PRN ×3 (05:16→22:17)
--- NOTE | 2021-04-23 05:54 | P.PN ---
Date of Service: 04/23/21 Subjective: No acute events overnight patient concerned if he is going to need an amputation or not Reports improvement in pain, feels overall better ROS: 10 point ROS as noted above, otherwise negative Physical Exam General: Alert, In no apparent distress, Oriented x3, appears anxious/stressed HEENT: Sclerae nonicteric, normal conjunctiva Respiratory: Clear to auscultation bilaterally, Normal air movement Cardiovascular: No edema, Regular rate/rhythm Gastrointestinal: Soft and benign, Non-distended, No tenderness Integumentary: Diabetic ulcer (L foot: superifical ulceration with light purulent drainage over 1st and 5th metatarsal ) Neurological: Normal speech, Normal affect Problem list Left foot diabetic ulcer with osteomyelitis, failed outpatient treatment with Rocephin DM2 with neuropathy and hyperglycemia, insulin-dependent, noncompliant/uncontrolled Hypertension Patient reports doing well for ~3 weeks on IV Rocephin/PICC line. Was compliant with his antibiotics. However the last 2-3 days with left foot pain. Dr. Strong and infectious disease team are consulted given patient's history. Earlier this year he has already received p.o. antibiotic therapy, and was on IV Rocephin MRI on 04/22: Worsening osteomyelitis, abscess with draining sinus tract Again patient having progressive osteomyelitis, may benefit from amputation. Infectious disease recommends amputation Patient is unsure, states he may want to pursue a second opinion Strict glucose control, A1c is worse compared to when he was recently discharged, despite him saying he was following a stricter diet Glucose still remains in the low 200s, patient advised high carb foods being brought in from outside hospital. Discontinue Metformin, increase insulin Continue sliding scale, Accu-Cheks Blood cultures preliminary negative, wound culture with normal skin maria alejandra ID recommends bone biopsy if patient is negative had amputation VTE: lovenox Code: full Dispo: Anticipate DC home in ~2 days, will likely need IV antibiotics Tentative plan for bone biopsy on Monday Time Spent Managing Pts Care (In Minutes): 35
[2021-04-23 06:42] LABS: BUN Blood Urea Nitrogen 12 mg/dL (7-18); Bicarbonate 28 mmol/L (21-32); Glucose Level 240 mg/dL (74-106); Potassium 3.6 mmol/L (3.5-5.1); Sodium Level 139 mmol/L (136-145)
[2021-04-23] MEDS ORDERED: INSULIN 70/30 100 UNITS/ML SQ SCH ×2 (07:30→16:30)
[2021-04-23] MEDS: METFORMIN ER 500 MG TAB PO SCH (08:23)
[2021-04-23] MEDS: ATORVASTATIN 40 MG TAB PO SCH (08:23)
[2021-04-23] MEDS: ENOXAPARIN 40 MG/0.4 ML SQ SCH (08:24)
[2021-04-23] MEDS: VANCOMYCIN 2.25 GM in NA CHLORIDE 0.9% 500 ML IVPB SCH ×2 (08:24→22:17)
[2021-04-23] MEDS: CEFEPIME 2 GM in NA CHLORIDE 0.9% 100 ML IV SCH ×2 (08:25→22:16)
[2021-04-23] MEDS: SODIUM HYPOCHLORITE 0.25% 473 ML TOP SCH ×2 (08:25→21:00)
[2021-04-23] MEDS: INSULIN -REGULAR HUMAN 50 UNIT/0.5 ML ML SQ SCH ×4 (08:25→22:18)
[2021-04-23] MEDS ORDERED: POTASSIUM CL SA 10 MEQ TAB PO ONE (09:00)
--- NOTE | 2021-04-23 10:18 | P.PN ---
Subjective Date of Service: 04/23/21 Chief Complaint: L foot diabetic ulcer, failed outpatient therapy Patient seen examined at bedside, MRI showed worsening osteomyelitis. Strongly recommended transmetatarsal amputation. Review of Systems 10-point ROS is otherwise unremarkable Physical Examination - Vital Signs Temperature: 98.9 F Blood Pressure: 144/87 Pulse: 90 Respirations: 18 Pulse Ox (%): 96 - Studies Laboratory Last Values WBC 7.30 K/uL (4.3-10.9) 04/20/21 10:40 RBC 4.56 M/uL (4.33-5.43) 04/20/21 10:40 Hgb 13.7 g/dL (13.6-17.9) 04/20/21 10:40 Hct 40.8 % (39.6-49.0) 04/20/21 10:40 MCV 89.4 fL (80-100) 04/20/21 10:40 MCH 30.0 pg (27.0-35.0) 04/20/21 10:40 MCHC 33.5 g/dL (32.0-36.0) 04/20/21 10:40 RDW 14.4 % (12.1-15.2) 04/20/21 10:40 Plt Count 208 K/uL (152-406) 04/20/21 10:40 MPV 10.6 fL (7.6-11.3) 04/20/21 10:40 Neutrophils % 57.4 % (41.7-73.7) 04/20/21 10:40 Lymphocytes % 29.3 % (15.3-44.8) 04/20/21 10:40 Monocytes % 10.2 % (3.3-12.3) 04/20/21 10:40 Eosinophils % 2.4 % (0-4.4) 04/20/21 10:40 Basophils % 0.7 % (0-1.3) 04/20/21 10:40 Absolute Neutrophils 4.2 K/uL (1.8-8.0) 04/20/21 10:40 Absolute Lymphocytes 2.2 K/uL (0.7-4.9) 04/20/21 10:40 Absolute Monocytes 0.8 K/uL (0.1-1.3) 04/20/21 10:40 Absolute Eosinophils 0.2 K/uL (0-0.5) 04/20/21 10:40 Absolute Basophils 0.1 K/uL (0-0.5) 04/20/21 10:40 Sodium 136 mmol/L (136-145) 04/20/21 10:40 Potassium 4.2 mmol/L (3.5-5.1) 04/20/21 10:40 Chloride 101 mmol/L (98-107) 04/20/21 10:40 Carbon Dioxide 27 mmol/L (21-32) 04/20/21 10:40 BUN 14 mg/dL (7-18) 04/20/21 10:40 Creatinine 0.65 mg/dL (0.55-1.3) 04/20/21 10:40 Estimated GFR > 90 mL/min (=/>90) 04/20/21 10:40 Glucose 348 mg/dL (74-106) H 04/20/21 10:40 Lactic Acid 0.8 mmol/L (0.4-2.0) 04/20/21 10:40 Calcium 9.3 mg/dL (8.5-10.1) 04/20/21 10:40 SARS-CoV-2 Rap RNA(RT-PCR) Negative (NEGATIVE) 04/20/21 10:26 Microbiology Data (last 24 hrs): 04/20/21 10:26 Wound - Left Foot Gram Stain - Final Assessment And Plan - Plan Physical exam: General: Alert, In no apparent distress, Oriented x3 HEENT: Atraumatic Neck: Supple Respiratory: Clear to auscultation bilaterally, Normal air movement Cardiovascular: No edema, Normal pulses, Regular rate/rhythm Gastrointestinal: Normal bowel sounds, Soft and benign Integumentary: Diabetic ulcer (2 left foot. Wound with slough tissue present, malodorous. Roula wound tissue erythematous and swollen.) Conclusions/Impression: Antibiotics: Vancomycin Start: 04/20 Cefepime Start: 04/20 Assessment/plan Infected left foot diabetic ulcer with osteomyelitis Failed treatment with 6 week course of oral Levaquin. Patient was started on additional 6 weeks of IV Rocephin, will complete this course on 04/25. He re- presented to the hospital on this admission due to local infection of wound. MRI has performed on 04/22 showed worsening of osteomyelitis. Strongly recommending a transmetatarsal amputation. Patient is currently refusing the procedure. Risks and benefits were discussed with patient. I discussed the risk of: Spreading infection, sepsis, limb loss, and life-threatening illness. Antibiotic options include: Once patient completes his second IV antibiotic course on 04/25 treat as chronic osteomyelitis with oral antibiotic suppression therapy. Currently recommend using the ABC algorithm: Starting with 15 days of oral Augmentin 500 mg q24hr, then switching 15 days of 1 tab Double Strength Bactrim, then switching to 15 days of ciprofloxacin. Patient will need to repeat the cycle for 6 months, and after completion will need repeat imaging. Patient will need to follow up with primary care and obtain weekly labs including CBC, CMP, ESR, and CRP. Of note patient is noncompliant--on previous admissions has not followed up with recommended doctors. Prognosis is poor. Cultures: Blood cultures show no growth 24hr. Wound cultures growing mixed skin maria alejandra. Previous wound cultures growing GBS. At this time continue IV broad- spectrum antibiotics. Continue current wound care: Clean area with Dakin's, paint with Betadine, and wrapped with Kerlix. Type 2 diabetes uncontrolled Hemoglobin A1c 9.8%. Continue strict glucose monitoring for proper infection control and wound healing. Anemia Continue to monitor H&H Medical management per primary team Plan of care discussed with Dr. weathers Thank you for consultation.
[2021-04-23] MEDS: GABAPENTIN 300 MG CAP PO SCH (22:17)
[2021-04-24] MEDS: HYDROCODONE/APAP 7.5/325 MG TAB PO PRN (05:17)
[2021-04-24] MEDS: GABAPENTIN 300 MG CAP PO PRN ×2 (05:17→12:50)
[2021-04-24] MEDS ORDERED: HYDROCODONE/APAP 5/325 MG TAB PO PRN (05:52)
--- NOTE | 2021-04-24 05:53 | P.PN ---
Date of Service: 04/24/21 Subjective: No acute events overnight Reports has been very stressed, depressed with situation Stated yesterday was refusing amputation ROS: 10 point ROS as noted above, otherwise negative Physical Exam General: Alert, In no apparent distress, Oriented x3, appears anxious/stressed HEENT: Sclerae nonicteric, normal conjunctiva Respiratory: Clear to auscultation bilaterally, Normal air movement Cardiovascular: No edema, Regular rate/rhythm Gastrointestinal: Soft and benign, Non-distended, No tenderness Integumentary: Diabetic ulcer (L foot: superifical ulceration with light purulent drainage over 1st and 5th metatarsal), surrounding erythema improved Neurological: Normal speech, Normal affect Problem list Left foot diabetic ulcer with osteomyelitis, failed outpatient treatment with Rocephin DM2 with neuropathy and hyperglycemia, insulin-dependent, noncompliant/uncontrolled Hypertension Patient reports doing well for ~3 weeks on IV Rocephin/PICC line. Was compliant with his antibiotics. However the last 2-3 days with left foot pain. General surgery and ID consulted Earlier this year he has already received p.o. antibiotic therapy, and was on IV Rocephin MRI on 04/22: Worsening osteomyelitis, abscess with draining sinus tract Again patient having progressive osteomyelitis, may benefit from amputation. Infectious disease recommends amputation Patient states he is not ready to make that decision regarding amputation, would want to try again with antibiotics and possible second opinion Strict glucose control, A1c is worse compared to when he was recently discharged, despite him saying he was following a stricter diet Patient is getting food from outside hospital in addition to his diabetic diet here. Discussed at length of the importance of adhering to diet. Increase insulin 70/30, patient will need insulin on discharge Continue sliding scale, Accu-Cheks Blood cultures negative, wound culture initial normal skin maria alejandra, just resulted 03/24 with Enterococcus Continue cefepime/vancomycin for now ID recommends bone biopsy if patient refuses amputation VTE: lovenox Code: full Dispo: Anticipate DC home in ~2 days, will likely need IV antibiotics Tentative plan for bone biopsy on Monday Time Spent Managing Pts Care (In Minutes): 35
[2021-04-24 06:05] LABS: BUN Blood Urea Nitrogen 12 mg/dL (7-18); Bicarbonate 28 mmol/L (21-32); Glucose Level 263 mg/dL (74-106); Potassium 3.7 mmol/L (3.5-5.1); Sodium Level 140 mmol/L (136-145)
[2021-04-24] MEDS ORDERED: INSULIN 70/30 100 UNITS/ML SQ SCH (07:30)
[2021-04-24] MEDS ORDERED: NA CHLORIDE 0.9% 250 ML ONE (08:20)
[2021-04-24] MEDS: VANCOMYCIN 2.25 GM in NA CHLORIDE 0.9% 500 ML IVPB SCH ×2 (08:32→21:03)
[2021-04-24] MEDS: CEFEPIME 2 GM in NA CHLORIDE 0.9% 100 ML IV SCH ×2 (08:33→21:04)
[2021-04-24] MEDS: ENOXAPARIN 40 MG/0.4 ML SQ SCH (08:33)
[2021-04-24] MEDS: INSULIN -REGULAR HUMAN 50 UNIT/0.5 ML ML SQ SCH ×4 (08:34→21:06)
[2021-04-24] MEDS: ATORVASTATIN 40 MG TAB PO SCH (08:35)
[2021-04-24] MEDS: SODIUM HYPOCHLORITE 0.25% 473 ML TOP SCH ×2 (08:35→21:10)
[2021-04-24] MEDS ORDERED: POTASSIUM CL SA 10 MEQ TAB PO ONE (09:00)
--- NOTE | 2021-04-24 09:27 | WHHP ---
Date of Admission: 04/20/2021 Diagnoses: Left foot cellulitis, osteomyelitis. History Of Present Illness: This is the case of a 35-year-old patient with a history of diabetes wit h history of osteomyelitis of the left foot, frequent debridements. He has been having some issues c ontrolling the sugar, came with severe cellulitis and worsens osteomyelitis despite the antibiotics t reatment. He has been taught many times the importance of being compliance with diet being compliant with diabetes. He has not followed with his primary doctor outside and I believe this one of the fa ctors probably not helping progress. Infectious Disease and medical doctor have been working with inge ricks to control the condition. Once again, he wants to go home and take care of that by himself. The a mputation of the foot was an option that the primary doctor discussed with the patient and he is not ready for that. He understands that improving. He requires some effort in his case and h e might have to do a little bit more, but he is doing so far. We explained to him that it still may need some frequent debridements. If he is still here by Monday, we will take him under anesthesia an d do a debridement of the area like [facility]. The debride ment does not mean the treatment for his infection. He still has to continue with antibiotics. We r ecommend him to have to be admitted to an LTAC that will give us a multidiscipline approach this area , but he does not have the financial resources as per the patient. KINJAL/BRANDY Voice ID: [id number]
[2021-04-24] MEDS: HYDROCODONE/APAP 5/325 MG TAB PO PRN ×2 (12:50→21:05)
[2021-04-24] MEDS: INSULIN 70/30 100 UNITS/ML SQ SCH (16:41)
--- OUTSIDE RECORDS SUMMARY | 2021-04-24 17:58 | XMS REPORT | Continuity of Care Document ---
:1985 Author Organization [facility] t Address [address] [place] [address] Care Team Providers Name Role Phone Ras Mckinnon MD Attending Clinician Payers Payer Name Policy Type Policy Number Effective Date Expiration Date S marialuisa [facility] [place] [id number] 2017 00:00:00 Problems This patient has no known problems. Allergies, Adverse Reactions, Alerts Allergy Allergy Status Severity Reaction(s) Onset Inactive Treating Comm ents Source Name Type Date Date Clinician NO KNOWN Drug Active [facility] ALLERGIE Class ity of [facility] Social History Social Habit Start Date Stop Date Quantity Comments Source Sex Assigned At Uni versity [facility] Smoking Status Start Date Stop Date [facility] Medications Ordered Filled Start Stop Current Ordering Indication Dosage Frequency Signature Comments Components Source Medication Medication Date Date Medication? Clinician (SIG) Name Name tamsulosin Yes .4mg Take 1 Cap U nivers (FLOMAX) 806 by mouth ity of 0.4 mg 24 00:00: at [place] hr capsule 00 bedtime. Medic al Branch traMADOL Yes 50mg Take 1 Tab Uni vers (ULTRAM) 50 806 by mouth ity of mg tablet 00:00: every 8 [place] 00 (eight) Medical hours as Branch needed for Pain (scale 4-6). Procedures This patient has no known procedures. Encounters Start End Encounter Admission Attending Care Care Encounter Source Date/Time Date/Time Type Type Clinicians Facility Department ID 2020-07-04 2020-07-04 Emergency [facility] [id number] 03:13:00 03:14:00 Rachelle Wade [id number] [place] [id number] [place] [id number] [facility] 2020-07-04 2020-07-04 Emergency [facility] [id number] Univers 03:13:00 03:14:00 Rachelle Wade [id number] ity [place] [id number] [facility] [id number] [place] [address] [place] 2020-07-04 2020-07-[address] [facility] ERT [id number] Univers 03:00:00 03:00:00 ity [facility] Results This patient has no known results.
[2021-04-24] MEDS: GABAPENTIN 300 MG CAP PO SCH (21:05)
--- NOTE | 2021-04-25 05:48 | P.PN ---
Date of Service: 04/25/21 Subjective: No acute events overnight doing ok, pain improving, reports drainage improving as well To have debridement and bone biopsy tomorrow Glucose slightly improved, patient has been eating some food from [employer] and other places brought in by family ROS: 10 point ROS as noted above, otherwise negative Physical Exam General: Alert, In no apparent distress, Oriented x3 Respiratory: Clear to auscultation bilaterally, Normal air movement Cardiovascular: No edema, Regular rate/rhythm Gastrointestinal: Soft, Non-distended, No tenderness Integumentary: L foot: superifical ulceration with light purulent drainage over 1st and 5th metatarsal), surrounding erythema improved/minimal Neurological: Normal speech, Normal affect Problem list Left foot diabetic ulcer with osteomyelitis, failed outpatient treatment with Rocephin DM2 with neuropathy and hyperglycemia, insulin-dependent, noncompliant/uncontrolled Hypertension Patient reports doing well for ~3 weeks on IV Rocephin/PICC line. Was compliant with his antibiotics. However the last 2-3 days with left foot pain. General surgery and ID consulted Earlier this year he has already received p.o. antibiotic therapy (levaquin), an d was on IV Rocephin for 2nd round MRI on 04/22: Worsening osteomyelitis, abscess with draining sinus tract Again patient having progressive osteomyelitis, may benefit from amputation. Infectious disease recommends amputation Patient states he is not ready to make that decision regarding amputation, would want to try again with antibiotics and possible second opinion Strict glucose control, A1c is worse compared to when he was recently discharged, despite him saying he was following a stricter diet Patient is getting food from outside hospital in addition to his diabetic diet here. Discussed at length of the importance of adhering to diet. Increase insulin 70/30, patient will need insulin on discharge Continue sliding scale, Accu-Cheks Blood cultures negative, wound culture initial normal skin maria alejandra, resulted 03/24 with Enterococcus Will complete full course for osteomyelitis 2nd round today continue with vanc, possibly discharge home on PO antibiotics, will discuss with ID VTE: lovenox Code: full Dispo: Anticipate DC home in ~1 day on PO antibiotics Tentative plan for bone biopsy on Monday Time Spent Managing Pts Care (In Minutes): 35
[2021-04-25] MEDS: VANCOMYCIN 2.25 GM in NA CHLORIDE 0.9% 500 ML IVPB SCH ×2 (08:24→21:27)
[2021-04-25] MEDS: CEFEPIME 2 GM in NA CHLORIDE 0.9% 100 ML IV SCH (08:24)
[2021-04-25] MEDS: INSULIN 70/30 100 UNITS/ML SQ SCH ×2 (08:26→16:56)
[2021-04-25] MEDS: ENOXAPARIN 40 MG/0.4 ML SQ SCH (08:26)
[2021-04-25] MEDS: ATORVASTATIN 40 MG TAB PO SCH (08:26)
[2021-04-25] MEDS: GABAPENTIN 300 MG CAP PO PRN (08:27)
[2021-04-25] MEDS: INSULIN -REGULAR HUMAN 50 UNIT/0.5 ML ML SQ SCH ×4 (08:27→21:00)
[2021-04-25] MEDS: HYDROCODONE/APAP 5/325 MG TAB PO PRN ×2 (08:27→22:35)
[2021-04-25] MEDS: SODIUM HYPOCHLORITE 0.25% 473 ML TOP SCH ×2 (08:28→21:28)
[2021-04-25] MEDS: GABAPENTIN 300 MG CAP PO SCH (21:26)
[2021-04-26 06:28] LABS: Hematocrit 37.1 % (39.6-49.0); MPV 10.2 fL (7.6-11.3); RBC Red Blood Cell Count 4.13 M/uL (4.33-5.43)
[2021-04-26 06:39] LABS: BUN Blood Urea Nitrogen 10 mg/dL (7-18); Bicarbonate 29 mmol/L (21-32); C-Reactive Protein 4.08 mg/L (<3.00); Glucose Level 204 mg/dL (74-106); Magnesium 1.8 mg/dL (1.8-2.4); Potassium 3.7 mmol/L (3.5-5.1); Sodium Level 140 mmol/L (136-145)
[2021-04-26] MEDS: INSULIN -REGULAR HUMAN 50 UNIT/0.5 ML ML SQ SCH ×4 (07:30→20:02)
[2021-04-26] MEDS ORDERED: NA CHLORIDE 0.9% 1,000 ML ONE (07:54)
[2021-04-26] MEDS ORDERED: LIDOCAINE 1% MPF 5 ML VIAL ONE (07:56)
[2021-04-26] MEDS ORDERED: FENTANYL CITR 100 MCG/2 ML ONE (07:56)
[2021-04-26] MEDS ORDERED: propofoL 200 MG/20 ML VIAL IV ONE (07:56)
[2021-04-26] MEDS ORDERED: MIDAZOLAM HCL 2 MG/2 ML INJ ONE (07:56)
[2021-04-26] MEDS ORDERED: BUPIVACAINE 0.5% PF 10 ML VIAL ONE (08:21)
[2021-04-26] MEDS ORDERED: KETOROLAC 30 MG/ML INJ ONE (08:45)
[2021-04-26] MEDS: ENOXAPARIN 40 MG/0.4 ML SQ SCH (09:00)
[2021-04-26] MEDS ORDERED: MAGNESIUM SULFATE 1 gm IVPB 1 GM/100 ML BAG IV ONE (09:00)
[2021-04-26] MEDS: SODIUM HYPOCHLORITE 0.25% 473 ML TOP SCH ×2 (09:00→19:59)
[2021-04-26] MEDS ORDERED: POTASSIUM CL SA 10 MEQ TAB PO ONE ×2 (09:00)
--- NOTE | 2021-04-26 09:11 | P.BOP ---
Preoperative diagnosis: left foot cellulitis, destructive osteomyelititis, abscess Postoperative diagnosis: same Primary procedure: Excisional debridement , abscess drainage and 4th bone bx left foot Estimated blood loss: <10cc Specimen: bone, culture Anesthesia: General Drain(s): Other Transferred to: Recovery Room Condition: Good
[2021-04-26] MEDS ORDERED: INSULIN -REGULAR HUMAN 50 UNIT/0.5 ML ML ONE (09:51)
[2021-04-26] MEDS: ATORVASTATIN 40 MG TAB PO SCH (10:17)
[2021-04-26] MEDS: GABAPENTIN 300 MG CAP PO PRN (10:17)
[2021-04-26] MEDS: INSULIN 70/30 100 UNITS/ML SQ SCH ×2 (10:18→16:22)
[2021-04-26] MEDS: HYDROCODONE/APAP 5/325 MG TAB PO PRN ×2 (10:18→22:02)
[2021-04-26] MEDS: VANCOMYCIN 2.25 GM in NA CHLORIDE 0.9% 500 ML IVPB SCH ×2 (11:37→19:57)
--- NOTE | 2021-04-26 13:01 | P.PN ---
Date of Service: 04/26/21 Subjective: No acute events overnight doing ok, pain improving s/p I&D, doing well reporedly had abscess that wasn't draining, fragile bone at 4th toe ROS: 10 point ROS as noted above, otherwise negative Physical Exam General: Alert, In no apparent distress, Oriented x3 Respiratory: Clear to auscultation bilaterally, Normal air movement Cardiovascular: No edema, Regular rate/rhythm Gastrointestinal: Soft, Non-distended, No tenderness Integumentary: L foot: superifical ulceration with light purulent drainage over 1st and 5th metatarsal, surrounding erythema improved/minimal, ulceration of 4th-5th toe Neurological: Normal speech, Normal affect Problem list Left foot diabetic ulcer with osteomyelitis, failed outpatient treatment with Rocephin DM2 with neuropathy and hyperglycemia, insulin-dependent, noncompliant/uncontrolled Hypertension Patient reports doing well for ~3 weeks on IV Rocephin/PICC line. Was compliant with his antibiotics. However the last 2-3 days with left foot pain. General surgery and ID consulted Earlier this year he has already received p.o. antibiotic therapy (levaquin), and was on IV Rocephin for 2nd round MRI on 04/22: Worsening osteomyelitis, abscess with draining sinus tract Again patient having progressive osteomyelitis, may benefit from amputation. Infectious disease recommends amputation Patient states he is not ready to make that decision regarding amputation, would want to try again with antibiotics and possible second opinion Strict glucose control, A1c is worse compared to when he was recently discharged, despite him saying he was following a stricter diet titrate insulin 70/30, patient will need insulin on discharge Continue sliding scale, Accu-Cheks Blood cultures negative, wound culture initial normal skin maria alejandra, resulted 03/24 with Enterococcus purulent abscess collection noted in OR this morning, culture obtained continue with IV antibiotics per ID for now VTE: lovenox Code: full Dispo: Anticipate DC home in ~2 days, likely needs IV antibiotics Time Spent Managing Pts Care (In Minutes): 35
[2021-04-26 20:26] VITALS: O2SAT 96
[2021-04-26] MEDS: GABAPENTIN 300 MG CAP PO SCH (22:01)
[2021-04-27 05:11] LABS: BUN Blood Urea Nitrogen 14 mg/dL (7-18); Bicarbonate 28 mmol/L (21-32); Glucose Level 206 mg/dL (74-106); Potassium 3.8 mmol/L (3.5-5.1); Sodium Level 140 mmol/L (136-145)
[2021-04-27] MEDS ORDERED: POTASSIUM CL SA 10 MEQ TAB PO ONE (05:28)
[2021-04-27] MEDS: INSULIN 70/30 100 UNITS/ML SQ SCH (07:30)
[2021-04-27] MEDS: INSULIN -REGULAR HUMAN 50 UNIT/0.5 ML ML SQ SCH ×2 (08:44→12:06)
[2021-04-27] MEDS: ATORVASTATIN 40 MG TAB PO SCH (08:46)
[2021-04-27] MEDS: ENOXAPARIN 40 MG/0.4 ML SQ SCH (08:46)
[2021-04-27] MEDS: VANCOMYCIN 2.25 GM in NA CHLORIDE 0.9% 500 ML IVPB SCH (08:46)
[2021-04-27] MEDS: SODIUM HYPOCHLORITE 0.25% 473 ML TOP SCH (08:46)
[2021-04-27] MEDS: HYDROCODONE/APAP 5/325 MG TAB PO PRN (08:47)
[2021-04-27] MEDS: GABAPENTIN 300 MG CAP PO PRN (08:47)
--- NOTE | 2021-04-27 10:23 | P.PN ---
Subjective Date of Service: 04/27/21 Chief Complaint: L foot diabetic ulcer, failed outpatient therapy Patient seen examined at bedside, based off wound cultures susceptibility panel vancomycin has an SUMAYA of 4, as such is it has been discontinued and unasyn has been started. Patient still hyperglycemic however is better controlled on insulin. Review of Systems 10-point ROS is otherwise unremarkable Physical Examination - Vital Signs Temperature: 98.7 F Blood Pressure: 124/71 Pulse: 85 Respirations: 18 Pulse Ox (%): 97 - Studies Microbiology 04/20/21 10:55 Blood - Blood Aerobic Blood Culture - Final No growth in 5 days. 04/20/21 10:55 Blood - Blood Anaerobic Blood Culture - Final No growth in 5 days. 04/20/21 10:40 Blood - Blood Aerobic Blood Culture - Final No growth in 5 days. 04/20/21 10:40 Blood - Blood Anaerobic Blood Culture - Final No growth in 5 days. 04/20/21 10:26 Wound - Left Foot Gram Stain - Final 04/20/21 10:26 Wound - Left Foot Culture & Sensitivity - Final Enterococcus Faecalis Assessment And Plan - Plan Physical exam: General: Alert, In no apparent distress, Oriented x3 HEENT: Atraumatic Neck: Supple Respiratory: Clear to auscultation bilaterally, Normal air movement Cardiovascular: No edema, Normal pulses, Regular rate/rhythm Gastrointestinal: Normal bowel sounds, Soft and benign Integumentary: Diabetic ulcer (2 left foot. Wound with slough tissue present, malodorous. Roula wound tissue erythematous and swollen.) Conclusions/Impression: Antibiotics: unasyn start: 04/27 Vancomycin Start: 04/20 top: 04/27 Cefepime Start: 04/20 stop: 04/25 Assessment/plan Infected left foot diabetic ulcer with osteomyelitis Failed treatment with 6 week course of oral Levaquin. Patient was started on additional 6 weeks of IV Rocephin, wound have completed this course on 04/25. He re-presented to the hospital on this admission due to local infection of wound. MRI performed on 04/22 showed worsening of osteomyelitis. Strongly recommending amputation. Patient is currently refusing the procedure. Risks and benefits were discussed with patient. I discussed the risk of: Spreading infection, sepsis, limb loss, and life-threatening illness. Antibiotic options include: Once patient completes his second IV antibiotic course on 04/25 treat as chronic osteomyelitis with oral antibiotic suppression therapy. Currently recommend using the ABC algorithm: Starting with 15 days of oral Augmentin 500 mg q24hr, then switching 15 days of 1 tab Double Strength Bactrim, then switching to 15 days of ciprofloxacin. Patient will need to r epeat the cycle for 6 months, and after completion will need repeat imaging. Patient will need to follow up with primary care and obtain weekly labs including CBC, CMP, ESR, and CRP. Of note patient is noncompliant--on previous admissions has not followed up with recommended doctors. Prognosis is poor. Cultures: Blood cultures show no growth 24hr. Wound cultures growing Enterococcus. Previous wound cultures growing GBS. [employer]ison started based off susceptibility report. Continue current wound care: Clean area with Dakin's, paint with Betadine, and wrapped with Kerlix. Type 2 diabetes uncontrolled Hemoglobin A1c 9.8%. Continue strict glucose monitoring for proper infection control and wound healing. Anemia Continue to monitor H&H Medical management per primary team Plan of care discussed with Dr. weathers Thank you for consultation.
[2021-04-27] MEDS ORDERED: AMPICILLIN/SULBACT 3 GM in NA CHLORIDE 0.9% 100 ML IVPB SCH (12:00)
--- NOTE | 2021-04-27 12:35 | P.DS ---
Admission Date: 04/20/21 Discharge Date: 04/27/21 Disposition: ROUTINE DISCHARGE Discharge Condition: FAIR Reason for Admission: L foot diabetic ulcer, failed outpatient therapy Consultations: General surgery. Dr. Strong. - Problems (1) Diabetic ulcer of left great toe Current Visit: No Status: Acute (2) Hyperlipidemia Current Visit: No Status: Chronic (3) Diabetes type 2, uncontrolled Current Visit: No Status: Chronic (4) Osteomyelitis of left foot Current Visit: No Status: Chronic Brief History of Present Illness: 35-year-old male, IDDM 2, HTN, left foot diabetic ulcer with osteomyelitis. Patient was at general surgery office, was evaluated, and instructed to present to ED due to worsening of his ulceration. Patient has been taking IV Rocephin via PICC line as prescribed, and following local wound care as previously prescribed. Despite this, his wound got worse. He noticed some thick drainage/covering of his ulcer. He denied any fever/chills, no nausea/vomiting/diarrhea. Patient admitted for further management. Hospital Course: Discharge diagnosis. Left foot diabetic ulcer with osteomyelitis, failed outpatient treatment with Rocephin DM2 with neuropathy and hyperglycemia, insulin-dependent, noncompliant/uncontrolled Hypertension Patient reported doing well for ~3 weeks on IV Rocephin/PICC line. Was compliant with his antibiotics. However he experienced left foot pain. Patient admitted and started on IV antibiotics. General surgery and ID consulted Earlier this year he has already received p.o. antibiotic therapy (levaquin), and was on IV Rocephin for 2nd round MRI on 04/22: Worsening osteomyelitis, abscess with draining sinus tract Again patient having progressive osteomyelitis, may benefit from amputation. Infectious disease and general surgery recommended amputation Patient states he is not ready to make that decision regarding amputation, would want to try again with antibiotics and possible second opinion. Excision debridement done by general surgery-Dr. Strong. Bone biopsy sent for culture. Strict glucose control, A1c is worse compared to when he was recently discharged, despite him saying he was following a stricter diet Patient placed on insulin 70/30, patient will need insulin on discharge. Glipizide and Metformin ho held during the hospital stay Blood cultures negative, wound culture:Enterococcus purulent abscess collection noted in OR. culture obtained At this time infectious disease recommend 6 months of oral antibiotic treatment which will be cycled between Augmentin, Bactrim and Cipro. Patient to start Augmentin for 15 days then Bactrim for 15 days, Cipro for 15 days and the whole process recycled until he completes 6 months of treatment. Case discussed with Dr. Strong. He will follow with patient regularly at the wound care clinic until patient makes the decision for amputation. Patient prescribed Novolin 70/30 on discharge. Metformin resumed and glipizide discontinued. Vital Signs/Physical Exam: Temp Pulse Resp BP Pulse Ox 98.7 F 85 18 124/71 97 04/27/21 10:22 04/27/21 10:22 04/27/21 10:22 04/27/21 10:22 04/27/21 10:22 General: Alert, In no apparent distress, Oriented x3 HEENT: Mucous membr. moist/pink Neck: Supple, JVD not distended Respiratory: Clear to auscultation bilaterally, Normal air movement Cardiovascular: No edema, Regular rate/rhythm, Normal S1 S2 Gastrointestinal: Soft and benign, Non-distended, No tenderness Musculoskeletal: Other (Right second toe swollen, wound dressed.) Integumentary: No rashes Neurological: Normal speech, Normal strength at 5/5 x4 extr Laboratory Data at Discharge: WBC 7.00 K/uL (4.3-10.9) D 04/26/21 05:50 Hgb 12.4 g/dL (13.6-17.9) L 04/26/21 05:50 Hct 37.1 % (39.6-49.0) L 04/26/21 05:50 Plt Count 172 K/uL (152-406) 04/26/21 05:50 Sodium 140 mmol/L (136-145) 04/27/21 04:30 Potassium 3.8 mmol/L (3.5-5.1) 04/27/21 04:30 BUN 14 mg/dL (7-18) 04/27/21 04:30 Creatinine 0.73 mg/dL (0.55-1.3) 04/27/21 04:30 Glucose 206 mg/dL (74-106) H 04/27/21 04:30 Magnesium 2.0 mg/dL (1.8-2.4) 04/27/21 04:30 Total Bilirubin 0.4 mg/dL (0.2-1.0) 04/21/21 05:10 AST 18 U/L (15-37) 04/21/21 05:10 ALT 26 U/L (12-78) 04/21/21 05:10 Alkaline Phosphatase 125 U/L (45-117) H 04/21/21 05:10 Home Medications: Hydrocodone 5/APAP 325 [[place] 5/325*] 1 tab PO Q8H PRN 4 Days #10 tab 03/23/21 Alcohol Antiseptic Pads [Alcohol Swabs] 1 each TP TID #100 med..pad 04/27/21 Amox/Clavulanate [Augmentin 875-125 Tab] 1 each PO BID #30 tab 04/27/21 Atorvastatin Calcium [Lipitor] 40 mg PO DAILY #30 tab 04/27/21 Blood Sugar Diagnostic [Glucose Test Strip] 1 each MC TID #90 strip 04/27/21 Blood-Glucose Meter [Contour Next Glucose Meter] 1 each MC TID #1 kit 04/27/21 Collagenase [Santyl Ointment*] 1 appl TOP DAILY #30 tube 04/27/21 Gabapentin 300 mg PO TID #90 04/27/21 Insulin 70/30 NPH/Reg Human [Novolin 70/30*] 35 unit SQ BIDAC #10 ml 04/27/21 Lancets [Ultra Thin Lancet] 1 each MC TID #90 each 04/27/21 Metformin ER [Glucophage ER*] 500 mg PO BID #60 tab.sa 04/27/21 Syringe-Needle,Insulin,0.5 ml [Insulin Syringe] 1 each MC TID #100 disp.syrin 04/27/21 New Medications: Alcohol Antiseptic Pads [Alcohol Swabs] 1 each TP TID #100 med..pad Amox/Clavulanate [Augmentin 875-125 Tab] 1 each PO BID #30 tab Blood-Glucose Meter [Contour Next Glucose Meter] 1 each MC TID #1 kit Gabapentin 300 mg PO TID #90 Metformin ER [Glucophage ER*] 500 mg PO BID #60 tab.sa Blood Sugar Diagnostic [Glucose Test Strip] 1 each MC TID #90 strip Syringe-Needle,Insulin,0.5 ml [Insulin Syringe] 1 each MC TID #100 disp.syrin Atorvastatin Calcium [Lipitor] 40 mg PO DAILY #30 tab Insulin 70/30 NPH/Reg Human [Novolin 70/30*] 35 unit SQ BIDAC #10 ml Collagenase [Santyl Ointment*] 1 appl TOP DAILY #30 tube Lancets [Ultra Thin Lancet] 1 each MC TID #90 each Diet: ADA Activity: Ad anant Followup: Surinder Strong MD [Primary Care Provider] - 1 Week Russ Carmona MD [ACTIVE - CAN ADMIT] - 1 Week Time spent managing pt's care (in minutes): 40
[2021-04-27 13:20] VITALS: BP 134/77; TEMP 97.8
--- NOTE | 2021-04-27 15:13 | PN ---
Date of Progress Note: 04/27/2021 Diagnosis: Cellulitis and osteomyelitis left foot, multiple debridements done in the past, last was done yesterday with some of the bone destruction on the fourth toe identified. That bone removed. N o formal amputations. Consent is obtained. The patient wants to go home. He feels better today. H e thinks he has a plan in the future. He has planned also to control his diabetes. Under those situ ations, we have him here for a long time. He wants to go home and [facility] and follow instruction of Infectious Disease, then dressing changes. We will continue e same. The patient will be seen in a week from now at [facility] if he gets to go corey LAYTON/BRANDY Voice ID: [id number] Report ID: [id number]
--- NOTE | 2021-05-26 14:09 | OP ---
Date of Procedure: 04/26/2021 Surgeon: Surinder Strong MD Preoperative Diagnoses: Left foot cellulitis, destructive osteomyelitis, abscess. Postoperative Diagnoses: Left foot cellulitis, destructive osteomyelitis, abscess. Procedures Performed: Excisional debridement and abscess drainage and bone biopsy of the ulcer on th e left foot with bone biopsy of the fourth toe. Anesthesia: General plus local. Specimen: Bone and culture. Indication: This is a case of a male, who comes to us with destructive osteomyelitis. Recommended i n the past definitive treatment that include amputation, but the patient wants only debridement. Bon e biopsy request also by ID in an effort trying to understand his diagnosis a little bit better and t reat him. He does not want the amputation completely at this time or foot amputation even that was r ecommended to him few times. I understand his hesitancy in this young age, but at the same time he h as to understand that then he has to be compliant with treatment including diet including diabetes co ntrol if he wants to have an opportunity to keep that foot. He consent for debridement and bone biop sy since it was requested by Infectious Disease with benefits, alternatives, and risks including, but not limited to infection, bleeding, damage to adjacent structures, anesthesia complication, nonheali ng wound, VA, even . He also understands this may not relieve his symptoms. He might need more than one surgical intervention. He understood, signed a consent. Procedure In Detail: The patient was brought to the operating room, placed in supine position. Anes thesia was done without complication. Left foot was prepped and draped in a sterile fashion. There was necrotic wound present including also the fourth toe area. The necrotic area was opened, abscess was drained. Pus was obtained. That tissue was carefully debrided. When we go into the fourth toe area, the bone is so broken that a piece of that fell and comes out on the fourth toe region. It wa s just loose in that area, we took advantage of that and sent that for culture and biopsy. Area was p acked with wet-to-dry dressing after hemostasis was obtained. The patient tolerated the procedure we ll. The patient was sent to recovery in stable condition. HM/MODL Voice ID: [id number] Report ID: [id number]
== END 2021-04-27 14:34 | disposition home or self-care (01) | DRG 623 ==
LOC: ER 09:30 → ERHOLD 11:02 → 2ND 13:02
PROVIDERS: ADMIT Hospitalist; ATTEND Internal Medicine
PROC: 0QBR0ZZ Excision of Left Toe Phalanx, Open Approach (ICD-10-PCS; 2021-04-26)
PROC: 0QBR0ZX Excision of Left Toe Phalanx, Open Approach, Diagnostic (ICD-10-PCS; 2021-04-26)
PROC: 0JBR0ZZ Excision of Left Foot Subcutaneous Tissue and Fascia, Open Approach (ICD-10-PCS; principal; 2021-04-26 08:30)
DX: E11.69 Type 2 diabetes mellitus with other specified complication (principal); M86.8X7 Other osteomyelitis, ankle and foot; L03.116 Cellulitis of left lower limb; L02.612 Cutaneous abscess of left foot; I10 Essential (primary) hypertension; E11.621 Type 2 diabetes mellitus with foot ulcer; L97.529 Non-pressure chronic ulcer of other part of left foot with unspecified severity; E78.5 Hyperlipidemia, unspecified; E11.40 Type 2 diabetes mellitus with diabetic neuropathy, unspecified; E11.65 Type 2 diabetes mellitus with hyperglycemia; E11.51 Type 2 diabetes mellitus with diabetic peripheral angiopathy without gangrene; E11.628 Type 2 diabetes mellitus with other skin complications; F17.200 Nicotine dependence, unspecified, uncomplicated; D64.9 Anemia, unspecified; B95.2 Enterococcus as the cause of diseases classified elsewhere; T38.3X6A Underdosing of insulin and oral hypoglycemic [antidiabetic] drugs, initial encounter; Z79.84 Long term (current) use of oral hypoglycemic drugs; Z79.4 Long term (current) use of insulin; Z91.14 Patient's other noncompliance with medication regimen; Z20.822 Contact with and (suspected) exposure to COVID-19
CPT/HCPCS: 36415; 80048; 80053; 80202; 82947; 83036; 83605; 83735; 85025; 85027; 85652; 86140; 87040; 87070; 87075; 87077; 87186; 87205; 88304; 88305; 88311; 90471; 99285; A9577; J0295; J0692; J1650; J1815; J2250; J2704; J2997; J3010; J3370; J3475; J7030; J7040; J7050; U0003

== ENCOUNTER 2022-12-11 18:02 | Emergency (ER) | payer SELFPAY ==
--- OUTSIDE RECORDS SUMMARY | 2022-12-11 18:04 | XMS REPORT | Continuity of Care Document ---
:1985 Author Organization [facility] t Address [address] [place] [address] Care Team Providers Name Role Phone Rachelle Mckinnon MD Attending Clinician Payers Payer Name Policy Type Policy Number Effective Date Expiration Date S [facility] [id number] 2017 00:00:00 Problems This patient has no known problems. Allergies, Adverse Reactions, Alerts Allergy Allergy Status Severity Reaction(s) Onset Inactive Treating Comm ents Source Name Type Date Date Clinician NO KNOWN Drug Active Univers ALLERGIE Class ity of S [facility] Social History Social Habit Start Date Stop Date Quantity Comments Source Sex Assigned At Uni versity [facility] Smoking Status Start Date Stop Date Source Unknown if ever smoked Universit y [facility] Medications Ordered Filled Start Stop Current Ordering Indication Dosage Frequency Signature Comments Components Source Medication Medication Date Date Medication? Clinician (SIG) Name Name tamsulosin Yes .4mg Take 1 Cap U nivers (FLOMAX) 06 by mouth ity of 0.4 mg 24 00:00: at [place] hr capsule 00 bedtime. Medic al Branch traMADOL 0 Yes 50mg Take 1 Tab Uni vers (ULTRAM) 50 06 by mouth ity of mg tablet 00:00: every 8 [place] 00 (eight) Medical hours as Branch needed for Pain (scale 4-6). Procedures This patient has no known procedures. Encounters Start End Encounter Admission Attending Care Care Encounter Source Date/Time Date/Time Type Type Clinicians Facility Department ID 2022-12-10 2022-12-10 Outpatient [facility] [id number] [place] 08:03:26 08:03:26 [id number] [facility] [place] 2022-11-01 2022-11-01 Outpatient [facility] [id number] 09:16:03 09:16:03 [id number] [address] [place] 2022-10-12 2022-10-12 Outpatient [facility] [id number] [place] 17:19:32 17:19:32 [id number] [facility] [place] 2022-10-07 2022-10-07 Outpatient [facility] [id number] [place] 13:46:59 13:46:59 [id number] [facility] [place] 2020-07-04 2020-07-04 Emergency [facility] [id number] [facility] 03:13:00 03:14:00 [place] [id number] [id number] [facility] [id number] [address] 2020-07-04 2020-07-04 Emergency [facility] [id number] 03:13:00 03:14:00 [place]le [place] [id number] [place] [id number] [place] [id number] [facility] 2020-07-04 2020-07-04 Emergency X [facility] ERT [id number] [facility] 03:00:00 03:00:00 [facility] Results This patient has no known results.
[2022-12-11] MEDS ORDERED: FLUORESCEIN SODIUM 1 MG/WRAP ONE (19:50)
[2022-12-11] MEDS ORDERED: TETRACAINE HCL 0.5% 4ML OPTH ONE (19:50)
[2022-12-11] MEDS ORDERED: TOBRAMYCIN SULF 0.3% OPTH OINT ONE (20:22)
--- NOTE | 2022-12-11 20:35 | ER ---
Nurse's Notes [facility] [address] Name: Marek Blood Jr Age: 37 yrs Sex: Male : 1985 Arrival Date: 12/11/2022 Time: 18:02 Bed 8 Private MD: Diagnosis: Other conjunctivitis-subconjunctival hemorrhage;Ocular pain, right eye Presentation: 12/11 18:24 Chief complaint: Patient states: 3 days ago right eye was really red, did a virtual ko1 with dr and was given drops for pinkeye. It is not getting better, it now feels like something is in it and some cloudy spots occasionally. Coronavirus screen: At this time, the client does not indicate any symptoms associated with coronavirus-19. Ebola Screen: No symptoms or risks identified at this time. Initial Sepsis Screen: Does the patient meet any 2 criteria? No. Patient's initial sepsis screen is negative. Does the patient have a suspected source of infection? No. Patient's initial sepsis screen is negative. Risk Assessment: Do you want to hurt yourself or someone else? Patient reports no desire to harm self or others. Onset of symptoms was December 09, 2022 at 12:00. 18:24 Method Of Arrival: Ambulatory ko1 18:24 Acuity: ARDEN 3 ko1 Triage Assessment: 18:28 General: Appears in no apparent distress. uncomfortable, Behavior is calm, cooperative, ko1 appropriate for age. Pain: Complains of pain in right eye. Historical: - Home Meds: 18:28 Metformin Oral [Active]; ko1 18:31 Farxiga oral [Active]; ko1 - PMHx: 18:28 Diabetes - NIDDM; ko1 - PSHx: 18:28 L foot SX; ko1 - Immunization history:: Adult Immunizations up to date. - Social history:: Smoking status: Patient denies any tobacco usage or history of. - Family history:: not pertinent. Screenin:33 [facility] ED Fall Risk Assessment (Adult) History of falling in the last 3 months, ll3 including since admission No falls in past 3 months (0 pts) Confusion or Disorientation No (0 pts) Intoxicated or Sedated No (0 pts) Impaired Gait No (0 pts) Mobility Assist Device Used No (0 pt) Altered Elimination No (0 pt) Score/Fall Risk Level 0 - 2 = Low Risk Oriented to surroundings, Maintained a safe environment, Educated pt \T\ family on fall prevention, incl call for assistance when getting out of bed. Abuse screen: Denies threats or abuse. Denies injuries from another. Nutritional screening: No deficits noted. Tuberculosis screening: No symptoms or risk factors identified. Assessment: 19:34 General: Appears uncomfortable, Behavior is calm, cooperative. Pain: Complains of pain ll3 in right eye Pain does not radiate. Pain currently is 7 out of 10 on a pain scale. Quality of pain is described as sharp, Pain began 2-3 days ago. Is continuous. Neuro: Level of Consciousness is awake, alert, obeys commands, Oriented to person, place, time, situation. EENT: Eyes with exudate noted from right inner canthus Sclera/Cornea are reddened in outer aspect of conjuctiva of right eye, iris of right eye and inner aspect of conjuctiva of right eye Reports blurred vision pain in right eye since monday. Derm: Skin is pink, warm \T\ dry. Vital Signs: 18:24 BP 145 / 101; Pulse 95; Resp 18; Temp 98; Pulse Ox 100% ; Weight 86.18 kg; Height 5 ft. ko1 7 in. ; 20:44 BP 136 / 79; Pulse 75; Resp 16; Temp 98; Pulse Ox 100% ; rv 18:24 Body Mass Index 29.76 (86.18 kg, 170.18 cm) ko1 Dema Coma Score: 20:44 Eye Response: spontaneous(4). Motor Response: obeys commands(6). Verbal Response: rv oriented(5). Total: 15. ED Course: 18:03 Patient arrived in ED. rg4 18:28 Triage completed. ko1 18:28 Arm band placed on right wrist. Patient placed in waiting room, Patient notified of ko1 wait time. 19:33 Patient has correct armband on for positive identification. Bed in low position. Call ll3 light in reach. Side rails up X 1. Adult w/ patient. 19:40 Hnak Bedolla MD is Attending Physician. kraig 20:34 Patrick Alejandre MD is Referral Physician. kraig 20:43 Zechariah Bettencourt RN is Primary Nurse. rv 20:43 No provider procedures requiring assistance completed. Patient did not have IV access rv during this emergency room visit. Administered Medications: 20:15 Drug: Tobrex Ophthalmic Ointment 0.3 % 1 application Route: Ophthalmic; Site: right eye;ph 20:43 Follow up: Response: No adverse reaction rv Medication: 20:43 VIS not applicable for this client. rv Outcome: 20:34 Discharge ordered by . kraig 20:43 Discharged to home ambulatory, with family. rv 20:43 Condition: good 20:43 Discharge instructions given to patient, Instructed on discharge instructions, follow up and referral plans. medication usage, Demonstrated understanding of instructions, follow-up care, medications, Prescriptions given X 2. 20:44 Patient left the ED. rv Signatures: Hank Bedolla MD MD cha Hall, Patricia RN RN Ivan, Antonia rg4 Zechariah Bettencourt RN RN rv Amilcar Dubon RN RN ll3 Noemi Baca RN RN ko1 Corrections: (The following items were deleted from the chart) 18:30 18:28 Home Meds: atorvastatin Oral; ko1 ko1 18:30 18:28 Home Meds: Glipizide Oral; ko1 ko1 18:30 18:28 PMHx: Hypertensive disorder; ko1 ko1
--- NOTE | 2022-12-11 20:35 | EDPHYS ---
Physician Documentation [facility] Name: Marek Blood Jr Age: 37 yrs Sex: Male : 1985 Arrival Date: 12/11/2022 Time: 18:02 Bed 8 Private MD: ED Physician Hank Bedolla HPI: 12/11 20:24 This 37 yrs old Male presents to ER via Ambulatory with complaints of Eye kraig Problem. 20:24 The patient is experiencing foreign body sensation, pain, redness, tearing, The patient kraig sustained Unknown. to the right eye. Onset: The symptoms/episode began/occurred 2 day(s) ago. Duration: the symptoms are continuous. Aggravated by blinking, opening eye, Alleviated by covering eye. Associated signs and symptoms: Pertinent positives: None. Pertinent negatives: None. Patient does not utilize any form of vision correction. Severity of symptoms: At their worst the symptoms were mild in the emergency department the symptoms are unchanged. The patient has not experienced similar symptoms in the past. Historical: - Home Meds: 18:28 Metformin Oral [Active]; ko1 18:31 Farxiga oral [Active]; ko1 - PMHx: 18:28 Diabetes - NIDDM; ko1 - PSHx: 18:28 L foot SX; ko1 - Immunization history:: Adult Immunizations up to date. - Social history:: Smoking status: Patient denies any tobacco usage or history of. - Family history:: not pertinent. ROS: 20:24 Constitutional: Negative for fever, chills, and weight loss, ENT: Negative for injury, kraig pain, and discharge, Neck: Negative for injury, pain, and swelling, Cardiovascular: Negative for chest pain, palpitations, and edema, Respiratory: Negative for shortness of breath, cough, wheezing, and pleuritic chest pain, Abdomen/GI: Negative for abdominal pain, nausea, vomiting, diarrhea, and constipation, Back: Negative for injury and pain, : Negative for injury, bleeding, discharge, and swelling, MS/Extremity: Negative for injury and deformity, Skin: Negative for injury, rash, and discoloration, Neuro: Negative for headache, weakness, numbness, tingling, and seizure. 20:24 Eyes: Positive for matting, pain, redness. Exam: 20:24 Constitutional: This is a well developed, well nourished patient who is awake, alert, kraig and in no acute distress. Head/Face: Normocephalic, atraumatic. ENT: Nares patent. No nasal discharge, no septal abnormalities noted. Tympanic membranes are normal and external auditory canals are clear. Oropharynx with no redness, swelling, or masses, exudates, or evidence of obstruction, uvula midline. Mucous membranes moist. Neck: Trachea midline, no thyromegaly or masses palpated, and no cervical lymphadenopathy. Supple, full range of motion without nuchal rigidity, or vertebral point tenderness. No Meningismus. Chest/axilla: Normal chest wall appearance and motion. Nontender with no deformity. No lesions are appreciated. Cardiovascular: Regular rate and rhythm with a normal S1 and S2. No gallops, murmurs, or rubs. Normal PMI, no JVD. No pulse deficits. Respiratory: Lungs have equal breath sounds bilaterally, clear to auscultation and percussion. No rales, rhonchi or wheezes noted. No increased work of breathing, no retractions or nasal flaring. Abdomen/GI: Soft, non-tender, with normal bowel sounds. No distension or tympany. No guarding or rebound. No evidence of tenderness throughout. Back: No spinal tenderness. No costovertebral tenderness. Full range of motion. Male : Normal genitalia with no discharge or lesions. Skin: Warm, dry with normal turgor. Normal color with no rashes, no lesions, and no evidence of cellulitis. MS/ Extremity: Pulses equal, no cyanosis. Neurovascular intact. Full, normal range of motion. Neuro: Awake and alert, GCS 15, oriented to person, place, time, and situation. Cranial nerves II-XII grossly intact. Motor strength 5/5 in all extremities. Sensory grossly intact. Cerebellar exam normal. Normal gait. Psych: Awake, alert, with orientation to person, place and time. Behavior, mood, and affect are within normal limits. 20:24 Eyes: Periorbital structures: appear normal, no acute changes, Pupils: no acute changes, equal, round, and reactive to light and accomodation, Extraocular movements: intact throughout, Conjunctiva: injected, in the right eye, subconjunctival hemorrhage(s), seen in the right eye, at 3 o'clock. Vital Signs: 18:24 BP 145 / 101; Pulse 95; Resp 18; Temp 98; Pulse Ox 100% ; Weight 86.18 kg; Height 5 ft. ko1 7 in. ; 20:44 BP 136 / 79; Pulse 75; Resp 16; Temp 98; Pulse Ox 100% ; rv 18:24 Body Mass Index 29.76 (86.18 kg, 170.18 cm) ko1 Iona Coma Score: 20:44 Eye Response: spontaneous(4). Motor Response: obeys commands(6). Verbal Response: rv oriented(5). Total: 15. Procedures: 20:29 Reduction:. Performed stain eye , no fb , no ulcer , no abrasion. kraig MDM: 19:40 Patient medically screened. kraig 20:29 Differential diagnosis: Corneal abrasion of Corneal ulcer of Foreign body in right eye. kraig Acute iritis of Acute glaucoma in Chemical conjunctivitis in Allergic conjunctivitis in Infectious conjunctivitis in right eye. Ultraviolet keratitis in right eye. Data reviewed: vital signs, nurses notes. Consideration of Admission/Observation Escalation of care including admission/observation considered. Management of patient was discussed with the following: Histology Supervisor: dr bear. I considered the following discharge prescriptions or medication management in the emergency department Medications were administered in the Emergency Department. See MAR. Test considered but Not performed: Labs: no labs. Care significantly affected by the following chronic conditions: Diabetes. 12/11 19:40 Order name: Eye Tray; Complete Time: 19:44 kraig Administered Medications: 20:15 Drug: Tobrex Ophthalmic Ointment 0.3 % 1 application Route: Ophthalmic; Site: right eye;ph 20:43 Follow up: Response: No adverse reaction rv Disposition Summary: 12/11/22 20:34 Discharge Ordered Location: Home kraig Problem: new kraig Symptoms: have improved kraig Condition: Stable kraig Diagnosis - Other conjunctivitis - subconjunctival hemorrhage kraig - Ocular pain, right eye kraig Followup: kraig - With: Private Physician - When: 2 - 3 days - Reason: Recheck today's complaints, Continuance of care, Re-evaluation by your physician Followup: rkaig - With: Patrick Bear MD - When: 2 - 3 days - Reason: Recheck today's complaints, Continuance of care, Re-evaluation by your physician Discharge Instructions: - Discharge Summary Sheet kraig - Chemical Conjunctivitis, Adult kraig - Bacterial Conjunctivitis, Adult kraig - Subconjunctival Hemorrhage [facility] Forms: - Medication Reconciliation Form kraig - Thank You Letter kraig - Antibiotic Education [facility] - Prescription Opioid Use [facility] - [email or web address] [facility] Prescriptions: - Tobrex - instill 1 inch by OPHTHALMIC route 4 times per day; 3.5 gram; Refills: 0, [facility] Product Selection Permitted - acetaminophen-codeine 300-30 mg Oral tablet - take 2 tablet by ORAL route every 6 hours as needed for pain; 20 tablet; [facility] Refills: 0, Product Selection Permitted Signatures: Hank Bedolla MD MD cha Hall, Patricia RN RN ph Noemi Baca RN RN ko1 Zechariah Bettencourt RN rv Corrections: (The following items were deleted from the chart) 18:30 18:28 Home Meds: atorvastatin Oral; ko1 ko1 18:30 18:28 Home Meds: Glipizide Oral; ko1 ko1 18:30 18:28 PMHx: Hypertensive disorder; ko1 ko1
[2022-12-11 20:48] VITALS: TEMP 98; O2SAT 100
[2022-12-11 20:50] VITALS: BP 136/79
== END 2022-12-11 20:44 | disposition home or self-care (01) ==
LOC: ER 18:02
DX: H11.31 Conjunctival hemorrhage, right eye (principal)
CPT/HCPCS: 99283

== ENCOUNTER 2023-01-22 19:42 | Emergency (ER) | payer SELFPAY ==
--- OUTSIDE RECORDS SUMMARY | 2023-01-22 19:45 | XMS REPORT | Continuity of Care Document ---
:1985 Author Organization [facility] t Address [address] [place] [address] Care Team Providers Name Role Phone Rcahelle Mckinnon MD Attending Clinician Payers Payer Name Policy Type Policy Number Effective Date Expiration Date S [facility] [id number] 2017 00:00:00 Problems This patient has no known problems. Allergies, Adverse Reactions, Alerts Allergy Allergy Status Severity Reaction(s) Onset Inactive Treating Comm ents Source Name Type Date Date Clinician NO KNOWN Drug Active Univers ALLERGIE Class ity of [facility] Social History Social Habit Start Date Stop Date Quantity Comments Source Sex Assigned At Uni versity [facility] Smoking Status Start Date Stop Date Source Unknown if ever smoked [facility] y [facility] Medications Ordered Filled Start Stop Current Ordering Indication Dosage Frequency Signature Comments Components Source Medication Medication Date Date Medication? Clinician (SIG) Name Name tamsulosin Yes .4mg Take 1 Cap U nivers (FLOMAX) 06 by mouth ity of 0.4 mg 24 00:00: at [place] hr capsule 00 bedtime. Medic al Branch [...] Department ID 2022-12-10 2022-12-10 Outpatient [facility] [id number] 08:03:26 08:03:26 [id number] F Corona 2022-11-01 2022-11-01 Outpatient [facility] [id number] 09:16:03 09:16:03 [id number] F Corona 2022-10-12 2022-10-12 Outpatient [facility] [id number] 17:19:32 17:19:32 [id number] F Corona 2022-10-07 2022-10-07 Outpatient [facility] [id number] 13:46:59 13:46:59 [id number] F Corona 2020-07-04 2020-07-04 Emergency [facility] [id number] [facility] 03:13:00 03:14:00 [place] [place] [id number] [id number] [address] 2020-07-04 2020-07-04 Emergency [facility] [id number] 03:13:00 03:14:00 [place]le [place] [id number] [place] [id number] [place] [id number] [facility] 2020-07-04 2020-07-04 Emergency X [facility] ERT [id number] Univers 03:00:00 03:00:00 [facility] Results This patient has no known results.
--- NOTE | 2023-01-22 21:22 | RAD REPORT ---
EXAM DESCRIPTION: US - Scrotum Testicles - 01/22/2023 8:53 pm CLINICAL HISTORY: Testicular swelling COMPARISON: None FINDINGS: Right testicle measures 3 x 2 x 3 centimeters. Echotexture is homogeneous. Normal blood fl ow Left testicle measures 4 x 2 x 3 centimeters. Echotexture is homogeneous. Normal blood flow The epididymides are normal in size and echotexture. Normal blood flow is seen. Within the inferior left scrotum is a palpable hypoechoic area measuring 2.2 centimeters IMPRESSION: 2.2 centimeter hypoechoic structure inferior left scrotum may represent an area of infla mmation. No abscess noted.
[2023-01-22] MEDS ORDERED: HYDROCODONE/APAP 7.5/325 MG TAB ONE (21:44)
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
--- NOTE | 2023-01-22 22:00 | ER ---
Nurse's Notes [facility] Name: Marek Blood Jr Age: 37 yrs Sex: Male : 1985 Arrival Date: 01/22/2023 Time: 19:42 Bed 13 Private MD: Diagnosis: Cutaneous abscess of perineum Presentation: 01/22 19:52 Chief complaint: Patient states: vipul had 2 painful bumps on my groin since . lg3 Coronavirus screen: Client denies travel out of the [place] in the last 14 days. At this time, the client does not indicate any symptoms associated with coronavirus-19. Ebola Screen: No symptoms or risks identified at this time. Initial Sepsis Screen: Does the patient meet any 2 criteria? No. Patient's initial sepsis screen is negative. Does the patient have a suspected source of infection? No. Patient's initial sepsis screen is negative. Risk Assessment: Do you want to hurt yourself or someone else? Patient reports no desire to harm self or others. Onset of symptoms was January 26, 2023. 19:52 Method Of Arrival: Ambulatory lg3 19:52 Acuity: ARDEN 4 lg3 Triage Assessment: 19:53 General: Appears in no apparent distress. uncomfortable, Behavior is calm, cooperative. lg3 Pain: Complains of pain in pelvis. EENT: No deficits noted. No signs and/or symptoms were reported regarding the EENT system. Neuro: No deficits noted. Quezada Agitation-Sedation Scale (RASS): 0 - Alert and Calm Level of Consciousness is awake, alert, obeys commands, Oriented to person, place, time, situation. Cardiovascular: No deficits noted. Denies chest pain, shortness of breath, Capillary refill < 3 seconds Clubbing of nail beds is absent JVD is absent Patient's skin is warm and dry. Respiratory: No deficits noted. Airway is patent Respiratory effort is even, unlabored, Respiratory pattern is regular, symmetrical. GI: No deficits noted. No signs and/or symptoms were reported involving the gastrointestinal system. Abdomen is round non-distended. : No deficits noted. No signs and/or symptoms were reported regarding the genitourinary system. Derm: Abscess located on groin Reports pain that is 7 out of 10 on a pain scale. Musculoskeletal: No deficits noted. No signs and/or symptoms reported regarding the musculoskeletal system. Circulation, motion, and sensation intact. Range of motion: intact in all extremities. Historical: - Allergies: 19:53 No Known Allergies; lg3 - Home Meds: 19:53 Metformin Oral [Active]; gabapentin oral [Active]; lg3 - PMHx: 19:53 Diabetes - NIDDM; lg3 - PSHx: 19:53 L foot SX; lg3 - Immunization history:: Adult Immunizations up to date, Client reports having NOT received the Covid vaccine. - Social history:: Smoking status: Patient denies any tobacco usage or history of. Patient/guardian denies using alcohol, street drugs. Screenin:56 [facility] ED Fall Risk Assessment (Adult) History of falling in the last 3 months, lg3 including since admission No falls in past 3 months (0 pts). Abuse screen: Denies threats or abuse. Denies injuries from another. Nutritional screening: No deficits noted. Tuberculosis screening: No symptoms or risk factors identified. Assessment: 19:56 General: see triage assessment . lg3 21:25 Reassessment: Patient appears in no apparent distress at this time. No changes from lg3 previously documented assessment. Patient and/or family updated on plan of care and expected duration. Pain level reassessed. Patient is alert, oriented x 3, equal unlabored respirations, skin warm/dry/pink. 21:25 Neuro: Reports headache. lg3 22:09 Reassessment: Patient appears in no apparent distress at this time. No changes from lg3 previously documented assessment. Patient and/or family updated on plan of care and expected duration. Pain level reassessed. Patient is alert, oriented x 3, equal unlabored respirations, skin warm/dry/pink. Patient states feeling better. Patient states symptoms have improved. Vital Signs: 19:52 BP 156 / 86; Pulse 108; Resp 17 S; Temp 98.9(O); Pulse Ox 100% on R/A; Weight 87.09 kg lg3 (R); Height 5 ft. 8 in. (R); 21:25 BP 141 / 76; Pulse 109; Resp 16 S; Pulse Ox 98% on R/A; lg3 19:52 Body Mass Index 29.19 (87.09 kg, 172.72 cm) lg3 ED Course: 19:43 Patient arrived in ED. ag3 19:44 Crystal Hua PA-C is PHCP. sb4 19:44 Mack Toth MD is Attending Physician. sb4 19:52 Flora Melendez, RN is Primary Nurse. lg3 19:53 Triage completed. lg3 19:53 Arm band placed on right wrist. lg3 19:56 Patient has correct armband on for positive identification. Placed in gown. Bed in low lg3 position. Call light in reach. Side rails up X 1. Client placed on continuous cardiac and pulse oximetry monitoring. NIBP monitoring applied. Door closed. Noise minimized. Warm blanket given. 19:56 Patient maintains SpO2 saturation greater than 95% on room air. lg3 20:55 US Scrotum Testicles In Process Unspecified. EDMS 21:59 Michael Ibarra MD is Referral Physician. sb4 22:10 Assist provider with I \T\ D: of an abscess on right groin Set up I\T\D tray. Performed by lg 3 Crystal Hua PA-C Dressing with 4X4s, Patient tolerated well. Patient did not have IV access during this emergency room visit. Administered Medications: 21:42 Drug: Hydrocodone-Acetaminophen PO (7.5 mg-325 mg) 1 tabs Route: PO; lg3 22:09 Follow up: Response: No adverse reaction; Marked relief of symptoms; RASS: Alert and lg3 Calm (0) 22:08 Drug: Ondansetron PO 4 mg Route: PO; lg3 22:09 Follow up: Response: No adverse reaction; Marked relief of symptoms lg3 22:08 Drug: Trimethoprim-Sulfamethoxazole PO (160 mg-800 mg (DS) 1 tablet Route: PO; lg3 22:09 Follow up: Response: No adverse reaction lg3 Medication: 22:10 VIS not applicable for this client. lg3 Outcome: 22:00 Discharge ordered by . sb4 22:10 Discharged to home ambulatory. lg3 22:10 Condition: stable 22:10 Discharge instructions given to patient, Instructed on discharge instructions, follow up and referral plans. medication usage, wound care, Demonstrated understanding of instructions, follow-up care, medications, wound care, Prescriptions given X 1. 22:10 Patient left the ED. lg3 Signatures: Dispatcher [employer] EDMD Elise Jimenez 3 Flora Melendez, RN RN lg3 Crystal Hua, CYNTHIA PAIvone sb4 Corrections: (The following items were deleted from the chart) 21:43 21:25 Reassessment: Patient appears in no apparent distress at this time. No changes lg3 from previously documented assessment. Patient and/or family updated on plan of care and expected duration. Pain level reassessed. Patient is alert, oriented x 3, equal unlabored respirations, skin warm/dry/pink. lg3
[2023-01-22] MEDS ORDERED: SMZ./TMP. 800/160 MG TABLET ONE (22:12)
[2023-01-22] MEDS ORDERED: ONDANSETRON 4 MG (ODT) TAB ONE (22:12)
[2023-01-22 22:16] VITALS: TEMP 98.9
[2023-01-22 22:17] VITALS: BP 141/76; O2SAT 98
== END 2023-01-22 22:10 | disposition home or self-care (01) ==
LOC: ER 19:42
PROC: 0H99XZZ Drainage of Perineum Skin, External Approach (ICD-10-PCS; principal; 2023-01-22)
DX: L02.215 Cutaneous abscess of perineum (principal)
CPT/HCPCS: 76870; 99284; Q0162

== ENCOUNTER 2023-05-14 09:06 | Emergency (ER) | payer SELFPAY ==
--- OUTSIDE RECORDS SUMMARY | 2023-05-14 09:13 | XMS REPORT | Continuity of Care Document ---
:1985 Author Organization [facility] t Address [address] [place] [address] Care Team Providers Name Role Phone Rachelle Mckinnon MD Attending Clinician Payers Payer Name Policy Type Policy Number Effective Date Expiration Date S [facility] [id number] 2017 00:00:00 Problems This patient has no known problems. Allergies, Adverse Reactions, Alerts Allergy Allergy Status Severity Reaction(s) Onset Inactive Treating Comm ents Source Name Type Date Date Clinician NO KNOWN Drug Active Univers ALLERGIE Class ity of S [facility] Social History Social Habit Start Date Stop Date Quantity Comments Source Sex Assigned At Uni versity [facility] Smoking Status Start Date Stop Date Source Unknown if ever smoked Universit y [facility] Medications Ordered Filled Start Stop Current Ordering Indication Dosage Frequency Signature Comments Components Source Medication Medication Date Date Medication? Clinician (SIG) Name Name tamsulosin Yes .4mg Take 1 Cap U nivers (FLOMAX) 06 by mouth ity of 0.4 mg 24 00:00: at [place] hr capsule 00 bedtime. Medic al Branch [...] Department ID 2022-12-10 2022-12-10 Outpatient [facility] [id number] [place] 08:03:26 08:03:26 [id number] [place] 2022-11-01 2022-11-01 Outpatient [facility] [id number] [place] 09:16:03 09:16:03 [id number] [address] [place] 2022-10-12 2022-10-12 Outpatient [facility] [id number] [place] 17:19:32 17:19:32 [id number] F [place] 2022-10-07 2022-10-07 Outpatient [facility] [id number] [place] 13:46:59 13:46:59 [id number] F [place] 2020-07-04 2020-07-04 Emergency [facility] [id number] 03:13:00 03:14:00 Rachelle Wade [id number] [place] [id number] [place] [id number] [facility] 2020-07-04 2020-07-04 Emergency [facility] [id number] [facility] 03:13:00 03:14:00 Rachelle Wade [id number] ity [facility] [id number] [facility] [id number] [address] 2020-07-04 2020-07-04 Emergency X [facility] ERT [id number] Univers 03:00:00 03:00:00 ity [facility] Results This patient has no known results.
[2023-05-14] MEDS ORDERED: ONDANSETRON 4 MG/2 ML VIAL ONE (09:36)
[2023-05-14] MEDS ORDERED: MORPHINE 4 MG/ML SYR ONE (09:36)
[2023-05-14] MEDS ORDERED: NA CHLORIDE 0.9% 1,000 ML ONE (09:36)
[2023-05-14 10:02] LABS: Specific Gravity > 1.030 (1.005-1.030); Urine Bacteria <20 /HPF (<20); Urine Bilirubin NEGATIVE (Negative); Urine Blood Negative (Negative); Urine Clarity Clear (Clear); Urine Color Colorless (Yellow); Urine Glucose 4+ (Over) (Negative); Urine Protein NEGATIVE (Negative); Urine Urobilinogen Normal (Normal); Urine pH 6.5 (5.0-7.0)
[2023-05-14 10:26] LABS: Absolute Lymphocytes (CBC) 2.1 K/uL (0.7-4.9); Lymphocytes % 25.7 % (15.3-44.8); MCV 91.3 fL (80-100); MPV 10.9 fL (7.6-11.3); Platelets 172 thou/uL (152-406); RBC Red Blood Cell Count 4.93 M/uL (4.33-5.43)
[2023-05-14 10:57] LABS: Albumin 3.4 g/dL (3.4-5.0); Bilirubin Total 0.6 mg/dL (0.2-1.0); Protein, Total 7.9 g/dL (6.4-8.2)
[2023-05-14 10:59] LABS: Potassium 4.4 mEq/L (3.5-5.1)
[2023-05-14] MEDS ORDERED: INSULIN REGULAR (HUMAN) 100 UNIT/ML ONE (11:24)
--- NOTE | 2023-05-14 11:44 | RAD REPORT ---
EXAM DESCRIPTION: CT - Abdomen Pelvis W Contrast - 05/14/2023 11:15 am CLINICAL HISTORY: Abdominal pain COMPARISON: none. TECHNIQUE: Computed axial tomography of the abdomen pelvis was obtained. 100 cc Isovue-300 was admin istered intravenously. Oral contrast was not requested which limits evaluation of bowel and appendix All CT scans are performed using dose optimization technique as appropriate and may include automated exposure control or mA/KV adjustment according to patient size. FINDINGS: Mild reticular opacities right lower lobe Mild fatty infiltration liver The spleen, pancreas, adrenals and kidneys unremarkable Normal appendix There is no evidence of diverticulitis. IMPRESSION: Mild reticular opacities right lung base may indicate mild pneumonitis Mild fatty infiltration liver
--- NOTE | 2023-05-14 12:44 | ER ---
Nurse's Notes [facility] Name: Marek Blood Jr Age: 37 yrs Sex: Male : 1985 Arrival Date: 05/14/2023 Time: 09:06 Bed 8 Private MD: Diagnosis: Pneumonitis Presentation: 05/14 09:22 Chief complaint: Patient states: RUQ pain since radiates to left side and iw epigastric today. Coronavirus screen: At this time, the client does not indicate any symptoms associated with coronavirus-19. Ebola Screen: Patient negative for fever greater than or equal to 101.5 degrees Fahrenheit, and additional compatible Ebola Virus Disease symptoms Patient denies exposure to infectious person. Patient denies travel to an Ebola-affected area in the 21 days before illness onset. No symptoms or risks identified at this time. Initial Sepsis Screen: Does the patient meet any 2 criteria? No. Patient's initial sepsis screen is negative. Does the patient have a suspected source of infection? No. Patient's initial sepsis screen is negative. Risk Assessment: Do you want to hurt yourself or someone else? Patient reports no desire to harm self or others. Onset of symptoms was May 11, 2023. 09:22 Method Of Arrival: Ambulatory iw 09:22 Acuity: ARDEN 3 iw Historical: - Allergies: :23 No Known Allergies; iw - Home Meds: : gabapentin oral [Active]; mb9 - PMHx: 09:19 Diabetes - NIDDM; mb9 - PSHx: 09:19 L foot SX; mb9 - Immunization history:: Client reports receiving the 2nd dose of the Covid vaccine. - Social history:: Smoking status: Patient denies any tobacco usage or history of. Screenin:19 [facility] ED Fall Risk Assessment (Adult) History of falling in the last 3 months, mb9 including since admission No falls in past 3 months (0 pts) Confusion or Disorientation No (0 pts) Intoxicated or Sedated No (0 pts) Impaired Gait No (0 pts) Mobility Assist Device Used No (0 pt) Altered Elimination No (0 pt) Score/Fall Risk Level 0 - 2 = Low Risk Oriented to surroundings, Maintained a safe environment, Educated pt \T\ family on fall prevention, incl call for assistance when getting out of bed. Abuse screen: Denies threats or abuse. Nutritional screening: No deficits noted. Tuberculosis screening: No symptoms or risk factors identified. Assessment: 09:41 General: Appears in no apparent distress. Behavior is cooperative, anxious. Pain: mb9 Complains of pain in left upper quadrant and left low back Pain radiates to abdomen and right upper quadrant Pain currently is 8 out of 10 on a pain scale. Quality of pain is described as aching, throbbing, Pain began suddenly. Neuro: Quezada Agitation-Sedation Scale (RASS): 0 - Alert and Calm Level of Consciousness is awake, alert, obeys commands, Oriented to person, place, time, situation, Appropriate for age. Cardiovascular: Patient's skin is warm and dry. Respiratory: Airway is patent Respiratory effort is even, unlabored, Respiratory pattern is regular, symmetrical, Breath sounds are clear bilaterally. GI: Abdomen is round non-distended, Bowel sounds present X 4 quads. Abd is soft Abdomen is tender to palpation in left upper quadrant and right upper quadrant. : Urine is clear. EENT: No signs and/or symptoms were reported regarding the EENT system. Derm: Skin is pink, warm \T\ dry. Musculoskeletal: Range of motion: intact in all extremities. 10:57 Reassessment: Patient appears in no apparent distress at this time. No changes from mb9 previously documented assessment. Patient and/or family updated on plan of care and expected duration. Pain level reassessed. 12:32 Reassessment: Patient appears in no apparent distress at this time. No changes from mb9 previously documented assessment. Patient and/or family updated on plan of care and expected duration. Pain level reassessed. Patient is alert, oriented x 3, equal unlabored respirations, skin warm/dry/pink. Vital Signs: 09:22 BP 144 / 102; Pulse 102; Resp 16; Temp 97.9; Pulse Ox 100% on R/A; Weight 86.18 kg; iw Height 5 ft. 8 in. ; Pain 7/10; 10:13 BP 119 / 91; Pulse 86; Resp 18; Pulse Ox 99% on R/A; mb9 11:55 BP 140 / 95; Pulse 78; Resp 17; Pulse Ox 100% on R/A; mb9 12:45 BP 124 / 76; Pulse 74; Resp 16; Pulse Ox 98% on R/A; mb9 09:22 Body Mass Index 28.89 (86.18 kg, 172.72 cm) iw 09:22 Pain Scale: Adult iw ED Course: 09:09 Patient arrived in ED. rg4 09:10 Meryl Weller FNP is [facility]. jh7 09:10 Hank Bedolla MD is Attending Physician. jh7 09:18 Sandra Rod, RN is Primary Nurse. mb9 09:18 Arm band placed on. mb9 09:18 Placed in gown. Bed in low position. Call light in reach. Side rails up X 1. Client mb9 placed on continuous cardiac and pulse oximetry monitoring. NIBP monitoring applied. 09:23 Triage completed. iw 09:35 Missed attempt(s): 22 gauge in right forearm. Bleeding controlled, band aid applied, mb9 catheter tip intact. 09:41 No provider procedures requiring assistance completed. Inserted saline lock: 22 gauge mb9 in right forearm, using aseptic technique. 09:43 CBC with Diff Sent. mb9 09:43 CMP Sent. mb9 09:43 Lipase Sent. mb9 09:43 Urinalysis w/ reflexes Sent. mb9 10:14 IV discontinued, intact, bleeding controlled, No redness/swelling at site. Pressure mb9 dressing applied. 10:15 Lab(s) recollected, by me, sent to lab. aa5 10:15 Inserted saline lock: 22 gauge in right forearm, using aseptic technique. aa5 11:17 CT Abd/Pelvis - IV Contrast Only In Process Unspecified. EDMS 12:00 XRAY Chest (1 view) In Process Unspecified. EDMS Administered Medications: 09:35 Drug: NS 0.9% IV 1000 ml IV at 1 bolus Per protocol; 1000 mL bolus Route: IV; Rate: 1 mb9 bolus; Site: right forearm; 09:35 Drug: Ondansetron IVP 4 mg IVP once; over 2 minutes Route: IVP; Site: right forearm; mb9 10:15 Follow up: Response: No adverse reaction mb9 09:40 Drug: morphine IVP or IV 4 mg IVP once over 4 mins Route: IVP; Infused Over: 4 mins; mb9 Site: right forearm; 10:15 Follow up: Response: No adverse reaction mb9 11:20 Drug: Insulin Regular Human IVP 10 units IVP once {Co-Signature: iw (Josette Sevilla RN).} Route: IVP; Site: right forearm; 12:45 Follow up: Response: No adverse reaction mb9 Medication: 09:43 VIS not applicable for this client. mb9 Outcome: 12:44 Discharge ordered by . jh7 12:54 Discharged to home ambulatory, mb9 12:54 Condition: stable 12:54 Discharge instructions given to patient, Instructed on discharge instructions, follow up and referral plans. Demonstrated understanding of instructions, follow-up care, medications, Prescriptions given X 2, 12:55 Patient left the ED. mb9 Signatures: Dispatcher [employer] EDMS Josette Sevilla, RN RN Alyx Patel RN RN aa5 Antonia Love4 Meryl Weller, RCIS RCIS Sandra Lynch, RN RN [email or web address] Josette Sevilla RN Corrections: (The following items were deleted from the chart) 09:23 09:19 Home Meds: Metformin Oral; mb9 iw
--- NOTE | 2023-05-14 12:44 | EDPHYS ---
Physician Documentation [facility] Name: Marek Blood Jr Age: 37 yrs Sex: Male : 1985 Arrival Date: 05/14/2023 Time: 09:06 Bed 8 Private MD: ED Physician Hank Bedolla HPI: 05/14 09:15 This 37 yrs old Male presents to ER via Unassigned with complaints of jh7 Abdominal Pain, Flank Pain. 09:15 The patient presents with abdominal pain in the epigastric area, in the upper abdomen. jh7 Onset: The symptoms/episode began/occurred 3 day(s) ago. The symptoms radiate to the left flank. Associated signs and symptoms: Pertinent negatives: chest pain, dysuria, fever, nausea, vomiting. The symptoms are described as sharp, shooting. Historical: - Allergies: :23 No Known Allergies; iw - Home Meds: 09:19 gabapentin oral [Active]; mb9 - PMHx: 09:19 Diabetes - NIDDM; mb9 - PSHx: 09:19 L foot SX; mb9 - Immunization history:: Client reports receiving the 2nd dose of the Covid vaccine. - Social history:: Smoking status: Patient denies any tobacco usage or history of. ROS: 09:15 Constitutional: Negative for fever, chills, and weight loss, Eyes: Negative for injury, jh7 pain, redness, and discharge, ENT: Negative for injury, pain, and discharge, Neck: Negative for injury, pain, and swelling, Cardiovascular: Negative for chest pain, palpitations, and edema, Respiratory: Negative for shortness of breath, cough, wheezing, and pleuritic chest pain, Back: Negative for injury and pain, MS/Extremity: Negative for injury and deformity, Skin: Negative for injury, rash, and discoloration, Neuro: Negative for headache, weakness, numbness, tingling, and seizure, 09:15 Abdomen/GI: Positive for abdominal pain, Negative for nausea, vomiting, and diarrhea, constipation, 09:15 : Positive for flank pain, 09:15 All other systems are negative, Exam: 09:15 Constitutional: This is a well developed, well nourished patient who is awake, alert, jh7 and in no acute distress. Head/Face: Normocephalic, atraumatic. Neck: Trachea midline, no thyromegaly or masses palpated, and no cervical lymphadenopathy. Supple, full range of motion without nuchal rigidity, or vertebral point tenderness. No Meningismus. Cardiovascular: Regular rate and rhythm with a normal S1 and S2. No gallops, murmurs, or rubs. Normal PMI, no JVD. No pulse deficits. Respiratory: Lungs have equal breath sounds bilaterally, clear to auscultation and percussion. No rales, rhonchi or wheezes noted. No increased work of breathing, no retractions or nasal flaring. Skin: Warm, dry with normal turgor. Normal color with no rashes, no lesions, and no evidence of cellulitis. MS/ Extremity: Pulses equal, no cyanosis. Neurovascular intact. Full, normal range of motion. Neuro: Awake and alert, GCS 15, oriented to person, place, time, and situation. Motor strength 5/5 in all extremities. Sensory grossly intact. Normal gait. 09:15 Abdomen/GI: Inspection: abdomen appears normal, Bowel sounds: normal, Palpation: soft, mild abdominal tenderness, in the right upper quadrant and left upper quadrant, 09:15 Back: pain, that is moderate, of the left low back, CVA tenderness, that is moderate, is noted on the left, 09:15 : CVA tenderness, on the left, Vital Signs: 09:22 BP 144 / 102; Pulse 102; Resp 16; Temp 97.9; Pulse Ox 100% on R/A; Weight 86.18 kg; iw Height 5 ft. 8 in. ; Pain 7/10; 10:13 BP 119 / 91; Pulse 86; Resp 18; Pulse Ox 99% on R/A; mb9 11:55 BP 140 / 95; Pulse 78; Resp 17; Pulse Ox 100% on R/A; mb9 12:45 BP 124 / 76; Pulse 74; Resp 16; Pulse Ox 98% on R/A; mb9 09:22 Body Mass Index 28.89 (86.18 kg, 172.72 cm) iw 09:22 Pain Scale: Adult iw MDM: 09:10 Patient medically screened. [facility] 12:45 Differential diagnosis: cholecystitis, Cholelithiasis, diverticulitis, pancreatitis, 7 Pyelonephritis, Ureterolithiasis, urinary tract infection, pneumonia. Data reviewed: vital signs, nurses notes, lab test result(s), radiologic studies, CT scan, plain films. I considered the following discharge prescriptions or medication management in the emergency department Medications were administered in the Emergency Department. See MAR. Care significantly affected by the following chronic conditions: Diabetes. Counseling: I had a detailed discussion with the patient and/or guardian regarding the historical points, exam findings, and any diagnostic results supporting the discharge/admit diagnosis, to return to the emergency department if symptoms worsen or persist or if there are any questions or concerns that arise at home. Response to treatment: the patient's symptoms have mildly improved after treatment. Special discussion: Inform the patient that this was likely viral, but will give antibiotics if symptoms worsen. PCP follow-up advised.. 05/14 09:20 Order name: CBC with Diff; Complete Time: 10:39 [facility] 05/14 09:20 Order name: CMP; Complete Time: 11:00 [facility] 05/14 09:20 Order name: Lipase; Complete Time: 11:00 [facility] 05/14 09:20 Order name: Urinalysis w/ reflexes; Complete Time: 10:26 [facility] 05/14 12:42 Order name: Glucose, Ancillary Testing; Complete Time: 12:43 [facility] 05/14 09:20 Order name: CT Abd/Pelvis - IV Contrast Only; Complete Time: 11:47 [facility] 05/14 11:50 Order name: XRAY Chest (1 view); Complete Time: 13:23 [facility] 05/14 09:21 Order name: IV Saline Lock; Complete Time: 09:40 [facility] 05/14 09:21 Order name: Labs collected and sent; Complete Time: 09:40 [facility] 05/14 09:57 Order name: Labs - recollect needed: recollect blood/ lipemic and hemolyzed per davide Ramirez; Complete Time: 10:22 Administered Medications: 09:35 Drug: NS 0.9% IV 1000 ml IV at 1 bolus Per protocol; 1000 mL bolus Route: IV; Rate: 1 mb9 bolus; Site: right forearm; 09:35 Drug: Ondansetron IVP 4 mg IVP once; over 2 minutes Route: IVP; Site: right forearm; mb9 10:15 Follow up: Response: No adverse reaction 9 09:40 Drug: morphine IVP or IV 4 mg IVP once over 4 mins Route: IVP; Infused Over: 4 mins; mb9 Site: right forearm; 10:15 Follow up: Response: No adverse reaction mb9 11:20 Drug: Insulin Regular Human IVP 10 units IVP once {Co-Signature: joan (Josette Sevilla RN).} Route: IVP; Site: right forearm; 12:45 Follow up: Response: No adverse reaction mb9 Disposition Summary: 05/14/23 12:44 Discharge Ordered Notes: Location: Home [facility] Problem: new [facility] Symptoms: have improved [facility] Condition: Stable [facility] Diagnosis - Pneumonitis [facility] Followup: [facility] - With: Private Physician - When: 2 - 3 days - Reason: Recheck today's complaints Discharge Instructions: - Discharge Summary Sheet [facility] - Pneumonitis [facility] Forms: - Work release form iw - Medication Reconciliation Form [facility] - Thank You Letter [facility] - Antibiotic Education [facility] - Prescription Opioid Use [facility] - Patient Portal Instructions [facility] - Leadership Thank You Letter [facility] Prescriptions: - azithromycin 250 mg Oral tablet - take 1 dose pack ORAL route as directed on dose pack for 5 days For 250 mg dose [facility] pack: take 500 mg today (day 1), then 250 mg for 4 days (days 2-5); 6 tablet; Refills: 0, Product Selection Permitted - Tessalon Perles 100 mg Oral Capsule - take 1 capsule ORAL route every 8 hours As needed; 15 capsule; Refills: 0, [facility] Product Selection Permitted Signatures: Dispatcher [employer] Josette Martínez, SCOTT CHAVEZ iw Rachel Reynolds Jennifer, CELLULOID TRIMMER CELLULOID TRIMMER [facility] Sandra Rod RN RN mb9 Williams, Irene RN iw Corrections: (The following items were deleted from the chart) 09:19 Home Meds: Metformin Oral; queta franco
--- NOTE | 2023-05-14 12:52 | RAD REPORT ---
EXAM DESCRIPTION: Sofia Single View05/14/2023 11:58 am CLINICAL HISTORY: Cough COMPARISON: 2020 FINDINGS: The lungs appear clear of acute infiltrate. The heart is normal size IMPRESSION: No acute abnormalities displayed
[2023-05-14 13:03] VITALS: TEMP 97.9
[2023-05-14 13:08] VITALS: BP 124/76; O2SAT 98
== END 2023-05-14 12:55 | disposition home or self-care (01) ==
LOC: ER 09:06
DX: J98.4 Other disorders of lung (principal)
CPT/HCPCS: 36415; 71045; 74177; 80053; 81001; 82947; 83690; 85025; 96374; 96375; 99284; J1815; J2405; J7030; Q9967